=== PATIENT | female | born 1965 | race Two or more races ===

== ENCOUNTER 2020-05-11 10:17 | Outpatient (REF) | payer MEDICAID, SELFPAY | END 2020-05-11 10:18 | disposition home or self-care (01) | LOC: HO.LAB 10:17 | PROVIDERS: PCP Family Medicine; Visit Provider Internal Medicine | DX: Z20.828 Contact with and (suspected) exposure to other viral communicable diseases (principal) | CPT/HCPCS: C9803; U0003 ==

== ENCOUNTER → 2020-09-08 09:50 | Outpatient (BNVA) | payer MEDICAID, SELFPAY | PROVIDERS: PCP Family Medicine; Visit Provider Physician Assistant ==

== ENCOUNTER → 2020-09-13 08:10 | Outpatient (BNVA) | payer MEDICAID, SELFPAY | PROVIDERS: PCP Family Medicine; Visit Provider Physician Assistant ==

== ENCOUNTER 2020-09-15 08:19 | Outpatient (REF) | payer MEDICAID, SELFPAY ==
--- NOTE | ~2020-09-15 | MM_ITS ---
EXAMINATION: MM SCREENING DIGITAL BREAST TOMOSYNTHESIS, BILATERAL CLINICAL INFORMATION: Screening. Asymptomatic. Prior bilateral reduction mammoplasty 2009. The lifetime risk of breast cancer based on the Tyrer-Cuzick Model is 14%. COMPARISON: Mammography: 05/14/2019, 05/02/2018, 04/04/2017, 02/03/2016 TECHNIQUE: Digital breast tomosynthesis is performed in both the craniocaudal and mediolateral oblique views along with computer-aided detection (CAD). Synthesized 2D images are generated from the tomosynthesis. FINDINGS: There are scattered areas of fibroglandular density (ACR BI-RADS breast composition Category b). There are no significant masses, abnormal calcifications, or other abnormalities. Parenchymal pattern is similar to prior studies. No developing density. The skin contours are smooth. MM/MM tomosynthesis screening BI IMPRESSION: No mammographic evidence of malignancy. ASSESSMENT: BI-RADS 1: Negative RECOMMENDATION: Routine annual mammography screening. This patient's information was entered into a reminder system with a target due date for their next mammogram.
== END 2020-09-15 08:20 | disposition home or self-care (01) ==
LOC: HO.MAMMO 08:19
PROVIDERS: PCP Family Medicine; Visit Provider Family Medicine
DX: Z12.31 Encounter for screening mammogram for malignant neoplasm of breast (principal)
CPT/HCPCS: 77063; 77067

== ENCOUNTER 2020-09-26 11:59 | Outpatient (REF) | payer MEDICAID, SELFPAY ==
[2020-09-26 12:30] LABS: COVID-19 Test Negative (Negative); IDNOW Serial# 55D5AD1C
== END 2020-09-26 12:00 | disposition home or self-care (01) ==
LOC: HO.LAB 11:59
PROVIDERS: Visit Provider Internal Medicine
DX: Z20.822 Contact with and (suspected) exposure to COVID-19 (principal)
CPT/HCPCS: 36415; 87635; C9803

== ENCOUNTER 2021-10-27 06:56 | Outpatient (REF) | payer MEDICAID, SELFPAY ==
--- NOTE | ~2021-10-27 | XR_ITS ---
EXAMINATION: XR BILATERAL HIPS CLINICAL INFORMATION: Bilateral hip pain COMPARISON: Radiographs left hip 02/01/2012. TECHNIQUE: Each hip is imaged in AP and frog-lateral projections. There are total of 4 views. FINDINGS: Normal bony mineralization. No fracture, dislocation, or destructive process. No hip joint narrowing or erosive change or chondrocalcinosis. Pubis are unremarkable. Lower SI joints unremarkable. XR/XR hips LILLIAN min 3V IMPRESSION: No hip joint narrowing or erosive change.
--- NOTE | ~2021-10-27 | XR_ITS ---
EXAMINATION: XR THORACOLUMBAR SPINE CLINICAL INFORMATION: Thoracic pain COMPARISON: Chest radiographs 12/25/2017, GI series 12/25/2017 TECHNIQUE: Thoracic spine is imaged in 3 views. FINDINGS: There is normal thoracic segmentation with 12 rib-bearing thoracic vertebrae of normal height and normal thoracic kyphosis. There are mild degenerative disc changes again noted lower thoracic spine with anterior bridging osteophyte T8-T9. There are no erosive changes. No vertebral compression, spondylolisthesis, destructive process, or paraspinal soft tissue swelling. There are surgical clips epigastrium consistent with prior gastric sleeve. Bowel gas unremarkable. XR/XR thoracic spine 2V IMPRESSION: -No vertebral compression, spondylolisthesis, destructive process. -Mild degenerative disc changes lower thoracic spine.
== END 2021-10-27 06:57 | disposition home or self-care (01) ==
LOC: HO.XRAY 06:56
PROVIDERS: PCP Family Medicine; Visit Provider Family Medicine
DX: M25.551 Pain in right hip (principal); M25.552 Pain in left hip; M54.6 Pain in thoracic spine
CPT/HCPCS: 72070; 73522

== ENCOUNTER 2022-08-09 14:08 | Outpatient (REF) | payer MEDICAID, SELFPAY ==
--- NOTE | ~2022-08-09 | MM_ITS ---
EXAMINATION: MM SCREENING DIGITAL BREAST TOMOSYNTHESIS, BILATERAL CLINICAL INFORMATION: Screening. Asymptomatic. Status post reduction mammoplasty. The lifetime risk of breast cancer based on the Tyrer-Cuzick Model is 16.6%. COMPARISON: Mammography: September 15, 2020 and studies dating back to February 03, 2016 TECHNIQUE: Digital breast tomosynthesis is performed in both the craniocaudal and mediolateral oblique views along with computer-aided detection (CAD). Synthesized 2D images are generated from the tomosynthesis. FINDINGS: There are scattered areas of fibroglandular density (ACR BI-RADS breast composition Category b). There are no new significant masses, abnormal calcifications, or other abnormalities. MM/MM tomosynthesis screening BI IMPRESSION: No significant changes from prior exam. ASSESSMENT: BI-RADS 1: Negative RECOMMENDATION: Routine annual mammography screening. This patient's information was entered into a reminder system with a target due date for their next mammogram.
== END 2022-08-09 14:09 | disposition home or self-care (01) ==
LOC: HO.MAMMO 14:08
PROVIDERS: PCP Family Medicine; Visit Provider Family Medicine
DX: Z12.31 Encounter for screening mammogram for malignant neoplasm of breast (principal)
CPT/HCPCS: 77063; 77067

== ENCOUNTER → 2022-08-10 08:40 | Outpatient (REF) | payer MEDICAID, SELFPAY ==
--- NOTE | 2022-08-10 08:52 | ECG_ITS ---
Test Reason : qtc Blood Pressure : / mmHG Vent. Rate : 072 BPM Atrial Rate : 072 BPM P-R Int : 134 ms QRS Dur : 074 ms QT Int : 386 ms P-R-T Axes : 046 020 032 degrees QTc Int : 422 ms Normal sinus rhythm Normal ECG When compared with ECG of 25-DEC-2007 06:45, No significant change was found Referred By: Vasyl Kemp Electronically Signed By:SONIA HAUSER MD
== END ==
LOC: HO.CARD 08:40
PROVIDERS: PCP Family Medicine; Visit Provider Psychiatry & Neurology Child & Adolescent Psychiatry
DX: I45.81 Long QT syndrome (principal)
CPT/HCPCS: 93005

== ENCOUNTER 2022-09-06 10:38 | Outpatient (REF) | payer MEDICAID, SELFPAY ==
--- NOTE | ~2022-09-06 | XR_ITS ---
EXAMINATION: XR FOOT, RIGHT CLINICAL INFORMATION: Right heel pain. COMPARISON: None available. TECHNIQUE: AP, lateral, and oblique views of the right foot. FINDINGS: There is no evidence of acute fracture or dislocation of the right foot. Right foot joint spaces are maintained. There is a plantar calcaneal spur present. XR/XR foot RT min 3V IMPRESSION: Plantar calcaneal spur.
== END 2022-09-06 10:39 | disposition home or self-care (01) ==
LOC: HO.XRAY 10:38
PROVIDERS: PCP Family Medicine; Visit Provider Family Medicine
DX: M79.671 Pain in right foot (principal)
CPT/HCPCS: 73630

== ENCOUNTER 2023-06-25 10:01 | Outpatient (REF) | payer MEDICAID, SELFPAY ==
[2023-06-25 12:03] LABS: Estimated Average Glucose 105 mg/dL; Hemoglobin A1c % 5.3 % (<6.0)
[2023-06-25 12:26] LABS: Alanine Aminotransferase 25 U/L (0-31); Albumin Level 4.1 g/dL (3.5-5.0); Alkaline Phosphatase 156 U/L (39-117); Anion Gap 12 (12-20); Aspartate Amino Transferase 23 U/L (5-31); Bilirubin Total 0.6 mg/dL (0.0-1.0); Blood Urea Nitrogen 15 mg/dL (9-16); Calcium 10.1 mg/dL (8.4-10.2); Carbon Dioxide 31 mmol/L (22-29); Chloride 104 mmol/L (96-108); Cholesterol 282 mg/dL (<200); Estimated Glomerular Filt Rate > 60; Glucose Random 79 mg/dL (60-115); HDL Cholesterol 51 mg/dL (>40); LDL Cholesterol Calculated 203 mg/dL (<100); Potassium 4.3 mmol/L (3.3-5.1); Sodium 143 mmol/L (135-145); Total Protein 7.8 g/dL (6.5-8.0); Triglycerides 140 mg/dL (<150)
[2023-06-25 13:18] LABS: Vitamin D 25-OH Total 24.2 ng/mL (>30)
[2023-06-25 13:27] LABS: Reflex LDLD? No
== END 2023-06-25 10:02 | disposition home or self-care (01) ==
LOC: HO.HHCL 10:01
PROVIDERS: Visit Provider Family Medicine
DX: E78.5 Hyperlipidemia, unspecified (principal); E55.9 Vitamin D deficiency, unspecified; R73.01 Impaired fasting glucose
CPT/HCPCS: 36415; 80053; 80061; 82306; 83036

== ENCOUNTER 2023-08-15 13:15 | Outpatient (REF) | payer MEDICAID, SELFPAY ==
--- NOTE | ~2023-08-15 | MM_ITS ---
EXAMINATION: MM SCREENING DIGITAL BREAST TOMOSYNTHESIS, BILATERAL CLINICAL INFORMATION: Screening. Asymptomatic. The patient is status post bilateral breast reduction. COMPARISON: Mammography: This study is compared with prior exams dating back to 2017. TECHNIQUE: Digital breast tomosynthesis is performed in both the craniocaudal and mediolateral oblique views along with computer-aided detection (CAD). Synthesized 2D images are generated from the tomosynthesis. FINDINGS: There are scattered areas of fibroglandular density (ACR BI-RADS breast composition Category b). There are no significant masses, abnormal calcifications, or other abnormalities. MM/MM tomosynthesis screening BI IMPRESSION: No mammographic evidence of malignancy. ASSESSMENT: BI-RADS BI-RADS 2 - Benign Findings RECOMMENDATION: Routine annual mammography screening. 1 year F/U This examination should not preclude the clinical evaluation of a suspicious palpable abnormality. This patient's information was entered into a reminder system with a target due date for their next mammogram.
== END 2023-08-15 13:16 | disposition home or self-care (01) ==
LOC: HO.MAMMO 13:15
PROVIDERS: PCP Family Medicine; Visit Provider Family Medicine
DX: Z12.31 Encounter for screening mammogram for malignant neoplasm of breast (principal)
CPT/HCPCS: 77063; 77067

== ENCOUNTER → 2023-08-15 14:15 | Outpatient (BNV) | payer MEDICAID, SELFPAY | PROVIDERS: PCP Family Medicine; Visit Provider Radiology Diagnostic Radiology | DX: Z12.31 Encounter for screening mammogram for malignant neoplasm of breast (principal) | CPT/HCPCS: 77063; 77067 ==

== ENCOUNTER 2024-03-02 10:40 | Outpatient (REF) | payer MEDICAID, SELFPAY ==
[2024-03-02 11:26] LABS: MANUAL DIFF FLAG NO
[2024-03-02 11:29] LABS: Basophils Absolute Auto 0.1 X10*3/uL (0.0-0.2); Basophils Percent Auto 0.6 % (0-2); Eosinophils Absolute Auto 0.1 X10*3/uL (0.0-0.4); Eosinophils Percent Auto 1.5 % (0-4); Hematocrit 42.7 % (37.0-47.0); Hemoglobin 13.5 g/dl (12.0-16.0); Imm Gran Abs Auto 0.05 X10*3/uL (0.00-0.03); Imm Gran Pct Auto 0.6 % (0.0-0.4); Lymphocytes Absolute Auto 2.6 X10*3/uL (1.2-4.9); Lymphocytes Percent Auto 30.6 % (20-40); Mean Corpuscular HGB Conc 31.6 g/dl (31.0-35.0); Mean Corpuscular Hemoglobin 26.6 pg (27.0-33.0); Mean Corpuscular Volume 84.1 fL (80.0-98.0); Mean Platelet Volume 11.2 fL (9.4-12.3); Monocytes Absolute Auto 0.9 X10*3/uL (0.1-1.2); Monocytes Percent Auto 10.4 % (2-11); Neutrophils Absolute Auto 4.7 x10*3/uL (2.0-8.3); Neutrophils Percent Auto 56.3 % (45-73); Platelet Count 295 X10*3/uL (160-400); Red Blood Count 5.08 X10*6/uL (4.20-5.50); Red Cell Distribution Width 14.9 % (11.0-16.0); White Blood Count 8.4 X10*3/uL (4.8-10.8)
[2024-03-02 11:45] LABS: Estimated Average Glucose 105 mg/dL; Hemoglobin A1C 117.4726 umol/L; Hemoglobin A1c % 5.3 % (<6.0)
[2024-03-02 12:20] LABS: Alanine Aminotransferase 16 U/L (0-31); Alkaline Phosphatase 129 U/L (39-117); Anion Gap 11 (12-20); Aspartate Amino Transferase 19 U/L (5-31); Bilirubin Total 0.8 mg/dL (0.0-1.0); Blood Urea Nitrogen 11 mg/dL (9-16); Calcium 9.9 mg/dL (8.4-10.2); Carbon Dioxide 28 mmol/L (22-29); Chloride 109 mmol/L (96-108); Cholesterol 253 mg/dL (<200); Estimated Glomerular Filt Rate > 60; Glucose Random 84 mg/dL (60-115); HDL Cholesterol 50 mg/dL (>40); LDL Cholesterol Calculated 168 mg/dL (<100); Potassium 4.2 mmol/L (3.3-5.1); Sodium 144 mmol/L (135-145); Total Protein 7.2 g/dL (6.5-8.0); Triglycerides 179 mg/dL (<150)
[2024-03-02 12:23] LABS: Syphilis Screen Nonreactive (Nonreactive)
[2024-03-02 12:25] LABS: TSH reflex Free T4 1.06 uIU/mL (0.32-4.0)
[2024-03-02 12:36] LABS: Folate 10.1 ng/mL (> or = 4.0); Vitamin B12 435 pg/mL (200-900)
[2024-03-02 12:44] LABS: Reflex LDLD? No
== END 2024-03-02 10:41 | disposition home or self-care (01) ==
LOC: HO.HHCL 10:40
PROVIDERS: Visit Provider Family Medicine
DX: E78.5 Hyperlipidemia, unspecified (principal); E66.09 Other obesity due to excess calories; Z68.37 Body mass index [BMI] 37.0-37.9, adult; R73.01 Impaired fasting glucose; R20.2 Paresthesia of skin; R42 Dizziness and giddiness
CPT/HCPCS: 36415; 80053; 80061; 82607; 82746; 83036; 84443; 85025; 86780

== ENCOUNTER 2024-03-02 12:00 | Outpatient (RCR) | payer MEDICAID, SELFPAY | END 2024-03-17 09:55 | disposition home or self-care (01) | LOC: HO.PT 12:00 | PROVIDERS: PCP Family Medicine; Visit Provider Physician Assistant Surgical | DX: M70.61 Trochanteric bursitis, right hip (principal); M70.62 Trochanteric bursitis, left hip | CPT/HCPCS: 97110; 97161; 97530 ==

== ENCOUNTER 2024-03-17 14:28 | Outpatient (REF) | payer MEDICAID, SELFPAY ==
--- NOTE | ~2024-03-17 | US_ITS ---
EXAMINATION: ULTRASOUND SOFT TISSUES LEFT THIGH CLINICAL INFORMATION: Palpable lump in the mid anterior left thigh. COMPARISON: None available. TECHNIQUE: Using a linear array transducer with grayscale and color modalities, ultrasound examination is performed of the anterior left thigh soft tissues. FINDINGS: Corresponding with the palpable finding in the anterior mid left thigh, a 3.6 x 1.3 x 2.5 cm heterogeneously hypoechoic, circumscribed mass is seen. This shows mild associated color Doppler flow and no change in through-sound transmission. No fluid collection is seen. There is no lymphadenopathy. No foreign body is seen. US/US extremity nonvascular IMPRESSION: Within the anterior mid left thigh subcutaneous layer, corresponding with the palpable finding, a 3.6 cm circumscribed, heterogeneously hypoechoic mass is seen. The possibility of a lipoma is raised; the exact etiology is indeterminate. If of continued clinical concern, this can be further evaluated with MRI. Electronically signed by: Eduardo Mello MD 04/22/2024 11:08 AM [facility]
== END 2024-03-17 14:29 | disposition home or self-care (01) ==
LOC: HO.US 14:28
PROVIDERS: PCP Family Medicine; Visit Provider Family Medicine
DX: R22.42 Localized swelling, mass and lump, left lower limb (principal)
CPT/HCPCS: 76882

== ENCOUNTER → 2024-04-06 08:25 | Outpatient (BNV) | payer MEDICAID, SELFPAY | PROVIDERS: PCP Family Medicine; Visit Provider Radiology Diagnostic Radiology | DX: R42 Dizziness and giddiness (principal) | CPT/HCPCS: 70553 ==

== ENCOUNTER 2024-04-06 08:28 | Outpatient (REF) | payer MEDICAID, SELFPAY ==
--- NOTE | ~2024-04-06 | MR_ITS ---
EXAMINATION: MR BRAIN WITHOUT AND WITH CONTRAST CLINICAL INFORMATION: Dizziness. Off balance COMPARISON: MRI brain dated December 25, 2007 is not available on PACS. Collated with its report. TECHNIQUE: Multiplanar, multisequence MRI of the brain was obtained before and after the intravenous administration of 8.5 mL gadolinium (Gadavist) without reported immediate complications. FINDINGS: No restricted diffusion. There is an extra-axial intrinsic hyperintense T1 slightly enhancing nonrestricted and susceptibility signal center and the inner table and deep-lying of the right frontal bone convexity without mass effect or perilesional vasogenic edema. Multifocal, nonspecific, scattered, nonenhancing no restricted diffusion deep periventricular white matter hyperintense T1 and T2 signal, supratentorial compartment of the centrum semiovale and monson radiata. No acute intracranial hemorrhage, mass effect, midline shift, hydrocephalus or herniation. Grade 1 matter differentiation is normal. Posterior cranial fossa contents demonstrated no acute intracranial hemorrhage or mass effect. Sellar/suprasellar region is normal. Craniocervical junction is intact and normal. 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 No specific T2 FLAIR signal foci. No acute stroke/nonhemorrhagic ischemia. Electronically signed by: Juliano Urbina MD 04/06/2024 03:26 PM EDT
[2024-04-06] MEDS: gadobutroL 10 ML VIAL IVPUSH (09:25)
== END 2024-04-06 08:29 | disposition home or self-care (01) ==
LOC: HO.MRI 08:28
PROVIDERS: PCP Family Medicine; Visit Provider Family Medicine
DX: R20.2 Paresthesia of skin (principal); R51.9 Headache, unspecified; R32 Unspecified urinary incontinence; R42 Dizziness and giddiness
CPT/HCPCS: 70553; A9585

== ENCOUNTER → 2024-04-12 19:30 | Outpatient (REF) | payer MEDICAID, SELFPAY | LOC: HO.SL 19:30 | PROVIDERS: PCP Family Medicine; Visit Provider Family Medicine | DX: Z13.89 Encounter for screening for other disorder (principal) ==

== ENCOUNTER 2024-06-18 11:40 | Emergency (ER) | payer MEDICAID, SELFPAY ==
--- NOTE | ~2024-06-18 | XR_ITS ---
EXAMINATION: XR CHEST CLINICAL INFORMATION: cp COMPARISON: None available. TECHNIQUE: 2 views of the chest were obtained. FINDINGS: The cardiac, hilar, and mediastinal contours are normal. The lungs are clear bilaterally. There is no pneumothorax or pleural effusion. There are numerous epigastric surgical clips present. Osseous structures demonstrate mild spinal degenerative changes. XR/XR chest 2V IMPRESSION: No active pulmonary disease. Electronically signed by: Fermin Carter MD 06/18/2024 01:05 PM MIMI
[2024-06-18 11:58] VITALS: BP 123/73; PULSE 68; O2SAT 99
[2024-06-18 12:20] VITALS: BP 132/66; PULSE 62; RESP 18; TEMP 36.4; O2SAT 99; BMI 34.6
--- NOTE | 2024-06-18 12:24 | ECG_ITS ---
Test Reason : CP Blood Pressure : */* mmHG Vent. Rate : 60 BPM Atrial Rate : 60 BPM P-R Int : 122 ms QRS Dur : 76 ms QT Int : 384 ms P-R-T Axes : 15 -16 7 degrees QTcB Int : 384 ms Normal sinus rhythm Minimal voltage criteria for LVH, may be normal variant ( R in aVL ) Borderline ECG When compared with ECG of 10-Aug-2022 09:00, Inverted T waves have replaced nonspecific T wave abnormality in Inferior leads Referred By: Lore Jackson Electronically Signed By: JENNIFER EVANGELISTA
[2024-06-18 13:11] LABS: MANUAL DIFF FLAG NO
[2024-06-18 13:12] LABS: Basophils Absolute Auto 0.1 X10*3/uL (0.0-0.2); Basophils Percent Auto 0.3 % (0-2); Eosinophils Absolute Auto 0.1 X10*3/uL (0.0-0.4); Eosinophils Percent Auto 0.5 % (0-4); Hematocrit 43.8 % (37.0-47.0); Hemoglobin 14.2 g/dl (12.0-16.0); Imm Gran Abs Auto 0.09 X10*3/uL (0.00-0.03); Imm Gran Pct Auto 0.6 % (0.0-0.4); Lymphocytes Absolute Auto 3.5 X10*3/uL (1.2-4.9); Lymphocytes Percent Auto 22.9 % (20-40); Mean Corpuscular HGB Conc 32.4 g/dl (31.0-35.0); Mean Corpuscular Hemoglobin 26.9 pg (27.0-33.0); Mean Corpuscular Volume 83.1 fL (80.0-98.0); Mean Platelet Volume 10.3 fL (9.4-12.3); Monocytes Absolute Auto 1.1 X10*3/uL (0.1-1.2); Monocytes Percent Auto 7.2 % (2-11); Neutrophils Absolute Auto 10.5 x10*3/uL (2.0-8.3); Neutrophils Percent Auto 68.5 % (45-73); Platelet Count 379 X10*3/uL (160-400); Red Blood Count 5.27 X10*6/uL (4.20-5.50); Red Cell Distribution Width 14.2 % (11.0-16.0); White Blood Count 15.3 X10*3/uL (4.8-10.8)
--- NOTE | 2024-06-18 13:19 | ED.CHESTPAIN ---
HPI - Chest Pain General Chief Complaint: Chest Pain Stated Complaint: CP,FROM WALKIN PER EMS Time Seen by Provider: 06/18/24 12:00 Source: patient, RN notes reviewed and old records reviewed Mode of arrival: ambulatory History of Present Illness ED Provider: Lore Jackson PA-C [facility] narrative: 59-year-old female with a past medical history of asthma presenting to the ED from walk-in clinic complaining of sudden onset midsternal chest pain with some radiation to back. Patient states was given [employer] with symptomatic improvement. Denies chest pain at present. Denies associated SOB, numbness, tingling, weakness, nausea, vomiting, abdominal pain Related Data Previous Rx's ?Medication ?Instructions ?Recorded pantoprazole 40 mg tablet,delayed 40 mg PO DAILY #14 tabs 07/07/20 release Allergies Allergy/AdvReac Type Severity Reaction Status Date / Time No Known Allergies Allergy Unverified 06/18/24 12:21 [No Known Allergies*] Review of Systems Review of Systems: Yes all other systems are reviewed and are negative Constitutional: Constitutional: Reports as per [facility] Past Medical History Attestation statement: The following information was validated with the patient. Source: old records reviewed Social History Social History Advance Directives: No Advance Directives Information Provided: Yes Physical Exam Vital Signs: Vital Signs: Last Vital Signs Temp 98.7 F 06/18/24 15:29 Pulse 61 06/18/24 15:29 Resp 16 06/18/24 15:29 BP 115/60 06/18/24 15:29 Pulse Ox 96 06/18/24 15:29 O2 Del Method Room Air 06/18/24 15:29 BMI result Body Mass Index 34.6 Const: General: cooperative, healthy appearing and no acute distress Orientation/consciousness: patient oriented x3 Limitations: no limitations HEENT: Head: Yes normal to inspection and Yes atraumatic Ears: hearing grossly normal bilaterally General nose exam: Normal external nose present Face and sinus: Yes normal facial exam Eyes: General: appearance normal, both eyes and all related structures EOM: EOMs intact bilaterally Neck: Neck: Yes normal visual inspection and Yes no meningeal signs Chest: Chest palpation & inspection: normal inspection of the chest, no crepitus and no tenderness Resp: Effort & Inspection: normal respiratory effort and no respiratory distress Auscultation: clear to auscultation bilaterally, no crackles and no wheezes Cardio: Rate: regular rate Heart sounds: S1 normal heart sound present and S2 normal heart sound present GI: Inspection: Yes normal to inspection Palpation (GI): Soft to palpation, nontender, no guarding and not rigid Skin: Rashes: no rashes Wounds: no wounds Neuro: General: patient oriented x3, tone normal and no meningeal signs Cranial nerves: Yes CN's II-XII intact bilaterally Gait exam (Neuro): Normal gait present Extrem: General: Yes normal to inspection, Yes no pedal edema and Yes no calf tenderness Course Course Course Narrative: XR chest 2V IMPRESSION: No active pulmonary disease. -leukocytosis of 15.3. Initial troponin negative will obtain repeat. Labs otherwise reassuring -COVID/flu/RSV negative 1630--ED care transferred to JAQUELIN Ty pending repeat troponin at 16:00 Reevaluation(s) Reevaluation #1: Patient received in sign-out at change of shift pending repeat troponin. The patient's repeat trop is still undetectable. She is stable for discharge at this time Time: 16:46 Medical Decision Making Medical Decision Making [facility] Narrative: 59-year-old female with a past medical history of asthma presenting to the ED from walk-in clinic complaining of sudden onset midsternal chest pain with some radiation to back. On exam vital signs stable, NAD, nontoxic appearing, chest pain not reproducible, lungs CTA, no pedal edema. Concern or ACS vs anxiety. Rule out pneumonia/infectious etiology. Low suspicion for dissection with resolution of symptoms. Unlikely PE/DVT or intra-abdominal pathology Plan: EKG, labs, CXR, viral testing Please refer to course for remaining clinical decision making, interpretation of labs/imaging results, and discussions with consultants and/or family members. Differential Diagnosis Differential Diagnoses: The differential diagnosis associated with the presentation includes As above Admission/Observation Consideration of admission/observation: Escalation of care including admission/observation considered Lab Data [facility] Lab Attestation statement: I reviewed the patient's lab results. 06/18/24 13:08 06/18/24 13:08 Labs: Lab Results 06/18/24 06/18/24 06/18/24 Range/Units 13:08 13:42 16:09 WBC 15.3 H (4.8-10.8) X10*3/uL RBC 5.27 (4.20-5.50) X10*6/uL Hgb 14.2 (12.0-16.0) g/dl Hct 43.8 (37.0-47.0) % MCV 83.1 (80.0-98.0) fL MCH 26.9 L (27.0-33.0) pg MCHC 32.4 (31.0-35.0) g/dl RDW 14.2 (11.0-16.0) % Plt Count 379 D (160-400) X10*3/uL MPV 10.3 (9.4-12.3) fL Immature Gran % (Auto) 0.6 H (0.0-0.4) % Neut % (Auto) 68.5 (45-73) % Lymph % (Auto) 22.9 (20-40) % [place] % (Auto) 7.2 (2-11) % Eos % (Auto) 0.5 (0-4) % Baso % (Auto) 0.3 (0-2) % Lymph # (Auto) 3.5 (1.2-4.9) X10*3/uL [place] # (Auto) 1.1 (0.1-1.2) X10*3/uL Eos # (Auto) 0.1 (0.0-0.4) X10*3/uL Baso # (Auto) 0.1 (0.0-0.2) X10*3/uL Abs Immat Gran (auto) 0.09 H (0.00-0.03) X10*3/uL Absolute Neuts (auto) 10.5 H (2.0-8.3) x10*3/uL Absolute Nucleated RBC 0.000 (0.0-0.012) X10*3/uL Nucleated RBC % (auto) 0.0 (0.0-0.2) /100WBC PT 11.9 (10.9-12.4) SEC INR 1.0 (0.9-1.1) Sodium 142 (135-145) mmol/L Potassium 4.1 (3.3-5.1) mmol/L Chloride 105 (96-108) mmol/L Carbon Dioxide 29 (22-29) mmol/L Anion Gap 12 (12-20) BUN 15 (9-16) mg/dL Creatinine 0.70 (0.5-1.4) mg/dL Estim Creat Clear Calc 92.5 Estimated GFR > 60 Random Glucose 89 (60-115) mg/dL Calcium 9.9 (8.4-10.2) mg/dL Magnesium 2.1 (1.6-2.6) mg/dL Total Bilirubin 1.0 (0.0-1.0) mg/dL Direct Bilirubin 0.3 (0.0-0.5) mg/dL AST 18 (5-31) U/L ALT 12 (0-31) U/L Alkaline Phosphatase 146 H (39-117) U/L Troponin I High Sens < 2.7 < 2.7 (<3.5-17.0) ng/L Total Protein 7.2 (6.5-8.0) g/dL Albumin 3.9 (3.5-5.0) g/dL Influenza Type A (PCR) NEGATIVE (Negative) Influenza Type B (PCR) NEGATIVE (Negative) RSV RNA Qual (PCR) NEGATIVE (Negative) SARS-CoV-2 RNA (RT-PCR) NEGATIVE (Negative) Independent Interpretation I performed an independent interpretation of an: EKG (My interpretation EKG normal sinus rhythm rate of 60. CT interval 122. When compared to prior inverted T-waves have replaced nonspecific T-wave abnormality. No STEMI) Radiology Impression Discussion of test interpretation with radiology: I have reviewed the radiologist's reading. Independent Historian Clinical information obtained from an independent historian. History obtained from or confirmed by: EMS External Record Review External record reviewed: Inpatient record, Office record, Outpatient record, Prior outpatient labs, Prior outpatient radiology, Primary care record and Outside ED record Tests considered The following testing was considered but not selected: As above Prescription Management I considered prescription management with: Other Chronic Conditions Patient?s care impacted by: Other (Asthma) Social Determinants Patient?s care significantly limited by Social Determinants of Health including: Other Social Determinant of Health Discharge Plan Discharge Clinical Impression: Chest pain Patient Disposition: Home, Self-Care Instructions: Chest Pain (DC) Additional Instructions: Your blood work and x-ray are reassuring You tested negative for COVID, flu, RSV Please have close follow-up with your doctor as well as Cardiology If her symptoms persist or worsen you develop constant worsening chest pain, shortness breath return to the ED Prescriptions: No Action pantoprazole 40 mg tablet,delayed release (DR/EC) 40 mg PO DAILY Qty: 14 0RF Referrals: [facility] [Provider Group] Celine Aldana MD [Primary Care Provider] - Print Language: Pakistani
[2024-06-18 13:27] LABS: Prothrombin Time 11.9 SEC (10.9-12.4)
[2024-06-18 13:28] LABS: Alanine Aminotransferase 12 U/L (0-31); Albumin Level 3.9 g/dL (3.5-5.0); Alkaline Phosphatase 146 U/L (39-117); Anion Gap 12 (12-20); Aspartate Amino Transferase 18 U/L (5-31); Bilirubin Direct 0.3 mg/dL (0.0-0.5); Blood Urea Nitrogen 15 mg/dL (9-16); Calcium 9.9 mg/dL (8.4-10.2); Carbon Dioxide 29 mmol/L (22-29); Chloride 105 mmol/L (96-108); Creatinine Clr Calc Pharmacy 92.5; Estimated Glomerular Filt Rate > 60; Glucose Random 89 mg/dL (60-115); Magnesium 2.1 mg/dL (1.6-2.6); Potassium 4.1 mmol/L (3.3-5.1); Sodium 142 mmol/L (135-145); Total Protein 7.2 g/dL (6.5-8.0)
[2024-06-18 13:38] LABS: Troponin-I High Sensitivity < 2.7 ng/L (<3.5-17.0)
[2024-06-18 14:29] LABS: Influenza A PCR NEGATIVE (Negative); Influenza B PCR NEGATIVE (Negative); Resp Syncy Virus RNA Qual PCR NEGATIVE (Negative); SARS COV2 PCR INHOUSE NEGATIVE (Negative)
[2024-06-18 15:29] VITALS: BP 115/60; PULSE 61; RESP 16; TEMP 37.1; O2SAT 96
[2024-06-18 16:36] LABS: Troponin-I High Sensitivity < 2.7 ng/L (<3.5-17.0)
== END 2024-06-18 16:57 | disposition home or self-care (01) ==
PROVIDERS: Physician Assistant; Emergency Provider Emergency Medicine; PCP Family Medicine
DX: R07.9 Chest pain, unspecified (principal); J45.909 Unspecified asthma, uncomplicated; Z03.818 Encounter for observation for suspected exposure to other biological agents ruled out; Z79.899 Other long term (current) drug therapy
CPT/HCPCS: 0241U; 36415; 71046; 80048; 80076; 83735; 84484; 85025; 85610; 93005; 99283

== ENCOUNTER → 2024-06-18 12:24 | Outpatient (BNV) | payer MEDICAID, SELFPAY | PROVIDERS: PCP Family Medicine; Visit Provider Internal Medicine | DX: R07.9 Chest pain, unspecified (principal) | CPT/HCPCS: 93010 ==

== ENCOUNTER → 2024-06-18 12:24 | Outpatient (BNV) | payer MEDICAID, SELFPAY | PROVIDERS: Emergency Provider Emergency Medicine; PCP Family Medicine; Visit Provider Radiology Diagnostic Radiology | DX: R07.9 Chest pain, unspecified (principal) | CPT/HCPCS: 71046 ==

== ENCOUNTER 2024-08-20 13:19 | Outpatient (REF) | payer MEDICAID, SELFPAY ==
--- OUTSIDE RECORDS SUMMARY | 2024-08-20 16:53 | XMS_ITS | Encounter Summary ---
Author Organization [facility] Address [address] [place] [address] 7 [place] [address] Care Team Providers Care Workforce Investment Act Career Manager Name Role Phone Celine Aldana MD Primary Care Provider [phone] Encounter Details Date Type Department Care Team (Late st Contact Info) Description 02/20/2023 Orders Only [facility] [address] [place] [address] [phone] Celine Aldana MD [address] [place] [address] [phone] Pain of both heels (Primary Dx) Social History Tobacco Use Types Packs/Day Years Used Date Smoking Tobacco: Never Passive Smoke Exposure: Never Smokeless Tobacco: Never Depression Answer Date Recorded Patient Health Questionnaire-9 Score 0 07/18/2022 Depression Answer Date Recorded Patient Health Questionnaire-2 Score 0 07/18/2022 Comments Unknown Sex and Gender Information Value Date Recorded Sex Assigned at Female 04/09/2022 10:20 AM EDT Legal Sex Female 10:20 AM EDT Gender Identity Female 04/09/2022 10:20 AM EDT Sexual Orientation Straight 04/09/2022 10 :20 AM EDT documented as of this encounter Plan of Treatment Upcoming Encounters Date Type Department Care Team (Late st Contact Info) Description 10/13/2024 9:15 AM EDT Office Visit [facility] [address] [place] [address] [phone] Celine Aldana MD [address] [place] [address] [phone] 02/05/2025 1:00 PM EDT Office Visit [facility] [address] [place], [place] [phone] Dayana Alarcon [address] [place], [place] [phone] documented as of this encounter Visit Diagnoses Diagnosis Pain of both heels- Primary documented in this encounter Additional Health Concerns Assessment Noted Time PHQ-9 Depression Total Score: 0 07/18/19 23 9:47 AM EST documented as of this encounter Care Teams Workforce Investment Act Career Manager Relationship Specialty Start Date End Date Celine Aldana MD [address] [place], [place] [phone] PCP - General Family Medicine 06/10/18 documented as of this encounter
--- OUTSIDE RECORDS SUMMARY | 2024-08-20 16:53 | XMS_ITS | Encounter Summary ---
Author Organization [employer] [facility] Address [address] [facility] [address] [place] [address] Care Team Providers Care P D Driver Name Role Phone Celine Aldana MD Primary Care Provider [phone] Encounter Details Date Type Department Care Team (Late st Contact Info) Description 04/03/2023 Abstract [facility] [address] [place], [place] [phone] Dayana Alarcon [address] [place], [place] [phone] Social History Tobacco Use Types Packs/Day Years Used Date Smoking Tobacco: Never Passive Smoke Exposure: Never Smokeless Tobacco: Never Depression Answer Date Recorded Patient Health Questionnaire-9 Score 0 07/18/2022 Housing Stability Answer Date Recorded What is your housing situation today? I have raina mcknight 04/03/[address] you li ve. Do you have problems with any of the following? None of the above 04/03/2023 Food Insecurity Answer Date Recorded Within the past 12 months, y ou worried that your food would run out before you got money to buy more: Never True 04/03/2023 Within the past 12 months,th e food you bought just didn't last and you didn't have enough money to get more: Never True Transportation Answer Date Recorded In the past 12 months, has l ack of transportation kept you from medical appts, meetings, work or from getting things needed for daily living? No 04/03/2023 Utilities Answer Date Recorded In the past 12 months, has t he electric, gas, oil or water company threatened to shut off services in your home? No 04/03/2023 Depression Answer Date Recorded Patient Health Questionnaire-2 [...] Description 10/13/2024 9:15 AM EDT Office Visit [facility] [address] [place] [address] Celine Aldana MD [address] [place] [address] 02/05/2025 1:00 PM EDT Office Visit [facility] [address] [place] [address] Agnes, Dayana [address] [place] [phone] documented as of this encounter Visit Diagnoses Not on filedocumented in this encounter Additional Health Concerns Assessment Noted Time PHQ-9 Depression Total Score: 0 07/18/19 23 9:47 AM EST documented as of this encounter Care Teams P D Driver Relationship Specialty Start Date End Date Celine Aldana MD [address] [place] [phone] PCP - General Family Medicine 06/10/18 documented as of this encounter
--- OUTSIDE RECORDS SUMMARY | 2024-08-20 16:53 | XMS_ITS | Encounter Summary ---
Author Organization [employer] [facility] Address [address] [place] [address] [address] [place] [address] Care Team Providers Care Irrigation Service Technician Name Role Phone Celine Aldana MD Primary Care Provider [phone] Encounter Details Date Type Department Care Team (Latest Contact Info) Description 08/02/2020 Abstract [facility] CONVERSION[facility] Dental, Provider, DDS Social History Tobacco Use Types Packs/Day Years Used Date Smoking Tobacco: Never Assessed Comments Unknown Sex and Gender Information Value [...] Description 10/13/2024 9:15 AM EDT Office Visit [facility] [address] [place] [address] Celine Aldana MD [address] [place] [address] 02/05/2025 1:00 PM EDT Office Visit [facility] ADULT D[facility] [address] [place] [address] Dayana Alarcon [address] [place] [address] documented as of this encounter Visit Diagnoses Not on filedocumented in this encounter Care Teams Irrigation Service Technician Relationship Specialty Start Date End Date Celine Aldana MD [address] [place] [address] PCP - General Family Medicine 06/10/18 documented as of this encounter
--- OUTSIDE RECORDS SUMMARY | 2024-08-20 16:53 | XMS_ITS | Encounter Summary ---
Author Organization [employer] [facility] Address [address] [facility] [address] [place] [address] Care Team Providers Care Solar Field Service Technician Name Role Phone Celine Aldana MD Primary Care Provider [phone] Reason for Referral * Consultation (Routine) - Closed Specialty Diagnoses / Procedures Referred By Contac t Referred To Contact Neurosurgery Diagnoses Meningioma (CMS/HCC) Celine Aldana MD [address] [place] [address] Phone: tel: fax: Neurosurgery, [address] [place], [place] Phone: tel: fax: Referral ID Status Reason Start Date Expiration Date V isits Requested Visits Authorized [id number] Closed Specialty Services Required 04/24/2024 04/24/2025 10 10 Encounter Details Date Type Department Care Team (Late st Contact Info) Description 04/21/2024 Orders Only [facility] MEDICINE [address] [place] [address] Celine Aldana MD [address] [place] [address] Meningioma (CMS/HCC) (Primary Dx) Social History Tobacco Use Types Packs/Day Years Used Date Smoking Tobacco: Never Passive Smoke Exposure: Never Smokeless Tobacco: Never Depression Answer Date Recorded Patient Health Questionnaire-9 Score 7 03/02/2024 Patient Health Questionnaire-9 Score 7 03/02/2024 Last PHQ-9: Questionnaire Data Not on file 0 03/02/2024 Housing Stability Answer Date Recorded What is your housing situation today? I have raina mcknight 03/02/[address] you li ve. Do you have problems with any of the following? None of the above 03/02/2024 Food Insecurity Answer Date Recorded Within the past 12 months, y ou worried that your food would run out before you got money to buy more: Never True 03/02/2024 Within the past 12 months,th e food you bought just didn't last and you didn't have enough money to get more: Never True Transportation Answer Date Recorded In the past 12 months, has l ack of transportation kept you from medical appts, meetings, work or from getting things needed for daily living? No 03/02/2024 Utilities Answer Date Recorded In the past 12 months, has t he electric, gas, oil or water company threatened to shut off services in your home? No 03/02/2024 Depression Answer Date Recorded Patient Health Questionnaire-2 Score 2 03/02/2024 Internet Access Answer Date Recorded Internet Access Q1 Yes 03/02/2024 Internet Access Q2 Not on file 03/02/2024 Comments Unknown Sex and Gender Information Value [...] Description 10/13/2024 9:15 AM EDT Office Visit [facility] MEDICINE [address] [place] [address] Celine Aldana MD [address] [place] [address] 02/05/2025 1:00 PM EDT Office Visit [facility] ADULT DENTAL [address] [place] [address] Dayana Alarcon [address] [place] [address] Scheduled Referrals Name Type Priority Associated Diagnoses Order Schedule Referral to Neurosurgery Outpatient Referral Routine Meningioma (CMS/HCC) Expected: 04/21/2024 (Approximate), Expires: 04/21/2025 documented as of this encounter Visit Diagnoses Diagnosis Meningioma (CMS/HCC)- Primary Benign neoplasm of cerebral meninges documented in this encounter Additional Health Concerns Assessment Noted Time PHQ-9 Depression Total Score: 7 03/02/20 24 9:35 AM EDT documented as of this encounter Care Teams Solar Field Service Technician Relationship Specialty Start Date End Date Celine Aldana MD [address] [place] [address] PCP - General Family Medicine 06/10/18 documented as of this encounter
--- OUTSIDE RECORDS SUMMARY | 2024-08-20 16:53 | XMS_ITS | Encounter Summary ---
Author Organization [employer] [facility] Address [address] [facility] 7[address] [place] [address] Care Team Providers Care Animal Husbandry Technician Name Role Phone Celine Aldana MD Primary Care Provider [phone] Reason for Referral * Consultation (Routine) - Canceled Specialty Diagnoses / Procedures Referred By Contac t Referred To Contact Neurology Diagnoses Dizziness Celine Aldana MD [address] [place] [address] Phone: tel: fax: [facility] Neurology [address] [place] [address] Phone: tel: fax: Referral ID Status Reason Start Date Expiration Date Visits Requested Visits Authorized [id number] Canceled Specialty Services Required 04/09/2024 04/09/2025 6 6 Encounter Details Date Type Department Care Team (Late st Contact Info) Description 04/09/2024 Orders Only [facility] MEDICINE [address] [place], [place] [phone] Celine Aldana MD [address], [place] [phone] Dizziness (Primary Dx) Social History Tobacco Use Types [...] Description 10/13/2024 9:15 AM EDT Office Visit [facility] MEDICINE [address] [place] [address] Celine Aldana MD [address] [place] [address] 02/05/2025 1:00 PM EDT Office Visit [facility] ADULT DENTAL [address] [place] [address] Dayana Alarcon [address] [place] [address] Scheduled Referrals Name Type Priority Associated Diagnoses Orde r Schedule Referral to Neurology Outpatient Referral Routine Dizziness Expected: 04/09/2024 (Approximate), Expires: 04/09/2025 documented as of this encounter Visit Diagnoses Diagnosis Dizziness- Primary Dizziness and giddiness documented in this encounter Additional Health Concerns Assessment Noted Time PHQ-9 Depression Total Score: 7 03/02/20 24 9:35 AM EDT documented as of this encounter Care Teams Animal Husbandry Technician Relationship Specialty Start Date End Date Celine Aldana MD [address] [place] [id number] PCP - General Family Medicine 06/10/18 documented as of this encounter
--- OUTSIDE RECORDS SUMMARY | 2024-08-20 16:53 | XMS_ITS | Clinical Summary ---
Author Organization [employer] Address [address] [facility] [address] [place] [address] Care Team Providers Care Scientific Writer Name Role Phone Celine Aldana MD Primary Care Provider [phone] Allergies No known active allergies Medications cholecalciferol (Vitamin D-3) 25 MCG tablet Take 25 mcg by mouth in the morning. 2 Active clonazePAM (KlonoPIN) 0.5 MG tablet Take 0.5 mg by mouth at bedtime. 3 Active Cyanocobalamin (Vitamin B-12) 500 MCG sublingual tablet TAKE 1 TABLET UNDER THE TONGUE EVERY DAY 2 Active Deep Sea Nasal [place] 0.65 % nasal spray INSTILL 1-2 SPRAYS IN EACH NOSTRIL EVERY 2 TO 3 HOURS NEEDED FOR NASAL CONGESTION 2 Active albuterol (Ventolin HFA) 108 (90 Base) MCG/ACT inhaler INHALE 2 PUFFS BY MOUTH EVERY 4 TO 6 HOURS NEEDED (for asthma) 18 g 3 4 Active Spacer/Aero-Hold ing Chambers (OptiChamber Marian) misc 1 each every 4 (four) hours if needed (asthma). 1 each 4 Active pantoprazole (ProtoNix) 40 MG EC tablet TAKE 1 TABLET BY MOUTH EVERY DAY 90 tablet 3 4 Active busPIRone (Buspar) 7.5 MG tablet Take 7.5 mg by mouth 2 times daily. 4 Active cetirizine (ZyrTEC) 10 MG tabletIndication s:Allergic rhinitis, unspecified seasonality, unspecified trigger TAKE 1 TABLET BY MOUTH EVERY DAY IN THE MORNING 90 tablet 2 4 Active Tirzepatide-Weig ht Management (Zepbound) 2.5 MG/0.5ML solution auto-injectorInd ications:Class 2 obesity due to excess calories without serious comorbidity with body mass index (BMI) of 39.0 to 39.9 in adult Inject 0.5 mL (2.5 mg) under the skin 1 (one) time per week. 2 mL 11 5 Active Active Problems Problem Noted Date Diagnosed Date Headache 03/02/2024 Assessment & Plan (06/22/2024 6:13 AM EST): - MRI on 04/06/24, a finding in right frontal lobe, with a question of meningioma. - seen by neurosurgeon Dr. Oseguera on 05/12/24, and was given reassurance. Follow up in 1 year. - normal sleep study in Apr 2024 - Improving symptom; likely related to the situation patient had in February (illness in family) Assessment & Plan (03/02/2024 11:58 AM EDT): - new onset - associated condition: nausea, vomiting, urinary incontinence, balance problem, and dizziness - evaluate with MRI Balance problem 03/02/2024 Assessment & Plan (03/02/2024 12:19 PM EDT): - MRI Mass of left thigh 03/02/2024 Assessment & Plan (03/02/2024 12:15 PM EDT): - likely benign, but it is increasing in size and painful. Patient would like to have an excisional biopsy - will order US, then referral Sleep disturbance 03/02/2024 Assessment & Plan (06/22/2024 6:12 AM EST): - sleep study in 2017 showed mild degree of MEKA, total sleep time AHI 6. She had sleeve gastrectomy in 2018. Loud snoring was noted during the study. - sleep study on 04/12/24 showed no MEKA Assessment & Plan (03/02/2024 12:12 PM EDT): - sleep study in 2017 showed mild degree of MEKA, total sleep time AHI 6. She had sleeve gastrectomy in 2018. Loud snoring was noted during the study. - will consider repeating sleep study if MRI is normal Paresthesia 03/02/2024 Crowded teeth 01/31/2024 Abfraction 01/31/2024 Extruded tooth 01/31/2024 Bilateral hip pain 06/25/2023 Assessment & Plan (03/02/2024 12:17 PM EDT): - greater trochanteric bursitis, possible osteoarthritis - continue stretching exercise at home - seen by [facility] provider in Jul 2023, received steroid injection for trochanteric bursitis which improved both hip and heel pain - receiving PT Assessment & Plan (06/29/2023 6:53 PM EST): - likely trochanteric bursitis, possible osteoarthritis - recommended stretching exercise at home - patient would like to be evaluated by orthopedist; will refer to [facility] Missing teeth, acquired 05/13/2023 Dental calculus 03/12/2023 Periodontal disease 03/12/2023 Generalized gingival recession 03/12/2023 Health care maintenance 12/11/2022 Assessment & Plan (12/11/2022 10:02 AM EDT): - Bone health: Average risk for osteoporosis; Continue adequate calcium intake and weight bearing exercise; DEXA at the recommended age per guideline - Cancer screening: --Breast: Higher risk due to family hx; last mammo in August 2022, normal --Cervical: S/p hysterectomy for non-malignant indication --Colon: normal colonoscopy in May 2014, next due in 2023 --Skin: sun protection; no suspicious lesion currently - IZ reviewed - IPV screen negative - Dental care appropriate; continue - Mental / Behavioral health: Connected with [facility] History of bariatric surgery 12/11/2022 Assessment & Plan (06/22/2024 6:14 AM EST): -12/24/17 [place]-gastroscopy, laparoscopic lysis of adhesions, laparoscopic sleeve gastrectomy and laparoscopic gastropexy -pt has been instructed to minimize NSAIDs use and take nutritional supplement by the specialist -patient is interested in GLP1RA; will try -discussed about the importance of healthy weight management with adequate nutrition and exercise Assessment & Plan (03/02/2024 12:13 PM EDT): -12/24/17 [place]go-gastroscopy, laparoscopic lysis of adhesions, laparoscopic sleeve gastrectomy and laparoscopic gastropexy -pt has been instructed to minimize NSAIDs use and take nutritional supplement by the specialist -consider GLP-1 RA if patient is interested Assessment & Plan (06/29/2023 6:55 PM EST): -12/24/17 [place]go-gastroscopy, laparoscopic lysis of adhesions, laparoscopic sleeve gastrectomy and laparoscopic gastropexy -pt has been instructed to minimize NSAIDs use and take nutritional supplement by the specialist Assessment & Plan (12/11/2022 10:06 AM EDT): -12/24/17 [place]go-gastroscopy, laparoscopic lysis of adhesions, laparoscopic sleeve gastrectomy and laparoscopic gastropexy -pt has been instructed to minimize NSAIDs use and take nutritional supplement by the specialist Dermatofibroma 12/11/2022 Plantar fasciitis 12/11/2022 Assessment & Plan (03/02/2024 12:14 PM EDT): - continue comfortable shoes, stretching exercise, and judicious use of NSAIDs GERD (gastroesophageal reflux disease) Assessment & Plan (06/22/2024 6:17 AM EST): -continue pantoprazole -lifestyle modification -minimize NSAIDs use Assessment & Plan (03/02/2024 12:13 PM EDT): -continue pantoprazole -lifestyle modification -minimize NSAIDs use Assessment & Plan (12/10/2022 9:39 AM EDT): -continue pantoprazole -lifestyle modification -minimize NSAIDs use Assessment & Plan (07/28/2022 6:20 AM EST): -continue pantoprazole -lifestyle modification -minimize NSAIDs use Major depressive disorder, recurrent episode, mo derate 07/18/2022 Assessment & Plan (12/11/2022 10:04 AM EDT): -prolonged grief about her mothers passing -continue current treatment as per counselor -continue current treatment per behavioral health care provider -continue sertraline and clonazepam - she was able to contract her safety today Assessment & Plan (07/18/2022 10:04 AM EST): -prolonged grieve about her mother -referred to counseling service and has upcoming appt with her counselor -continue current treatment per behavioral health care provider -not on medication at this time Pain of both heels 07/18/2022 Assessment & Plan (06/29/2023 6:54 PM EST): -Hx plantar fasciitis -s/p left foot plantar fasciotomy -currently having right foot / heel pain -refer to Dr. Grossman / [facility] Assessment & Plan (12/11/2022 10:07 AM EDT): -Hx plantar fasciitis -s/p left foot plantar fasciotomy -currently having right foot / heel pain -refer to another oiling machine operator Assessment & Plan (07/28/2022 6:29 AM EST): -Hx plantar fasciitis -s/p left foot plantar fasciotomy -currently having right foot / heel pain -refer to oiling machine operator Chronic back pain 07/09/2016 Assessment & Plan (03/02/2024 12:18 PM EDT): Right-Sided Thoracic pain -xray showed mild degenerative disease -continue PT and HEP Assessment & Plan (07/18/2022 10:05 AM EST): Right-Sided Thoracic pain -xray showed mild degenerative disease -pt was referred to PT but has not done therapy yet -pt was given PT referral so that she can arrange PT sessions Mixed anxiety and depressive disorder 08/09/2015 Assessment & Plan (03/02/2024 12:18 PM EDT): -S provider Robson -Continue CBT -Continue buspirone and clonazepam as prescribed Assessment & Plan (07/28/2022 6:30 AM EST): -S provider Robson -Continue CBT -Continue sertraline and clonazepam as prescribed Impaired fasting glucose 09/02/2014 Assessment & Plan (06/22/2024 6:15 AM EST): - 03/02/24 A1c 5.3% -Continue working on lifestyle modifications Assessment & Plan (03/02/2024 12:17 PM EDT): - 06/15/23 A1c 5.3% -Continue working on lifestyle modifications Assessment & Plan (06/29/2023 6:54 PM EST): - 07/18/22 A1c 5.3% -Continue working on lifestyle modifications Assessment & Plan (12/10/2022 9:39 AM EDT): ?? Labs on 07/18/22 showed A1c at 5.3% -Continue working on lifestyle modifications Assessment & Plan (07/18/2022 10:06 AM EST): -07/20/19 A1C 5.6% -Continue working on lifestyle modification Allergic rhinitis 02/06/2012 Assessment & Plan (03/02/2024 12:19 PM EDT): -continue Cetirizine Assessment & Plan (06/29/2023 6:55 PM EST): -continue Cetirizine Assessment & Plan (12/10/2022 10:15 AM EDT): -continue Cetirizine Dyslipidemia 02/06/2012 Assessment & Plan (06/22/2024 6:16 AM EST): -Most recent lab 03/02/24 -According to ACC/AHA guideline, 10-year ASCVD risk is <5 % and the benefit of statin or ASA therapy is uncertain. Emphasized the importance of lifestyle modification. Repeat fasting lipid profile in 1 year. Assessment & Plan (03/02/2024 12:18 PM EDT): -Most recent lab 07/18/22 TC 270 ; TG 172 ; HDL 47 ; LDL 189 -According to ACC/AHA guideline, 10-year ASCVD risk is <5 % and the benefit of statin or ASA therapy is uncertain. Emphasized the importance of lifestyle modification. Repeat fasting lipid profile in 1 year. Assessment & Plan (06/29/2023 6:56 PM EST): -Most recent lab 07/18/22 TC 270 ; TG 172 ; HDL 47 ; LDL 189 -According to ACC/AHA guideline, 10-year ASCVD risk is <5 % and the benefit of statin or ASA therapy is uncertain. Emphasized the importance of lifestyle modification. Repeat fasting lipid profile in 1 year. Assessment & Plan (12/11/2022 10:03 AM EDT): -Most recent lab 07/18/22 TC 270 ; TG 172 ; HDL 47 ; LDL 189 -According to ACC/AHA guideline, 10-year ASCVD risk is <5 % and the benefit of statin or ASA therapy is uncertain. Emphasized the importance of lifestyle modification. Repeat fasting lipid profile in 1 year. Assessment & Plan (07/18/2022 10:03 AM EST): -Most recent lab 07/01/21 TC 208; TG 111; HDL 49; LDL 137 -According to ACC/AHA guideline, 10-year ASCVD risk is <5 % and the benefit of statin or ASA therapy is uncertain. Emphasized the importance of lifestyle modification. Repeat fasting lipid profile in 1 year. Vitamin D deficiency 02/06/2012 Asthma 12/06/2011 Assessment & Plan (06/18/2024 11:14 AM EST): Last exacerbation requiring steroid in Jan 2024 Frequency of exacerbation 2 times in last 6 months Continue current treatment plan with albuterol HFA prn. Consider using ICS/LABA prn. Assessment & Plan (03/01/2024 7:33 AM EDT): Last exacerbation requiring steroid in Jan 2024 Frequency of exacerbation 2 times in last 6 months Continue current treatment plan with albuterol HFA prn. Consider using ICS/LABA prn. Assessment & Plan (06/29/2023 6:51 PM EST): Last exacerbation requiring steroid in Jul 2013. Mild exacerbation recently, managed with rescue inhaler. Continue current treatment plan with albuterol HFA prn. Assessment & Plan (12/10/2022 9:37 AM EDT): Last exacerbation requiring steroid in Jul 2013. Continue current treatment plan with albuterol HFA prn. Assessment & Plan (07/18/2022 10:07 AM EST): Last exacerbation requiring steroid in Jul 2013. Continue current treatment plan with albuterol HFA prn. Obesity 11/02/2011 Assessment & Plan (06/22/2024 6:15 AM EST): -12/24/17 [place]-gastroscopy, laparoscopic lysis of adhesions, laparoscopic sleeve gastrectomy and laparoscopic gastropexy -continue working on lifestyle modifications - will try GLP1RA - continue working on lifestyle modifications Assessment & Plan (03/02/2024 11:59 AM EDT): -12/24/17 [place]-gastroscopy, laparoscopic lysis of adhesions, laparoscopic sleeve gastrectomy and laparoscopic gastropexy -continue working on lifestyle modifications Assessment & Plan (12/10/2022 9:39 AM EDT): -12/24/17 [place]-gastroscopy, laparoscopic lysis of adhesions, laparoscopic sleeve gastrectomy and laparoscopic gastropexy -continue working on lifestyle modifications Assessment & Plan (07/28/2022 6:24 AM EST): -12/24/17 [place]-gastroscopy, laparoscopic lysis of adhesions, laparoscopic sleeve gastrectomy and laparoscopic gastropexy -continue working on lifestyle modifications Resolved Problems Problem Noted Date Diagnosed Date Resolved Date Right ear pain 12/11/2022 03/02/2024 Assessment & Plan (06/29/2023 6:50 PM EST): - chronic - referred in November and still waiting for an appointment; advised to call them again Assessment & Plan (12/11/2022 10:09 AM EDT): - chronic - pt will schedule appt with ENT Encounters Date Type Department Care Team Description 08/04/2024 1:00 PM EST Office Visit [facility] ADULT DENTAL [address] [place] [phone] Dayana Alarcon Dental calculus (Primary Dx); Periodontal disease 07/24/2024 Refill [facility] WALK-IN [address] [address] Woo Powell MD 06/30/2024 [place] [address] Celine Aldana MD Medication Question (Patient walked in stating pharmacy doesn't have the medication she came to get Zepbound. Pharmacy stated they dont have a r/x for medication. ); Prior Authorization 06/18/2024 11:00 AM EST Office Visit [facility] [address] [address] Gerry Tirado MD Substernal chest pain (Primary Dx) 06/18/2024 Orders Only [facility] External Provider, [facility] 06/18/2024 Telephone [facility] [address] [address] Lotus Interiano, RN [facility] triage- chest pain 06/18/2024 Telephone [facility] [address] [phone] Alyssa Matta RN 06/16/2024 10:30 AM EST Office Visit [address] [address] Celine Aldana MD Mild intermittent asthma without complication (Primary Dx); Impaired fasting glucose; Dyslipidemia; Dizziness; Nonintractable headache, unspecified chronicity pattern, unspecified headache type; Urinary incontinence, unspecified type; Dietary counseling; Exercise counseling; Class 2 obesity due to excess calories without serious comorbidity with body mass index (BMI) of 39.0 to 39.9 in adult; Sleep disturbance; History of bariatric surgery; Colon cancer screening; Gastroesophageal reflux disease, unspecified whether esophagitis present 06/16/2024 Travel 06/15/2024 Telephone [facility] MEDICINE [address] [place] [address] Lu Rai MA chart prep 06/01/2024 Refill [facility] PEDS [address] [place], [place] [phone] Celine Aldana MD Allergic rhinitis, unspecified seasonality, unspecified trigger from Last 3 Months Immunizations Name Administration Dates Next Due Hep B, adult 12/10/2022,03/10/2019,12/08/2013 Influenza injectable quadriv alent IIV4 with preservative 05/01/2017,08/09/2015 Influenza injectable quadriv alent preservative free 06/25/2023,02/15/2022,06/20/2021,04/29,03/10/2019,07/14/2018,07/09/2016 ,09/02/2014 Influenza, IIV3, injectable 01/29/2011, 0,03/31/2008 Influenza, Split (incl. nabil fied surface antigen) 02/16/2013,02/06/2012 Influenza, seasonal, injecta ble, preservative free 03/02/2024 Moderna Covid-19 Vaccine 12+ 09/06/2020,08/10/19 21 Pneumococcal Conjugate PCV 20 03/02/2024 Pneumococcal Polysaccharide PPSV23 12/24/2017, TD (adult), 2 Lf tetanus tox oid, preservative free, adsorbed 01/16/2008 Tdap 02/15/2022,02/06/2012 Zoster, Recombinant 09/17/2023,06/25/2023 Family History Medical History Relation Name Comments Alzheimer's disease Mother Breast cancer Mother Relation Name Status Comments Mother Social History Tobacco Use Types Packs/Day Years Used Date Smoking Tobacco: Never Passive Smoke Exposure: Never Smokeless Tobacco: Never Tobacco Cessation:Counseling Given: Not Answered Depression Answer Date Recorded Patient Health Questionnaire-9 [...] Orientation Straight 04/09/2022 10 :20 AM EDT Last Filed Vital Signs Vital Sign Reading Time Taken Comments Blood Pressure 110/80 08/04/2024 1:06 PM EST Pulse 79 06/16/2024 10:38 AM EST Temperature 36.2 ??C (97.1 ??F) 06/16/2024 10:[address] Respiratory Rate 19 06/16/2024 10:38 AM EST Oxygen Saturation 98% 06/16/2024 10:38 AM EST Inhaled Oxygen Concentration - - Weight 92.6 kg (204 lb 3.2 oz) 06/16/2024 10:38 AM EST Height 153.9 cm (5' 0.58 ) 06/16/2024 10:[address] Body Mass Index 39.12 06/16/2024 10:38 AM EST Plan of Treatment Upcoming Encounters Date Type Department Care Team (Late st Contact Info) Description 10/13/2024 9:15 AM EDT Office Visit [facility] MEDICINE [address] [place] [address] Celine Aldana MD [address] [place], [place] [phone] 02/05/2025 1:00 PM EDT Office Visit [facility] ADULT DENTAL [address] [place], [place] [phone] Agnes Dayana [address] [place], [place] [phone] Health Maintenance Due Date Last Done Comments CT Colonography 1965 FIT DNA/Cologuard 1965 FIT 1965 FOBT 1965 HIV Screening 1965 Sigmoidoscopy 1965 Hepatitis C Screening 1981 RSV Patients and Patients Aged 60 years or older (1 - Risk 60-74 years 1-dose series) 2023 Dental X-Ray: Full Mouth 08/03/2023 08/02/2020, 07/11 COVID-19 Vaccine ( season) 2024 09/06/2020, 08/09/2020 Colonoscopy 05/27/2024 05/27/2014 Colorectal Cancer Screening 05/27/2024 Dental Oral Exam 08/03/2024 01/31/2024, , 01/23/2023, Additional history exists Dental X-Ray: Bitewings 01/31/2025 01/31/20, 01/23/2023, 09/15/2021, Additional history exists Dental Prophylaxis 02/02/2025 08/04/2024, 0 01/31/2024, 03/12/2023, Additional history exists Alcohol/Substance Use Screening 03/02/2025 03/02/2024 Depression Screening 03/02/2025 03/02/2024, 03/02/20 24 SDOH Screening 03/02/2025 03/02/2024 Tobacco Screening 08/04/2025 08/04/2024 Mammogram 08/14/2025 08/15/2023, 07/2022, 09/15/2020, Additional history exists Lipid Panel 03/02/2029 03/02/2024, 06/10, 07/18/2022, Additional history exists DTaP/Tdap/Td Vaccines (3 - Td or Tdap) 02/16/2032 02/15/2022, 02/06/2012, 01/16/2008 Hepatitis B Vaccines Completed 12/10/2022, 03/10/2019, 12/08/2013 Zoster Vaccines Completed 09/17/2023, 06/25/2023 Influenza Vaccine Completed 03/02/2024, , 02/15/2022, Additional history exists Pneumococcal Vaccine: 50+ Years Completed 03/02/2024, 12/24/2017, 07/23/2008 HIB Vaccines Aged Out No longer eligi ble based on patient's age to complete this topic HPV Vaccines Aged Out No longer eligi ble based on patient's age to complete this topic Hepatitis A Vaccines Aged Out No long er eligible based on patient's age to complete this topic IPV Vaccines Aged Out No longer eligi ble based on patient's age to complete this topic Meningococcal Vaccine Aged Out No narendra farzaneh eligible based on patient's age to complete this topic RSV under 20 months Aged Out No longe r eligible based on patient's age to complete this topic Rotavirus Vaccines Aged Out No longer eligible based on patient's age to complete this topic Procedures Procedure Name Priority Date/Time Associated Diagnosis Comments ORAL HYGIENE INSTRUCTIONS Routine 08/04/2024 1:00 PM EST Dental calculus Periodontal disease CASE PRESENTATION, DETAILED AND EXTENSIVE TREATMENT PLANNING Routine 08/04/2024 1:00 PM EST Dental calculus Periodontal disease PROPHYLAXIS - ADULT Routine 08/04/2024 1 :00 PM EST Dental calculus Periodontal disease HIGH SENSITIVITY TROPONIN I Routine 06/18/2024 4:09 PM EST SARS COV2/INFLUENZA A/B AND RSV RNA QL NAAT Routine 06/18/2024 1:42 PM EST XR CHEST 2 VIEWS Routine 06/18/2024 12:5 0 PM EST ECG 12-LEAD Routine 06/18/2024 11:24 AM EST Substernal chest pain LIPID PANEL WITH REFLEX TO DIRECT LDL Routine 03/02/2024 10:45 AM EDT Dyslipidemia BITEWINGS - 4 RADIOGRAPHIC IMAGES Routine 01/31/2024 10:00 AM EDT Crowded teeth Abfraction Extruded tooth Dental calculus PERIODIC ORAL EVALUATION - ESTABLISHED PATIENT Routine 01/31/2024 10:00 AM EDT Crowded teeth Abfraction Extruded tooth Dental calculus BI MAMMOGRAM SCREENING TOMOSYNTHESIS BILATERAL Routine 08/15/2023 1:40 PM EST INTRAORAL - COMPLETE SERIES OF RADIOGRAPHIC IMAGES Routine 08/02/2020 12:00 AM EST HM COLONOSCOPY Routine 05/27/2014 from Last 3 Months or Most Recently Relevant to Health Maintenance Results * High Sensitivity Troponin I (06/18/2024 4:09 PM EST) [facility] TROPONIN I HIGH SENSITIVITY <2.7 <3.5 - 17.0 ng/L [facility] Comment:The Chiu high sens itivity Troponin-I results should beused in conjunction with other diagnostic information suchas ECG, clinical observations and information, and patientsymptoms to aid in the diagnosis of [place]. 06/18/2024 4:09 PM EST 06/18/2024 4:11 PM EST us Generic External Data Provider LAB BLOOD ORDERAB LES Final Result [facility] [address] [place] [phone] * SARS-CoV-2 RNA, Influenza A/B, and RSV RNA, Ql NAAT (06/18/2024 1:42 PM EST) Influenza A PCR NEGATIVE Negative [facility] Influenza B PCR NEGATIVE Negative [facility] Resp Syncy Virus RNA Qual PCR NEGATIVE Negative [facility] SARS COV2 PCR NEGATIVE Negative [facility] Comment:All test results mus t be correlated with clinical findings.Negative results do not preclude SARS-CoV2, influenza Avirus, influenza B virus and/or RSV infectionand should not be used as the sole basis for treatment orother patient management decisions. Negative results must becombined with clinical observations, patient history, andepidemiological information.This test has not been evaluated for monitoring treatment ofinfection.This test has been authorized by the FDA under an EmergencyUse Authorization (EUA) for use by authorized laboratories.Testing performed on the CojoinXpert utilizingreal-time RT-PCR.All SARS CoV2 and positive influenza A/B results arereported to [facility]. 06/18/2024 1:42 PM EST 06/18/2024 1:45 PM EST us Generic External Data Provider LAB MICROBIOLOGY - GENERAL ORDERABLES Final Result [facility] [address] [place] [phone] * XR Chest 2 Views (06/18/2024 12:50 PM EST) Anatomical Region Laterality Modality Chest Radiographic Ayah ging 06/18/2024 12:5 0 PM EST Narrative 06/18/2024 1:07 PM EST ? [facility] ?[address] ?[place] [address] ?XRay Report ? Signed ? Patient: Iliana James ?MR#: [id number] ?? 0 ? : 1965 ?Acct:[id number] ? Age/Sex: 59 / F ?ADM Date: 01/09/25 ? Loc: HO.ED ? Attending Dr: ? Ordering Physician: Lore Jackson ?? Date of Service: 06/18/24 ?? Procedure(s): XR chest 2V ?? Accession Number(s): [id number] ? cc: Lore Jackson; Celine Aldana MD ? EXAMINATION: ?? XR CHEST ? CLINICAL INFORMATION: ?? cp ? COMPARISON: ?? None available. ? TECHNIQUE: ?? 2 views of the chest were obtained. ? FINDINGS: ?? The cardiac, hilar, and mediastinal contours are normal. ? The lungs are clear bilaterally. There is no pneumothorax or pleural ?? effusion. ? There are numerous epigastric surgical clips present. Osseous ?? structures demonstrate mild spinal degenerative changes. ? XR/XR chest 2V ?? IMPRESSION: ?? No active pulmonary disease. ? Electronically signed by: ??Fermin Carter MD ??06/18/2024 01:05 PM EST RP ? Dictated By: ?Fermin Carter MD ? Signed By: ?<Electronically signed by Fermin Carter MD in OV> ?06/18/24 1305 ? DD/ 1250 ? TD/TT: 06/18/24 1255 ? Lead Instructor/Flight Attendant: ? Procedure Note Katharine Salazar - 06/18/[address] [address] XRay Report Signed Patient: Iliana James EMR#: [id number] 0 : 1965Acct:[id number] Age/Sex: 59 / FADM Date: 06/18/24 Loc: HO.ED Attending Dr: Ordering Physician: Lore Jackson Date of Service: 06/18/24 Procedure(s): XR chest 2V Accession Number(s): [id number] cc: Lore Jackson; Celine Aldana MD EXAMINATION: XR CHEST CLINICAL INFORMATION: cp COMPARISON: None available. TECHNIQUE: 2 views of the chest were obtained. FINDINGS: The cardiac, hilar, and mediastinal contours are normal. The lungs are clear bilaterally. There is no pneumothorax or pleural effusion. There are numerous epigastric surgical clips present. Osseous structures demonstrate mild spinal degenerative changes. XR/XR chest 2V IMPRESSION: No active pulmonary disease. Electronically signed by: Fermin Carter MD 06/18/2024 01:05 PM [facility] Dictated By: Fermin Carter MD Signed By: <Electronically signed by Fermin Carter MD in OV> 06/18/24 1305 DD/ 1250 TD/TT: 06/18/24 1255 Lead Instructor/Flight Attendant: [facility] External Provider IMG XR PROCEDURES Final Result * ECG 12 lead (06/18/2024 11:24 AM EST) Narrative Gerry Tirado MD - 06/18/2024 11:24 AM EST NSR 71. No ST-T changes. No Q-waves. No arrhythmia. Gerry Tirado MD ECG ORDERABLES Final Result * (ABNORMAL) Lipid Panel with Reflex to Direct LDL (03/02/2024 10:45 AM EDT) Triglycerides 179(H) <150 mg/dL [facility] Comment:Desirable Triglyceri de: less than 150 mg/dLBorderline High Triglyceride 150-199 mg/dLHigh Triglyceride: 200-499 mg/dLVery High Triglyceride: greater than or equal to 5OO mg/dL Cholesterol 253(H) <200 mg/dL [facility] Comment:Desirable Cholestero l: less than 200 mg/dLBorderline High Cholesterol: 200-239 mg/dLHigh Cholesterol: greater than 239 mg/dL LDL Cholesterol Calculated 168(H) <100 mg/dL [facility] Comment:Desirable LDL: less than 100 mg/dLNear Optimal/Above Optimal LDL: 110- 129 mg/dLBorderline High LDL: 130-159 mg/dLHigh LDL: 160-189 mg/dLVery High LDL: greater than or equal to 190 mg/dL HDL Cholesterol 50 >40 mg/dL [facility] Comment:Desirable HDL: great er than 40 mg/dL Note: This HDL assay may give artificially low results in patients with liver disease. Blood 03/02/2024 10:4 5 AM EDT 03/02/2024 11:19 AM EDT Celine Aldana MD LAB BLOOD ORDERABLES Final Resul t [facility] [address] [place] [address] [phone] * BI Mammogram Screening Tomosynthesis Bilateral (08/15/2023 1:40 PM EST) Anatomical Region Laterality Modality Breast Bilateral Mammography 08/15/2023 1:40 PM EST Narrative 08/26/2023 5:23 AM EDT ? [facility] [place] ? [address] ?[place] [address] ? Mammography Report ? Signed ? Patient: Iliana James ?MR#: [id number] ?? 0 ? : 1965 ?Acct:[id number] ? Age/Sex: 58 / F ?ADM Date: 08/15/23 ? Loc: HO.MAMMO ? Attending Dr: Celine Aldana MD ? Ordering Physician: Celine Aldana MD ?Results: 2Benign F ?? indings ? Date of Service: 08/15/23 ?Follow Up: 1 Year From Orig ?? inal Mammogram ? Procedure(s): MM tomosynthesis screening BI ?? Accession Number(s): [id number] ? cc: Celine Aldana MD ? EXAMINATION: ?? MM SCREENING DIGITAL BREAST TOMOSYNTHESIS, BILATERAL ? CLINICAL INFORMATION: ? Screening. Asymptomatic. ? The patient is status post bilateral breast reduction. ? COMPARISON: ?? Mammography: This study is compared with prior exams dating back to ?? 2017. ? TECHNIQUE: ?? Digital breast tomosynthesis is performed in both the craniocaudal and ?? mediolateral oblique views along with computer-aided detection (CAD). ?? Synthesized 2D images are generated from the tomosynthesis. ? FINDINGS: ?? There are scattered areas of fibroglandular density (ACR BI-RADS breast ?? composition Category b). ? There are no significant masses, abnormal calcifications, or other ?? abnormalities. ? MM/MM tomosynthesis screening BI ?? IMPRESSION: ?? No mammographic evidence of malignancy. ? ASSESSMENT: ? BI-RADS BI-RADS 2 - Benign Findings ? RECOMMENDATION: ?? Routine annual mammography screening. ? 1 year F/U ? This examination should not preclude the clinical evaluation of a ?? suspicious palpable abnormality. ? This patient's information was entered into a reminder system with a ?? target due date for their next mammogram. ? Dictated By: ?Marlin Velasquez MD ? Signed By: ?<Electronically signed by Marlin Velasquez MD in OV> ? 08/26/23 0519 ? DD/ 1340 ? TD/TT: ? Lead Instructor/Flight Attendant: ? Procedure Note Martin, Image - 08/26/2023 [facility] [address] [place] [address] Mammography Report Signed Patient: Iliana James EMR#: [id number] 0 : 1965Acct:[id number] Age/Sex: 58 / FADM Date: 08/15/23 Loc: [facility] Attending Dr: Celine Aldana MD Ordering Physician: Celine Aldanaesults: 2Benign F indings Date of Service: 08/15/23Follow Up: 1 Year From Orig inal Mammogram Procedure(s): MM tomosynthesis screening BI Accession Number(s): [id number] cc: Celine Aldana MD EXAMINATION: MM SCREENING DIGITAL BREAST TOMOSYNTHESIS, BILATERAL CLINICAL INFORMATION: Screening. Asymptomatic. The patient is status post bilateral breast reduction. COMPARISON: Mammography: This study is compared with prior exams dating back to 2017. TECHNIQUE: Digital breast tomosynthesis is performed in both the craniocaudal and mediolateral oblique views along with computer-aided detection (CAD). Synthesized 2D images are generated from the tomosynthesis. FINDINGS: There are scattered areas of fibroglandular density (ACR BI-RADS breast composition Category b). There are no significant masses, abnormal calcifications, or other abnormalities. MM/MM tomosynthesis screening BI IMPRESSION: No mammographic evidence of malignancy. ASSESSMENT: BI-RADS BI-RADS 2 - Benign Findings RECOMMENDATION: Routine annual mammography screening. 1 year F/U This examination should not preclude the clinical evaluation of a suspicious palpable abnormality. This patient's information was entered into a reminder system with a target due date for their next mammogram. Dictated By: Marlin Velasquez MD Signed By: <Electronically signed by Marlin Velasquez MD in OV> 08/26/23 0519 DD/ 1340 TD/TT: Lead Instructor/Flight Attendant: Celine Aldana MD IMG BI PROCEDURES Final Result * Colonoscopy (05/27/2014) Colonoscopy Normal Normal 05/27/2014 Historical Provider HEALTH MAINTENANCE Final Result from Last 3 Months or Most Recently Relevant to Health Maintenance Insurance [employer] Care Teams Scientific Writer Relationship Specialty Start Date End Date Celine Aldana MD [address] [place] [id number] PCP - General Family Medicine 06/10/18
--- OUTSIDE RECORDS SUMMARY | 2024-08-20 16:53 | XMS_ITS | Encounter Summary ---
Author Organization [employer] [facility] Address [address] [place] [address] 7 [place] [address] Care Team Providers Care Kitchen Runner Name Role Phone Celine Aldana MD Primary Care Provider [phone] Encounter Details Date Type Department Care Team (Latest Contact Info) Description 09/15/2021 Abstract [facility] CONVERSIONS Dental, Provider, DDS Social History [...] Description 10/13/2024 9:15 AM EDT Office Visit [facility] MEDICINE [address] [place] [address] Celine Aldana MD [address] [place] [address] 02/05/2025 1:00 PM EDT Office Visit [facility] ADULT DENTAL [address] [place] [address] Dayana Alarcon [address] [place] [address] documented as of this encounter Visit Diagnoses Not on filedocumented in this encounter Care Teams Kitchen Runner Relationship Specialty Start Date End Date Celine Aldana MD [address] [place] [address] PCP - General Family Medicine 06/10/18 documented as of this encounter
--- OUTSIDE RECORDS SUMMARY | 2024-08-20 16:53 | XMS_ITS | Encounter Summary ---
Author Organization [employer] [facility] Address [address] [facility] 7t [place] [address] Care Team Providers Care Plant Operations Manager Name Role Phone Celine Aldana MD Primary Care Provider [phone] Reason for Visit * Reason Onset Date Comments Medication Question 06/30/2024 Patient walk ed in stating pharmacy doesn't have the medication she came to get Zepbound. Pharmacy stated they dont have a r/x for medication. Prior Authorization 06/30/2024 Encounter Details Date Type Department Care Team (Late st Contact Info) Description 06/30/2024 Telephone [facility] [address] [place], [place] [phone] Celine Aldana MD [address] [place], [place] [phone] Medication Question (Patient walked in stating pharmacy doesn't have the medication she came to get Zepbound. Pharmacy stated they dont have a r/x for medication. ); Prior Authorization Social History Tobacco Use Types Packs/Day Years [...] AM EDT documented as of this encounter Miscellaneous Notes * Telephone Encounter - Yamile Duque - 08/03/2024 11:16 AM EST PA for Zepbound signed and faxed to [employer]. Confirmation received and sent to scan. If patient calls to check status on above, please advise them to contact [facility] at [phone]. * Telephone Encounter - Yamile Duque - 07/24/2024 2:29 PM EST PA for Zepbound from [facility] placed on PCP desk for signature. * Telephone Encounter - Jody Lagos - 07/13/2024 1:25 PM EST Pt requesting PA for Zepbound be resubmitted as it was denied for insufficient information to determine need. Please confirm if contraindications to Phentermine d/t pt dx of anxiety and depression. Thank you * Telephone Encounter - Reena Lepe RN - 07/13/2024 9:51 AM EST Pt walked into green team lobby with denial from insurance for Zepbound PA. Sent denial to scan butstates not enough information/documentation to determine need. Pt requesting we resubmit. * Telephone Encounter - Rocio Lockwood RN - 07/03/2024 9:02 AM EST Signed PA packet for Zepbound faxed to [employer]. Confirmation received, placed in bin to scan. * Telephone Encounter - Rocio Lockwood RN - 06/30/2024 3:43 PM EST Called [facility] pharmacy and was informed Rx for Zepbound on file but needs prior authorization. PA packet generated, placed on PCP desk for signature. * Telephone Encounter - Mary Duque - 06/30/2024 10:18 AM EST Patient walked in stating pharmacy doesn't have the medication she came to get Zepbound. Pharmacy stated they dont have a r/x for medication. documented in this encounter Plan of Treatment Upcoming Encounters Date Type Department Care Team (Late st Contact Info) Description 10/13/2024 9:15 AM EDT Office Visit [facility] [address] [place] [address] Celine Aldana MD [address] [place], [place] [phone] 02/05/2025 1:00 PM EDT Office Visit [facility] ADULT DENTAL [address] [place] [address] Hari Alarconaris [address] [place] [address] documented as of this encounter Visit Diagnoses Not on filedocumented in this encounter Additional Health Concerns Assessment Noted Time PHQ-9 Depression Total Score: 7 03/02/20 24 9:35 AM EDT documented as of this encounter Care Teams Plant Operations Manager Relationship Specialty Start Date End Date Celine Aldana MD [address] [place] [address] PCP - General Family Medicine 06/10/18 documented as of this encounter
--- OUTSIDE RECORDS SUMMARY | 2024-08-20 16:53 | XMS_ITS | Encounter Summary ---
Author Organization [employer] [facility] Address [address] [facility] 7t [place] [address] Care Team Providers Care Manager Placement Name Role Phone Celine Aldana MD Primary Care Provider [phone] Reason for Visit * Reason Comments Dental Exam Routine Cleaning Encounter Details Date Type Department Care Team (Late st Contact Info) Description 08/04/2024 1:00 PM EST Office Visit [facility] ADULT DENTAL [address] [place] [address] Agnes, Dayana [address] [place] [address] Dental calculus (Primary Dx); Periodontal disease Social History Tobacco Use Types Packs/Day Years [...] AM EDT documented as of this encounter Last Filed Vital Signs Vital Sign Reading Time Taken Comments Blood Pressure 110/80 08/04/2024 1:06 PM EST Pulse - - Temperature - - Respiratory Rate - - Oxygen Saturation - - Inhaled Oxygen Concentration - - Weight - - Height - - Body Mass Index - - documented in this encounter Progress Notes * Dayana Alarcon - 08/04/2024 1:00 PM EST Patient ID: Iliana James is a 59 y.o. female. Time Out: Timeout Date: 08/04/24, Timeout Time: 1303 (proph) Location: [facility] Tooth: Maxilla and Mandible Procedure: Prophylaxis Verified the above with patient, veterinary technician assistant, and provider. Confirmed via patient's chart, intraorally and by radiographs. Basket Sorter: not applicable Medical Hx: Vitals: Blood pressure 110/80. Medications, Med Hx reviewed with patient and updated in chart. Treatment Provided Dental procedures in this visit D1110 - PROPHYLAXIS - ADULT (Completed) Service provider: Dayana Pinto provider: Dimas Zapien DMD D9450 - CASE PRESENTATION, DETAILED AND EXTENSIVE TREATMENT PLANNING (Completed) Service provider: Dayana Pinto provider: Dimas Zapien DMD D1330 - ORAL HYGIENE INSTRUCTIONS (Completed) Service provider: Dayana Pinto provider: Dimas Zapien DMD Instruments Used: Ultrasonic Scalers, Hand Scalers, and Prophy angle Fluoride: N/A Oral Cancer Screening: No lesions Head/Neck Exam: No Lesions: moles and freckles Calculus: Light Plaque: Light Stain: trace Bleeding: trace Gingiva: pink OH: Good Perio Chart: No due yet Oral hygiene instructions provided to patient including brushing technique and flossing. Recommendations: [place] two times daily, modified sheridan technique, Floss daily, Electric toothbrush, Soft bristle toothbrush, [place] Tongue, Anti-sensitivity toothpaste Recall Frequency: 6 mo NV: [address] Zapien to do exam, perio chart Prophy and FMX Hygienist: Dayana Alarcon RDH documented in this encounter Plan of Treatment Upcoming Encounters Date Type Department Care Team (Late st Contact Info) Description 10/13/2024 9:15 AM EDT Office Visit [facility] MEDICINE [address] [place] [address] Celine Aldana MD [address] [place] [address] 02/05/2025 1:00 PM EDT Office Visit [facility] ADULT DENTAL [address] [place] [address] Dayana Alarcon [address] [place] [address] Scheduled Orders Name Type Priority Associated Diagnoses Orde r Schedule PERIODIC ORAL EVALUATION - ESTABLISHED PATIENT Dental Routine 1 Occurren ana starting 08/04/2024 INTRAORAL - COMPLETE SERIES OF RADIOGRAPHIC IMAGES Dental Routine [address] arting 08/04/2024 PROPHYLAXIS - ADULT Dental Routine 1 Occ urrences starting 08/04/2024 ORAL HYGIENE INSTRUCTIONS Dental Routine 1 Occurrences starting 08/04/2024 CASE PRESENTATION, DETAILED AND EXTENSIVE TREATMENT PLANNING Dental Routine 1 Occurrences starting 08/04/2024 documented as of this encounter Procedures Procedure Name Priority Date/Time Associated Diagnosis Comments PROPHYLAXIS - ADULT Routine 08/04/2024 1 :00 PM EST Dental calculus Periodontal disease ORAL HYGIENE INSTRUCTIONS Routine 08/04/2024 1:00 PM EST Dental calculus Periodontal disease CASE PRESENTATION, DETAILED AND EXTENSIVE TREATMENT PLANNING Routine 08/04/2024 1:00 PM EST Dental calculus Periodontal disease documented in this encounter Visit Diagnoses Diagnosis Dental calculus- Primary Accretions on teeth Periodontal disease Unspecified gingival and periodontal disease documented in this encounter Additional Health Concerns Assessment Noted Time PHQ-9 Depression Total Score: 7 03/02/20 24 9:35 AM EDT documented as of this encounter Care Teams Manager Placement Relationship Specialty Start Date End Date Celine Aldana MD [address] [place] [address] PCP - General Family Medicine 06/10/18 documented as of this encounter
--- OUTSIDE RECORDS SUMMARY | 2024-08-20 16:53 | XMS_ITS | Encounter Summary ---
Author Organization [email or web address] [facility] Address [address] [facility] 7t [place] [address] Care Team Providers Care Edger Technician Name Role Phone Celine Aldana MD Primary Care Provider [phone] Reason for Visit * Reason Comments Med Refill Encounter Details Date Type Department Care Team (Late st Contact Info) Description 07/24/2024 Refill [facility] [address] [place], [place] [phone] Woo Powell MD [address] [place] [address] Social History Tobacco Use Types Packs/Day Years [...] Description 10/13/2024 9:15 AM EDT Office Visit [facility] [address] [place] [address] Celine Aldana MD [address] [place] [address] 02/05/2025 1:00 PM EDT Office Visit [facility] ADULT DENTAL [address] [place] [address] Agnes, Dayana [address] [place] [address] documented as of this encounter Visit Diagnoses Not on filedocumented in this encounter Additional Health Concerns Assessment Noted Time PHQ-9 Depression Total Score: 7 03/02/20 24 9:35 AM EDT documented as of this encounter Care Teams Edger Technician Relationship Specialty Start Date End Date Celine Aldana MD [address] [place] [address] PCP - General Family Medicine 06/10/18 documented as of this encounter
== END 2024-08-20 13:20 | disposition home or self-care (01) ==
LOC: HO.MAMMO 13:19
PROVIDERS: PCP Family Medicine; Visit Provider Family Medicine
DX: Z12.31 Encounter for screening mammogram for malignant neoplasm of breast (principal)
CPT/HCPCS: 77063; 77067

== ENCOUNTER → 2024-08-20 13:30 | Outpatient (BNV) | payer MEDICAID, SELFPAY | PROVIDERS: PCP Family Medicine; Visit Provider Internal Medicine | DX: Z12.31 Encounter for screening mammogram for malignant neoplasm of breast (principal) | CPT/HCPCS: 77063; 77067 ==

== ENCOUNTER 2024-10-15 10:40 | Outpatient (REF) | payer MEDICAID, SELFPAY ==
--- OUTSIDE RECORDS SUMMARY | 2024-10-15 12:05 | XMS_ITS | Encounter Summary ---
Author Organization [employer] Address [address] [facility] 7 [place] [address] Care Team Providers Care Wastewater Treatment Plant Instructor Name Role Phone Celine Aldana MD Primary Care Provider [phone] Reason for Referral * Consultation (Routine) - Closed Specialty Diagnoses / Procedures Referred By Contac t Referred To Contact Neurosurgery Diagnoses Meningioma (CMS/HCC) Celine Aldana MD [address] [place] [address] Phone: tel: fax: Neurosurgery, [address] [place], [place] Phone: tel: fax: Referral ID Status Reason Start Date Expiration Date V isits Requested Visits Authorized [id number] Closed Specialty Services Required 04/24/2024 04/24/2025 10 10 Encounter Details Date Type Department Care Team (Late st Contact Info) Description 04/21/2024 Orders Only [facility] [address] [place] [address] Celine Aldana MD [address] [place] [address] Meningioma (CMS/HCC) (Primary Dx) Social [...] Care Team (Late st Contact Info) Description 04/14/2025 1:00 PM EST Office Visit [facility] ADULT DENTAL [address] [place] [address] Dayana Alarcon [address] [place] [address] Scheduled Referrals Name Type Priority Associated Diagnoses [...] documented as of this encounter Care Teams Wastewater Treatment Plant Instructor Relationship Specialty Start Date End Date Celine Aldana MD [address] [place] [address] PCP - General Family Medicine 06/10/18 documented as of this encounter
--- OUTSIDE RECORDS SUMMARY | 2024-10-15 12:05 | XMS_ITS | Encounter Summary ---
Author Organization [employer] Address [address] [facility] [address] 7t [place] [address] Care Team Providers Care Real Estate Operations Manager Name Role Phone Celine Aldana MD Primary Care Provider [phone] Reason for Visit * Reason Comments Med Refill Encounter Details Date Type Department Care Team ([facility] st Contact Info) Description 07/24/2024 Refill [facility] [address] [place], [place] [phone] Woo Powell MD [address] [place] [address] Social History Tobacco Use Types Packs/Day Years [...] Description 04/14/2025 1:00 PM EST Office Visit [facility] ADULT DENTAL [address] [place] [address] Agnes, Dayana [address] [place] [address] documented as of this encounter Visit Diagnoses Not on filedocumented in this encounter Additional Health Concerns Assessment Noted Time PHQ-9 Depression Total Score: 7 03/02/20 24 9:35 AM EDT documented as of this encounter Care Teams Real Estate Operations Manager Relationship Specialty Start Date End Date Celine Aldana MD [address] [place] [address] PCP - General Family Medicine 06/10/18 documented as of this encounter
--- OUTSIDE RECORDS SUMMARY | 2024-10-15 12:05 | XMS_ITS | Encounter Summary ---
Author Organization [employer] Address [address] [place] [address] Care Team Providers Care Nursing Program Coordinator Name Role Phone Celine Aldana MD Primary Care Provider [phone] Encounter Details Date Type Department Care Team (Late st Contact Info) Description 09/23/2024 Lab Requisition [facility] - Main Lab [address] [facility] [place] [address] Damion Patel MD [address] [place], [place] [phone] Anemia, unspecified Social History Tobacco Use Types Packs/Day Years Used Date Smoking Tobacco: Never Assessed Comments Unknown Sex and Gender Information Value Date Recorded Sex Assigned at Not on file Legal Sex Female 11:06 AM EDT Gender Identity Not on file Sexual Orientation Not on file documented as of this encounter Plan of Treatment Not on file documented as of this encounter Procedures Procedure Name Priority Date/Time Associated Diagnosis Comments COMPLETE BLOOD COUNT Routine 09/24/2024 7:08 AM EDT Anemia, unspecified BASIC METABOLIC PANEL Routine 09/24/2024 7:08 AM EDT Anemia, unspecified documented in this encounter Results * Basic metabolic panel (09/24/2024 7:08 AM EDT) Sodium 141 133 - 145 mmol/L LAB CHEMISTRY METHOD 09/24/2024 9:03 AM [facility] Potassium 4.3 3.5 - 5.5 mmol/L LAB CHEMISTRY METHOD 09/24/2024 9:03 AM [facility] Chloride 108 96 - 110 mmol/L LAB CHEMISTRY METHOD 09/24/2024 9:03 AM [facility] CO2 28 21 - 32 mmol/L LAB CHEMISTRY METHOD 09/24/2024 9:03 AM [facility] Anion Gap 5 3 - 11 LAB CHEMISTRY METHOD 09/24/2024 9:03 AM [facility] Glucose 98 70 - 100 mg/dL LAB CHEMISTRY METHOD 09/24/2024 9:03 AM [facility] BUN 16 5 - 25 mg/dL LAB CHEMISTRY METHOD 09/24/2024 9:03 AM [facility] Creatinine 0.63 0.50 - 1.10 mg/dL LAB CHEMISTRY METHOD 09/24/2024 9:03 AM [facility] eGFR 101 >=60 mL/min/1. 73m2 LAB CHEMISTRY METHOD 09/24/2024 9:03 AM [facility] Comment:Calculation based on the??Chronic Kidney Disease Epidemiology Collaboration (CKD-EPI) equation refit??without adjustment for race. BUN/Creatinine Ratio 25.4 LAB CHEMISTRY METHOD 09/24/2024 9:03 AM [facility] Calcium 9.5 8.5 - 10.5 mg/dL LAB CHEMISTRY METHOD 09/24/2024 9:03 AM [facility] Blood Venous blood specimen / Unknown Venipuncture / Unknown 09/24/2024 7:08 AM EDT 09/24/2024 8:15 AM EDT us Damion Patel MD LAB BLOOD ORDERABLES Final Result [facility] [address] [place] [address], * (ABNORMAL) Complete blood count (09/24/2024 7:08 AM EDT) WBC 8.2 4.8 - 10.8 K/mcL LAB HEMETOLOGY METHOD 09/24/2024 8:37 AM [facility] RBC 4.40 3.80 - 4.80 M/mcL LAB HEMETOLOGY METHOD 09/24/2024 8:37 AM [facility] Hemoglobin 11.9 11.5 - 16.0 g/dL LAB HEMETOLOGY METHOD 09/24/2024 8:37 AM [facility] Hematocrit 38.0 35.0 - 47.0 % LAB HEMETOLOGY METHOD 09/24/2024 8:37 AM [facility] MCV 87.2 79.0 - 98.0 FL LAB HEMETOLOGY METHOD 09/24/2024 8:37 AM [facility] MCH 27.3 27.0 - 32.0 pcg LAB HEMETOLOGY METHOD 09/24/2024 8:37 AM [facility] MCHC 31.3(L) 32.0 - 37.0 g/dL LAB HEMETOLOGY METHOD 09/24/2024 8:37 AM [facility] RDW 13.4 11.0 - 15.0 % LAB HEMETOLOGY METHOD 09/24/2024 8:37 AM [facility] Platelets 352 130 - 400 K/mcL LAB HEMETOLOGY METHOD 09/24/2024 8:37 AM [facility] MPV 11.0 7.0 - 11.0 FL LAB HEMETOLOGY METHOD 09/24/2024 8:37 AM [facility] NRBC 0.0 <1.0 % LAB HEMETOLOGY METHOD 09/24/2024 8:37 AM [facility] NRBC Absolute 0.00 <0.10 K/mcL LAB HEMETOLOGY METHOD 09/24/2024 8:37 AM [facility] Blood Venous blood specimen / Unknown Venipuncture / Unknown 09/24/2024 7:08 AM EDT 09/24/2024 8:13 AM EDT us Damion Patel MD LAB BLOOD ORDERABLES Final Result [facility] [address] [place] [address], documented in this encounter Visit Diagnoses Diagnosis Anemia, unspecified documented in this encounter Care Teams Nursing Program Coordinator Relationship Specialty Start Date End Date Celine Aldana MD [address] [place] [phone] PCP - General 07/01/23 documented as of this encounter
--- OUTSIDE RECORDS SUMMARY | 2024-10-15 12:05 | XMS_ITS | Encounter Summary ---
Author Organization [employer] Address [address] [place] [address] Care Team Providers Care Mortician Helper Name Role Phone Celine Aldana MD Primary Care Provider [phone] Encounter Details Date Type Department Care Team (Late st Contact Info) Description 10/05/2024 Telephone [facility] MEDICINE [address] [place], [place] [phone] Luana Villalba, PharmD [address] [place] [address] Social History Tobacco Use Types Packs/Day Years [...] Description 04/14/2025 1:00 PM EST Office Visit [facility] ADULT DENTAL [address] [place] [address] Agnes, Dayana [address] [place] [address] documented as of this encounter Visit Diagnoses Not on filedocumented in this encounter Additional Health Concerns Assessment Noted Time PHQ-9 Depression Total Score: 7 03/02/20 24 9:35 AM EDT documented as of this encounter Care Teams Mortician Helper Relationship Specialty Start Date End Date Celine Aldana MD [address] [place] [address] PCP - General Family Medicine 06/10/18 documented as of this encounter
--- OUTSIDE RECORDS SUMMARY | 2024-10-15 12:05 | XMS_ITS | Encounter Summary ---
Author Organization [employer] Address 75 [facility] 7t [place] [address] Care Team Providers Care Physical Fitness Teacher Name Role Phone Celine Aldana MD Primary Care Provider [phone] Encounter Details Date Type Department Care Team (Late st Contact Info) Description 04/03/2023 Abstract [facility] ADULT DENTAL [address] [place], [place] [phone] Agnes, Dayana [address] [place] [address] Social History Tobacco Use Types Packs/Day Years [...] Description 04/14/2025 1:00 PM EST Office Visit [facility] ADULT DENTAL [address] [place] [address] Agnes, Dayana [address] [place] [address] documented as of this encounter Visit Diagnoses Not on filedocumented in this encounter Additional Health Concerns Assessment Noted Time PHQ-9 Depression Total Score: 0 07/18/19 23 9:47 AM EST documented as of this encounter Care Teams Physical Fitness Teacher Relationship Specialty Start Date End Date Celine Aldana MD [address] [place] [address] PCP - General Family Medicine 06/10/18 documented as of this encounter
--- OUTSIDE RECORDS SUMMARY | 2024-10-15 12:05 | XMS_ITS | Encounter Summary ---
Author Organization [employer] Address 75 [facility] 7t [place] [address] Care Team Providers Care Student Affairs Dean Name Role Phone Celine Aldana MD Primary Care Provider [phone] Encounter Details Date Type Department Care Team ([facility] st Contact Info) Description 10/15/2024 9:30 AM EDT Office Visit [facility] MEDICINE [address] [place], [place] [phone] Celine Aldana MD 230 [place], [place] [phone] Mild intermittent asthma without complication (Primary Dx); Impaired fasting glucose; Dyslipidemia; Vitamin D deficiency; Class 2 obesity due to excess calories without serious comorbidity with body mass index (BMI) of 39.0 to 39.9 in adult Social History Tobacco Use Types Packs/Day Years [...] Sign Reading Time Taken Comments Blood Pressure 99/59 10/15/2024 9:31 AM EDT Pulse 81 10/15/2024 9:31 AM EDT Temperature 36.3 ??C (97.3 ??F) 10/15/2024 9:31 AM ED T Respiratory Rate 15 10/15/2024 9:31 AM EDT Oxygen Saturation 97% 10/15/2024 9:31 AM EDT Inhaled Oxygen Concentration - - Weight 96.2 kg (212 lb) 10/15/2024 9:31 AM EDT Height - - Body Mass Index 40.61 06/16/2024 10:38 AM EST documented in this encounter Plan of Treatment Upcoming Encounters Date Type Department Care Team (Late st Contact Info) Description 04/14/2025 1:00 PM EST Office Visit [facility] ADULT DENTAL [address] [place], [place] [phone] Hari Alarocnaris [address] [place] [address] Scheduled Orders Name Type Priority Associated Diagnoses Orde r Schedule Vitamin D, 25-Hydroxy, Total, Immunoassay Lab Routine Vitamin D deficiency Expected: 10/15/2024 (Approximate), Expires: 10/15/2025 documented as of this encounter Visit Diagnoses Diagnosis Mild intermittent asthma without complication- Primary Impaired fasting glucose Dyslipidemia Other and unspecified hyperlipidemia Vitamin D deficiency Class 2 obesity due to excess calories without serious comorbidity with body mass index (BMI) of 39.0 to 39.9 in adult documented in this encounter Additional Health Concerns Assessment Noted Time PHQ-9 Depression Total Score: 7 03/02/20 24 9:35 AM EDT documented as of this encounter Care Teams Student Affairs Dean Relationship Specialty Start Date End Date Celine Aldana MD [address] [place] [phone] PCP - General Family Medicine 06/10/18 documented as of this encounter
--- OUTSIDE RECORDS SUMMARY | 2024-10-15 12:05 | XMS_ITS | Encounter Summary ---
Author Organization [employer] Address [address] [place] [address] Care Team Providers Care Cullet Trucker Name Role Phone Celine Aldana MD Primary Care Provider [phone] Encounter Details Date Type Department Care Team (Late st Contact Info) Description 09/30/2024 Lab Requisition [facility] - Main Lab [address] [place] [address] Damion Patel MD [address] [place], [place] [phone] Anemia, unspecified Social History Tobacco Use Types [...] Associated Diagnosis Comments COMPLETE BLOOD COUNT Routine 10/01/2024 6:37 AM EDT Anemia, unspecified BASIC METABOLIC PANEL Routine 10/01/2024 6:37 AM EDT Anemia, unspecified documented in this encounter Results * Basic metabolic panel (10/01/2024 6:37 AM EDT) Sodium 143 133 - 145 mmol/L LAB CHEMISTRY METHOD 10/01/2024 9:13 AM [facility] LAB Potassium 4.5 3.5 - 5.5 mmol/L LAB CHEMISTRY METHOD 10/01/2024 9:13 AM [facility] Chloride 107 96 - 110 mmol/L LAB CHEMISTRY METHOD 10/01/2024 9:13 AM [facility] LAB CO2 30 21 - 32 mmol/L LAB CHEMISTRY METHOD 10/01/2024 9:13 AM [facility] Anion Gap 6 3 - 11 LAB CHEMISTRY METHOD 10/01/2024 9:13 AM [facility] Glucose 94 70 - 100 mg/dL LAB CHEMISTRY METHOD 10/01/2024 9:13 AM [facility] BUN 16 5 - 25 mg/dL LAB CHEMISTRY METHOD 10/01/2024 9:13 AM [facility] Creatinine 0.59 0.50 - 1.10 mg/dL LAB CHEMISTRY METHOD 10/01/2024 9:13 AM [facility] eGFR 103 >=60 mL/min/1. 73m2 LAB CHEMISTRY METHOD 10/01/2024 9:13 AM [facility] Comment:Calculation based on the??Chronic Kidney Disease Epidemiology Collaboration (CKD-EPI) equation refit??without adjustment for race. BUN/Creatinine Ratio 27.1 LAB CHEMISTRY METHOD 10/01/2024 9:13 AM [facility] Calcium 9.6 8.5 - 10.5 mg/dL LAB CHEMISTRY METHOD 10/01/2024 9:13 AM [facility] Blood Venous blood specimen / Unknown Venipuncture / Unknown 10/01/2024 6:37 AM EDT 10/01/2024 8:15 AM EDT us Damion Patel MD LAB BLOOD ORDERABLES Final Result [facility] LAB [address] [place] [address], * (ABNORMAL) Complete blood count (10/01/2024 6:37 AM EDT) WBC 8.6 4.8 - 10.8 K/mcL LAB HEMETOLOGY METHOD 10/01/2024 8:37 AM [facility] RBC 4.50 3.80 - 4.80 M/mcL LAB HEMETOLOGY METHOD 10/01/2024 8:37 AM [facility] Hemoglobin 12.1 11.5 - 16.0 g/dL LAB HEMETOLOGY METHOD 10/01/2024 8:37 AM [facility] Hematocrit 39.0 35.0 - 47.0 % LAB HEMETOLOGY METHOD 10/01/2024 8:37 AM [facility] MCV 87.1 79.0 - 98.0 FL LAB HEMETOLOGY METHOD 10/01/2024 8:37 AM [facility] MCH 27.0 27.0 - 32.0 pcg LAB HEMETOLOGY METHOD 10/01/2024 8:37 AM [facility] MCHC 31.0(L) 32.0 - 37.0 g/dL LAB HEMETOLOGY METHOD 10/01/2024 8:37 AM [facility] RDW 13.7 11.0 - 15.0 % LAB HEMETOLOGY METHOD 10/01/2024 8:37 AM [facility] Platelets 382 130 - 400 K/mcL LAB HEMETOLOGY METHOD 10/01/2024 8:37 AM [facility] MPV 11.0 7.0 - 11.0 FL LAB HEMETOLOGY METHOD 10/01/2024 8:37 AM [facility] NRBC 0.0 <1.0 % LAB HEMETOLOGY METHOD 10/01/2024 8:37 AM [facility] NRBC Absolute 0.00 <0.10 K/mcL LAB HEMETOLOGY METHOD 10/01/2024 8:37 AM [facility] Blood Venous blood specimen / Unknown Venipuncture / Unknown 10/01/2024 6:37 AM EDT 10/01/2024 8:15 AM EDT us Damion Patel MD LAB BLOOD ORDERABLES Final Result [facility] ([facility]) [facility] LAB [address] [place] [address], documented in this encounter Visit Diagnoses Diagnosis Anemia, unspecified documented in this encounter Care Teams Cullet Trucker Relationship Specialty Start Date End Date Celine Aldana MD [address] [place] [phone] PCP - General 07/01/23 documented as of this encounter
--- OUTSIDE RECORDS SUMMARY | 2024-10-15 12:05 | XMS_ITS | Encounter Summary ---
Author Organization [employer] Address [address] [place] [address] Care Team Providers Care Field Checker Name Role Phone Celine Aldana MD Primary Care Provider [phone] Encounter Details Date Type Department Care Team (Late st Contact Info) Description 09/22/2024 Lab Requisition [facility] - Main Lab [address] [place] [address] Damion Patel MD [address] [place] [address] Other asthma; Depression, unspecified; Anxiety disorder, unspecified Social History Tobacco Use Types Packs/Day [...] Associated Diagnosis Comments COMPLETE BLOOD COUNT Routine 09/22/2024 9:00 AM EDT Other asthma Depression, unspecified Anxiety disorder, unspecified BASIC METABOLIC PANEL Routine 09/22/2024 9:00 AM EDT Other asthma Depression, unspecified Anxiety disorder, unspecified documented in this encounter Results * Basic metabolic panel (09/22/2024 9:00 AM EDT) Sodium 140 133 - 145 mmol/L LAB CHEMISTRY METHOD 09/22/2024 11:44 AM EDT [facility] Potassium 4.6 3.5 - 5.5 mmol/L LAB CHEMISTRY METHOD 09/22/2024 11:44 AM EDT [facility] Chloride 107 96 - 110 mmol/L LAB CHEMISTRY METHOD 09/22/2024 11:44 AM [facility] LAB CO2 29 21 - 32 mmol/L LAB CHEMISTRY METHOD 09/22/2024 11:44 AM [facility] LAB Anion Gap 4 3 - 11 LAB CHEMISTRY METHOD 09/22/2024 11:44 AM [facility] LAB Glucose 95 70 - 100 mg/dL LAB CHEMISTRY METHOD 09/22/2024 11:44 AM [facility] LAB BUN 15 5 - 25 mg/dL LAB CHEMISTRY METHOD 09/22/2024 11:44 AM [facility] LAB Creatinine 0.55 0.50 - 1.10 mg/dL LAB CHEMISTRY METHOD 09/22/2024 11:44 AM [facility] LAB eGFR 104 >=60 mL/min/1. 73m2 LAB CHEMISTRY METHOD 09/22/2024 11:44 AM [facility] LAB Comment:Calculation based on the??Chronic Kidney Disease Epidemiology Collaboration (CKD-EPI) equation refit??without adjustment for race. BUN/Creatinine Ratio 27.3 LAB CHEMISTRY METHOD 09/22/2024 11:44 AM [facility] LAB Calcium 9.5 8.5 - 10.5 mg/dL LAB CHEMISTRY METHOD 09/22/2024 11:44 AM [facility] LAB Blood Venous blood specimen / Unknown Venipuncture / Unknown 09/22/2024 9:00 AM EDT 09/22/2024 10:44 AM EDT us Damion Patel MD LAB BLOOD ORDERABLES Final Result [facility] [address] [place] [address], * (ABNORMAL) Complete blood count (09/22/2024 9:00 AM EDT) WBC 8.8 4.8 - 10.8 K/mcL LAB HEMETOLOGY METHOD 09/22/2024 11:14 AM [facility] LAB RBC 4.40 3.80 - 4.80 M/mcL LAB HEMETOLOGY METHOD 09/22/2024 11:14 AM [facility] Hemoglobin 12.0 11.5 - 16.0 g/dL LAB HEMETOLOGY METHOD 09/22/2024 11:14 AM [facility] LAB Hematocrit 37.6 35.0 - 47.0 % LAB HEMETOLOGY METHOD 09/22/2024 11:14 AM [facility] LAB MCV 85.6 79.0 - 98.0 FL LAB HEMETOLOGY METHOD 09/22/2024 11:14 AM [facility] LAB MCH 27.3 27.0 - 32.0 pcg LAB HEMETOLOGY METHOD 09/22/2024 11:14 AM [facility] LAB MCHC 31.9(L) 32.0 - 37.0 g/dL LAB HEMETOLOGY METHOD 09/22/2024 11:14 AM [facility] LAB RDW 13.3 11.0 - 15.0 % LAB HEMETOLOGY METHOD 09/22/2024 11:14 AM [facility] LAB Platelets 330 130 - 400 K/mcL LAB HEMETOLOGY METHOD 09/22/2024 11:14 AM [facility] LAB MPV 11.1(H) 7.0 - 11.0 FL LAB HEMETOLOGY METHOD 09/22/2024 11:14 AM [facility] LAB NRBC 0.0 <1.0 % LAB HEMETOLOGY METHOD 09/22/2024 11:14 AM [facility] LAB NRBC Absolute 0.00 <0.10 K/mcL LAB HEMETOLOGY METHOD 09/22/2024 11:14 AM [facility] LAB Blood Venous blood specimen / Unknown Venipuncture / Unknown 09/22/2024 9:00 AM EDT 09/22/2024 10:44 AM EDT Damion Patel MD LAB BLOOD ORDERABLES Final Result [facility] ([facility]) [facility] LAB [address] [place] [address], documented in this encounter Visit Diagnoses Diagnosis Other asthma Depression, unspecified Anxiety disorder, unspecified documented in this encounter Care Teams Field Checker Relationship Specialty Start Date End Date Celine Aldana MD [address] [place] [phone] PCP - General 07/01/23 documented as of this encounter
--- OUTSIDE RECORDS SUMMARY | 2024-10-15 12:05 | XMS_ITS | Clinical Summary ---
Author Organization [address] Address [address] [place] [address] Phone Care Team Providers Care Daytime Babysitter Name Role Phone Celine Aldana MD Primary Care Provider [phone] Encounters Date Type Department Care Team Description 10/05/2024 Lab Requisition [facility] Lab [address] [place] [phone] Damion Patel MD Anemia, unspecified; Other asthma; Anxiety disorder, unspecified 09/30/2024 Lab Requisition [facility] Lab [address] [place] [phone] Damion Patel MD Anemia, unspecified 09/28/2024 Lab Requisition [facility] Lab [address] [place] [phone] Damion Patel MD Anemia, unspecified; Other asthma; Anxiety disorder, unspecified 09/23/2024 Lab Requisition [facility] Lab [address] [place] [phone] Damion Patel MD Anemia, unspecified 09/22/2024 Lab Requisition [facility] Lab [address] [place] [address] Damion Patel MD Other asthma; Depression, unspecified; Anxiety disorder, unspecified 09/17/2024 Lab Requisition [facility] Lab [address] [place] [phone] Damion Patel MD Anemia, unspecified from Last 3 Months Social History Tobacco Use Types Packs/Day Years Used Date Smoking Tobacco: Never Assessed Comments Unknown Sex and Gender Information Value Date Recorded Sex Assigned at Not on file Legal Sex Female 11:06 AM EDT Gender Identity Not on file Sexual Orientation Not on file Plan of Treatment Health Maintenance Due Date Last Done Comments Breast Cancer Screening 1965 Cervical Cancer Screening: Pap Smear 1984 RSV Immunization Adult Patients (1 - Risk 60-74 years 1-dose series) 2023 Cholesterol Screening (Lipid Panel) 01/03/2024 Colorectal Cancer Screening: Colonoscopy 01/03/2024 HIV Screening 01/03/2024 Hepatitis C Screening 01/03/2024 Social Influencers of Health Screening 01/03/2024 COVID-19 Vaccine ( season) 2024 09/06/2020, 08/09/2020 Depression Screening 03/02/2025 03/02/2024 DTaP,Tdap,and Td Vaccines (4 - Td or Tdap) 02/16/2032 02/15/2022, 02/06/2012, 01/16/2008 Hepatitis B Vaccines Completed 12/10/2022, 03/10/2019, 12/08/2013 Zoster Vaccines Completed 09/17/2023, 06/25/2023 Influenza Vaccine Completed 03/02/2024, , 02/15/2022, Additional history exists Pneumococcal Vaccine: 50+ Years Completed 03/02/2024, 12/24/2017, 07/23/2008 Pneumococcal Vaccine: Pediatrics (0 to 5 Years) and At-Risk Patients (6 to 64 Years) Completed 03/02/2024, 12/24/2017, 07/23/2008 HIB Vaccines Aged [...] on patient's age to complete this topic MMR Vaccines Aged Out No longer eligi ble based on patient's age to complete this topic Meningococcal ACWY Vaccine Aged Out N o longer eligible based on patient's age to complete this topic Meningococcal B Vaccine Aged Out No l onger eligible based on patient's age to complete this topic RSV Immunization Patients Under 20 months Aged Out No longer eligible based on patient's age to complete this topic Varicella Vaccines Aged Out No longer eligible based on patient's age to complete this topic Procedures Procedure Name Priority Date/Time Associated Diagnosis Comments BASIC METABOLIC PANEL Routine 10/01/2024 6:37 AM EDT Anemia, unspecified COMPLETE BLOOD COUNT Routine 10/01/2024 6:37 AM EDT Anemia, unspecified BASIC METABOLIC PANEL Routine 09/29/2024 8:05 AM EDT Anemia, unspecified Other asthma Anxiety disorder, unspecified COMPLETE BLOOD COUNT Routine 09/29/2024 8:05 AM EDT Anemia, unspecified Other asthma Anxiety disorder, unspecified BASIC METABOLIC PANEL Routine 09/24/2024 7:08 AM EDT Anemia, unspecified COMPLETE BLOOD COUNT Routine 09/24/2024 7:08 AM EDT Anemia, unspecified BASIC METABOLIC PANEL Routine 09/22/2024 9:00 AM EDT Other asthma Depression, unspecified Anxiety disorder, unspecified COMPLETE BLOOD COUNT Routine 09/22/2024 9:00 AM EDT Other asthma Depression, unspecified Anxiety disorder, unspecified COMPREHENSIVE METABOLIC PANEL Routine 09/17/2024 7:44 AM EDT Anemia, unspecified COMPLETE BLOOD COUNT Routine 09/17/2024 7:44 AM EDT Anemia, unspecified from Last 3 Months Results * (ABNORMAL) Complete blood count (10/01/2024 6:37 AM EDT) Only the most recent of5 resultswithin the time period is included. [facility] Signature WBC 8.6 4.8 - 10.8 K/[facility] LAB HEMETOLOGY METHOD 10/01/2024 8:37 AM EDT [facility] LAB RBC 4.50 3.80 - 4.80 M/[facility] LAB HEMETOLOGY METHOD 10/01/2024 8:37 AM [facility] LAB Hemoglobin 12.1 11.5 - 16.0 g/dL LAB HEMETOLOGY METHOD 10/01/2024 8:37 AM [facility] LAB Hematocrit 39.0 35.0 - 47.0 % LAB HEMETOLOGY METHOD 10/01/2024 8:37 AM [facility] LAB MCV 87.1 79.0 - 98.0 FL LAB HEMETOLOGY METHOD 10/01/2024 8:37 AM [facility] LAB MCH 27.0 27.0 - 32.0 pcg LAB HEMETOLOGY METHOD 10/01/2024 8:37 AM [facility] LAB MCHC 31.0(L) 32.0 - 37.0 g/dL LAB HEMETOLOGY METHOD 10/01/2024 8:37 AM [facility] LAB RDW 13.7 11.0 - 15.0 % LAB HEMETOLOGY METHOD 10/01/2024 8:37 AM [facility] LAB Platelets 382 130 - 400 K/mcL LAB HEMETOLOGY METHOD 10/01/2024 8:37 AM [facility] LAB MPV 11.0 7.0 - 11.0 FL LAB HEMETOLOGY METHOD 10/01/2024 8:37 AM [facility] LAB NRBC 0.0 <1.0 % LAB HEMETOLOGY METHOD 10/01/2024 8:37 AM [facility] LAB NRBC Absolute 0.00 <0.10 K/mcL LAB HEMETOLOGY METHOD 10/01/2024 8:37 AM [facility] LAB Blood Venous blood specimen / Unknown Venipuncture / Unknown 10/01/2024 6:37 AM EDT 10/01/2024 8:15 AM EDT Damion Patel MD LAB BLOOD ORDERABLES Final Result [facility] LAB [address] [place] [address], * Basic metabolic panel (10/01/2024 6:37 AM EDT) Only the most recent of4 resultswithin the time period is included. Sodium 143 133 - 145 mmol/L LAB CHEMISTRY METHOD 10/01/2024 9:13 AM [facility] LAB Potassium 4.5 3.5 - 5.5 mmol/L LAB CHEMISTRY METHOD 10/01/2024 9:13 AM [facility] LAB Chloride 107 96 - 110 mmol/L LAB CHEMISTRY METHOD 10/01/2024 9:13 AM [facility] LAB CO2 30 21 - 32 mmol/L LAB CHEMISTRY METHOD 10/01/2024 9:13 AM [facility] LAB Anion Gap 6 3 - 11 LAB CHEMISTRY METHOD 10/01/2024 9:13 AM [facility] LAB Glucose 94 70 - 100 mg/dL LAB CHEMISTRY METHOD 10/01/2024 9:13 AM [facility] LAB BUN 16 5 - 25 mg/dL LAB CHEMISTRY METHOD 10/01/2024 9:13 AM [facility] LAB Creatinine 0.59 0.50 - 1.10 mg/dL LAB CHEMISTRY METHOD 10/01/2024 9:13 AM [facility] LAB eGFR 103 >=60 mL/min/1. 73m2 LAB CHEMISTRY METHOD 10/01/2024 9:13 AM [facility] LAB Comment:Calculation based on the??Chronic Kidney Disease Epidemiology Collaboration (CKD-EPI) equation refit??without adjustment for race. BUN/Creatinine Ratio 27.1 LAB CHEMISTRY METHOD 10/01/2024 9:13 AM [facility] LAB Calcium 9.6 8.5 - 10.5 mg/dL LAB CHEMISTRY METHOD 10/01/2024 9:13 AM [facility] LAB Blood Venous blood specimen / Unknown Venipuncture / Unknown 10/01/2024 6:37 AM EDT 10/01/2024 8:15 AM EDT Damion Patel MD LAB BLOOD ORDERABLES Final Result [facility] LAB [address] [place] [address], * (ABNORMAL) Comprehensive metabolic panel (09/17/2024 7:44 AM EDT) Sodium 141 133 - 145 mmol/L LAB CHEMISTRY METHOD 09/17/2024 10:55 AM [facility] LAB Potassium 4.3 3.5 - 5.5 mmol/L LAB CHEMISTRY METHOD 09/17/2024 10:55 AM [facility] LAB Chloride 104 96 - 110 mmol/L LAB CHEMISTRY METHOD 09/17/2024 10:55 AM [facility] LAB CO2 31 21 - 32 mmol/L LAB CHEMISTRY METHOD 09/17/2024 10:55 AM [facility] LAB Anion Gap 6 3 - 11 LAB CHEMISTRY METHOD 09/17/2024 10:55 AM [facility] LAB Glucose 85 70 - 100 mg/dL LAB CHEMISTRY METHOD 09/17/2024 10:55 AM [facility] LAB BUN 11 5 - 25 mg/dL LAB CHEMISTRY METHOD 09/17/2024 10:55 AM [facility] LAB Creatinine 0.52 0.50 - 1.10 mg/dL LAB CHEMISTRY METHOD 09/17/2024 10:55 AM [facility] LAB eGFR 106 >=60 mL/min/1. 73m2 LAB CHEMISTRY METHOD 09/17/2024 10:55 AM [facility] LAB Comment:Calculation based on the??Chronic Kidney Disease Epidemiology Collaboration (CKD-EPI) equation refit??without adjustment for race. BUN/Creatinine Ratio 21.2 LAB CHEMISTRY METHOD 09/17/2024 10:55 AM [facility] LAB Calcium 9.5 8.5 - 10.5 mg/dL LAB CHEMISTRY METHOD 09/17/2024 10:55 AM [facility] LAB AST (SGOT) 48(H) 10 - 42 unit/L LAB CHEMISTRY METHOD 09/17/2024 10:55 AM [facility] LAB ALT (SGPT) 33 10 - 60 unit/L LAB CHEMISTRY METHOD 09/17/2024 10:55 AM [facility] LAB Alkaline Phosphatase 190(H) 42 - 121 unit/L LAB CHEMISTRY METHOD 09/17/2024 10:55 AM [facility] LAB Total Protein 6.3 6.0 - 8.0 g/dL LAB CHEMISTRY METHOD 09/17/2024 10:55 AM [facility] LAB Albumin 3.1(L) 3.2 - 5.0 g/dL LAB CHEMISTRY METHOD 09/17/2024 10:55 AM [facility] LAB Total Bilirubin 1.3 0.0 - 1.4 mg/dL LAB CHEMISTRY METHOD 09/17/2024 10:55 AM [facility] LAB Blood Venous blood specimen / Unknown Venipuncture / Unknown 09/17/2024 7:44 AM EDT 09/17/2024 10:04 AM EDT us Damion Patel MD LAB BLOOD ORDERABLES Final Result [facility] LAB [address] [place] [address], from Last 3 Months Insurance MEDICAID - [place] Care Teams Daytime Babysitter Relationship Specialty Start Date End Date Celine Aldana MD [address] [place] [phone] PCP - General 07/01/23
--- OUTSIDE RECORDS SUMMARY | 2024-10-15 12:05 | XMS_ITS | Encounter Summary ---
Author Organization [email or web address] Address [address] [facility] 7 [place] [address] Care Team Providers Care Sheetmetal Worker Name Role Phone Celine Aldana MD Primary Care Provider [phone] Encounter Details Date Type Department Care Team (Late st Contact Info) Description 02/20/2023 Orders Only [facility] MEDICINE [address] [place], [place] [phone] Celine Aldana MD [address] [place] [address] Pain of both heels (Primary Dx) Social [...] Description 04/14/2025 1:00 PM EST Office Visit [facility] ADULT DENTAL [address] [place], [place] [phone] Dayana Alarcon [address] [place] [address] documented as of this encounter Visit Diagnoses Diagnosis Pain of both heels- Primary documented in this encounter Additional Health Concerns Assessment Noted Time PHQ-9 Depression Total Score: 0 07/18/19 23 9:47 AM EST documented as of this encounter Care Teams Sheetmetal Worker Relationship Specialty Start Date End Date Celine Aldana MD [address] [place] [address] PCP - General Family Medicine 06/10/18 documented as of this encounter
--- OUTSIDE RECORDS SUMMARY | 2024-10-15 12:05 | XMS_ITS | Clinical Summary ---
Author Organization [employer] Address [address] [facility] 7t [place] [address] Care Team Providers Care Line Assembler Name Role Phone Celine Aldana MD Primary Care Provider [phone] Allergies No known active allergies Medications albuterol (Ventolin HFA) 108 (90 Base) MCG/ACT inhaler INHALE 2 PUFFS BY MOUTH EVERY 4 TO 6 HOURS NEEDED (for asthma) 18 g 3 01/15/20 24 Active Spacer/Aero-Ho lding Chambers (OptiChamber Marian) misc 1 each every 4 (four) hours if needed (asthma). 1 each 01/15/20 24 Active pantoprazole (ProtoNix) 40 MG EC tablet TAKE 1 TABLET BY MOUTH EVERY DAY 90 tablet 3 01/29/20 24 Active cetirizine (ZyrTEC) 10 MG tabletIndicati ons:Allergic rhinitis, unspecified seasonality, unspecified trigger TAKE 1 TABLET BY MOUTH EVERY DAY IN THE MORNING 90 tablet 2 06/02/20 24 Active clonazePAM (KlonoPIN) 1 MG tablet Take 1 tablet by mouth at bedtime. 09/15/19 25 Active busPIRone (Buspar) 10 MG tablet Take 1 tablet by mouth 2 times daily. Active Tirzepatide-We ight Management (Zepbound) 2.5 MG/0.5ML solution auto-injectorI ndications:Cla ss 2 obesity due to excess calories without serious comorbidity with body mass index (BMI) of 39.0 to 39.9 in adult Inject 0.5 mL (2.5 mg) under the skin 1 (one) time per week. 2 mL 11 05/08/20 25 Active cholecalcifero l (Vitamin D-3) 25 MCG tablet Take 25 mcg by mouth in the morning. 03/12/20 025 Discontinued(Me d list cleanup (will not trigger notification to Pharmacy)) clonazePAM (KlonoPIN) 0.5 MG tablet Take 0.5 mg by mouth at bedtime. 06/28/19 025 Discontinued(Me d list cleanup (will not trigger notification to Pharmacy)) Cyanocobalamin (Vitamin B-12) 500 MCG sublingual tablet TAKE 1 TABLET UNDER THE TONGUE EVERY DAY 05/17/20 025 Discontinued(Me d list cleanup (will not trigger notification to Pharmacy)) Deep Sea Nasal [place] 0.65 % nasal spray INSTILL 1-2 SPRAYS IN EACH NOSTRIL EVERY 2 TO 3 HOURS NEEDED FOR NASAL CONGESTION 11/15/19 025 Discontinued(Me d list cleanup (will not trigger notification to Pharmacy)) busPIRone (Buspar) 7.5 MG tablet Take 7.5 mg by mouth 2 times daily. 02/27/20 025 Discontinued(Me d list cleanup (will not trigger notification to Pharmacy)) Tirzepatide-We ight Management (Zepbound) 2.5 MG/0.5ML solution auto-injectorI ndications:Cla ss 2 obesity due to excess calories without serious comorbidity with body mass index (BMI) of 39.0 to 39.9 in adult Inject 0.5 mL (2.5 mg) under the skin 1 (one) time per week. 2 mL 06/16/19 025 Discontinued(Re order (will not trigger notification to Pharmacy)) Active Problems Problem Noted Date Diagnosed Date [...] stretching exercise at home - seen by [facility] provider in Jul 2023, received steroid injection for trochanteric bursitis which improved both hip and heel pain - receiving PT Assessment & Plan (06/29/2023 6:53 PM EST): - likely trochanteric bursitis, possible osteoarthritis - recommended stretching exercise at home - patient would like to be evaluated by orthopedist; will refer to [facility] Missing teeth, acquired 05/13/2023 Dental calculus 03/12/2023 [...] - Mental / Behavioral health: Connected with [facility] History of bariatric surgery 12/11/2022 Assessment & [...] foot / heel pain -refer to another folder taper operator Assessment & Plan (07/28/2022 6:29 AM EST): -Hx plantar fasciitis -s/p left foot plantar fasciotomy -currently having right foot / heel pain -refer to folder taper operator Chronic back pain 07/09/2016 Assessment & [...] current treatment plan with albuterol HFA prn. Class 2 obesity 11/02/2011 Assessment & Plan (06/22/2024 6:15 AM [...] Encounters Date Type Department Care Team Description 10/15/2024 9:30 AM EDT Office Visit [address] [address] Celine Aldana MD Mild intermittent asthma without complication (Primary Dx); Impaired fasting glucose; Dyslipidemia; Vitamin D deficiency; Class 2 obesity due to excess calories without serious comorbidity with body mass index (BMI) of 39.0 to 39.9 in adult 10/15/2024 Travel 10/14/[address] [address] Celine Aldana MD Chart Prep 10/12/2024 Telephone [facility] [place] [address] Celine Aldana MD S Cancelled Appt 10/08/2024 Telephone [facility] [place] [address] Celine Aldana MD Chart Prep 10/05/2024 Telephone [facility] [place] [address] Luana Villalba PharmD 10/01/2024 Telephone [facility] [place] [address] Celine Aldana MD FYI 09/29/2024 Patient Outreach [address] [address] Celine Aldana MD Transition Of Care (Tcm) (HDF- Scheduled Direct Line) 09/21/2024 Patient Outreach [facility] [place] [address] Celine Aldana MD Transition Of Care (Tcm) (HDF unscheduled LVM ) 09/17/2024 Patient Outreach [facility] [place] [address] Celine Aldana MD Transition Of Care (Tcm) (HDF unscheduled LVM ) 08/21/2024 Population Health Risk Score [facility] () Department [address] [place] [phone] Provider, Population Health Generic 08/20/2024 Orders Only [facility] [address] [place], [place] [phone] Celine Aldana MD 08/04/2024 1:00 PM EST Office Visit [facility] [place] [address] Dayana Alarcon Dental calculus (Primary Dx); Periodontal disease 07/24/2024 Refill [facility] [address] [place], [place] [phone] Woo Powell MD from Last 3 Months Immunizations Name Administration [...] (212 lb) 10/15/2024 9:31 AM EDT Height 153.9 cm (5' 0.58 ) 06/16/2024 10:[address] Body Mass Index 40.61 06/16/2024 10:38 AM EST Plan of Treatment Upcoming Encounters Date Type Department Care Team (Late st Contact Info) Description 04/14/2025 1:00 PM EST Office Visit [facility] [address] [place], [place] [phone] Agnes, Dayana [address] [place] [address] Health Maintenance Due Date Last Done Comments CT Colonography 1965 FIT DNA/Cologuard 1965 FIT 1965 FOBT 1965 HIV Screening 1965 Sigmoidoscopy 1965 Hepatitis C Screening 1981 RSV Patients and Patients Aged 60 years or older (1 - Risk 60-74 years 1-dose series) 2023 Dental X-Ray: Full Mouth 08/03/2023 08/02/2020, 07/11 COVID-19 Vaccine ( - season) 2024 09/06/2020, 08/09/2020 Colonoscopy 05/27/2024 05/27/2014 Colorectal Cancer Screening 05/27/2024 Dental Oral Exam 08/03/2024 01/31/2024, , 01/23/2023, Additional history exists Dental X-Ray: Bitewings 01/31/2025 01/31/20, 01/23/2023, 09/15/2021, Additional history exists Dental Prophylaxis 02/02/2025 08/04/2024, 0 01/31/2024, 03/12/2023, Additional history exists Alcohol/Substance Use Screening 03/02/2025 03/02/2024 Depression Screening 03/02/2025 03/02/2024, 03/02/20 SDOH Screening 03/02/2025 03/02/2024 Tobacco Screening 10/15/2025 10/15/2024 Mammogram 08/20/2026 08/20/2024, 0312/2023, 08/09/2022, Additional history exists Lipid Panel 03/02/2029 03/02/2024, [...] Procedure Name Priority Date/Time Associated Diagnosis Comments BI MAMMOGRAM SCREENING TOMOSYNTHESIS BILATERAL Routine 08/20/2024 1:30 PM EDT ORAL HYGIENE INSTRUCTIONS Routine 08/04/2024 1:00 PM EST Dental calculus Periodontal disease CASE PRESENTATION, DETAILED AND EXTENSIVE TREATMENT PLANNING Routine 08/04/2024 1:00 PM EST Dental calculus Periodontal disease PROPHYLAXIS - ADULT Routine 08/04/2024 1 :00 PM EST Dental calculus Periodontal disease LIPID PANEL WITH REFLEX TO DIRECT LDL Routine 03/02/2024 10:45 AM EDT Dyslipidemia BITEWINGS - 4 RADIOGRAPHIC IMAGES Routine 01/31/2024 10:00 AM EDT Crowded teeth Abfraction Extruded tooth Dental calculus PERIODIC ORAL EVALUATION - ESTABLISHED PATIENT Routine 01/31/2024 10:00 AM EDT Crowded teeth Abfraction Extruded tooth Dental calculus INTRAORAL - COMPLETE SERIES OF RADIOGRAPHIC IMAGES Routine 08/02/2020 12:00 AM EST HM COLONOSCOPY Routine 05/27/2014 from Last 3 Months or Most Recently Relevant to Health Maintenance Results * BI Mammogram Screening Tomosynthesis Bilateral (08/20/2024 1:30 PM EDT) Anatomical Region Laterality Modality Breast Bilateral Mammography 08/20/2024 1:30 PM EDT Narrative 08/29/2024 10:40 AM EDT ? [facility] ? [address] ?[place] [address] ?[phone] ? Mammography Report ? Signed ? Patient: James,Barb ?MR#: [id number] ?? 0 ? : 1965 ?Acct:[id number] ? Age/Sex: 59 / F ?ADM Date: 03/13/25 ? Loc: HO.MAMMO ? Attending Dr: Celine Aldana MD ? Ordering Physician: Celine Aldana MD ?Results: 1Negative ? Date of Service: 08/20/24 ?Follow Up: 1 Year From Orig ?? inal Mammogram ? Procedure(s): MM tomosynthesis screening BI ?? Accession Number(s): [id number] ? cc: Celine Aldana MD ? EXAMINATION: ?? MM SCREENING DIGITAL BREAST TOMOSYNTHESIS, BILATERAL ? CLINICAL INFORMATION: ? Screening. Asymptomatic. ? COMPARISON: ?? Mammography: Comparison is made with available priors ? TECHNIQUE: ?? Digital breast mammography with tomosynthesis is performed in both the ?? craniocaudal and mediolateral oblique views along with computer-aided ?? detection (CAD). ? FINDINGS: ?? There are scattered areas of fibroglandular density (ACR BI-RADS breast ?? composition Category b). ? There are no significant masses, abnormal calcifications, or other ?? abnormalities. ? MM/MM tomosynthesis screening BI ?? IMPRESSION: ?? No mammographic evidence of malignancy. ? ASSESSMENT: ? BI-RADS BI-RADS 1 - Negative ? RECOMMENDATION: ?? Routine annual mammography screening. ? 1 year F/U ? This examination should not preclude the clinical evaluation of a ?? suspicious palpable abnormality. ? This patient's information was entered into a reminder system with a ?? target due date for their next mammogram. ? Electronically signed by: ??Iris Mcrae DO ??08/29/2024 10:38 AM EDT ?? RP ? Dictated By: ?Iris Mcrae DO ? Signed By: ?<Electronically signed by Iris Mcrae, DO in OV> ? 08/29/24 1038 ? DD/ 1330 ? TD/TT: 08/20/24 1340 ? Residence Life Coordinator: ? Procedure Note Donotuseinterpreter, Image - [facility] [address] [place], [place] [address] Mammography Report Signed Patient: Iliana James EMR#: [id number] 0 : 1965Acct:[id number] Age/Sex: 59 / FADM Date: 08/20/24 Loc: MAMMO Attending Dr: Celine Aldana MD Ordering Physician: Celine Aldana MDResults: 1Negative Date of Service: 08/20/24Follow Up: 1 Year From Orig ina Mammogram Procedure(s): MM tomosynthesis screening BI Accession Number(s): [id number] cc: Celine Aldana MD EXAMINATION: MM SCREENING DIGITAL BREAST TOMOSYNTHESIS, BILATERAL CLINICAL INFORMATION: Screening. Asymptomatic. COMPARISON: Mammography: Comparison is made with available priors TECHNIQUE: Digital breast mammography with tomosynthesis is performed in both the craniocaudal and mediolateral oblique views along with computer-aided detection (CAD). FINDINGS: There are scattered areas of fibroglandular density (ACR BI-RADS breast composition Category b). There are no significant masses, abnormal calcifications, or other abnormalities. MM/MM tomosynthesis screening BI IMPRESSION: No mammographic evidence of malignancy. ASSESSMENT: BI-RADS BI-RADS 1 - Negative RECOMMENDATION: Routine annual mammography screening. 1 year F/U This examination should not preclude the clinical evaluation of a suspicious palpable abnormality. This patient's information was entered into a reminder system with a target due date for their next mammogram. Electronically signed by: Iris Mcrae DO 08/29/2024 10:38 AM EDT RP Dictated By: Iris Mcrae DO Signed By: <Electronically signed by Iris Mcrae DO in OV> 08/29/24 1038 DD/ 1330 TD/TT: 08/20/24 1340 Residence Life Coordinator: Celine Aldana MD IMG BI PROCEDURES Edited Result - Final * (ABNORMAL) Lipid Panel with Reflex to Direct LDL (03/02/2024 10:45 AM EDT) Triglycerides 179(H) <150 mg/dL [facility] Comment:Desirable Triglyceri de: less than 150 mg/dLBorderline High Triglyceride 150-199 mg/dLHigh Triglyceride: 200-499 mg/dLVery High Triglyceride: greater than or equal to 5OO mg/dL Cholesterol 253(H) <200 mg/dL [facility] Comment:Desirable Cholestero l: less than 200 mg/dLBorderline High Cholesterol: 200-239 mg/dLHigh Cholesterol: greater than 239 mg/dL LDL Cholesterol Calculated 168(H) <100 mg/dL [facility] Comment:Desirable LDL: less than 100 mg/dLNear Optimal/Above Optimal LDL: 110- 129 mg/dLBorderline High LDL: 130-159 mg/dLHigh LDL: 160-189 mg/dLVery High LDL: greater than or equal to 190 mg/dL HDL Cholesterol 50 >40 mg/dL [facility] Comment:Desirable HDL: great er than 40 mg/dL Note: This HDL assay may give artificially low results in patients with liver disease. Blood 03/02/2024 10:4 5 AM EDT 03/02/2024 11:19 AM EDT Celine Aldana MD LAB BLOOD ORDERABLES Final Resul t [facility] [address] [place], [place] [phone] * Hm Colonoscopy (05/27/2014) Colonoscopy Normal Normal 05/27/2014 us Historical Provider HEALTH MAINTENANCE Final Result from Last 3 Months or Most Recently Relevant to Health Maintenance Insurance [facility] MEDICAID STAND ADULT Care Teams Line Assembler Relationship Specialty Start Date End Date Celine Aldana MD [address] [place] [address] PCP - General Family Medicine 06/10/18
--- OUTSIDE RECORDS SUMMARY | 2024-10-15 12:05 | XMS_ITS | Encounter Summary ---
Author Organization [employer] Address [address] [place] [address] Care Team Providers Care Trucker Hand Name Role Phone Celine Aldana MD Primary Care Provider [phone] Encounter Details Date Type Department Care Team (Late st Contact Info) Description 09/17/2024 Lab Requisition [facility] - Main Lab [address] [facility] [place] [address] Damion Patel MD [address] [place], [place] [phone] Anemia, unspecified Social History Tobacco Use Types [...] Associated Diagnosis Comments COMPLETE BLOOD COUNT Routine 09/17/2024 7:44 AM EDT Anemia, unspecified COMPREHENSIVE METABOLIC PANEL Routine 09/17/2024 7:44 AM EDT Anemia, unspecified documented in this encounter Results * (ABNORMAL) Comprehensive metabolic panel (09/17/2024 7:44 AM EDT) Sodium 141 133 - 145 mmol/L LAB CHEMISTRY METHOD 09/17/2024 10:55 AM [facility] Potassium 4.3 3.5 - 5.5 mmol/L LAB CHEMISTRY METHOD 09/17/2024 10:55 AM [facility] Chloride 104 96 - 110 mmol/L LAB CHEMISTRY METHOD 09/17/2024 10:55 AM [facility] CO2 31 21 - 32 mmol/L LAB CHEMISTRY METHOD 09/17/2024 10:55 AM [facility] Anion Gap 6 3 - 11 LAB CHEMISTRY METHOD 09/17/2024 10:55 AM [facility] Glucose 85 70 - 100 mg/dL LAB CHEMISTRY METHOD 09/17/2024 10:55 AM [facility] BUN 11 5 - 25 mg/dL LAB CHEMISTRY METHOD 09/17/2024 10:55 AM [facility] Creatinine 0.52 0.50 - 1.10 mg/dL LAB CHEMISTRY METHOD 09/17/2024 10:55 AM [facility] eGFR 106 >=60 mL/min/1. 73m2 LAB CHEMISTRY METHOD 09/17/2024 10:55 AM [facility] Comment:Calculation based on the??Chronic Kidney Disease Epidemiology Collaboration (CKD-EPI) equation refit??without adjustment for race. BUN/Creatinine Ratio 21.2 LAB CHEMISTRY METHOD 09/17/2024 10:55 AM [facility] Calcium 9.5 8.5 - 10.5 mg/dL LAB CHEMISTRY METHOD 09/17/2024 10:55 AM [facility] AST (SGOT) 48(H) 10 - 42 unit/L LAB CHEMISTRY METHOD 09/17/2024 10:55 AM [facility] ALT (SGPT) 33 10 - 60 unit/L LAB CHEMISTRY METHOD 09/17/2024 10:55 AM [facility] Alkaline Phosphatase 190(H) 42 - 121 unit/L LAB CHEMISTRY METHOD 09/17/2024 10:55 AM [facility] Total Protein 6.3 6.0 - 8.0 g/dL LAB CHEMISTRY METHOD 09/17/2024 10:55 AM [facility] Albumin 3.1(L) 3.2 - 5.0 g/dL LAB CHEMISTRY METHOD 09/17/2024 10:55 AM [facility] Total Bilirubin 1.3 0.0 - 1.4 mg/dL LAB CHEMISTRY METHOD 09/17/2024 10:55 AM [facility] Blood Venous blood specimen / Unknown Venipuncture / Unknown 09/17/2024 7:44 AM EDT 09/17/2024 10:04 AM EDT us Damion Patel MD LAB BLOOD ORDERABLES Final Result [facility] [address] [place] [address], * (ABNORMAL) Complete blood count (09/17/2024 7:44 AM EDT) WBC 9.5 4.8 - 10.8 K/mcL LAB HEMETOLOGY METHOD 09/17/2024 10:26 AM [facility] RBC 4.70 3.80 - 4.80 M/mcL LAB HEMETOLOGY METHOD 09/17/2024 10:26 AM [facility] Hemoglobin 12.9 11.5 - 16.0 g/dL LAB HEMETOLOGY METHOD 09/17/2024 10:26 AM [facility] Hematocrit 41.4 35.0 - 47.0 % LAB HEMETOLOGY METHOD 09/17/2024 10:26 AM [facility] MCV 87.3 79.0 - 98.0 FL LAB HEMETOLOGY METHOD 09/17/2024 10:26 AM [facility] MCH 27.2 27.0 - 32.0 pcg LAB HEMETOLOGY METHOD 09/17/2024 10:26 AM [facility] MCHC 31.2(L) 32.0 - 37.0 g/dL LAB HEMETOLOGY METHOD 09/17/2024 10:26 AM EDT [facility] RDW 13.2 11.0 - 15.0 % LAB HEMETOLOGY METHOD 09/17/2024 10:26 AM EDT [facility] Platelets 274 130 - 400 K/mcL LAB HEMETOLOGY METHOD 09/17/2024 10:26 AM EDT [facility] MPV 11.7(H) 7.0 - 11.0 FL LAB HEMETOLOGY METHOD 09/17/2024 10:26 AM EDT [facility] NRBC 0.0 <1.0 % LAB HEMETOLOGY METHOD 09/17/2024 10:26 AM EDT [facility] NRBC Absolute 0.00 <0.10 K/mcL LAB HEMETOLOGY METHOD 09/17/2024 10:26 AM EDT [facility] Blood Venous blood specimen / Unknown Venipuncture / Unknown 09/17/2024 7:44 AM EDT 09/17/2024 10:04 AM EDT Damion Patel MD LAB BLOOD ORDERABLES Final Result [facility] [address] [place] [address], documented in this encounter Visit Diagnoses Diagnosis Anemia, unspecified documented in this encounter Care Teams Trucker Hand Relationship Specialty Start Date End Date Celine Aldana MD [address] [place] [phone] PCP - General 07/01/23 documented as of this encounter
--- OUTSIDE RECORDS SUMMARY | 2024-10-15 12:05 | XMS_ITS | Encounter Summary ---
Author Organization [employer] [facility] Address [address] [place] [address] 7 [place] [address] Care Team Providers Care Director Child Abuse Therapy Name Role Phone Celine Aldana MD Primary Care Provider [phone] Encounter Details Date Type Department Care Team (Latest Contact Info) Description 09/15/2021 Abstract [facility] CONVERSIONS Dental, Provider, DDS Social History Tobacco [...] 1:00 PM EST Office Visit [facility] ADULT DENTAL [address] [place] [address] Agnes, Dayana [address] [place] [address] documented as of this encounter Visit Diagnoses Not on filedocumented in this encounter Care Teams Director Child Abuse Therapy Relationship Specialty Start Date End Date Celine Aldana MD [address] [place] [address] PCP - General Family Medicine 06/10/18 documented as of this encounter
--- OUTSIDE RECORDS SUMMARY | 2024-10-15 12:05 | XMS_ITS | Encounter Summary ---
Author Organization [employer] Address [address] [facility] [address]t [place] [address] Care Team Providers Care School Leader Name Role Phone Celine Aldana MD Primary Care Provider [phone] Reason for Visit * Reason Onset Date Comments Chart Prep 10/14/2024 Encounter Details Date Type Department Care Team ([facility] st Contact Info) Description 10/14/2024 Telephone [facility] [address] [place], [place] [phone] Celine Aldana MD [address] [place], [place] [phone] Chart Prep Social History Tobacco Use Types Packs/Day Years [...] encounter Miscellaneous Notes * Telephone Encounter - Yulissa Driscoll [place] - 10/14/2024 1:36 PM EDT Chart Prep Labs: not applicable Images: done Vaccines due: Covid Due and RSV in Pharmacy Due Referrals: Gastroenterology Pending appointment on 10/20/2024 @10AM Screenings: Colonoscopy and HIV screening Overdue care gaps: Disability documented in this encounter Plan of Treatment Upcoming Encounters Date Type Department Care Team (Late st Contact Info) Description 04/14/2025 1:00 PM EST Office Visit [facility] ADULT DENTAL [address] [place] [address] Agnes, Dayana [address] [place] [address] documented as of this encounter Visit Diagnoses Not on filedocumented in this encounter Additional Health Concerns Assessment Noted Time PHQ-9 Depression Total Score: 7 03/02/20 24 9:35 AM EDT documented as of this encounter Care Teams School Leader Relationship Specialty Start Date End Date Celine Aldana MD [address] [place] [address] PCP - General Family Medicine 06/10/18 documented as of this encounter
--- OUTSIDE RECORDS SUMMARY | 2024-10-15 12:05 | XMS_ITS | Encounter Summary ---
Author Organization [employer] Address [address] [place] [address] Care Team Providers Care Plasterer Spot Name Role Phone Celine Aldana MD Primary Care Provider [phone] Encounter Details Date Type Department Care Team (Late st Contact Info) Description 10/05/2024 Lab Requisition [facility] - Main Lab [address] [facility] [place] [address] Damion Patel MD [address] [place] [phone] Anemia, unspecified; Other asthma; Anxiety disorder, unspecified Social History Tobacco Use Types Packs/Day Years Used Date Smoking Tobacco: Never Assessed Comments Unknown Sex and Gender Information Value Date Recorded Sex Assigned at Not on file Legal Sex Female 11:06 AM EDT Gender Identity Not on file Sexual Orientation Not on file documented as of this encounter Plan of Treatment Not on file documented as of this encounter Visit Diagnoses Diagnosis Anemia, unspecified Other asthma Anxiety disorder, unspecified documented in this encounter Care Teams Plasterer Spot Relationship Specialty Start Date End Date Celine Aldana MD [address] [place] [phone] PCP - General 07/01/23 documented as of this encounter
--- OUTSIDE RECORDS SUMMARY | 2024-10-15 12:05 | XMS_ITS | Encounter Summary ---
Author Organization [employer] Address [address] [facility] 7t [place] [address] Care Team Providers Care Team Physician Name Role Phone Celine Aldana MD Primary Care Provider [phone] Reason for Visit * Reason Onset Date Comments [facility] Cancelled Appt 10/12/2024 Encounter Details Date Type Department Care Team (Late st Contact Info) Description 10/12/2024 Telephone [facility] [address] [place], [place] [phone] Celine Aldana MD [address] [place], [place] [phone] [facility] Cancelled Appt Social History Tobacco Use Types Packs/Day Years [...] encounter Miscellaneous Notes * Telephone Encounter - Lu Rai [place] - 10/12/2024 8:28 AM EDT Lvm- pt had two upcoming appts ma canceled 5/6 and kept 5/8 being that appointment for 56 is a hdf documented in this encounter Plan of Treatment Upcoming Encounters Date Type Department Care Team (Late st Contact Info) Description 04/14/2025 1:00 PM EST Office Visit [facility] ADULT DENTAL [address] [place] [address] Agnes, Dayana [address] [place] [address] documented as of this encounter Visit Diagnoses Not on filedocumented in this encounter Additional Health Concerns Assessment Noted Time PHQ-9 Depression Total Score: 7 03/02/20 24 9:35 AM EDT documented as of this encounter Care Teams Team Physician Relationship Specialty Start Date End Date Celine Aldana MD [address] [place] [address] PCP - General Family Medicine 06/10/18 documented as of this encounter
--- OUTSIDE RECORDS SUMMARY | 2024-10-15 12:05 | XMS_ITS | Encounter Summary ---
Author Organization [employer] Address [address] [facility] 7t [place] [address] Care Team Providers Care Style Advisor Name Role Phone Celine Aldana MD Primary Care Provider [phone] Reason for Referral * Consultation (Routine) - Canceled Specialty Diagnoses / Procedures Referred By Contac t Referred To Contact Neurology Diagnoses Dizziness Celine Aldana MD [address] [place] [address] Phone: tel: fax: [facility] Neurology [address] [place] [address] Phone: tel: fax: Referral ID Status Reason Start Date Expiration Date Visits Requested Visits Authorized [id number] Canceled Specialty Services Required 04/09/2024 04/09/2025 6 6 Encounter Details Date Type Department Care Team (Late st Contact Info) Description 04/09/2024 Orders Only [facility] MEDICINE [address] [place] [address] [phone] Celine Aldana MD [address] [place], [place] [phone] Dizziness (Primary Dx) Social History Tobacco Use [...] Description 04/14/2025 1:00 PM EST Office Visit [facility] ADULT DENTAL [address] [place] [address] Hari Alarconaris [address] [place] [address] Scheduled Referrals Name Type Priority Associated Diagnoses Orde r Schedule Referral to Neurology Outpatient Referral Routine Dizziness Expected: 04/09/2024 (Approximate), Expires: 04/09/2025 documented as of this encounter Visit Diagnoses Diagnosis Dizziness- Primary Dizziness and giddiness documented in this encounter Additional Health Concerns Assessment Noted Time PHQ-9 Depression Total Score: 7 03/02/20 24 9:35 AM EDT documented as of this encounter Care Teams Style Advisor Relationship Specialty Start Date End Date Celine Aldana MD [address] [place] [address] PCP - General Family Medicine 06/10/18 documented as of this encounter
--- OUTSIDE RECORDS SUMMARY | 2024-10-15 12:05 | XMS_ITS | Clinical Summary ---
Author Organization Unknown Care Team Providers Care Facility Administrator Name Role Phone GEOVANNA POP, LEIGHANN Unavailable Unavailable GINO RN, GASPER Unavailable Unavailable Payers Payer Name Policy Type Policy Number Effective Date Expira tion Date MEDICAID [facility] [id number] Problems Condition Name Condition Details Condition Category Status Onset Date Resolution Date Last Treatment Date Treating Clinician Comments UNSPECIFIED MOOD [AFFECTIVE] DISORDER Active 09-16 00:00: 00 Allergies, Adverse Reactions, Alerts Allergy Name Allergy Type Status Severity Reaction(s) Onset Date Inactive Date Treating Clinician Comments NKA Propensity to adverse reactions Active 2024-10 21:38:5 6 Immunizations Ordered Immunization Name Filled Immunization Name Date Status Comments Refusal Reason REFUSED FLU, PPV 2024-10-08 00:00:00 Vital Signs Vital Name Observation Time Observation Value Commen ts Temperature 2024-10-14 11:21:00.000 98.6 [degF] Temperature 2024-10-12 19:33:00.000 98.6 [degF] Temperature 2024-10-08 21:34:00.000 98.6 [degF] BMI (%) 2024-10-08 19:52:30.000 37 kg/m2 Height 2024-10-08 19:51:25.000 61 [in_us] Pulse 2024-10-14 11:21:00.000 82 /min Pulse 2024-10-12 19:33:00.000 82 /min Pulse 2024-10-08 21:34:00.000 82 /min Respirations 2024-10-14 11:21:00.000 20 /min Respirations 2024-10-12 19:33:00.000 20 /min Respirations 2024-10-08 21:34:00.000 20 /min Weight (lbs) 2024-10-08 19:52:30.000 200 [lb_av] Systolic Blood Pressure 2024-10-14 11:21:00.000 148 mm [Hg] Systolic Blood Pressure 2024-10-12 19:33:00.000 130 mm [Hg] Systolic Blood Pressure 2024-10-08 21:34:00.000 142 mm [Hg] Diastolic Blood Pressure 2024-10-14 11:21:00.000 82 mm [Hg] Diastolic Blood Pressure 2024-10-12 19:33:00.000 88 mm [Hg] Diastolic Blood Pressure 2024-10-08 21:34:00.000 82 mm [Hg] Plan of Treatment Planned Activity Planned Date Details Comments Future Scheduled Test SKILLED NU RSE TO EVALUATE PATIENT, IDENTIFY PRIMARY AND CO-MORBID CONDITIONS CODED PER CODING GUIDELINES, AND DEVELOP PATIENT SPECIFIC PLAN OF CARE THAT INCLUDES PATIENT GOAL FOR HOME HEALTH. [code = SKILLED NURSE TO EVALUATE PATIENT, IDENTIFY PRIMARY AND CO-MORBID CONDITIONS CODED PER CODING GUIDELINES, AND DEVELOP PATIENT SPECIFIC PLAN OF CARE THAT INCLUDES PATIENT GOAL FOR HOME HEALTH.] Future Scheduled Test SKILLED NU RSE TO O/A OF PATIENTS MENTAL/BEHAVIORAL STATUS, ASSESS VITAL SIGNS 3XPER AND PRN ALLOW 2 PRNS FOR MEDICATION MANAGEMENT. [code = SKILLED NURSE TO O/A OF PATIENTS MENTAL/BEHAVIORAL STATUS, ASSESS VITAL SIGNS 3XPER AND PRN ALLOW 2 PRNS FOR MEDICATION MANAGEMENT.] Future Scheduled Test SKILLED NU RSE FOR O/A OF GENERAL HEALTH STATUS OF PAIN, CARDIAC, RESPIRATORY, GASTROINTESTINAL, GENITOURINARY, SKIN, NEUROLOGIC, ENDOCRINE SYSTEMS TO IDENTIFY CHANGES ASSOCIATED WITH EXACERBATION FOR EARLY INTERVENTION OF COMPLICATIONS NEEDED. [code = SKILLED NURSE FOR O/A OF GENERAL HEALTH STATUS OF PAIN, CARDIAC, RESPIRATORY, GASTROINTESTINAL, GENITOURINARY, SKIN, NEUROLOGIC, ENDOCRINE SYSTEMS TO IDENTIFY CHANGES ASSOCIATED WITH EXACERBATION FOR EARLY INTERVENTION OF COMPLICATIONS NEEDED.] Future Scheduled Test SKILLED NU RSE TO REVIEW PATIENT MEDICATIONS. INSTRUCT PATIENT/CAREGIVER ON MONITORING OF EFFECTIVENESS, ADVERSE DRUG REACTIONS, SIDE EFFECTS OF ALL MEDICATIONS (PRESCRIPTION/-OTC), AND HOW AND WHEN TO REPORT PROBLEMS. [code = SKILLED NURSE TO REVIEW PATIENT MEDICATIONS. INSTRUCT PATIENT/CAREGIVER ON MONITORING OF EFFECTIVENESS, ADVERSE DRUG REACTIONS, SIDE EFFECTS OF ALL MEDICATIONS (PRESCRIPTION/-OTC), AND HOW AND WHEN TO REPORT PROBLEMS.] Future Scheduled Test SKILLED NU RSE TO PRE-POUR MEDICATION PER MEDICATION LIST. [code = SKILLED NURSE TO PRE-POUR MEDICATION PER MEDICATION LIST.] Future Scheduled Test SKILLED NU RSE FOR O/A AND SKILLED TEACHING RELATED TO MANAGEMENT OF DEPRESSIVE SYMPTOMS AND/OR DEPRESSION. SN TO REPORT SIGNIFICANT CHANGE IN DEPRESSIVE SYMPTOMS TO CLINICAL PROVIDER FOR EARLY INTERVENTION. [code = SKILLED NURSE FOR O/A AND SKILLED TEACHING RELATED TO MANAGEMENT OF DEPRESSIVE SYMPTOMS AND/OR DEPRESSION. SN TO REPORT SIGNIFICANT CHANGE IN DEPRESSIVE SYMPTOMS TO CLINICAL PROVIDER FOR EARLY INTERVENTION.] Future Scheduled Test SKILLED NU RSE FOR O/A AND SKILLED TEACHING OF COPING SKILLS TO MANAGE ANXIETY AND MAINTAIN SAFETY. [code = SKILLED NURSE FOR O/A AND SKILLED TEACHING OF COPING SKILLS TO MANAGE ANXIETY AND MAINTAIN SAFETY.] Future Scheduled Test SKILLED NU RSE FOR O/A OF CLIENT'S SLEEP PATTERNS. MAY TEACH INTERVENTIONS R/T ACQUIRING IMPROVED REST [code = SKILLED NURSE FOR O/A OF CLIENT'S SLEEP PATTERNS. MAY TEACH INTERVENTIONS R/T ACQUIRING IMPROVED REST] Future Scheduled Test SKILLED NU RSE FOR O/A OF MUSCULOSKELETAL STATUS AND TEACHING ON MEASURES TO MANAGE MUSCULOSKELETAL DISEASE) AND TO MAINTAIN SAFETY WITH ACTIVITY [code = SKILLED NURSE FOR O/A OF MUSCULOSKELETAL STATUS AND TEACHING ON MEASURES TO MANAGE MUSCULOSKELETAL DISEASE) AND TO MAINTAIN SAFETY WITH ACTIVITY ] Future Scheduled Test PHYSICAL T HERAPIST TO EVALUATE PATIENT FOR ALTERCATION IN GAIT [code = PHYSICAL THERAPIST TO EVALUATE PATIENT FOR ALTERCATION IN GAIT ] Future Scheduled Test SKILLED NU RSE TO ASSESS PATIENTS PSYCHOSOCIAL STATUS TO IDENTIFY POTENTIAL ISSUES THAT MAY COMPLICATE THE PROVISION OF THE PLAN OF CARE INCLUDING THE PATIENTS ABILITY TO ACCESS COMMUNITY RESOURCES AND PSYCHOSOCIAL SUPPORT SERVICES. [code = SKILLED NURSE TO ASSESS PATIENTS PSYCHOSOCIAL STATUS TO IDENTIFY POTENTIAL ISSUES THAT MAY COMPLICATE THE PROVISION OF THE PLAN OF CARE INCLUDING THE PATIENTS ABILITY TO ACCESS COMMUNITY RESOURCES AND PSYCHOSOCIAL SUPPORT SERVICES.] Future Scheduled Test SKILLED NU RSE WILL MAINTAIN SITUATIONAL AWARENESS FOR SAFETY AND WILL NOTIFY CLINICAL CHAPLAIN AND PHYSICIAN/PROVIDER WITH ANY CHANGE IN CONDITION. [code = SKILLED NURSE WILL MAINTAIN SITUATIONAL AWARENESS FOR SAFETY AND WILL NOTIFY CLINICAL CHAPLAIN AND PHYSICIAN/PROVIDER WITH ANY CHANGE IN CONDITION.] Future Scheduled Test MEDICATION S WILL BE HELD AND STORED IN MEDICATION SAFE. [code = MEDICATIONS WILL BE HELD AND STORED IN MEDICATION SAFE.] Goal Patient Goal - I WANT TO WALK WITH OUT PAIN, SCARED OF FALLING. Goal Provider Goal - A PLAN OF CARE WILL BE ESTABLISHED THAT MEETS PATIENT'S [facility] NEEDS AND INCLUDES PATIENT GOAL FOR HOME HEALTH. Goal Provider Goal - ALTERED MENTAL/BEHAVIORAL STATUS WILL BE IDENTIFIED PROMPTLY AND INTERVENTION INITIATED QUICKLY TO MINIMIZE ASSOCIATED RISKS THROUGHOUT CERTIFICATION PERIOD. Goal Provider Goal - CHANGE IN GENERAL HEALTH STATUS WILL BE IDENTIFIED AND REPORTED TO PHYSICIAN FOR PROMPT INTERVENTION TO MINIMIZE ASSOCIATED RISKS THROUGHOUT CERTIFICATION PERIOD. Goal Provider Goal - PATIENT/CAREGIVER WILL VERBALIZE UNDERSTANDING OF EDUCATION PROVIDED ON MEDICATIONS BY THE END OF THE CERTIFICATION PERIOD. Goal Provider Goal - PATIENT WILL COMPLY WITH MEDICATION WHEN SKILLED NURSE PRE-POURS MEDICATION THROUGHOUT CERTIFICATION PERIOD. Goal Provider Goal - PATIENT WILL REMAIN SAFE WITHOUT DECOMPENSATION IN DEPRESSIVE CONDITION, WHILE MAINTAINING OPTIMAL LEVEL OF MENTAL HEALTH AND WELL BEING THROUGHOUT CERTIFICATION PERIOD. Goal Provider Goal - PATIENT WILL BE ABLE TO PERFORM DAILY FUNCTIONS AND HAVE OPTIMAL IMPROVEMENT IN LEVEL OF ANXIETY THROUGHOUT CERTIFICATION PERIOD. Goal Provider Goal - PATIENT WILL REPORT AT LEAST 6-8 HOURS A NIGHT, RESTFUL SLEEP PATTERNS ACHIEVED USING THERAPEUTIC INTERVENTIONS BEFORE THE END OF THE CERTIFICATION PERIOD. Goal Provider Goal - PATIENT/CAREGIVER WILL VERBALIZE/DEMONSTRATE ABILITY TO MANAGE GAIT MUSCULOSKELETAL DISEASE WHILE MAINTAINING SAFETY THROUGHOUT THE EPISODE. Goal Provider Goal - A PHYSICAL THERAPY EVALUATION TO BE COMPLETED WITH RECOMMENDATIONS AND/OR WRITTEN PLAN OF TREATMENT ESTABLISHED FOR PHYSICIANS SIGNATURE. Goal Provider Goal - PSYCHOSOCIAL NEEDS WILL BE IDENTIFIED AND PLAN IMPLEMENTED TO MINIMIZE RISK THROUGHOUT CERTIFICATION PERIOD. Goal Provider Goal - PATIENT WILL REMAIN SAFE IN THE COMMUNITY AND WILL BE FREE OF DANGER TO SELF AND OTHERS THROUGHOUT THE CERTIFICATION PERIOD. Goal Provider Goal - MEDICATIONS WILL BE STORED IN MEDICATION SAFE FOR SAFETY. Progress Notes Progress Notes <paragraph>[Visit Date: 2024 by GASPER CHRISTIAN RN]:</paragraph><paragraph>SN VISIT (10/14/2024) PATIENT PRESENTS ALERT ORIENTED X3 SPHERES.PATIENT CHIEF COMPLAINT, PAIN , LEFT MID THIGH HEALED INCISION,SURGICAL SITE FROM LEFT HIP SURGERY. PATIENT REPORTED DECLINING PAIN LEVELS, SAID RECALLED PRIOR TEACHING ON EFFECTIVE PAIN MANAGEMENT SKILLS,AND IMPORTANCE ADDRESSING BREAK THROUGH PAIN. PATIENT IS INTERESTED IN PT/OT EVALUATION AND ASSESSMENT. SN PERFORMED SAFETY ASSESSMENT, DENIED ANY SLIPS OR FALLS. PATIENT MOOD SAD, MOSTLY ANXIOUS, PROVIDED EYE CONTACT, ANHEDONIA, POOR ATTENTION SPAN, NEEDS REPEATED INSTRUCTIONS, NOTABLY ANXIOUS, UNABLE TO IDENTIFY NAME MEDICATION USED TO TREAT HER ANXIETY., DEMO OF ANXIOLYTIC PROVIDED. SN SUICIDE ASSESSMENT CONTTRACTS FOR SAFETY.PATIENT HAS PHYSICAL ASSISSTANCE WITH ADLS.</paragraph> <paragraph>[Visit Date: 2024 by GASPER CHRISTIAN RN]:</paragraph><paragraph>SN VISIT (10/12/2024) PATIENT PRESENTS ALERT ORIENTED X3 SPHERES.PATIENT CHIEF COMPLAINT, ALTERATION IN GAIT, VERBALIZED,FRUSTRATION, NOT HAVING A WHEEL CHAIR WITH PROPELLING CAPABILITY.. PATIENT SHARED THAT WHILE INPATIENT, [facility], WAS ABLE TO WHHEL SELF. PATIENT WAS REFERRED FOR PT/OT EVALUATION AND ASSESSMENT. PATIENT LACKS UNDERSTANDING AND KNOWLEDGE OF EFFECTIVE PAIN MANAGEMENT SKILLS. SN TEACHING NON-PHARMACOLGICAL PAIN RELIEF MEASURES, SN TEACHING IMPORTANCE OF ADDRESSING PAIN NOT WAITING TOO LONG, RENDERING PAIN MEDICATION LESS EFFECTIVE. PATIENT FORGETS TO WEAR BACK HIP BRACE, THIS VISIT NOTED INCREASED MOBILITY, WITH NONBEARING WEIGHT TO LEFT FOOT, PER MD ORDER.SN PERFORMED SAFETY ASSESSMENT, DENIED ANY FALLS. HER MOOD DEPRESSIVE ANXIOUS, BUT CONTRACTS FOR SAFETY. PATIENT HAS APPOINTMENT TO FOLLOW UP WITH ORTHOPEDIC SURGEON.</paragraph> Encounters Start Date/Time End Date/Time Encounter Type Admission Type Attending Clinicians Care Facility Care Department Encounter ID Discharge Date Discharge Status Discharge Condition Discharge Reason Percent Goals Met 2024-10-08 00:00:00 2024-12-06 00:00:00 Outpatient NEW ADMISSION GASPER CHRISTIAN [facility] [id number]
--- OUTSIDE RECORDS SUMMARY | 2024-10-15 12:05 | XMS_ITS | Encounter Summary ---
Author Organization [employer] Address [address] [place] [address] Care Team Providers Care Potato Bucker Name Role Phone Celine Aldana MD Primary Care Provider [phone] Encounter Details Date Type Department Care Team (Late st Contact Info) Description 09/28/2024 Lab Requisition [facility] - Main Lab [address] [place] [address] Damion Patel MD [address] [place], [place] [id number] Anemia, unspecified; Other asthma; Anxiety disorder, unspecified [...] Associated Diagnosis Comments COMPLETE BLOOD COUNT Routine 09/29/2024 8:05 AM EDT Anemia, unspecified Other asthma Anxiety disorder, unspecified BASIC METABOLIC PANEL Routine 09/29/2024 8:05 AM EDT Anemia, unspecified Other asthma Anxiety disorder, unspecified documented in this encounter Results * Basic metabolic panel (09/29/2024 8:05 AM EDT) Sodium 144 133 - 145 mmol/L LAB CHEMISTRY METHOD 09/29/2024 11:42 AM EDT [facility] Potassium 4.3 3.5 - 5.5 mmol/L LAB CHEMISTRY METHOD 09/29/2024 11:42 AM EDT [facility] Chloride 108 96 - 110 mmol/L LAB CHEMISTRY METHOD 09/29/2024 11:42 AM [facility] CO2 28 21 - 32 mmol/L LAB CHEMISTRY METHOD 09/29/2024 11:42 AM [facility] Anion Gap 8 3 - 11 LAB CHEMISTRY METHOD 09/29/2024 11:42 AM [facility] Glucose 85 70 - 100 mg/dL LAB CHEMISTRY METHOD 09/29/2024 11:42 AM [facility] BUN 15 5 - 25 mg/dL LAB CHEMISTRY METHOD 09/29/2024 11:42 AM [facility] Creatinine 0.57 0.50 - 1.10 mg/dL LAB CHEMISTRY METHOD 09/29/2024 11:42 AM [facility] eGFR 104 >=60 mL/min/1. 73m2 LAB CHEMISTRY METHOD 09/29/2024 11:42 AM [facility] Comment:Calculation based on the??Chronic Kidney Disease Epidemiology Collaboration (CKD-EPI) equation refit??without adjustment for race. BUN/Creatinine Ratio 26.3 LAB CHEMISTRY METHOD 09/29/2024 11:42 AM [facility] Calcium 9.4 8.5 - 10.5 mg/dL LAB CHEMISTRY METHOD 09/29/2024 11:42 AM [facility] Blood Venous blood specimen / Unknown Venipuncture / Unknown 09/29/2024 8:05 AM EDT 09/29/2024 9:09 AM EDT us Damion Patel MD LAB BLOOD ORDERABLES Final Result [facility] [address] [place] [address], * (ABNORMAL) Complete blood count (09/29/2024 8:05 AM EDT) WBC 8.3 4.8 - 10.8 K/[facility] LAB HEMETOLOGY METHOD 09/29/2024 10:42 AM [facility] RBC 4.40 3.80 - 4.80 M/[facility] LAB HEMETOLOGY METHOD 09/29/2024 10:42 AM [facility] Hemoglobin 11.8 11.5 - 16.0 g/dL LAB HEMETOLOGY METHOD 09/29/2024 10:42 AM [facility] Hematocrit 37.4 35.0 - 47.0 % LAB HEMETOLOGY METHOD 09/29/2024 10:42 AM [facility] MCV 85.8 79.0 - 98.0 FL LAB HEMETOLOGY METHOD 09/29/2024 10:42 AM [facility] MCH 27.1 27.0 - 32.0 pcg LAB HEMETOLOGY METHOD 09/29/2024 10:42 AM [facility] MCHC 31.6(L) 32.0 - 37.0 g/dL LAB HEMETOLOGY METHOD 09/29/2024 10:42 AM [facility] RDW 13.6 11.0 - 15.0 % LAB HEMETOLOGY METHOD 09/29/2024 10:42 AM [facility] Platelets 369 130 - 400 K/[facility] LAB HEMETOLOGY METHOD 09/29/2024 10:42 AM [facility] MPV 10.9 7.0 - 11.0 FL LAB HEMETOLOGY METHOD 09/29/2024 10:42 AM [facility] NRBC 0.0 <1.0 % LAB HEMETOLOGY METHOD 09/29/2024 10:42 AM [facility] NRBC Absolute 0.00 <0.10 K/[facility] LAB HEMETOLOGY METHOD 09/29/2024 10:42 AM EDT [facility] Blood Venous blood specimen / Unknown Venipuncture / Unknown 09/29/2024 8:05 AM EDT 09/29/2024 9:09 AM EDT Damion Patel MD LAB BLOOD ORDERABLES Final Result [facility] [address] [place] [address], documented in this encounter Visit Diagnoses Diagnosis Anemia, unspecified Other asthma Anxiety disorder, unspecified documented in this encounter Care Teams Potato Bucker Relationship Specialty Start Date End Date Celine Aldana MD [address] [place] [phone] PCP - General 07/01/23 documented as of this encounter
--- OUTSIDE RECORDS SUMMARY | 2024-10-15 12:05 | XMS_ITS | Encounter Summary ---
Author Organization [employer] [facility] Address [address] [place] [address] [address] [place] [address] Care Team Providers Care Beck Tender Name Role Phone Celine Aldana MD Primary Care Provider [phone] Encounter Details Date Type Department Care Team (Latest Contact Info) Description 08/02/2020 Abstract [facility] CONVERSIONS Dental, Provider, DDS Social [...] Description 04/14/2025 1:00 PM EST Office Visit [facility] ADULT DENTAL [address] [place] [address] Agnes, Dayana [address] [place] [address] documented as of this encounter Visit Diagnoses Not on filedocumented in this encounter Care Teams Beck Tender Relationship Specialty Start Date End Date Celine Aldana MD [address] [place] [address] PCP - General Family Medicine 06/10/18 documented as of this encounter
--- OUTSIDE RECORDS SUMMARY | 2024-10-15 12:05 | XMS_ITS | Encounter Summary ---
Author Organization [employer] Address [address] [place] [address] Care Team Providers Care Cut Off Man Name Role Phone Celine Aldana MD Primary Care Provider [phone] Encounter Details Date Type Department Care Team (Latest Contact Info) Description 10/15/2024 Travel Social History Tobacco Use Types Packs/Day Years [...] Description 04/14/2025 1:00 PM EST Office Visit [facility] ADULT DENTAL [address] [place] [address] Dayana Alarcon [address] [place] [address] documented as of this encounter Visit Diagnoses Not on filedocumented in this encounter Additional Health Concerns Assessment Noted Time PHQ-9 Depression Total Score: 7 03/02/20 24 9:35 AM EDT documented as of this encounter Care Teams Cut Off Man Relationship Specialty Start Date End Date Celine Aldana MD [address] [place] [address] PCP - General Family Medicine 06/10/18 documented as of this encounter
[2024-10-15 12:23] LABS: Vitamin D 25-OH Total 17.7 ng/mL (>30)
== END 2024-10-15 10:41 | disposition home or self-care (01) ==
LOC: HO.HHCL 10:40
PROVIDERS: Visit Provider Family Medicine
DX: E55.9 Vitamin D deficiency, unspecified (principal)
CPT/HCPCS: 36415; 82306

== ENCOUNTER 2025-01-13 11:36 | Outpatient (AMB) | payer MEDICAID, SELFPAY ==
--- NOTE | 2025-01-13 11:38 | MHC.OFFVIS ---
Vital Signs 01/13/25 11:40 01/13/25 14:05 Height 5 ft 4 in Weight 198 lb 6.656 oz BMI 34.1 BP 96/66 114/76 Blood Pressure Location Lt brachial Lt brachial Position Sitting Sitting Pulse 118 H Intake Visit Reasons: Colonoscopy screening Intake Note: Iliana presents in the office as a colonoscopy screening. CC: She states that she has had a colo in the past and not concerns today. Process Artist Required: Yes Allergies No Known Allergies (No Known Allergies*) Allergy (Unverified 01/13/25 11:42) HPI HPI Colonoscopy screening: Details: 59 year old? female with past medical history of asthma, gastric sleeve in 2018, dermatofibroma, anxiety, depression, chronic back pain, dyslipidemia is here today for pre colonoscopy screening.? Patient was sent to us by her PCP.? Last colonoscopy in May of 2014, hyperplastic polyp found. Patient denies any gastrointestinal symptoms in the past or at present.? Denies any personal or family history of gastrointestinal disease, colon polyps, or CRC.? Denies history of difficulty with sedation or anesthesia in the past.? Negative for history of sleep apnea.? Denies any history of cardiac, renal, pulmonary, or hepatic disease.?? No history of infectious? diseases like hepatitis A, B, C, HIV or tuberculosis.? Patient is not on any anticoagulation [facility] Medical History Paresthesia Mass of left thigh Balance problem Abfraction Bilateral hip pain Missing teeth, acquired Generalized gingival recession Periodontal disease Dental calculus Plantar fasciitis Dermatofibroma GERD (gastroesophageal reflux disease) Chronic back pain Mixed anxiety and depressive disorder Impaired fasting glucose Vitamin D deficiency Dyslipidemia Allergic rhinitis Asthma Obesity Surgical History Hx of colonoscopy History of bariatric surgery Review of Systems Const Denies weight gain and Denies weight loss ENT Reports no additional complaints, Denies dysphagia and Denies odynophagia Card Reports no additional complaints Resp Reports no additional complaints GI Denies abdominal pain, Denies belching, Denies melena, Denies bloating, Denies change in bowel habits, Reports constipation, Denies dysphagia, Denies excessive flatus, Denies dyspepsia, Denies heartburn, Denies diarrhea, Denies loose stools, Denies nausea, Denies odynophagia and Denies vomiting Reports no additional complaints Musc Reports no additional complaints Neuro Reports no additional complaints Psych Reports no additional complaints Endo Reports no additional complaints Physical Exam Vital Signs: Last Vital Signs Pulse 118 H 01/13/25 11:40 BP 114/76 01/13/25 14:05 BMI result Body Mass Index 34.1 Const General: healthy appearing, no acute distress and well developed Nutritional Appearance: well nourished and obese Orientation/consciousness: patient oriented x3 HEENT Throat: Yes posterior oropharynx normal, Yes tonsils normal and Yes uvula midline Eyes General: appearance normal, both eyes and all related structures Neck Neck: Yes normal visual inspection, Yes full ROM and Yes trachea midline Thyroid: Thyroid normal Resp Effort & Inspection: normal respiratory effort, able to speak in complete sentences, no tracheal deviation and symmetric chest movement Auscultation: clear to auscultation bilaterally Cardio Jugular venous distension: no JVD Rate: regular rate Heart sounds: S1 normal heart sound present, S2 normal heart sound present, no gallops and no murmurs GI Inspection: Yes normal to inspection, No distended and Yes obesity Palpation (GI): Soft to palpation, not firm, nontender and No hepatosplenomegaly present Auscultation: normal bowel sounds General: Yes no CVA tenderness Back/Spine/Pelvis Back: no CVA tenderness Skin General skin exam: elasticity normal, turgor normal and dry skin Neuro General: patient oriented x3 Psych Appearance: grossly normal Mental Status: mental status grossly normal Speech and movement: Normal speech and movement present Affect: normal affect Attitude: cooperative Thought process: Normal thought process present Thought content: Normal thought content present Insight: Good insight present (Psych) Judgement: Good judgement present (Psych) Assessment & Plan Assessment & Plan (1) Screen for colon cancer: Code(s): Z12.11 - Encounter for screening for malignant neoplasm of colon Plan Patient denies any GI, cardiac or respiratory symptoms.? Patient is on pantoprazole and reports that has been working. Patient has been on this medication for the past 7 years. Will send her for upper endoscopy to re-evaluate. Status post gastric sleeve. Denies any issues with anesthesia in the past, however patient does reports to be feeling nauseous after procedure. Patient used scopolamine patch.? Denies any history of sleep apnea.? No history infectious diseases in the past or present.? Not on any anticoagulation therapy.? No family or personal history of colon cancer or polyps.? Patient denies melena, hematochezia, unintentional weight loss or ribbon like stools.? Discussed at length the pre-procedure,? prep, diet & medications as well as what to expect prior, during and after the procedure.?? Stressed the importance of good bowel prep.? Recommended the use of Vaseline or Calmoseptine OTC & baby wipes with bowel movements to promote comfort.? ?Patient verbalizes understanding and agrees to plan of care.? She was given the opportunity to ask questions and all questions answered.? We will see her after the procedure.? Orders: Referrals Cardiology Referral R07.89 - Other chest pain, Z01.810 - Encounter for preprocedural cardiovascular examination Medications: New bisacodyl (Dulcolax (bisacodyl)) 10 mg (2 x 5 mg) PO BEDTIME 180 tabs 4RF polyethylene glycol 3350 (Miralax) As directed by gastroenterology department at [facility] 238 grams PO ONCE 238 grams 0RF Z12.11 - Encounter for screening for malignant neoplasm of colon Coding Level of Care Code New Pt Level 3 (40992) Diagnoses Screen for colon cancer Z12.11 Time Spent (min) 40 Comment 30 minutes spent with patient and additional 10 minutes spent reviewing her records
[2025-01-13 11:40] VITALS: BP 96/66; PULSE 118; BMI 34.1
--- OUTSIDE RECORDS SUMMARY | 2025-01-13 12:25 | XMS_ITS | Encounter Summary ---
Author Organization [employer] Address [address] [facility] [address] [place] [address] Care Team Providers Care Sawmill Production Worker Name Role Phone Celine Aldana MD Primary Care Provider [phone] Reason for Referral * Consultation (Routine) - Closed Specialty Diagnoses / Procedures Referred By Contac t Referred To Contact Neurosurgery Diagnoses Meningioma (CMS/HCC) Celine Aldana MD [address] [place] [phone] Phone: tel: fax: Neurosurgery, [address] [place], [place] Phone: tel: fax: Referral ID Status Reason Start Date Expiration Date V isits Requested Visits Authorized [id number] Closed Specialty Services Required 04/24/2024 04/24/2025 10 10 Encounter Details Date Type Department Care Team (Late st Contact Info) Description 04/21/2024 Orders Only [facility] MEDICINE [address] [place] [phone] Celine Aldana MD [address] [place] [address] Meningioma (CMS/HCC) (Primary Dx) Social [...] Care Team (Late st Contact Info) Description 01/19/2025 11:15 AM EDT Office Visit [facility] [address] [place] [address] Celine Aldana MD [address] [place] [address] 04/14/2025 1:00 PM EST Office Visit [facility] ADULT DENTAL [address] [place] [address] Dayana Alarcon [address] [place] [address] Scheduled Referrals Name Type Priority Associated Diagnoses [...] documented as of this encounter Care Teams Sawmill Production Worker Relationship Specialty Start Date End Date Celine Aldana MD [address] [place] [address] PCP - General Family Medicine 06/10/18 Milo 10/08/24 documented as of this encounter
--- OUTSIDE RECORDS SUMMARY | 2025-01-13 12:25 | XMS_ITS | Clinical Summary ---
Author Organization [address] Address [address] [place] [address] Phone Care Team Providers Care Tromper Name Role Phone Celine Aldana MD Primary Care Provider Social History Tobacco Use Types Packs/Day Years [...] ( season) 2024 09/06/2020, 08/09/2020 Depression Screening 06/10/2024 Influenza Vaccine (#1) 2025 , 06/25/2023, 02/15/2022, Additional history exists DTaP,Tdap,and Td Vaccines (4 - Td or Tdap) 02/16/2032 02/15/2022, 02/06/2012, 01/16/2008 Hepatitis B Vaccines Completed 12/10/2022, 03/10/2019, 12/08/2013 Zoster Vaccines Completed 09/17/2023, 06/25/2023 Pneumococcal Vaccine: 50+ Years Completed 03/02/2024, 12/24/2017, [...] on patient's age to complete this topic Insurance MEDICAID - [place] Care Teams Tromper Relationship Specialty Start Date End Date Celine Aldana MD [address] [place] [phone] PCP - General 07/01/23
[2025-01-13 14:05] VITALS: BP 114/76
--- OUTSIDE RECORDS SUMMARY | 2025-02-03 20:00 | XMS_ITS | Clinical Summary ---
Author Organization Unknown Care Team Providers Care Java Security Architect Name Role Phone GEOVANNA POP, LEIGHANN Unavailable Unavailable GASPER CHRISTIAN RN Unavailable Unavailable Payers Payer Name Policy Type Policy Number Effective Date Expira tion Date [place] [id number] Problems Condition Name Condition Details Condition Category Status Onset Date Resolution Date Last Treatment Date Treating Clinician Comments UNSPECIFIED MOOD [AFFECTIVE] DISORDER Active 09-16 00:00: 00 UNSPECIFIED ASTHMA, UNCOMPLICATE D Active 10-16 00:00: 00 GASTRO-ESOPH AGEAL REFLUX DISEASE WITHOUT ESOPHAGITIS Active 10-09 00:00: 00 Allergies, Adverse Reactions, Alerts Allergy Name Allergy Type Status Severity Reaction(s) Onset Date Inactive Date Treating Clinician Comments NKA Propensity to adverse reactions Active 2024-10 21:38:5 6 Medications Ordered Medication Name Filled Medication Name Start Date Stop Date Current Medication? Ordering Clinician Indication Dosage Frequency Signature (SIG) Comments Components aspirin 325 mg tablet,shelton yed release 10-08 00:00: 00 Yes [id number] 1 tablet DAILY 1 tablet DAILY (route: oral) Med Classific ation: Analgesic , Anti-infl ammatory or Antipyret ic clonazepam 1 mg tablet 10-08 00:00: 00 Yes [id number] 0.5 tablet 3 TIMES DAILY 0.5 tablet 3 TIMES DAILY (route: oral) Med Classific ation: Central Nervous System Agents oxycodone 5 mg tablet 10-08 00:00: 00 Yes [id number] Per instruc tions EVERY 4 HOURS Per instructio ns EVERY 4 HOURS (route: oral) Med Classific ation: Analgesic , Anti-infl ammatory or Antipyret ic acetaminoph en 325 mg tablet 10-08 00:00: 00 Yes [id number] 3 tablet EVERY 8 HOURS 3 tablet EVERY 8 HOURS (route: oral) Med Classific ation: Analgesic , Anti-infl ammatory or Antipyret ic Airsupra 90 mcg-80 mcg/actuati on HFA aerosol inhaler 10-08 00:00: 00 Yes [id number] WHEEZING OR SHORTNESS OF BREATH 1 puff EVERY 4 HOURS 1 puff EVERY 4 HOURS (route: inhalation ) Med Classific ation: Respirato ry Therapy Agents buspirone 10 mg tablet 10-08 00:00: 00 Yes [id number] FOR ANXIETY 1 tablet DAILY 1 tablet DAILY (route: oral) Med Classific ation: Central Nervous System Agents Calcium Antacid 200 mg (as calcium carbonate 500 mg) chewable tablet 10-08 00:00: 00 Yes [id number] 1 tablet EVERY 6 HOURS 1 tablet EVERY 6 HOURS (route: oral) Med Classific ation: Gastroint estinal Therapy Agents cetirizine 5 mg tablet 10-08 00:00: 00 Yes [id number] 1 tablet DAILY 1 tablet DAILY (route: oral) Med Classific ation: Respirato ry Therapy Agents magnesium hydroxide 400 mg/5 mL oral suspension 10-08 00:00: 00 Yes [id number] 30 mL DAILY 30 mL DAILY (route: oral) Med Classific ation: Gastroint estinal Therapy Agents pantoprazol e 40 mg tablet,shelton yed release 10-08 00:00: 00 Yes [id number] 1 tablet DAILY 1 tablet DAILY (route: oral) Med Classific ation: Gastroint estinal Therapy Agents Immunizations Ordered Immunization Name Filled Immunization Name Date Status Comments Refusal Reason REFUSED FLU, PPV 2024-10-08 00:00:00 Vital Signs Vital Name Observation Time Observation Value Commen ts Temperature 2025-01-11 14:09:00.000 98.6 [degF] Temperature 2025-01-08 12:50:00.000 98.6 [degF] Temperature 2025-01-06 11:11:00.000 98.6 [degF] Temperature 2025-01-04 11:40:00.000 98.12 [degF] Temperature 2025-01-01 11:32:00.000 98.6 [degF] Temperature 2024-12-30 12:27:00.000 98.6 [degF] Temperature 2024-12-28 11:50:00.000 98.6 [degF] Temperature 2024-12-18 10:17:00.000 98.6 [degF] Temperature 2024-12-17 10:07:00.000 97.9 [degF] Temperature 2024-12-16 14:07:00.000 98.6 [degF] Temperature 2024-12-15 10:17:00.000 97.9 [degF] Temperature 2024-12-14 10:56:00.000 98.6 [degF] Temperature 2024-12-10 14:05:00.000 98.6 [degF] Temperature 2024-12-09 11:23:00.000 98.6 [degF] Temperature 2024-12-08 11:13:00.000 97.8 [degF] Pulse 2025-01-11 14:09:00.000 82 /min Pulse 2025-01-08 12:50:00.000 82 /min Pulse 2025-01-06 11:11:00.000 82 /min Pulse 2025-01-04 11:40:00.000 82 /min Pulse 2025-01-01 11:32:00.000 82 /min Pulse 2024-12-30 12:30:00.000 80 /min Pulse 2024-12-28 11:50:00.000 82 /min Pulse 2024-12-18 10:17:00.000 82 /min Pulse 2024-12-17 10:07:00.000 88 /min Pulse 2024-12-16 14:07:00.000 70 /min Pulse 2024-12-15 10:17:00.000 60 /min Pulse 2024-12-14 10:56:00.000 70 /min Pulse 2024-12-10 14:05:00.000 82 /min Pulse 2024-12-09 11:23:00.000 82 /min Pulse 2024-12-08 11:13:00.000 82 /min Respirations 2025-01-11 14:09:00.000 20 /min Respirations 2025-01-08 12:50:00.000 20 /min Respirations 2025-01-06 11:11:00.000 20 /min Respirations 2025-01-04 11:40:00.000 20 /min Respirations 2025-01-01 11:34:00.000 20 /min Respirations 2024-12-30 12:27:00.000 20 /min Respirations 2024-12-28 11:50:00.000 20 /min Respirations 2024-12-18 10:17:00.000 20 /min Respirations 2024-12-17 10:07:00.000 18 /min Respirations 2024-12-16 14:07:00.000 20 /min Respirations 2024-12-15 10:17:00.000 18 /min Respirations 2024-12-14 10:56:00.000 20 /min Respirations 2024-12-10 14:05:00.000 20 /min Respirations 2024-12-09 11:23:00.000 20 /min Respirations 2024-12-08 11:13:00.000 18 /min Systolic Blood Pressure 2025-01-11 14:09:00.000 142 mm [Hg] Systolic Blood Pressure 2025-01-08 12:50:00.000 142 mm [Hg] Systolic Blood Pressure 2025-01-06 11:11:00.000 126 mm [Hg] Systolic Blood Pressure 2025-01-04 11:40:00.000 142 mm [Hg] Systolic Blood Pressure 2025-01-01 11:32:00.000 139 mm [Hg] Systolic Blood Pressure 2024-12-30 12:27:00.000 127 mm [Hg] Systolic Blood Pressure 2024-12-28 11:50:00.000 130 mm [Hg] Systolic Blood Pressure 2024-12-18 10:17:00.000 116 mm [Hg] Systolic Blood Pressure 2024-12-17 10:07:00.000 107 mm [Hg] Systolic Blood Pressure 2024-12-16 14:07:00.000 110 mm [Hg] Systolic Blood Pressure 2024-12-15 10:17:00.000 106 mm [Hg] Systolic Blood Pressure 2024-12-14 10:56:00.000 102 mm [Hg] Systolic Blood Pressure 2024-12-10 14:05:00.000 128 mm [Hg] Systolic Blood Pressure 2024-12-09 11:23:00.000 118 mm [Hg] Systolic Blood Pressure 2024-12-08 11:13:00.000 106 mm [Hg] Diastolic Blood Pressure 2025-01-11 14:09:00.000 82 mm [Hg] Diastolic Blood Pressure 2025-01-08 12:50:00.000 78 mm [Hg] Diastolic Blood Pressure 2025-01-06 11:11:00.000 88 mm [Hg] Diastolic Blood Pressure 2025-01-04 11:40:00.000 72 mm [Hg] Diastolic Blood Pressure 2025-01-01 11:32:00.000 82 mm [Hg] Diastolic Blood Pressure 2024-12-30 12:27:00.000 82 mm [Hg] Diastolic Blood Pressure 2024-12-28 11:50:00.000 78 mm [Hg] Diastolic Blood Pressure 2024-12-18 10:17:00.000 78 mm [Hg] Diastolic Blood Pressure 2024-12-17 10:07:00.000 84 mm [Hg] Diastolic Blood Pressure 2024-12-16 14:07:00.000 72 mm [Hg] Diastolic Blood Pressure 2024-12-15 10:17:00.000 69 mm [Hg] Diastolic Blood Pressure 2024-12-14 10:56:00.000 70 mm [Hg] Diastolic Blood Pressure 2024-12-10 14:05:00.000 78 mm [Hg] Diastolic Blood Pressure 2024-12-09 11:23:00.000 82 mm [Hg] Diastolic Blood Pressure 2024-12-08 11:13:00.000 82 mm [Hg] Plan of Treatment Planned [...] NU RSE TO PRE-POUR MEDICATION PER MEDICATION LIST [code = SKILLED NURSE TO PRE-POUR MEDICATION PER MEDICATION LIST ] Future Scheduled Test PATIENT MA Y HAVE ONE SET OF EMERGENCY MEDICATION NOT TO BE PRE-POURED ANY SOONER THAN 24 HOURS BEFORE SEVERE INCLEMENT WEATHER OR EMERGENT EVENT AND FOLLOWING SKILLED NURSE EVALUATION OF PATIENT SAFETY. [code = PATIENT MAY HAVE ONE SET OF EMERGENCY MEDICATION NOT TO BE PRE-POURED ANY SOONER THAN 24 HOURS BEFORE SEVERE INCLEMENT WEATHER OR EMERGENT EVENT AND FOLLOWING SKILLED NURSE EVALUATION OF PATIENT SAFETY.] Future Scheduled Test SKILLED NU RSE TO O/A OF PATIENTS MENTAL/BEHAVIORAL STATUS, ASSESS VITAL SIGNS EVERY VISIT ALLOW 2 PRNS FOR MEDICATION MANAGEMENT. [code = SKILLED NURSE TO O/A OF PATIENTS MENTAL/BEHAVIORAL STATUS, ASSESS VITAL SIGNS EVERY VISIT ALLOW 2 PRNS FOR MEDICATION MANAGEMENT.] Future Scheduled Test SKILLED NU RSE FOR O/A OF GENERAL HEALTH STATUS OF PAIN, CARDIAC, RESPIRATORY, GASTROINTESTINAL, GENITOURINARY, SKIN, NEUROLOGIC, ENDOCRINE SYSTEMS TO IDENTIFY CHANGES ASSOCIATED WITH EXACERBATION FOR EARLY INTERVENTION OF COMPLICATIONS EVERY VISIT [code = SKILLED NURSE FOR O/A OF GENERAL HEALTH STATUS OF PAIN, CARDIAC, RESPIRATORY, GASTROINTESTINAL, GENITOURINARY, SKIN, NEUROLOGIC, ENDOCRINE SYSTEMS TO IDENTIFY CHANGES ASSOCIATED WITH EXACERBATION FOR EARLY INTERVENTION OF COMPLICATIONS EVERY VISIT ] Future Scheduled Test SKILLED NU RSE TO ADMINISTER MEDICATIONS DURING VISIT AND PRE-POUR MEDICATIONS BETWEEN NURSING VISITS PER MEDICATION LIST. [code = SKILLED NURSE TO ADMINISTER MEDICATIONS DURING VISIT AND PRE-POUR MEDICATIONS BETWEEN NURSING VISITS PER MEDICATION LIST.] Future Scheduled Test SKILLED [...] INTERVENTION.] Future Scheduled Test SKILLED NU RSE TO [...] AWARENESS FOR SAFETY AND WILL NOTIFY CLINICAL PAPER REELER AND PHYSICIAN/PROVIDER WITH ANY CHANGE IN CONDITION. [code = SKILLED NURSE WILL MAINTAIN SITUATIONAL AWARENESS FOR SAFETY AND WILL NOTIFY CLINICAL PAPER REELER AND PHYSICIAN/PROVIDER WITH ANY CHANGE IN CONDITION.] Goal 2024-12-02 Patient Goal - I WANT TO WALK WITH OUT PAIN, SCARED OF FALLING. Goal Patient Goal - I WANT TO WALK WITH OUT PAIN, SCARED OF FALLING. Goal Provider Goal - A PLAN OF CARE WILL BE ESTABLISHED THAT MEETS PATIENT'S [facility] NEEDS AND INCLUDES PATIENT GOAL FOR HOME HEALTH. Goal Provider Goal - PATIENT WILL COMPLY WITH MEDICATION WHEN SKILLED NURSE PRE-POURS MEDICATION THROUGHOUT CERTIFICATION PERIOD. Goal Provider Goal - MEDICATION WILL BE AVAILABLE DURING INCLEMENT WEATHER OR EMERGENT EVENT THROUGHOUT CERTIFICATION PERIOD. Goal Provider Goal - ALTERED MENTAL/BEHAVIORAL STATUS WILL BE IDENTIFIED PROMPTLY AND INTERVENTION INITIATED QUICKLY TO MINIMIZE ASSOCIATED RISKS THROUGHOUT CERTIFICATION PERIOD. Goal Provider Goal - CHANGE IN GENERAL HEALTH STATUS WILL BE IDENTIFIED AND REPORTED TO PHYSICIAN FOR PROMPT INTERVENTION TO MINIMIZE ASSOCIATED RISKS THROUGHOUT CERTIFICATION PERIOD. Goal Provider Goal - PATIENT WILL COMPLY WITH MEDICATION WHEN SKILLED NURSE ADMINISTERS AND PRE-POURS MEDICATION THROUGHOUT CERTIFICATION PERIOD. Goal Provider [...] THE CERTIFICATION PERIOD. Goal Provider Goal - PSYCHOSOCIAL NEEDS WILL BE IDENTIFIED AND PLAN IMPLEMENTED TO MINIMIZE RISK THROUGHOUT CERTIFICATION PERIOD. Goal Provider Goal - PATIENT WILL REMAIN SAFE IN THE COMMUNITY AND WILL BE FREE OF DANGER TO SELF AND OTHERS THROUGHOUT THE CERTIFICATION PERIOD. Encounters Start Date/Time End Date/Time Encounter Type Admission Type Attending Rust Care Department Encounter ID Discharge Date Discharge Status Discharge Condition Discharge Reason Percent Goals Met 2024-12-07 00:00:00 2025-02-04 00:00:00 Outpatient [facility] [id number]
== END 2025-01-13 12:37 | disposition home or self-care (01) ==
LOC: HO.HGI 11:37
PROVIDERS: PCP Family Medicine; Visit Provider Nurse Practitioner Family
DX: Z01.818 Encounter for other preprocedural examination (principal); Z12.11 Encounter for screening for malignant neoplasm of colon
CPT/HCPCS: 99203

== ENCOUNTER → 2025-01-13 11:36 | Outpatient (BNVA) | payer MEDICAID, SELFPAY | PROVIDERS: PCP Family Medicine; Visit Provider Nurse Practitioner Family | DX: Z01.818 Encounter for other preprocedural examination (principal); Z12.11 Encounter for screening for malignant neoplasm of colon | CPT/HCPCS: 99212 ==

== ENCOUNTER 2025-01-19 12:07 | Outpatient (REF) | payer MEDICAID, SELFPAY ==
[2025-01-19 12:59] LABS: Appearance Urine Clear; Glucose Urine UA Negative (Negative); PH 5.0 (5.0-9.0); Specific Gravity - Urine >= 1.030 (1.005-1.025)
[2025-01-19 13:00] LABS: UMIC TRIGGER UACC YES
--- OUTSIDE RECORDS SUMMARY | 2025-01-19 13:00 | XMS_ITS | Encounter Summary ---
Author Organization [employer] Address [address] [facility] [address] [place] [address] Care Team Providers Care Stenographic Court Reporter Name Role Phone Celine Aldana MD Primary Care Provider [phone] Reason for Referral * Consultation (Routine) - Closed Specialty Diagnoses / Procedures Referred By Contac t Referred To Contact Neurosurgery Diagnoses Meningioma (CMS/HCC) Celine Aldana MD [address] [place] [phone] Phone: tel: fax: Neurosurgery, [address] [place], [place] Phone: tel: fax: Referral ID Status Reason Start Date Expiration Date V isits Requested Visits Authorized [id number] Closed Specialty Services Required 04/24/2024 04/24/2025 10 10 Encounter Details Date Type Department Care Team (Late st Contact Info) Description 04/21/2024 Orders Only [facility] MED[facility] [address] [place] [phone] Celine Aldana MD [address] [place] [address] Meningioma (CMS/HCC) (Primary Dx) Social [...] Description 04/14/2025 1:00 PM EST Office Visit [facility] ADULT DENTAL [address] [place] [address] Dayana Alarcon [address] [place] [address] Scheduled Referrals Name Type Priority Associated Diagnoses [...] documented as of this encounter Care Teams Stenographic Court Reporter Relationship Specialty Start Date End Date Celine Aldana MD [address] [place] [address] PCP - General Family Medicine 06/10/18 Milo 10/08/24 documented as of this encounter
--- OUTSIDE RECORDS SUMMARY | 2025-01-19 13:00 | XMS_ITS | Clinical Summary ---
Author Organization [address] Address [address] [place] [address] Phone Care Team Providers Care Internal Wholesaler Name Role Phone Celine Aldana MD Primary Care Provider [phone] Social History Tobacco Use Types Packs/Day Years [...] topic Insurance MEDICAID - [place] Care Teams Internal Wholesaler Relationship Specialty Start Date End Date Celine Aldana MD [address] [place] [phone] PCP - General 07/01/23
[2025-01-19 13:12] LABS: UACC Culture Trigger YES
[2025-01-19 13:27] LABS: MANUAL DIFF FLAG NO
[2025-01-19 13:33] LABS: Hematocrit 44.3 % (37.0-47.0); Hemoglobin 14.0 g/dl (12.0-16.0); Imm Gran Abs Auto 0.01 X10*3/uL (0.00-0.03); Imm Gran Pct Auto 0.1 % (0.0-0.4); Lymphocytes Absolute Auto 2.7 X10*3/uL (1.2-4.9); Mean Corpuscular HGB Conc 31.6 g/dl (31.0-35.0); Mean Corpuscular Hemoglobin 26.7 pg (27.0-33.0); Mean Corpuscular Volume 84.4 fL (80.0-98.0); NRBC Abs Auto 0.000 X10*3/uL (0.0-0.012); NRBC Pct Auto 0.0 /100WBC (0.0-0.2); Platelet Count 353 X10*3/uL (160-400); Red Blood Count 5.25 X10*6/uL (4.20-5.50); White Blood Count 7.3 X10*3/uL (4.8-10.8)
[2025-01-19 13:54] LABS: Hemoglobin A1C 134.5793 umol/L; Total Hemoglobin (HGBA1C) 3701.0471 umol/L
[2025-01-19 14:19] LABS: Alanine Aminotransferase 34 U/L (0-31); Albumin Level 4.4 g/dL (3.5-5.0); Alkaline Phosphatase 202 U/L (39-117); Anion Gap 13 (12-20); Aspartate Amino Transferase 35 U/L (5-31); Blood Urea Nitrogen 12 mg/dL (9-16); Calcium 9.8 mg/dL (8.4-10.2); Carbon Dioxide 27 mmol/L (22-29); Chloride 108 mmol/L (96-108); Cholesterol 222 mg/dL (<200); Estimated Glomerular Filt Rate > 60; HDL Cholesterol 43 mg/dL (>40); Potassium 4.1 mmol/L (3.3-5.1); Sodium 144 mmol/L (135-145); Total Protein 7.3 g/dL (6.5-8.0); Triglycerides 149 mg/dL (<150)
[2025-01-19 19:04] LABS: Reflex LDLD? No
== END 2025-01-19 12:08 | disposition home or self-care (01) ==
LOC: HO.HHCL 12:07
PROVIDERS: PCP Family Medicine; Visit Provider Family Medicine
DX: R73.01 Impaired fasting glucose (principal); R32 Unspecified urinary incontinence; I95.9 Hypotension, unspecified; R00.0 Tachycardia, unspecified; E55.9 Vitamin D deficiency, unspecified; E78.5 Hyperlipidemia, unspecified
CPT/HCPCS: 36415; 80053; 80061; 81001; 82306; 83036; 84443; 85025; 87086; 87147

== ENCOUNTER 2025-02-01 08:08 | Outpatient (REF) | payer MEDICAID, SELFPAY ==
[2025-02-01 11:30] LABS: Alanine Aminotransferase 19 U/L (0-31); Albumin Level 4.2 g/dL (3.5-5.0); Alkaline Phosphatase 188 U/L (39-117); Aspartate Amino Transferase 25 U/L (5-31); Total Protein 7.0 g/dL (6.5-8.0)
[2025-02-01 11:49] LABS: ~Hepatitis A Antibody IgG 0.42 S/CO (0.00-0.99)
[2025-02-01 12:04] LABS: HBS Num1 1.22 mIU/mL (0-7.99); HBc Num1 0.12 S/CO (0.00-0.79); HBsAGNum1 0.47 S/CO (0.00-0.99); Hepatitis B Surface Antigen Negative (Negative); ~HepC Num1 0.14 S/CO (0.00-0.79); ~Hepatitis B Surface Antibody NONREACTIVE (Nonreactive); ~Hepatitis C Antibody Nonreactive (Nonreactive)
[2025-02-01 12:26] LABS: HIV Num 1 0.05 S/CO (0.00-0.99)
== END 2025-02-01 08:09 | disposition home or self-care (01) ==
LOC: HO.HHCL 08:08
PROVIDERS: PCP Family Medicine; Visit Provider Family Medicine
DX: Z01.84 Encounter for antibody response examination (principal); Z11.4 Encounter for screening for human immunodeficiency virus [HIV]; Z11.59 Encounter for screening for other viral diseases; R74.01 Elevation of levels of liver transaminase levels
CPT/HCPCS: 36415; 80076; 86704; 86706; 86708; 86803; 87340; 87389

== ENCOUNTER 2025-03-09 13:12 | Outpatient (AMB) | payer MEDICAID, SELFPAY ==
--- NOTE | 2025-03-09 13:19 | MHC.OFFVIS ---
Vital Signs 03/09/25 13:27 Height 5 ft 4 in Weight 190 lb BMI 32.6 BP 114/66 Blood Pressure Location Rt brachial Position Sitting Pulse 89 Intake Visit Reasons: mass (L) thigh Intake Note: Patient referred by pcp Dr. Aldana for multiple lipomas of the left hip. Present for yrs. Pt c/o: more painful after left hip surgery September 14, 2024. Imaging: Left thigh US/ [facility] 02-23-2025 Eng[employer] Copperplate Required: Yes Information Interpreted: non-clinical & clinical (Ninoska PASCAL) Accompanied by: Self / Same As Patient Allergies No Known Allergies (No Known Allergies*) Allergy (Unverified 03/09/25 13:25) Medication List - Last Reconciled 03/12/25 by Eduardo Baeza MD albuterol sulfate 90 mcg/actuation (Ventolin HFA) 2 puffs inhalation Q4-6H PRN bisacodyl (Dulcolax (bisacodyl)) 10 mg (2 x 5 mg) PO BEDTIME buspirone 7.5 mg PO BID cetirizine 10 mg PO QAM cholecalciferol (vitamin D3) 25 mcg PO DAILY clonazepam 0.5 mg PO BEDTIME duloxetine 30 mg PO DAILY inhalational spacing device (Compact Space Chamber) As directed pantoprazole 40 mg PO DAILY phentermine 30 mg PO DAILY polyethylene glycol 3350 (Miralax) 238 grams PO ONCE tirzepatide (weight loss) (Zepbound) 2.5 mg subcut QWEEK HPI Comments Details: 59-year-old female patient presenting for evaluation of several soft tissue masses located in her left anterior thigh. She recently underwent left hip surgery and feels following this she developed increased pain at this location. Lumps are gradually increasing in size and are causing discomfort whenever she puts pressure on the site. She denies any skin changes, redness or discharge. She is requesting excision of the lesions. FOR[facility]LY [facility], [facility] Medical History Paresthesia Mass of left thigh Balance problem Abfraction Bilateral hip pain Missing teeth, acquired Generalized gingival recession Periodontal disease Dental calculus Plantar fasciitis Dermatofibroma GERD (gastroesophageal reflux disease) Chronic back pain Mixed anxiety and depressive disorder Impaired fasting glucose Vitamin D deficiency Dyslipidemia Allergic rhinitis Asthma Obesity Surgical History History of hip surgery Hx of colonoscopy History of bariatric surgery Review of Systems Const All systems reviewed & are unremarkable except as noted in HPI and below Physical Exam Vital Signs: Last Vital Signs Pulse 89 03/09/25 13:27 BP 114/66 03/09/25 13:27 BMI result Body Mass Index 32.6 Const General: cooperative and no acute distress Nutritional Appearance: well nourished Orientation/consciousness: patient oriented x3 Limitations: no limitations HEENT Head: Yes normocephalic and Yes atraumatic Ears: hearing grossly normal bilaterally Resp Effort & Inspection: normal respiratory effort, no audible wheezes, no cough and no respiratory distress Cardio Jugular venous distension: no JVD GI Inspection: Yes normal to inspection Skin Other: Warm, dry, no rash Neuro General: patient oriented x3 Extrem General: Yes no clubbing, cyanosis or edema Upper/lower leg/hip images:  1. Soft tissue subcutaneous mass consistent with lipoma measuring approximately 2 cm diameter 2. Soft tissue subcutaneous mass consistent with lipoma measuring approximately 2 cm in diameter mid thigh Assessment & Plan Assessment & Plan (1) Lipoma: Code(s): D17.9 - Benign lipomatous neoplasm, unspecified Category: Medical Qualifiers: Lipoma location: lower extremity Laterality: left Qualified Code(s): D17.24 - Benign lipomatous neoplasm of skin and subcutaneous tissue of left leg Plan 59-year-old female patient presenting with a soft tissue mass consistent with a lipoma x2 in the left anterior thigh. The patient has requested excision. This can be performed as an office based procedure under local anesthesia. After discussion of the procedure, risks, and alternatives, she consents to the surgery. Coding Level of Care Code New Pt Level 4 (32899) Diagnoses Lipoma of left lower extremity D17.24 Lipoma location: lower extremity Laterality: left
[2025-03-09 13:27] VITALS: BP 114/66; PULSE 89; BMI 32.6
--- OUTSIDE RECORDS SUMMARY | 2025-03-09 14:26 | XMS_ITS | Encounter Summary ---
Author Organization [employer] Address [address] [place] [address] Care Team Providers Care Mill Operator Name Role Phone Celine Aldana MD Primary Care Provider [phone] Encounter Details Date Type Department Care Team (Late st Contact Info) Description 09/23/[address] [facility] - Main Lab [address] [place] [address] Damion Patel MD [address] [place], [place] [phone] Anemia, unspecified Social History Tobacco Use Types [...] mmol/L LAB CHEMISTRY METHOD 09/24/2024 9:[address] [facility] Potassium 4.3 3.5 - 5.5 mmol/L LAB CHEMISTRY METHOD 09/24/2024 9:[address] [facility] Chloride 108 96 - 110 mmol/L LAB CHEMISTRY METHOD 09/24/2024 9:[address] [facility] CO2 28 21 - 32 mmol/L LAB CHEMISTRY METHOD 09/24/2024 9:[address] [facility] Anion Gap 5 3 - 11 LAB CHEMISTRY METHOD 09/24/2024 9:[address] [facility] Glucose 98 70 - 100 mg/dL LAB CHEMISTRY METHOD 09/24/2024 9:[address] [facility] BUN 16 5 - 25 mg/dL LAB CHEMISTRY METHOD 09/24/2024 9:[address] [facility] Creatinine 0.63 0.50 - 1.10 mg/dL LAB CHEMISTRY METHOD 09/24/2024 9:[address] [facility] eGFR 101 >=60 mL/min/1. 73m2 LAB CHEMISTRY METHOD 09/24/2024 9:[address] [facility] Comment:Calculation based on the Chronic Kidney Disease Epidemiology Collaboration (CKD-EPI) equation refit without adjustment for race. BUN/Creatinine Ratio 25.4 LAB CHEMISTRY METHOD 09/24/2024 9:[address] [facility] Calcium 9.5 8.5 - 10.5 mg/dL LAB CHEMISTRY METHOD 09/24/2024 9:[address] [facility] Blood Venous blood specimen / Unknown Venipuncture / Unknown 09/24/2024 7:08 AM EDT 09/24/2024 8:15 AM EDT us Damion Patel MD LAB BLOOD ORDERABLES Final Result [facility] [address] [place] [address], * (ABNORMAL) Complete blood count (09/24/2024 7:08 AM EDT) WBC 8.2 4.8 - 10.8 K/mcL LAB HEMETOLOGY METHOD 09/24/2024 8:[address] [facility] RBC 4.40 3.80 - 4.80 M/mcL LAB HEMETOLOGY METHOD 09/24/2024 8:[address] [facility] Hemoglobin 11.9 11.5 - 16.0 g/dL LAB HEMETOLOGY METHOD 09/24/2024 8:[address] [facility] Hematocrit 38.0 35.0 - 47.0 % LAB HEMETOLOGY METHOD 09/24/2024 8:[address] [facility] MCV 87.2 79.0 - 98.0 FL LAB HEMETOLOGY METHOD 09/24/2024 8:[address] [facility] MCH 27.3 27.0 - 32.0 pcg LAB HEMETOLOGY METHOD 09/24/2024 8:[address] [facility] MCHC 31.3(L) 32.0 - 37.0 g/dL LAB HEMETOLOGY METHOD 09/24/2024 8:[address] [facility] RDW 13.4 11.0 - 15.0 % LAB HEMETOLOGY METHOD 09/24/2024 8:[address] [facility] Platelets 352 130 - 400 K/mcL LAB HEMETOLOGY METHOD 09/24/2024 8:[address] [facility] MPV 11.0 7.0 - 11.0 FL LAB HEMETOLOGY METHOD 09/24/2024 8:[address] [facility] NRBC 0.0 <1.0 % LAB HEMETOLOGY METHOD 09/24/2024 8:[address] [facility] NRBC Absolute 0.00 <0.10 K/mcL LAB HEMETOLOGY METHOD 09/24/2024 8:[address] [facility] Blood Venous blood specimen / Unknown Venipuncture / Unknown 09/24/2024 7:08 AM EDT 09/24/2024 8:13 AM EDT us Damion Patel MD LAB BLOOD ORDERABLES [facility] [address] [place] [address], documented in this encounter Visit Diagnoses Diagnosis Anemia, unspecified documented in this encounter Care Teams Mill Operator Relationship Specialty Start Date End Date Celine Aldana MD [address] [place] [phone] PCP - General 07/01/23 documented as of this encounter
--- OUTSIDE RECORDS SUMMARY | 2025-03-09 14:26 | XMS_ITS | Encounter Summary ---
Author Organization [facility] Address [address] [place] [address] [address] [place] [address] Care Team Providers Care Is Analyst Name Role Phone Celine Aldana MD Primary Care Provider [phone] Encounter Details Date Type Department Care Team (Latest Contact Info) Description 09/15/2021 Abstract [facility] CONVERSIONS Dental, Provider, DDS Social History [...] Team (Late st Contact Info) Description 04/14/2025 12:45 PM EST Office Visit [facility] ADULT DENTAL [address] [place] [address] Agnes, Dayana [address] [place] [address] 04/15/2025 10:15 AM EST Office Visit [facility] MEDICINE [address] [place] [address] Celine Aldana MD [address] [place] [address] documented as of this encounter Visit Diagnoses Not on filedocumented in this encounter Care Teams Is Analyst Relationship Specialty Start Date End Date Celine Aldana MD [address] [place] [address] PCP - General Family Medicine 06/10/18 Milo 10/08/24 documented as of this encounter
--- OUTSIDE RECORDS SUMMARY | 2025-03-09 14:26 | XMS_ITS | Encounter Summary ---
Author Organization [employer] Address [address] [facility] [address] [place] [address] Care Team Providers Care Business Supervisor Name Role Phone Celine Aldana MD Primary Care Provider [phone] Reason for Referral * Consultation (Routine) - Closed Specialty Diagnoses / Procedures Referred By Contac t Referred To Contact Neurosurgery Diagnoses Meningioma (CMS/HCC) (HCC) Celine Aldana MD [address] [place] [address] Phone: tel: fax: Neurosurgery, [address] [place], [place] Phone: tel: fax: Referral ID Status Reason Start Date Expiration Date V isits Requested Visits Authorized [id number] Closed Specialty Services Required 04/24/2024 04/24/2025 10 10 Encounter Details Date Type Department Care Team (Late st Contact Info) Description 04/21/2024 Orders Only [facility] MEDICINE [address] [place], [place] [phone] Celine Aldana MD [address] [place], [place] [phone] Meningioma (CMS/HCC) (Primary Dx) Social History Tobacco [...] Description 04/14/2025 12:45 PM EST Office Visit [facility] ADULT DENTAL [address] [place] [address] Dayana Alarcon [address] [place] [address] 04/15/2025 10:15 AM EST Office Visit [facility] MEDICINE [address] [place] [address] Celine Aldana MD [address] [place] [address] Scheduled Referrals Name Type Priority Associated Diagnoses Order Schedule Referral to Neurosurgery Outpatient Referral Routine Meningioma (CMS/HCC) Expected: 04/21/2024 (Approximate), Expires: 04/21/2025 documented as of this encounter Visit Diagnoses Diagnosis Meningioma (CMS/HCC) (HCC)- Primary Benign neoplasm of cerebral meninges documented in this encounter Additional Health Concerns Assessment Noted Time PHQ-9 Depression Total Score: 7 03/02/20 24 9:35 AM EDT documented as of this encounter Care Teams Business Supervisor Relationship Specialty Start Date End Date Celine Aldana MD [address] [place] [address] PCP - General Family Medicine 06/10/18 Milo 10/08/24 documented as of this encounter
--- OUTSIDE RECORDS SUMMARY | 2025-03-09 14:26 | XMS_ITS | Encounter Summary ---
Author Organization [employer] Address [address] [place] [address] [address] [place] [address] Care Team Providers Care Edge Sander Name Role Phone Celine Aldana MD Primary Care Provider [phone] Encounter Details Date Type Department Care Team (Late st Contact Info) Description 02/20/2023 Orders Only [facility] MEDICINE [address] [place], [place] [phone] Celine Aldana MD [address] [place] [address] Pain of both heels (Primary Dx) Social [...] Description 04/14/2025 12:45 PM EST Office Visit [facility] ADULT DENTAL [address] [place], [place] [phone] Dayana Alarcon [address] [place] [address] 04/15/2025 10:15 AM EST Office Visit [facility] MEDICINE [address] [place] [address] Celine Aldana MD [address] [place] [address] documented as of this encounter Visit Diagnoses Diagnosis Pain of both heels- Primary documented in this encounter Additional Health Concerns Assessment Noted Time PHQ-9 Depression Total Score: 0 07/18/19 23 9:47 AM EST documented as of this encounter Care Teams Edge Sander Relationship Specialty Start Date End Date Celine Aldana MD [address] [place] [phone] PCP - General Family Medicine 06/10/18 Milo 10/08/24 documented as of this encounter
--- OUTSIDE RECORDS SUMMARY | 2025-03-09 14:26 | XMS_ITS | Encounter Summary ---
Author Organization [employer] Address [address] [place] [address] Care Team Providers Care Machine Egg Washer Name Role Phone Celine Aldana MD Primary Care Provider [phone] Encounter Details Date Type Department Care Team (Late st Contact Info) Description 09/28/2024 Lab Requisition [facility] - Main Lab [address] [place] [address] Damion Patel MD [address] [place], [place] [phone] Anemia, unspecified; Other asthma; Anxiety disorder, unspecified [...] LAB CHEMISTRY METHOD 09/29/2024 11:42 AM EDT [facility] Potassium 4.3 3.5 - 5.5 mmol/L LAB CHEMISTRY METHOD 09/29/2024 11:42 AM EDT [facility] Chloride 108 96 - 110 mmol/L LAB CHEMISTRY METHOD 09/29/2024 11:42 AM [facility] CO2 28 21 - 32 mmol/L LAB CHEMISTRY METHOD 09/29/2024 11:42 AM [facility] Anion Gap 8 3 - 11 LAB CHEMISTRY METHOD 09/29/2024 11:42 AM [facility] Glucose 85 70 - 100 mg/dL LAB CHEMISTRY METHOD 09/29/2024 11:42 AM [facility] BUN 15 5 - 25 mg/dL LAB CHEMISTRY METHOD 09/29/2024 11:42 AM [facility] Creatinine 0.57 0.50 - 1.10 mg/dL LAB CHEMISTRY METHOD 09/29/2024 11:42 AM [facility] eGFR 104 >=60 mL/min/1. 73m2 LAB CHEMISTRY METHOD 09/29/2024 11:42 AM [facility] Comment:Calculation based on the Chronic Kidney Disease Epidemiology Collaboration (CKD-EPI) equation refit without adjustment for race. BUN/Creatinine Ratio 26.3 LAB CHEMISTRY METHOD 09/29/2024 11:42 AM [facility] Calcium 9.4 8.5 - 10.5 mg/dL LAB CHEMISTRY METHOD 09/29/2024 11:42 AM [facility] Blood Venous blood specimen / Unknown Venipuncture / Unknown 09/29/2024 8:05 AM EDT 09/29/2024 9:09 AM EDT us Damion Patel MD LAB BLOOD ORDERABLES Final Result [facility] [address] [place] [address], * (ABNORMAL) Complete blood count (09/29/2024 8:05 AM EDT) WBC 8.3 4.8 - 10.8 K/mcL LAB HEMETOLOGY METHOD 09/29/2024 10:42 AM [facility] RBC 4.40 3.80 - 4.80 M/mcL LAB HEMETOLOGY METHOD 09/29/2024 10:42 AM [facility] Hemoglobin 11.8 11.5 - 16.0 g/dL LAB HEMETOLOGY METHOD 09/29/2024 10:42 AM [facility] Hematocrit 37.4 35.0 - 47.0 % LAB HEMETOLOGY METHOD 09/29/2024 10:42 AM [facility] MCV 85.8 79.0 - 98.0 FL LAB HEMETOLOGY METHOD 09/29/2024 10:42 AM [facility] MCH 27.1 27.0 - 32.0 pcg LAB HEMETOLOGY METHOD 09/29/2024 10:42 AM [facility] MCHC 31.6(L) 32.0 - 37.0 g/dL LAB HEMETOLOGY METHOD 09/29/2024 10:42 AM [facility] RDW 13.6 11.0 - 15.0 % LAB HEMETOLOGY METHOD 09/29/2024 10:42 AM [facility] Platelets 369 130 - 400 K/mcL LAB HEMETOLOGY METHOD 09/29/2024 10:42 AM [facility] MPV 10.9 7.0 - 11.0 FL LAB HEMETOLOGY METHOD 09/29/2024 10:42 AM [facility] NRBC 0.0 <1.0 % LAB HEMETOLOGY METHOD 09/29/2024 10:42 AM [facility] NRBC Absolute 0.00 <0.10 K/mcL LAB HEMETOLOGY METHOD 09/29/2024 10:42 AM [facility] Blood Venous blood specimen / Unknown Venipuncture / Unknown 09/29/2024 8:05 AM EDT 09/29/2024 9:09 AM EDT Damion Patel MD LAB BLOOD ORDERABLES Final Result [facility] [address] [place] [address], documented in this encounter Visit Diagnoses Diagnosis Anemia, unspecified Other asthma Anxiety disorder, unspecified documented in this encounter Care Teams Machine Egg Washer Relationship Specialty Start Date End Date Celine Aldana MD [address] [place] [phone] PCP - General 07/01/23 documented as of this encounter
--- OUTSIDE RECORDS SUMMARY | 2025-03-09 14:26 | XMS_ITS | Encounter Summary ---
Author Organization [employer] Address [address] [facility] 7t [place] [address] Care Team Providers Care Powertrain Calibration Engineer Name Role Phone Celine Aldana MD Primary Care Provider [phone] Reason for Referral * Consultation (Routine) - Canceled Specialty Diagnoses / Procedures Referred By Contac t Referred To Contact Neurology Diagnoses Dizziness Celine Aldana MD [address] [place] [address] Phone: tel: fax: [facility] Neurology [address] [place] [address] Phone: tel: fax: Referral ID Status Reason Start Date Expiration Date Visits Requested Visits Authorized [id number] Canceled Specialty Services Required 04/09/2024 04/09/2025 6 6 Encounter Details Date Type Department Care Team (Late st Contact Info) Description 04/09/2024 Orders Only [facility] MEDICINE [address] [place] [phone] Celine Aldana MD [address] [place], [place] [phone] Dizziness (Primary Dx) Social History Tobacco Use [...] Description 04/14/2025 12:45 PM EST Office Visit [facility] ADULT DENTAL [address] [place] [address] Dayana Alarcon [address] [place] [address] 04/15/2025 10:15 AM EST Office Visit [facility] MEDICINE [address] [place] [address] Celine Aldana MD [address] [place] [address] Scheduled Referrals Name Type Priority Associated Diagnoses Orde r Schedule Referral to Neurology Outpatient Referral Routine Dizziness Expected: 04/09/2024 (Approximate), Expires: 04/09/2025 documented as of this encounter Visit Diagnoses Diagnosis Dizziness- Primary Dizziness and giddiness documented in this encounter Additional Health Concerns Assessment Noted Time PHQ-9 Depression Total Score: 7 03/02/20 24 9:35 AM EDT documented as of this encounter Care Teams Powertrain Calibration Engineer Relationship Specialty Start Date End Date Celine Aldana MD [address] [place] [address] PCP - General Family Medicine 06/10/18 Milo 10/08/24 documented as of this encounter
--- OUTSIDE RECORDS SUMMARY | 2025-03-09 14:26 | XMS_ITS | Encounter Summary ---
Author Organization [employer] Address [address] [facility] 7t [place] [address] Care Team Providers Care Plant Utility Person Name Role Phone Celine Aldana MD Primary Care Provider [phone] Reason for Visit * Reason Onset Date Comments Nurse Triage 01/25/2025 Encounter Details Date Type Department Care Team ([facility] st Contact Info) Description 01/25/2025 Telephone [facility] MEDICINE [address] [place], [place] [phone] Celine Aldana MD [address] [place], [place] [phone] Nurse Triage Social History Tobacco Use Types Packs/Day Years [...] Access Q2 Not on file 03/02/2024 Comments No Sex and Gender Information Value Date Recorded Sex Assigned at Female 04/09/2022 10:20 AM EDT Legal Sex Female 10:20 AM EDT Gender Identity Female 04/09/2022 10:20 AM EDT Sexual Orientation Straight 04/09/2022 10 :20 AM EDT documented as of this encounter Miscellaneous Notes * Telephone Encounter - Luisa Beckford RN - 01/25/2025 3:52 PM EDT Triage call with [facility] senior managing director [place] [id number]. Pt reports having had surgery on left hip, last OV with [facility] was 01/22/25 dx of bursitis. 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 Pt reports smaller lipomas are in the same area of the leg as well. Pt became tearfulreporting that the pain from the hip is not getting better and Pt is walking with a cane. Pt is requesting to speak with PCP for a plan . ASK apt with Dr. Aldana 01/28/25 @ 1115am. Insurance is verified as active prior to booking. Protocol Used: Skin Lump or Localized Swelling (Adult) Protocol-Based Disposition: See in Office or Video Visit within 3 Days Video visit not offered Positive Triage Questions: * Small swelling or lump present > 1 week * Patient wants to be seen * All higher-acuity triage questions were negative Care Advice Discussed: * Reasons To Call Back - Fever occurs - Spreading redness occurs - Swelling becomes painful - Swelling lasts over 1 week - You become worse * Telephone Encounter - Lucio Duque - 01/25/2025 3:15 PM EDT Symptom: Skin Lump Outcome: Schedule an appointment to be seen within 3 days Reason: Caller denied all higher acuity questions Please contact pt at [phone]. (Icelandic Speaker) documented in this encounter Plan of Treatment Upcoming Encounters Date Type Department Care Team (Late st Contact Info) Description 04/14/2025 12:45 PM EST Office Visit [facility] ADULT DENTAL [address] [place] [address] Agnes, Dayana [address] [place] [address] 04/15/2025 10:15 AM EST Office Visit [facility] MEDICINE [address] [place] [address] Celine Aldana MD [address] [place] [address] documented as of this encounter Visit Diagnoses Not on filedocumented in this encounter Additional Health Concerns Assessment Noted Time PHQ-9 Depression Total Score: 7 03/02/20 24 9:35 AM EDT documented as of this encounter Care Teams Plant Utility Person Relationship Specialty Start Date End Date Celine Aldana MD [address] [place] [address] PCP - General Family Medicine 06/10/18 Milo 10/08/24 documented as of this encounter
--- OUTSIDE RECORDS SUMMARY | 2025-03-09 14:26 | XMS_ITS | Encounter Summary ---
Author Organization [email or web address] Address [address] [facility] 7t [place] [address] Care Team Providers Care Online Merchandising Coordinator Name Role Phone Celine Aldana MD Primary Care Provider [phone] Encounter Details Date Type Department Care Team (Late st Contact Info) Description 04/03/2023 Abstract [facility] ADULT DENTAL [address] [place], [place] [phone] Agnes Dayana [address] [place] [address] Social History Tobacco Use Types Packs/Day Years [...] Description 04/14/2025 12:45 PM EST Office Visit [facility] ADULT DENTAL [address] [place] [address] Agnes, Dayana [address] [place] [address] 04/15/2025 10:15 AM EST Office Visit [facility] MEDICINE [address] [place] [address] Celine Aldana MD [address] [place] [address] documented as of this encounter Visit Diagnoses Not on filedocumented in this encounter Additional Health Concerns Assessment Noted Time PHQ-9 Depression Total Score: 0 07/18/19 23 9:47 AM EST documented as of this encounter Care Teams Online Merchandising Coordinator Relationship Specialty Start Date End Date Celine Aldana MD [address] [place] [address] PCP - General Family Medicine 06/10/18 Milo 10/08/24 documented as of this encounter
--- OUTSIDE RECORDS SUMMARY | 2025-03-09 14:26 | XMS_ITS | Encounter Summary ---
Author Organization [employer] Address [address] [facility] 7t [place] [address] Care Team Providers Care Survey Compiler Name Role Phone Celine Aldana MD Primary Care Provider [phone] Reason for Visit * Reason Comments Med Refill Encounter Details Date Type Department Care Team ([facility] st Contact Info) Description 07/24/2024 Refill [facility] [address] [place], [place] [phone] Woo Powell MD [address] [place] [address] Social History Tobacco Use Types Packs/Day Years [...] Description 04/14/2025 12:45 PM EST Office Visit [facility] [address] [place] [address] Agnes, Dayana [address] [place] [address] 04/15/2025 10:15 AM EST Office Visit [facility] [address] [place] [address] Celine Aldana MD [address] [place] [address] documented as of this encounter Visit Diagnoses Not on filedocumented in this encounter Additional Health Concerns Assessment Noted Time PHQ-9 Depression Total Score: 7 03/02/20 24 9:35 AM EDT documented as of this encounter Care Teams Survey Compiler Relationship Specialty Start Date End Date Celine Aldana MD [address] [place] [address] PCP - General Family Medicine 06/10/18 Milo 10/08/24 documented as of this encounter
--- OUTSIDE RECORDS SUMMARY | 2025-03-09 14:26 | XMS_ITS | Encounter Summary ---
Author Organization [facility] Address [address] [place] [address] [address] [place] [address] Care Team Providers Care Informatica Name Role Phone Celine Aldana MD Primary Care Provider [phone] Encounter Details Date Type Department Care Team (Latest Contact Info) Description 08/02/2020 Abstract [facility] Dental, Provider, DDS Social History [...] Description 04/14/2025 12:45 PM EST Office Visit [facility] [address] [place] [address] Agnes, Dayana [address] [place] [address] 04/15/2025 10:15 AM EST Office Visit [facility] [address] [place] [address] Celine Aldana MD [address] [place] [address] documented as of this encounter Visit Diagnoses Not on filedocumented in this encounter Care Teams Informatica Relationship Specialty Start Date End Date Celine Aldana MD [address] [place] [address] PCP - General Family Medicine 06/10/18 Milo 10/08/24 documented as of this encounter
--- OUTSIDE RECORDS SUMMARY | 2025-03-09 14:26 | XMS_ITS | Encounter Summary ---
Author Organization [employer] Address [address] [facility] 7 [place] [address] Care Team Providers Care Bottom Turning Lathe Turner Name Role Phone Celine Aldana MD Primary Care Provider [phone] Reason for Visit * Reason Onset Date Comments Prior Authorization 01/25/2025 Encounter Details Date Type Department Care Team (Late st Contact Info) Description 01/25/2025 Telephone [facility] [address] [place], [place] [phone] Celine Aldana MD [address] [place], [place] [phone] Prior Authorization Social History Tobacco Use Types [...] encounter Miscellaneous Notes * Telephone Encounter - Lucio Duque - 01/25/2025 3:17 PM EDT Tc from pt was informed that Tirzepatide-Weight Management (Zepbound) 2.5 MG/0.5ML solution auto-injector needs a PA. If any questions you can contact pt at [phone]. (Azerbaijani Speaker) documented in this encounter Plan of Treatment Upcoming Encounters Date Type Department Care Team (Late st Contact Info) Description 04/14/2025 12:45 PM EST Office Visit [facility] [address] [place] [address] Agnes Dayana [address] [place] [address] 04/15/2025 10:15 AM EST Office Visit [facility] [address] [place] [address] Celine Aldana MD [address] [place] [address] documented as of this encounter Visit Diagnoses Not on filedocumented in this encounter Additional Health Concerns Assessment Noted Time PHQ-9 Depression Total Score: 7 03/02/20 24 9:35 AM EDT documented as of this encounter Care Teams Bottom Turning Lathe Turner Relationship Specialty Start Date End Date Celine Aldana MD [address] [place] [address] PCP - General Family Medicine 06/10/18 Milo 10/08/24 documented as of this encounter
--- OUTSIDE RECORDS SUMMARY | 2025-03-09 14:26 | XMS_ITS | Clinical Summary ---
Author Organization [address] Address [address] [place] [address] Phone Care Team Providers Care Can Machine Operator Name Role Phone Celine Aldana MD Primary Care Provider [phone] Social History Tobacco Use Types Packs/Day Years Used Date Smoking Tobacco: Never Assessed Comments Unknown Sex and Gender Information Value Date Recorded Sex Assigned at Not on file Legal Sex Female 11:06 AM EDT Gender Identity Not on file Sexual Orientation Not on file Plan of Treatment Health Maintenance Due Date Last Done Comments Breast Cancer Screening 1965 Colorectal Cancer Screening: Colonoscopy 1965 Cervical Cancer Screening: Pap Smear 1984 RSV Immunization Adult Patients (1 - Risk 60-74 years 1-dose series) 2023 Cholesterol Screening (Lipid Panel) 01/03/2024 HIV Screening 01/03/2024 Hepatitis C Screening 01/03/2024 Social Influencers of Health Screening 01/03/2024 Depression Screening 06/10/2024 COVID-19 Vaccine ( season) 2025 09/06/2020, 08/09/2020 Influenza Vaccine (#1) 2025 , 06/25/2023, 02/15/2022, [...] topic Insurance MEDICAID - [place] Care Teams Can Machine Operator Relationship Specialty Start Date End Date Celine Aldana MD [address] [place] [phone] PCP - General 07/01/23
--- OUTSIDE RECORDS SUMMARY | 2025-03-09 14:26 | XMS_ITS | Encounter Summary ---
Author Organization [employer] Address [address] [place] [address] [place] [address] Care Team Providers Care Early Childhood Education Specialist Name Role Phone Celine Aldana MD Primary Care Provider Reason for Visit * Reason Onset Date Comments Results 10/05/2024 Encounter Details Date Type Department Care Team ([facility] st Contact Info) Description 10/05/2024 Telephone [facility] [address] [place], [place] [phone] Luana Villalba, PharmD [address] [place] [address] Results Social History Tobacco Use Types Packs/Day Years [...] encounter Miscellaneous Notes * Telephone Encounter - Rocio Madden RN - 10/15/2024 1:38 PM EDT Telephone call x1 to pt to advise of below result.No answer, left voicemail to call back. * Telephone Encounter - Rocio Madden RN - 10/15/2024 1:37 PM EDT ----- Message from Celine Aldana MD sent at 10/15/2024 1:20 PM EDT ----- Please inform patient that her vitamin D was low. Sending vitamin D supplement. Thank you documented in this encounter Plan of Treatment Upcoming Encounters Date Type Department Care Team (Late st Contact Info) Description 04/14/2025 12:45 PM EST Office Visit [facility] [address] [place] [address] Agnes Dayana [address] [place] [address] 04/15/2025 10:15 AM EST Office Visit [facility] [address] [place] [address] Celine Aldana MD [address] [place] [address] documented as of this encounter Visit Diagnoses Not on filedocumented in this encounter Additional Health Concerns Assessment Noted Time PHQ-9 Depression Total Score: 7 03/02/20 24 9:35 AM EDT documented as of this encounter Care Teams Early Childhood Education Specialist Relationship Specialty Start Date End Date Celine Aldana MD [address] [place] [address] PCP - General Family Medicine 06/10/18 Milo 10/08/24 documented as of this encounter
--- OUTSIDE RECORDS SUMMARY | 2025-03-09 14:27 | XMS_ITS | Encounter Summary ---
Author Organization [employer] Address [address] [facility] 7[address] [place] [address] Care Team Providers Care Cognos Lead Name Role Phone Celine Aldana MD Primary Care Provider [phone] Encounter Details Date Type Department Care Team (Late st Contact Info) Description 11/24/2024 Orders Only [facility] [address] [place], [place] [phone] Celine Aldana MD [address] [place], [place] [phone] Social History Tobacco Use Types Packs/Day Years [...] Description 04/14/2025 12:45 PM EST Office Visit [facility] [address] [place] [address] Agnes, Dayana [address] [place] [address] 04/15/2025 10:15 AM EST Office Visit [facility] [address] [place] [address] Celine Aldana MD [address] [place] [address] documented as of this encounter Visit Diagnoses Not on filedocumented in this encounter Additional Health Concerns Assessment Noted Time PHQ-9 Depression Total Score: 7 03/02/20 24 9:35 AM EDT documented as of this encounter Care Teams Cognos Lead Relationship Specialty Start Date End Date Celine Aldana MD [address] [place] [address] PCP - General Family Medicine 06/10/18 Milo 10/08/24 documented as of this encounter
--- OUTSIDE RECORDS SUMMARY | 2025-03-09 14:27 | XMS_ITS | Clinical Summary ---
Author Organization [employer] Address [address] [place] [address] Care Team Providers Care Envelope Maker Name Role Phone Celine Aldana MD Primary Care Provider [phone] Allergies No known active allergies Medications Spacer/Aero-Hold ing Chambers (OptiChamber Marian) misc 1 each every 4 (four) hours if needed (asthma). 1 each 01/15/2024 Active pantoprazole (ProtoNix) 40 MG EC tablet TAKE 1 TABLET BY MOUTH EVERY DAY 90 tablet 3 01/29/2024 Active cetirizine (ZyrTEC) 10 MG tabletIndication s:Allergic rhinitis, unspecified seasonality, unspecified trigger TAKE 1 TABLET BY MOUTH EVERY DAY IN THE MORNING 90 tablet 2 06/02/2024 Active clonazePAM (KlonoPIN) 1 MG tablet Take 1 tablet by mouth at bedtime. 09/14/2024 Active busPIRone (Buspar) 10 MG tablet Take 1 tablet by mouth 2 times daily. Active cholecalciferol (Vitamin D-3) 25 MCG (1000 UT) tablet Take 1 tablet (25 mcg) by mouth Once per day. 90 tablet 3 10/15/2024 Active albuterol (Ventolin HFA) 108 (90 Base) MCG/ACT inhaler INHALE 2 PUFFS BY MOUTH EVERY 4 TO 6 HOURS NEEDED (FOR ASTHMA) 18 g 3 12/10/2024 Active Tirzepatide-Weig ht Management (Zepbound) 2.5 MG/0.5ML solution auto-injectorInd ications:Class 2 obesity due to excess calories without serious comorbidity with body mass index (BMI) of 39.0 to 39.9 in adult Inject 0.5 mL (2.5 mg) under the skin 1 (one) time per week. 2 mL 11 01/19/2025 Active Active Problems Problem Noted Date Diagnosed Date Transaminitis 01/29/2025 Assessment & Plan (01/29/2025 6:51 AM EDT): - likely MASLD - fib 4 index 1.04 - work on lifestyle modifications - check hepatitis profile - consider US evaluation if persistently elevated Trochanteric bursitis 01/26/2025 Assessment & Plan (01/29/2025 7:00 AM EDT): - Left worse than right - Dx left hip trochanteric pain syndrome, partial thickness abductor tendon tear, trochanteric bursitis - s/p left open abductor tendon repair, trochanteric bursectomy, IT band lengthening by JASE Mercado on 09/14/24 - s/p short-term rehab in [facility] - received home PT via [facility] - last seen by orthopedist on 01/23/25, reviewed MRI, given reassurance, and no further follow up Assessment & Plan (01/26/2025 11:03 AM EDT): - Left worse than right - Dx left hip trochanteric pain syndrome, partial thickness abductor tendon tear, trochanteric bursitis - s/p left open abductor tendon repair, trochanteric bursectomy, IT band lengthening by JASE Mercado on 09/14/24 - s/p [facility] - receiving home PT via [facility] - follow recommendations by orthopedist Headache 03/02/2024 Assessment & Plan (06/22/2024 6:13 [...] of left thigh 03/02/2024 Assessment & Plan (01/29/2025 6:22 AM EDT): - likely benign, evaluated with US in Apr 2024: Within the anterior mid left thigh subcutaneous layer, corresponding with the palpable finding, a 3.6 cm circumscribed, heterogeneously hypoechoic mass is seen. The possibility of a lipoma is raised; the exact etiology is indeterminate. If of continued clinical concern, this can be further evaluated with MRI. - MRI was done by her orthopedist JASE, and patient states she was told that it was normal - patient requests excision of these masses due to pain; informed that her pain may not improve after the excision. Patient verbalized understanding and agreed with further evaluation with US (patient actually requested another MRI) and a referral to general surgeon. Assessment & Plan (01/26/2025 11:06 AM EDT): - likely benign, evaluated with US in Apr 2024: Within the anterior mid left thigh subcutaneous layer, corresponding with the palpable finding, a 3.6 cm circumscribed, heterogeneously hypoechoic mass is seen. The possibility of a lipoma is raised; the exact etiology is indeterminate. If of continued clinical concern, this can be further evaluated with MRI. - scheduled for MRI by her ortho and plan for excisional biopsy. Assessment & Plan (03/02/2024 12:15 PM EDT): [...] Bilateral hip pain 06/25/2023 Assessment & Plan (01/26/2025 11:03 AM EDT): - following with [facility] - Left worse than right - Dx left hip trochanteric pain syndrome, partial thickness abductor tendon tear, trochanteric bursitis - s/p left open abductor tendon repair, trochanteric bursectomy, IT band lengthening by JASE Mercado on 09/14/24 - s/p short-term rehab in [facility] - receiving home PT via [facility] - follow recommendations by orthopedist Assessment & Plan (10/18/2024 4:32 PM EDT): - following with [facility] - Left worse than right - Dx left hip trochanteric pain syndrome, partial thickness abductor tendon tear, trochanteric bursitis - s/p left open abductor tendon repair, trochanteric bursectomy, IT band lengthening by JASE Mercado on 09/14/24 - s/p short-term rehab in [facility] - starting home PT soon - will write self-propelling wheelchair - follow recommendations by orthopedist Assessment & Plan (03/02/2024 12:17 PM EDT): [...] 12/11/2022 Plantar fasciitis 12/11/2022 Assessment & Plan (01/26/2025 11:01 AM EDT): -s/p left foot plantar fasciotomy -currently having right foot / heel pain -referred to round cutter operator Dr. Grossman / [facility] - continue comfortable shoes, stretching exercise, and judicious use of NSAIDs Assessment & Plan (03/02/2024 12:14 PM EDT): [...] modification -minimize NSAIDs use Major depressive disorder, r ecurrent episode, moderate (CMS/HCC) 07/18/2022 Assessment & Plan (12/11/2022 10:04 AM [...] foot / heel pain -refer to another round cutter operator Assessment & Plan (07/28/2022 6:29 AM EST): -Hx plantar fasciitis -s/p left foot plantar fasciotomy -currently having right foot / heel pain -refer to round cutter operator Chronic back pain 07/09/2016 Assessment & Plan (01/26/2025 10:59 AM EDT): Right-Sided Thoracic pain -xray showed mild degenerative disease -continue PT and HEP Assessment & Plan (03/02/2024 12:18 PM EDT): [...] and depressive disorder 08/09/2015 Assessment & Plan (01/29/2025 6:40 AM EDT): -S provider Robson -Continue CBT -Continue buspirone and clonazepam as prescribed -Treatment Hx: sertraline, which was switched to buspirone. She could not tolerate higher dose of buspirone. Assessment & Plan (03/02/2024 12:18 PM EDT): -S provider Robson -Continue CBT -Continue buspirone and clonazepam as prescribed Assessment & Plan (07/28/2022 6:30 AM EST): -S provider Robson -Continue CBT -Continue sertraline and clonazepam as prescribed Impaired fasting glucose 09/02/2014 Assessment & Plan (01/21/2025 11:38 PM EDT): - 01/19/25 A1c 5.5% -Continue working on lifestyle modifications Assessment & Plan (10/18/2024 4:24 PM EDT): - 03/02/24 A1c 5.3% -Continue working on lifestyle modifications Assessment & Plan (06/22/2024 6:15 AM EST): - 03/02/24 A1c 5.3% -Continue working on lifestyle modifications Assessment & Plan (03/02/2024 12:17 PM EDT): - 06/15/23 A1c 5.3% -Continue working on lifestyle modifications Assessment & Plan (06/29/2023 6:54 PM EST): - 07/18/22 A1c 5.3% -Continue working on lifestyle modifications Assessment & Plan (12/10/2022 9:39 AM EDT): Labs on 07/18/22 showed A1c at 5.3% -Continue working on lifestyle modifications Assessment & Plan (07/18/2022 10:06 AM EST): -07/20/19 A1C 5.6% -Continue working on lifestyle modification Allergic rhinitis 02/06/2012 Assessment & Plan (03/02/2024 12:19 PM EDT): -continue Cetirizine Assessment & Plan (06/29/2023 6:55 PM EST): -continue Cetirizine Assessment & Plan (12/10/2022 10:15 AM EDT): -continue Cetirizine Dyslipidemia 02/06/2012 Assessment & Plan (01/29/2025 6:35 AM EDT): -Most recent lab 01/19/25 TRIG 149; CHOL 222; LDL 150; HDL 43 -According to ACC/AHA guideline, 10-year ASCVD risk is <5 % and the benefit of statin or ASA therapy is uncertain. -Emphasized the importance of lifestyle modification. -Repeat fasting lipid profile in 1 year. Assessment & Plan (01/21/2025 11:38 PM EDT): -Most recent lab 01/19/25 TRIG 149; CHOL 222; LDL 150; HDL 43 -According to ACC/AHA guideline, 10-year ASCVD risk is <5 % and the benefit of statin or ASA therapy is uncertain. Emphasized the importance of lifestyle modification. Repeat fasting lipid profile in 1 year. Assessment & Plan (10/18/2024 4:25 PM EDT): -Most recent lab 03/02/24 -According to ACC/AHA guideline, 10-year ASCVD risk is <5 % and the benefit of statin or ASA therapy is uncertain. Emphasized the importance of lifestyle modification. Repeat fasting lipid profile in 1 year. Assessment & Plan (06/22/2024 6:16 AM EST): [...] in 1 year. Vitamin D deficiency 02/06/2012 Assessment & Plan (01/21/2025 11:37 PM EDT): Previously on supplement Recheck lab and treat accordingly. Assessment & Plan (10/18/2024 4:24 PM EDT): Previously on supplement Recheck lab and treat accordingly. Asthma 12/06/2011 Assessment & Plan (10/18/2024 4:23 PM EDT): Last exacerbation requiring steroid in Jan 2024 Frequency of exacerbation 2 times in last 6 months Continue current treatment plan with albuterol HFA prn. Consider using ICS/LABA prn. Assessment & Plan (06/18/2024 11:14 AM EST): [...] Class 2 obesity 11/02/2011 Assessment & Plan (01/29/2025 6:37 AM EDT): -12/24/17 [place]-gastroscopy, laparoscopic lysis of adhesions, laparoscopic sleeve gastrectomy and laparoscopic gastropexy -continue working on lifestyle modifications -she tried phentermine, but she developed palpitation, confirmed clinically. Patient was having tachycardia and transient elevated BP. Her symptoms improved after discontinuation. - check the status of [facility]. - continue working on lifestyle modifications Assessment & Plan (10/18/2024 4:25 PM EDT): -12/24/17 [place]-gastroscopy, laparoscopic lysis of adhesions, laparoscopic sleeve gastrectomy and laparoscopic gastropexy -continue working on lifestyle modifications - she has not received GLP1RA yet. She states she received PA approval letter; advised to check her pharmacy. - continue working on lifestyle modifications Assessment & Plan (06/22/2024 6:15 AM EST): [...] Problem Noted Date Diagnosed Date Resolved Date Elevated BP without diagnosis of hypertension 01/27/20 25 01/29/2025 Assessment & Plan (01/26/2025 11:09 AM EDT): - likely transient -Goal BP < 130/80 per ACC/AHA guideline (Treatment threshold >=140/90) -Continue working on lifestyle modifications -Recommended self-monitoring BP. -Continue current medications: -Treatment Hx: Right ear pain 12/11/2022 03/02/2024 Assessment & Plan (06/29/2023 6:50 PM EST): - chronic - referred in November and still waiting for an appointment; advised to call them again Assessment & Plan (12/11/2022 10:09 AM EDT): - chronic - pt will schedule appt with ENT Encounters Date Type Department Care Team Description 01/29/[address] [address] Celine Aldana MD Prior Authorization ( PA: Esmer) 01/29/[address] [place] [address] Celine Aldana MD 01/28/2025 11:15 AM EDT Office [facility] [place] [address] Celine Aldana MD Transaminitis (Primary Dx); Immunity status testing; Class 2 obesity; Impaired fasting glucose; Trochanteric bursitis of both hips; Bilateral hip pain; Dyslipidemia; Mass of left thigh; Mixed anxiety and depressive disorder 01/28/2025 Travel 01/27/[address] [address] Celine Aldana MD chart prep 01/25/[address] [address] Celine Aldana MD Prior Authorization 01/25/[address] [address] Celine Aldana MD Nurse Triage 01/22/[address] [address] Celine Aldana MD Pt question 01/19/2025 11:15 AM EDT Office Visit [facility] [place] [address] Celine Aldana MD Hypotension, unspecified hypotension type (Primary Dx); Tachycardia; Dyslipidemia; Impaired fasting glucose; Vitamin D deficiency; Class 2 obesity due to excess calories without serious comorbidity with body mass index (BMI) of 39.0 to 39.9 in adult; Bilateral hip pain; Chronic low back pain, unspecified back pain laterality, unspecified whether sciatica present; Pain of both heels; Plantar fasciitis; Trochanteric bursitis of both hips; Mass of left thigh; Elevated BP without diagnosis of hypertension 01/19/2025 Orders Only [address] [place] [address] Celine Aldana MD 01/19/2025 Travel 01/18/[address] [place] [address] Celine Aldana MD chartprep 01/11/2025 Patient Outreach [facility] [address] [place] [phone] Celine Aldana MD Pre-visit Planning (SDOH Screening negative and Tobacco screening negative) 12/17/2024 Refill [facility] [address] [place] [address] Celine Aldana MD 12/09/2024 Refill [facility] [address] [place] [address] Woo Powell MD from Last 3 Months Immunizations Immunization Administration Dates Next Due Hep B, adult [...] Sign Reading Time Taken Comments Blood Pressure 120/80 01/28/2025 11:08 AM EDT Pulse 72 01/28/2025 11:08 AM EDT Temperature 36.1 C (97 F) 01/28/2025 11:08 AM EDT Respiratory Rate 22 01/28/2025 11:08 AM EDT Oxygen Saturation 97% 01/19/2025 11:22 AM EDT Inhaled Oxygen Concentration - - Weight 92 kg (202 lb 12.8 oz) 01/28/2025 11:08 A M EDT Height 152.4 cm (5') 01/28/2025 11:08 AM EDT Body Mass Index 39.61 01/28/2025 11:08 AM EDT Plan of Treatment Upcoming Encounters Date Type Department Care Team (Late st Contact Info) Description 04/14/2025 12:45 PM EST Office Visit [facility] [address] [place] [address] Dayana Alarcon [address] [place] [address] 04/15/2025 10:15 AM EST Office Visit [facility] [address] [place], [place] [phone] Celine Aldana MD [address] [place] [address] Health Maintenance Due Date Last Done Comments CT Colonography 1963 FIT DNA/Cologuard 1963 FIT 1963 FOBT 1963 Sigmoidoscopy 1963 Alcohol/Substance Use Screening 1975 RSV Patients and Patients Aged 60 years or older (1 - Risk 60-74 years 1-dose series) 2023 Dental X-Ray: Full Mouth 08/03/2023 08/02/2020, 07/11 Colonoscopy 05/27/2024 05/27/2014 Colorectal Cancer Screening 05/27/2024 Dental Oral Exam 08/03/2024 01/31/2024, , 01/23/2023, Additional history exists Dental X-Ray: Bitewings 01/31/2025 01/31/20 24, 01/23/2023, 09/15/2021, Additional history exists Dental Prophylaxis 02/02/2025 08/04/2024, 0 01/31/2024, 03/12/2023, Additional history exists COVID-19 Vaccine ( season) 2025 09/06/2020, 08/09/2020 Influenza Vaccine (#1) 2025 , 06/25/2023, 02/15/2022, Additional history exists Depression Screening 03/02/2025 03/02/2024, 03/02/20 24 Disability Screening 10/15/2025 10/15/2024 SDOH Screening 01/11/2026 01/11/2025 Tobacco Screening 01/28/2026 01/28/2025 Mammogram 08/20/2026 08/20/2024, 03/0 12/2023, 08/09/2022, Additional history exists Lipid Panel 01/19/2030 01/19/2025, 02/09, 06/25/2023, Additional history exists DTaP/Tdap/Td Vaccines (3 - Td or Tdap) 02/16/2032 02/15/2022, 02/06/2012, 01/16/2008 Hepatitis B Vaccines Completed 12/10/2022, 03/10/2019, 12/08/2013 Zoster Vaccines Completed 09/17/2023, 06/25/2023 Pneumococcal Vaccine: 50+ Years Completed 03/02/2024, 12/24/2017, 07/23/2008 HIV Screening Completed 02/01/2025 Hepatitis C Screening Completed 02/01/2025 HIB Vaccines Aged Out No longer eligi [...] Procedure Name Priority Date/Time Associated Diagnosis Comments HIV 1/2 ANTIGEN/ANTIBODY, FOURTH GENERATION W/RFL Routine 02/01/2025 8:23 AM EDT Transaminitis HEPATITIS A ANTIBODY, TOTAL Routine 02/01/2025 8:23 AM EDT Immunity status testing HEPATITIS B SURFACE ANTIGEN, EIA Routine 02/01/2025 8:23 AM EDT Transaminitis HEPATITIS B CORE AB TOTAL Routine 02/01/2025 8:23 AM EDT Transaminitis HEPATITIS B SURFACE ANTIBODY, QUALITATIVE Routine 02/01/2025 8:23 AM EDT Transaminitis HEPATITIS C AB W/REFL TO HCV RNA, QN, PCR Routine 02/01/2025 8:23 AM EDT Transaminitis HEPATIC FUNCTION PANEL Routine 8:23 AM EDT Transaminitis US EXTREMITY LIMITED SOFT TISSUE LEFT Routine 01/29/2025 Mass of left thigh TSH W/REFLEX TO FT4 Routine 01/19/2025 1 2:11 PM EDT Tachycardia CBC WITH AUTO DIFFERENTIAL Routine 01/19/2025 12:11 PM EDT Tachycardia VITAMIN D,25-OH,TOTAL,IA Routine 01/19/2025 12:11 PM EDT Vitamin D deficiency LIPID PANEL WITH REFLEX TO DIRECT LDL Routine 01/19/2025 12:11 PM EDT Dyslipidemia COMPREHENSIVE METABOLIC PANEL Routine 01/19/2025 12:11 PM EDT Hypotension, unspecified hypotension type HEMOGLOBIN A1C Routine 01/19/2025 12:11 PM EDT Impaired fasting glucose URINALYSIS, COMPLETE, WITH REFLEX TO CULTURE Routine 01/19/2025 12:11 PM EDT Urinary incontinence, unspecified type CULTURE, URINE, ROUTINE Routine 01/19/2025 12:11 PM EDT BI MAMMOGRAM SCREENING TOMOSYNTHESIS BILATERAL Routine 08/20/2024 1:30 PM EDT PROPHYLAXIS - ADULT Routine 08/04/2024 1 :00 PM EST Dental calculus Periodontal disease BITEWINGS - 4 RADIOGRAPHIC IMAGES Routine 01/31/2024 [...] Recently Relevant to Health Maintenance Results * Hepatitis C Antibody with Reflex to HCV, RNA, Quantitative, Real-Time PCR (02/01/2025 8:23 AM EDT) Hepatitis C Antibody Nonreactive Nonreactive [facility] Comment:Antibodies to HCV no t detected; does not exclude early acuteHCV infection. Venous blood specimen / Unknown 02/01/2025 8:23 AM EDT 02/01/2025 11:03 AM EDT Celine Aldana MD LAB BLOOD ORDERABLES Final Resul t Performing Organization Address [facility] [place] [facility] Co de Phone Number [facility] [address] [place] [phone] * Hepatitis A Antibody, Total (02/01/2025 8:23 AM EDT) Pathologist [facility] Hepatitis A Antibody IgG Nonreactive Nonreactive [facility] Venous blood specimen / Unknown 02/01/2025 8:23 AM EDT 02/01/2025 11:03 AM EDT Celine Aldana MD LAB BLOOD ORDERABLES Final Resul t Performing Organization Address City/[facility] Co de Phone Number [facility] [address] [place] [phone] * Hepatitis B surface antigen, EIA (02/01/2025 8:23 AM EDT) Pathologist [facility] Hepatitis B Surface Ag Negative Negative [facility] Venous blood specimen / Unknown 02/01/2025 8:23 AM EDT 02/01/2025 11:03 AM EDT Celine Aldana MD LAB BLOOD ORDERABLES Final Resul t Performing Organization Address City/[facility]/ZIP Co de Phone Number [facility] [address] [place] [phone] * Hepatitis B Core Antibody, Total (02/01/2025 8:23 AM EDT) Hepatitis B Core Antibody Nonreactive Nonreactive [facility] Venous blood specimen / Unknown 02/01/2025 8:23 AM EDT 02/01/2025 11:03 AM EDT Celine Aldana MD LAB BLOOD ORDERABLES Final Resul t Performing Organization Address [facility] [place] [facility] Co de Phone Number [facility] [address] [place] [phone] * HIV-1/2 Antigen and Antibodies, Fourth Generation, with Reflexes (02/01/2025 8:23 AM EDT) HIV AB/AG Nonreactive Nonreactive [facility] Comment:HIV-1 p24 Ag and/or HIV-1/HIV-2 Ab not detected.A test result that is nonreactive does not exclude thepossibility of exposure to or infection with HIV-1 and/orHIV-2. Nonreactive results in this assay for individualswith prior exposure to HIV-1 and/or HIV-2 may be due toantigen and antibody levels that are below the limit ofdetection of this assay.The [employer] HIV Ag/Ab Combo assay result andsupplemental assay results should be interpreted inconjunction with the patient's clinical presentation,history and other laboratory results. If the results areinconsistent with clinical evidence, additional testing issuggested to confirm the result. Blood Venous blood specimen / Unknown 02/01/2025 8:23 AM EDT 02/01/2025 11:03 AM EDT us Celine Aldana MD LAB BLOOD ORDERABLES Final Resul t Performing Organization Address City/[facility]/ZIP Co de Phone Number [facility] [address] [place] [phone] * Hepatitis B Surface Antibody, Qualitative (02/01/2025 8:23 AM EDT) ~Hepatitis B Surface Antibody NONREACTIVE Nonreactive [facility] Comment:Nonreactive: < 8.00 mIU/mL Venous blood specimen / Unknown 02/01/2025 8:23 AM EDT 02/01/2025 11:03 AM EDT Celine Aldana MD LAB BLOOD ORDERABLES Final Resul t Performing Organization Address [facility] [place] [facility] Co de Phone Number [facility] [address] [place] [phone] * (ABNORMAL) Hepatic Function Panel (02/01/2025 8:23 AM EDT) Pathologist [facility] Bilirubin, Total 0.7 0.0 - 1.0 mg/dL [facility] Bilirubin, Direct 0.2 0.0 - 0.5 mg/dL [facility] Aspartate Amino Transferase 25 5 - 31 U/L [facility] Alanine Aminotransferase 19 0 - 31 U/L [facility] Total Protein 7.0 6.5 - 8.0 g/dL [facility] Albumin Level 4.2 3.5 - 5.0 g/dL [facility] Alkaline Phosphatase 188(H) 39 - 117 U/L [facility] Blood Venous blood specimen / Unknown 02/01/2025 8:23 AM EDT 02/01/2025 11:03 AM EDT Celine Aldana MD LAB BLOOD ORDERABLES Final Resul t Performing Organization Address [facility] [place] [facility] de Phone Number [facility] [address] [place] [phone] * US EXTREMITY LIMITED SOFT TISSUE LEFT (01/29/2025) Anatomical Region Laterality Modality Ultrasound us Celine Aldana MD [facility] US PROCEDURES Final Result * Vitamin D, 25-Hydroxy, Total, Immunoassay (01/19/2025 12:11 PM EDT) Vitamin D 25-OH Total 53.0 >30 ng/mL [facility] Comment: Health Based Reference Values*< 20 ng/mL [id number] ng/mL Insufficient> 30 ng/mL Sufficient*Ignacio WILEY. N Engl J Med. 2007;[id number] is no well-established upper level of normal vitamin Dlevels. Some laboratories use 50 ng/mL as an upper limit ofnormal. However, toxicity is patient-dependent and may occurat any level. Careful correlation with the patient'spresentation is necessary and, if there is concern forvitamin D toxicity, treatment should be consideredirrespective of the serum level.Care must be taken in interpreting Vitamin D results fromdifferent laboratories and methodologies. Published datademonstrated that results from patients undergoinghemodialysis may show a negative bias when tested withvarious automated 25-OH vitamin D assays when compared toLC-MS/MS.When testing samples from patients whose predominant form ofVitamin D is Vitamin D2, such as patients receiving VitaminD2 supplementation, results that are subtherapeutic shouldbe confirmed with another method such as LC-MS/MS. Blood Venous blood specimen / Unknown 01/19/2025 12:11 PM EDT 01/19/2025 1:21 PM EDT Celine Aldana MD LAB BLOOD ORDERABLES Final Resul t [facility] [address] [place] [phone] * (ABNORMAL) Urinalysis, Complete, with Reflex to Culture (01/19/2025 12:11 PM EDT) Color Urine Dark Yellow [facility] Appearance Urine Clear [facility] PH 5.0 5.0 - 9.0 [facility] Glucose Urine UA Negative Negative mg/dL [facility] Urine Blood Negative Negative [facility] Specific [place] - Urine >=1.030(H) 1.005 - 1.025 [facility] Urine Protein Trace Neg-Trace mg/dL [facility] Urine Ketones Trace Negative mg/dL [facility] Nitrite Urine Negative Negative [facility] Leukocyte Esterase Urine Small (1+)(A) Negative [facility] RBC Urine 0-2 0 - 2 /HPF [facility] Urine WBC 0-5 0 - 5 /HPF [facility] Urine Squamous Epithelial Cell 6-10 0 - 2 /HPF [facility] Urine Bacteria None Seen None Seen [facility] Hyaline Casts, Urine 3-5 0 - 2 /LPF [facility] Urine 01/19/2025 12:1 1 PM EDT 01/19/2025 12:50 PM EDT Narrative [facility] - 01/19/2025 1:12 PM EDT Urine, Clean Catch Celine Aldana MD LAB URINE ORDERABLES Final Resul t Performing Organization Address [facility] [place] [facility]/ZIP Co de Phone Number [facility] [address] [place] [phone] * TSH with Reflex to Free T4 (01/19/2025 12:11 PM EDT) TSH reflex Free T4 0.53 0.32 - 4.0 uIU/mL [facility] Blood 01/19/2025 12:1 1 PM EDT 01/19/2025 1:21 PM EDT Celine Aldana MD LAB BLOOD ORDERABLES Final Resul t Performing Organization Address [facility] [place] [facility] Co de Phone Number [facility] [address] [place] [phone] * (ABNORMAL) Lipid Panel with Reflex to Direct LDL (01/19/2025 12:11 PM EDT) Triglycerides 149 <150 mg/dL [facility] Comment:Desirable Triglyceri de: less than 150 mg/dLBorderline High Triglyceride 150-199 mg/dLHigh Triglyceride: 200-499 mg/dLVery High Triglyceride: greater than or equal to 5OO mg/dL Cholesterol 222(H) <200 mg/dL [facility] Comment:Desirable Cholestero l: less than 200 mg/dLBorderline High Cholesterol: 200-239 mg/dLHigh Cholesterol: greater than 239 mg/dL LDL Cholesterol Calculated 150(H) <100 mg/dL [facility] Comment:Desirable LDL: less than 100 mg/dLNear Optimal/Above Optimal LDL: 110- 129 mg/dLBorderline High LDL: 130-159 mg/dLHigh LDL: 160-189 mg/dLVery High LDL: greater than or equal to 190 mg/dL HDL Cholesterol 43 >40 mg/dL [facility] Comment:Desirable HDL: great er than 40 mg/dL Note: This HDL assay may give artificially low results in patients with liver disease. Blood 01/19/2025 12:1 1 PM EDT 01/19/2025 1:21 PM EDT us Celine Aldana MD LAB BLOOD ORDERABLES Final Resul t [facility] [address] [place] [phone] * (ABNORMAL) CBC auto differential (01/19/2025 12:11 PM EDT) White Blood Count 7.3 4.8 - 10.8 X10*3/uL [facility] Red Blood Count 5.25 4.20 - 5.50 X10*6/uL [facility] Hemoglobin 14.0 12.0 - 16.0 g/dl [facility] Hematocrit 44.3 37.0 - 47.0 % [facility] Mean Corpuscular Volume 84.4 80.0 - 98.0 fL [facility] Mean Corpuscular Hemoglobin 26.7(L) 27.0 - 33.0 pg [facility] Mean Corpuscular HGB Conc 31.6 31.0 - 35.0 g/dl [facility] Red Cell Distribution Width 14.2 11.0 - 16.0 % [facility] Platelet Count 353 160 - 400 X10*3/uL [facility] Mean Platelet Volume 11.4 9.4 - 12.3 fL [facility] Neutrophils Percent Auto 51.5 45 - 73 % [facility] Imm Gran Pct Auto 0.1 0.0 - 0.4 % [facility] Lymphocytes Percent Auto 36.7 20 - 40 % [facility] Monocytes Percent Auto 9.5 2 - 11 % [facility] Eosinophils Percent Auto 1.8 0 - 4 % [facility] Basophils Percent Auto 0.4 0 - 2 % [facility] NRBC Pct Auto 0.0 0.0 - 0.2 /100WBC [facility] Neutrophils Absolute Auto 3.7 2.0 - 8.3 x10*3/uL [facility] Imm Gran Abs Auto 0.01 0.00 - 0.03 X10*3/uL [facility] Lymphocytes Absolute Auto 2.7 1.2 - 4.9 X10*3/uL [facility] Monocytes Absolute Auto 0.7 0.1 - 1.2 X10*3/uL [facility] Eosinophils Absolute Auto 0.1 0.0 - 0.4 X10*3/uL [facility] Basophils Absolute Auto 0.0 0.0 - 0.2 X10*3/uL [facility] NRBC Abs Auto 0.000 0.0 - 0.012 X10*3/uL [facility] Blood Venous blood specimen / Unknown 01/19/2025 12:11 PM EDT 01/19/2025 1:21 PM EDT us Celine Aldana MD LAB BLOOD ORDERABLES Final Resul t [facility] [address] [place] [phone] * Culture, Urine, Routine (01/19/2025 12:11 PM EDT) Urine Urine specimen obtained by clean catch procedure / Unknown 01/19/2025 12:11 PM EDT 01/19/2025 1:32 PM EDT Comment:UACC Narrative [facility] - 01/20/2025 1:11 PM EDT Strep agalactiae (Grp B) Quant 10,000 to 50,000 cfu/mL Susc N/A Susceptibility not routinely performed on this isolate. Specimen Source: Urine clean catch Celine Aldana MD LAB MICROBIOLOGY - GENERAL ORDER DEVONTE Final Result Performing Organization Address [facility] [place] [facility] Co de Phone Number [facility] [address] [place] [phone] * Hemoglobin A1c (01/19/2025 12:11 PM EDT) Hemoglobin A1c 5.5 <6.0 % [facility] Comment:Hemoglobin A1C Refer ence Range Adults: 4.8 - 6.0 % Non diabetic: < 6.0 % Goal: < 7.0 %Additional Action Suggested: > 8.0 %Note: Hemoglobin A1c results are invalid for patients with abnormal amounts of HbF. Blood transfusions may impact the HbA1c concentration in the patient sample. Estimated Average Glucose 111 mg/dL [facility] Comment:eAG = Estimated ave rage glucose which is %A1C expressed asaverage glucose, using the formula of the D0S-FprxzchAwftnkh Glucose study (ADAG), Diabetes Care, Vol.31,#8,Aug. 2007 Blood Venous blood specimen / Unknown 01/19/2025 12:11 PM EDT 01/19/2025 1:21 PM EDT Celine Aldana MD LAB BLOOD ORDERABLES Final Resul t Performing Organization Address [facility] [place] [facility] Co de Phone Number [facility] [address] [place] [phone] * (ABNORMAL) Comprehensive Metabolic Panel (01/19/2025 12:11 PM EDT) Sodium 144 135 - 145 mmol/L [facility] Potassium 4.1 3.3 - 5.1 mmol/L [facility] Chloride 108 96 - 108 mmol/L [facility] Carbon Dioxide 27 22 - 29 mmol/L [facility] Anion Gap 13 12 - 20 [facility] Urea Nitrogen (BUN) 12 9 - 16 mg/dL [facility] Creatinine, Serum 0.73 0.5 - 1.4 mg/dL [facility] Estimated Glomerular Filt Rate >60 [facility] Comment:Chronic Kidney Disea se: Estimated GFR < 60 mL/min/[id number] Kidney Disease: Estimated GFR < 15 mL/min/1.73m2 Glucose 105 60 - 115 mg/dL [facility] Calcium 9.8 8.4 - 10.2 mg/dL [facility] Bilirubin, Total 0.8 0.0 - 1.0 mg/dL [facility] Aspartate Amino Transferase 35(H) 5 - 31 U/L [facility] Alanine Aminotransferase 34(H) 0 - 31 U/L [facility] Total Protein 7.3 6.5 - 8.0 g/dL [facility] Albumin Level 4.4 3.5 - 5.0 g/dL [facility] Alkaline Phosphatase 202(H) 39 - 117 U/L [facility] Blood Venous blood specimen / Unknown 01/19/2025 12:11 PM EDT 01/19/2025 1:21 PM EDT us Celine Aldana MD LAB BLOOD ORDERABLES Final Resul t [facility] [address] [place], [place] [phone] * BI Mammogram Screening Tomosynthesis Bilateral (08/20/2024 1:30 PM EDT) Anatomical Region Laterality Modality Breast Bilateral Mammography 08/20/2024 1:30 PM EDT Narrative 08/29/2024 10:40 AM EDT [address] [place] [address] Mammography Report Signed Patient: Iliana James MR#: [id number] 0 : 1965 Acct:[id number] Age/Sex: 59 / F ADM Date: 08/20/24 Loc: HO.MAMMO Attending Dr: Celine Aldana MD Ordering Physician: Celine Aldana MD Results: 1Negative Date of Service: 08/20/24 Follow Up: 1 Year From Orig ina Mammogram Procedure(s): MM tomosynthesis screening BI Accession Number(s): [id number] cc: Celine Aldana MD EXAMINATION: MM SCREENING [...] Iris Mcrae DO 08/29/2024 10:38 AM EDT Dictated By: Iirs Mcrae DO Signed By: <Electronically signed by Iris Mcrae DO in OV> 08/29/24 1038 DD/ 1330 TD/TT: 08/20/24 1340 Icer Machine Operator: Procedure Note Donotuseinterpreter, Image - 08/29/[address] [place] [address] Mammography Report Signed Patient: Iliana James EMR#: [id number] 0 : 1965Acct:[id number] Age/Sex: 59 / FADM Date: 08/20/24 Loc: HO.MAMMO Attending Dr: Celine Aldana MD Ordering Physician: Celine Aldana MDResults: 1Negative Date of Service: 08/20/24Follow Up: 1 Year From Orig inal Mammogram Procedure(s): MM tomosynthesis screening BI Accession Number(s): [id number] cc: Celine Aldana MD EXAMINATION: MM SCREENING [...] Iris Mcrae DO 08/29/2024 10:38 AM EDT Dictated By: Iris Mcrae DO Signed By: <Electronically signed by Iris Mcrae DO in OV> 08/29/24 1038 DD/ 1330 TD/TT: 08/20/24 1340 Icer Machine Operator: Celine Aldana MD IM BI PROCEDURES Edited Result - Final * Colonoscopy (05/27/2014) Colonoscopy Normal Normal 05/27/2014 Historical Provider HEALTH MAINTENANCE Final Result from Last 3 Months or Most Recently Relevant to Health Maintenance Insurance [facility] STAND ADULT Advance Directives Documents on File Type Date Recorded Patient Trial Manager Expl anation Advance Directives and Living Will 10/20/2024 1:23 PM MOLST Advance Directives and Living Will 10/20/2024 11:18 AM Health Care Proxy Care Teams Envelope Maker Relationship Specialty Start Date End Date Celine Aldana MD [address] [place] [phone] PCP - General Family Medicine 06/10/18 Milo 10/08/24
--- OUTSIDE RECORDS SUMMARY | 2025-03-09 14:27 | XMS_ITS | Encounter Summary ---
Author Organization [employer] Address [address] [facility] 7 [place] [address] Care Team Providers Care Laundry Operator Wash Room Name Role Phone Celine Aldana MD Primary Care Provider [phone] Reason for Visit * Reason Onset Date Comments Prior Authorization 11/06/2024 Encounter Details Date Type Department Care Team (Late st Contact Info) Description 11/06/2024 Telephone [facility] MEDICINE [address] [place], [place] [phone] Celine Aldana MD [address] [place], [place] [phone] Prior Authorization Social History Tobacco Use Types [...] encounter Miscellaneous Notes * Telephone Encounter - Nadira Moe - 11/06/2024 2:34 PM EDT Tc from pt stating PA needed for Tirzepatide-Weight Management (Zepbound) 2.5 MG/0.5ML solution auto-injector documented in this encounter Plan of Treatment Upcoming Encounters Date Type Department Care Team (Late st Contact Info) Description 04/14/2025 12:45 PM EST Office Visit [facility] ADULT DENTAL [address] [place] [address] Dayana Alarcon [address] [place] [address] 04/15/2025 10:15 AM EST Office Visit [facility] MEDICINE [address] [place] [address] Celine Aldana MD [address] [place] [phone] documented as of this encounter Visit Diagnoses Not on filedocumented in this encounter Additional Health Concerns Assessment Noted Time PHQ-9 Depression Total Score: 7 03/02/20 24 9:35 AM EDT documented as of this encounter Care Teams Laundry Operator Wash Room Relationship Specialty Start Date End Date Celine Aldana MD [address] [place] [address] PCP - General Family Medicine 06/10/18 Milo 10/08/24 documented as of this encounter
--- OUTSIDE RECORDS SUMMARY | 2025-03-09 14:27 | XMS_ITS | Encounter Summary ---
Author Organization [employer] Address [address] [place] [address] Care Team Providers Care Bagging Machine Operator Name Role Phone Celine Aldana MD Primary Care Provider [phone] Encounter Details Date Type Department Care Team (Late st Contact Info) Description 09/17/2024 Lab Requisition [facility] - Main Lab [address] [place] [address] Damion Patel MD [address] [place], [place] [phone] Anemia, unspecified Social History Tobacco Use Types [...] mmol/L LAB CHEMISTRY METHOD 09/17/2024 10:55 AM [facility] Potassium 4.3 3.5 - 5.5 mmol/L LAB CHEMISTRY METHOD 09/17/2024 10:55 AM [facility] Chloride 104 96 - 110 mmol/L LAB CHEMISTRY METHOD 09/17/2024 10:55 AM [facility] CO2 31 21 - 32 mmol/L LAB CHEMISTRY METHOD 09/17/2024 10:55 AM [facility] Anion Gap 6 3 - 11 LAB CHEMISTRY METHOD 09/17/2024 10:55 AM [facility] Glucose 85 70 - 100 mg/dL LAB CHEMISTRY METHOD 09/17/2024 10:55 AM [facility] BUN 11 5 - 25 mg/dL LAB CHEMISTRY METHOD 09/17/2024 10:55 AM [facility] Creatinine 0.52 0.50 - 1.10 mg/dL LAB CHEMISTRY METHOD 09/17/2024 10:55 AM [facility] eGFR 106 >=60 mL/min/1. 73m2 LAB CHEMISTRY METHOD 09/17/2024 10:55 AM [facility] Comment:Calculation based on the Chronic Kidney Disease Epidemiology Collaboration (CKD-EPI) equation refit without adjustment for race. BUN/Creatinine Ratio 21.2 LAB CHEMISTRY METHOD 09/17/2024 10:55 AM [facility] Calcium 9.5 8.5 - 10.5 mg/dL LAB CHEMISTRY METHOD 09/17/2024 10:55 AM [facility] AST (SGOT) 48(H) 10 - 42 unit/L LAB CHEMISTRY METHOD 09/17/2024 10:55 AM [facility] ALT (SGPT) 33 10 - 60 unit/L LAB CHEMISTRY METHOD 09/17/2024 10:55 AM [facility] Alkaline Phosphatase 190(H) 42 - 121 unit/L LAB CHEMISTRY METHOD 09/17/2024 10:55 AM [facility] Total Protein 6.3 6.0 - 8.0 g/dL LAB CHEMISTRY METHOD 09/17/2024 10:55 AM [facility] Albumin 3.1(L) 3.2 - 5.0 g/dL LAB CHEMISTRY METHOD 09/17/2024 10:55 AM [facility] Total Bilirubin 1.3 0.0 - 1.4 mg/dL LAB CHEMISTRY METHOD 09/17/2024 10:55 AM [facility] Blood Venous blood specimen / Unknown Venipuncture / Unknown 09/17/2024 7:44 AM EDT 09/17/2024 10:04 AM EDT Damion Patel MD LAB BLOOD ORDERABLES Final Result [facility] [address] [place] [address], * (ABNORMAL) Complete blood count (09/17/2024 7:44 AM EDT) WBC 9.5 4.8 - 10.8 K/mcL LAB HEMETOLOGY METHOD 09/17/2024 10:26 AM [facility] RBC 4.70 3.80 - 4.80 M/mcL LAB HEMETOLOGY METHOD 09/17/2024 10:26 AM [facility] Hemoglobin 12.9 11.5 - 16.0 g/dL LAB HEMETOLOGY METHOD 09/17/2024 10:26 AM [facility] Hematocrit 41.4 35.0 - 47.0 % LAB HEMETOLOGY METHOD 09/17/2024 10:26 AM [facility] MCV 87.3 79.0 - 98.0 FL LAB HEMETOLOGY METHOD 09/17/2024 10:26 AM [facility] MCH 27.2 27.0 - 32.0 pcg LAB HEMETOLOGY METHOD 09/17/2024 10:26 AM [facility] MCHC 31.2(L) 32.0 - 37.0 g/dL LAB HEMETOLOGY METHOD 09/17/2024 10:26 AM EDT [facility] RDW 13.2 11.0 - 15.0 % LAB HEMETOLOGY METHOD 09/17/2024 10:26 AM EDT [facility] Platelets 274 130 - 400 K/mcL LAB HEMETOLOGY METHOD 09/17/2024 10:26 AM EDT [facility] MPV 11.7(H) 7.0 - 11.0 FL LAB HEMETOLOGY METHOD 09/17/2024 10:26 AM EDT [facility] NRBC 0.0 <1.0 % LAB HEMETOLOGY METHOD 09/17/2024 10:26 AM EDT [facility] NRBC Absolute 0.00 <0.10 K/mcL LAB HEMETOLOGY METHOD 09/17/2024 10:26 AM T [facility] Blood Venous blood specimen / Unknown Venipuncture / Unknown 09/17/2024 7:44 AM EDT 09/17/2024 10:04 AM EDT us Damion Patel MD LAB BLOOD ORDERABLES Final Result [facility] [address] [place] [address], documented in this encounter Visit Diagnoses Diagnosis Anemia, unspecified documented in this encounter Care Teams Bagging Machine Operator Relationship Specialty Start Date End Date Celine Aldana MD [address] [place] [phone] PCP - General 07/01/23 documented as of this encounter
--- OUTSIDE RECORDS SUMMARY | 2025-03-09 14:27 | XMS_ITS | Encounter Summary ---
Author Organization [employer] Address [address] [place] [address] Care Team Providers Care Biosolids Management Technician Name Role Phone Celine Aldana MD Primary Care Provider [phone] Encounter Details Date Type Department Care Team (Late st Contact Info) Description 09/30/2024 Lab Requisition [facility] - Main Lab [address] [place] [address] Damion Patel MD [address] [place], [place] [phone] Anemia, unspecified Social History Tobacco Use Types [...] mmol/L LAB CHEMISTRY METHOD 10/01/2024 9:13 AM [facility] Potassium 4.5 3.5 - 5.5 mmol/L LAB CHEMISTRY METHOD 10/01/2024 9:13 AM [facility] Chloride 107 96 - 110 mmol/L LAB CHEMISTRY METHOD 10/01/2024 9:13 AM [facility] CO2 30 21 - 32 mmol/L LAB CHEMISTRY METHOD 10/01/2024 9:13 AM [facility] Anion Gap 6 3 - 11 LAB CHEMISTRY METHOD 10/01/2024 9:13 AM [facility] Glucose 94 70 - 100 mg/dL LAB CHEMISTRY METHOD 10/01/2024 9:13 AM [facility] BUN 16 5 - 25 mg/dL LAB CHEMISTRY METHOD 10/01/2024 9:13 AM [facility] Creatinine 0.59 0.50 - 1.10 mg/dL LAB CHEMISTRY METHOD 10/01/2024 9:13 AM [facility] eGFR 103 >=60 mL/min/1. 73m2 LAB CHEMISTRY METHOD 10/01/2024 9:13 AM [facility] Comment:Calculation based on the Chronic Kidney Disease Epidemiology Collaboration (CKD-EPI) equation refit without adjustment for race. BUN/Creatinine Ratio 27.1 LAB CHEMISTRY METHOD 10/01/2024 9:13 AM [facility] Calcium 9.6 8.5 - 10.5 mg/dL LAB CHEMISTRY METHOD 10/01/2024 9:13 AM [facility] Blood Venous blood specimen / Unknown Venipuncture / Unknown 10/01/2024 6:37 AM EDT 10/01/2024 8:15 AM EDT us Damion Patel MD LAB BLOOD ORDERABLES Final Result [facility] [address] [place] [address], * (ABNORMAL) Complete blood count (10/01/2024 6:37 AM EDT) WBC 8.6 4.8 - 10.8 K/mcL LAB HEMETOLOGY METHOD 10/01/2024 8:37 AM [facility] RBC 4.50 3.80 - 4.80 M/mcL LAB HEMETOLOGY METHOD 10/01/2024 8:37 AM [facility] Hemoglobin 12.1 11.5 - 16.0 g/dL LAB HEMETOLOGY METHOD 10/01/2024 8:37 AM [facility] Hematocrit 39.0 35.0 - 47.0 % LAB HEMETOLOGY METHOD 10/01/2024 8:37 AM [facility] MCV 87.1 79.0 - 98.0 FL LAB HEMETOLOGY METHOD 10/01/2024 8:37 AM [facility] MCH 27.0 27.0 - 32.0 pcg LAB HEMETOLOGY METHOD 10/01/2024 8:37 AM [facility] MCHC 31.0(L) 32.0 - 37.0 g/dL LAB HEMETOLOGY METHOD 10/01/2024 8:37 AM [facility] RDW 13.7 11.0 - 15.0 % LAB HEMETOLOGY METHOD 10/01/2024 8:37 AM [facility] Platelets 382 130 - 400 K/mcL LAB HEMETOLOGY METHOD 10/01/2024 8:37 AM [facility] MPV 11.0 7.0 - 11.0 FL LAB HEMETOLOGY METHOD 10/01/2024 8:37 AM [facility] NRBC 0.0 <1.0 % LAB HEMETOLOGY METHOD 10/01/2024 8:37 AM [facility] NRBC Absolute 0.00 <0.10 K/mcL LAB HEMETOLOGY METHOD 10/01/2024 8:37 AM [facility] Blood Venous blood specimen / Unknown Venipuncture / Unknown 10/01/2024 6:37 AM EDT 10/01/2024 8:15 AM EDT us Damion Patel MD LAB BLOOD ORDERABLES Final Result [facility] [address] [place] [address], documented in this encounter Visit Diagnoses Diagnosis Anemia, unspecified documented in this encounter Care Teams Biosolids Management Technician Relationship Specialty Start Date End Date Celine Aldana MD [address] [place] [phone] PCP - General 07/01/23 documented as of this encounter
--- OUTSIDE RECORDS SUMMARY | 2025-03-09 14:27 | XMS_ITS | Encounter Summary ---
Author Organization [employer] Address [address] [place] [address] Care Team Providers Care Site Engineer Name Role Phone Celine Aldana MD Primary Care Provider [phone] Encounter Details Date Type Department Care Team (Late st Contact Info) Description 10/05/2024 Lab Requisition [facility] - Main Lab [address] [facility] [place] [address] Damion Patel MD [address] [place] [phone] Anemia, unspecified; Other asthma; Anxiety disorder, unspecified [...] unspecified documented in this encounter Care Teams Site Engineer Relationship Specialty Start Date End Date Celine Aldana MD [address] [place] [phone] PCP - General 07/01/23 documented as of this encounter
--- OUTSIDE RECORDS SUMMARY | 2025-03-09 14:27 | XMS_ITS | Encounter Summary ---
Author Organization [employer] Address [address] [place] [address] Care Team Providers Care Cow Rider Name Role Phone Celine Aldana MD Primary Care Provider [phone] Encounter Details Date Type Department Care Team (Late st Contact Info) Description 09/22/[address] [facility] - Main Lab [address] [place] [address] Damion Patel MD [address] [place] [address] Other asthma; Depression, unspecified; Anxiety disorder, unspecified [...] LAB CHEMISTRY METHOD 09/22/2024 11:44 AM EDT [facility] Potassium 4.6 3.5 - 5.5 mmol/L LAB CHEMISTRY METHOD 09/22/2024 11:44 AM EDT [facility] Chloride 107 96 - 110 mmol/L LAB CHEMISTRY METHOD 09/22/2024 11:44 AM [facility] CO2 29 21 - 32 mmol/L LAB CHEMISTRY METHOD 09/22/2024 11:44 AM [facility] Anion Gap 4 3 - 11 LAB CHEMISTRY METHOD 09/22/2024 11:44 AM [facility] Glucose 95 70 - 100 mg/dL LAB CHEMISTRY METHOD 09/22/2024 11:44 AM [facility] BUN 15 5 - 25 mg/dL LAB CHEMISTRY METHOD 09/22/2024 11:44 AM [facility] Creatinine 0.55 0.50 - 1.10 mg/dL LAB CHEMISTRY METHOD 09/22/2024 11:44 AM [facility] eGFR 104 >=60 mL/min/1. 73m2 LAB CHEMISTRY METHOD 09/22/2024 11:44 AM [facility] Comment:Calculation based on the Chronic Kidney Disease Epidemiology Collaboration (CKD-EPI) equation refit without adjustment for race. BUN/Creatinine Ratio 27.3 LAB CHEMISTRY METHOD 09/22/2024 11:44 AM [facility] Calcium 9.5 8.5 - 10.5 mg/dL LAB CHEMISTRY METHOD 09/22/2024 11:44 AM [facility] Blood Venous blood specimen / Unknown Venipuncture / Unknown 09/22/2024 9:00 AM EDT 09/22/2024 10:44 AM EDT us Damion Patel MD LAB BLOOD ORDERABLES Final Result [facility] [address] [place] [address], * (ABNORMAL) Complete blood count (09/22/2024 9:00 AM EDT) WBC 8.8 4.8 - 10.8 K/mcL LAB HEMETOLOGY METHOD 09/22/2024 11:14 AM [facility] RBC 4.40 3.80 - 4.80 M/mcL LAB HEMETOLOGY METHOD 09/22/2024 11:14 AM [facility] Hemoglobin 12.0 11.5 - 16.0 g/dL LAB HEMETOLOGY METHOD 09/22/2024 11:14 AM [facility] Hematocrit 37.6 35.0 - 47.0 % LAB HEMETOLOGY METHOD 09/22/2024 11:14 AM [facility] MCV 85.6 79.0 - 98.0 FL LAB HEMETOLOGY METHOD 09/22/2024 11:14 AM [facility] MCH 27.3 27.0 - 32.0 pcg LAB HEMETOLOGY METHOD 09/22/2024 11:14 AM [facility] MCHC 31.9(L) 32.0 - 37.0 g/dL LAB HEMETOLOGY METHOD 09/22/2024 11:14 AM [facility] RDW 13.3 11.0 - 15.0 % LAB HEMETOLOGY METHOD 09/22/2024 11:14 AM [facility] Platelets 330 130 - 400 K/mcL LAB HEMETOLOGY METHOD 09/22/2024 11:14 AM [facility] MPV 11.1(H) 7.0 - 11.0 FL LAB HEMETOLOGY METHOD 09/22/2024 11:14 AM [facility] NRBC 0.0 <1.0 % LAB HEMETOLOGY METHOD 09/22/2024 11:14 AM [facility] NRBC Absolute 0.00 <0.10 K/mcL LAB HEMETOLOGY METHOD 09/22/2024 11:14 AM [facility] Blood Venous blood specimen / Unknown Venipuncture / Unknown 09/22/2024 9:00 AM EDT 09/22/2024 10:44 AM EDT Damion Patel MD LAB BLOOD ORDERABLES Final Result [facility] [address] [place] [address], documented in this encounter Visit Diagnoses Diagnosis Other asthma Depression, unspecified Anxiety disorder, unspecified documented in this encounter Care Teams Cow Rider Relationship Specialty Start Date End Date Celine Aldana MD [address] [place] [phone] PCP - General 07/01/23 documented as of this encounter
--- OUTSIDE RECORDS SUMMARY | 2025-04-04 20:00 | XMS_ITS | Clinical Summary ---
Author Organization Unknown Care Team Providers Care Instrument Maker Apprentice Name Role Phone GEOVANNA POP, LEIGHANN Unavailable Unavailable GASPER CHRISTIAN RN Unavailable Unavailable Payers Payer Name Policy Type Policy Number Effective Date Expira tion Date [place] [id number] Problems Condition Name Condition Details Condition Category [...] tablet,shelton yed release 10-08 00:00: 00 Yes [id number] 1 tablet DAILY 1 tablet DAILY (route: oral) Med Classific ation: Analgesic , Anti-infl ammatory or Antipyret ic clonazepam 1 mg tablet 10-08 00:00: 00 Yes [id number] 0.5 tablet 3 TIMES DAILY 0.5 tablet 3 TIMES DAILY (route: oral) Med Classific ation: Central Nervous System Agents oxycodone 5 mg tablet 10-08 00:00: 00 Yes [id number] Per instruc tions EVERY 4 HOURS Per instructio ns EVERY 4 HOURS (route: oral) Med Classific ation: Analgesic , Anti-infl ammatory or Antipyret ic acetaminoph en 325 mg tablet 10-08 00:00: 00 Yes [id number] 3 tablet EVERY 8 HOURS 3 tablet EVERY 8 HOURS (route: oral) Med Classific ation: Analgesic , Anti-infl ammatory or Antipyret ic Airsupra 90 mcg-80 mcg/actuati on HFA aerosol inhaler 10-08 00:00: 00 Yes [id number] WHEEZING OR SHORTNESS OF BREATH 1 puff EVERY 4 HOURS 1 puff EVERY 4 HOURS (route: inhalation ) Med Classific ation: Respirato ry Therapy Agents buspirone 10 mg tablet 10-08 00:00: 00 Yes [id number] FOR ANXIETY 1 tablet DAILY 1 tablet DAILY (route: oral) Med Classific ation: Central Nervous System Agents Calcium Antacid 200 mg (as calcium carbonate 500 mg) chewable tablet 10-08 00:00: 00 Yes [id number] 1 tablet EVERY 6 HOURS 1 tablet EVERY 6 HOURS (route: oral) Med Classific ation: Gastroint estinal Therapy Agents cetirizine 5 mg tablet 10-08 00:00: 00 Yes [id number] 1 tablet DAILY 1 tablet DAILY (route: oral) Med Classific ation: Respirato ry Therapy Agents magnesium hydroxide 400 mg/5 mL oral suspension 10-08 00:00: 00 Yes [id number] 30 mL DAILY 30 mL DAILY (route: oral) Med Classific ation: Gastroint estinal Therapy Agents pantoprazol e 40 mg tablet,shelton yed release 10-08 00:00: 00 Yes [id number] 1 tablet DAILY 1 tablet DAILY (route: oral) Med Classific ation: Gastroint estinal Therapy Agents Immunizations Ordered Immunization Name Filled Immunization Name Date Status Comments Refusal Reason REFUSED FLU, PPV 2024-10-08 00:00:00 Vital Signs Vital Name Observation Time Observation Value Commen ts Temperature 2025-03-08 21:13:00.000 98.6 [degF] Temperature 2025-03-05 17:47:00.000 98.6 [degF] Temperature 2025-03-03 10:29:00.000 98.6 [degF] Temperature 2025-03-01 08:06:00.000 98.6 [degF] Temperature 2025-02-26 09:48:00.000 98.6 [degF] Temperature 2025-02-24 11:47:00.000 98.6 [degF] Temperature 2025-02-22 17:06:00.000 98.6 [degF] Temperature 2025-02-19 10:06:00.000 98.6 [degF] Temperature 2025-02-16 23:34:00.000 98.6 [degF] Temperature 2025-02-15 14:36:00.000 98.6 [degF] Temperature 2025-02-12 18:22:00.000 98.6 [degF] Temperature 2025-02-11 12:53:00.000 98.6 [degF] Temperature 2025-02-10 08:05:00.000 98.6 [degF] Temperature 2025-02-05 12:56:00.000 98.6 [degF] Pulse 2025-03-08 21:13:00.000 82 /min Pulse 2025-03-05 17:47:00.000 82 /min Pulse 2025-03-03 10:29:00.000 78 /min Pulse 2025-03-01 08:06:00.000 82 /min Pulse 2025-02-26 09:48:00.000 82 /min Pulse 2025-02-24 11:47:00.000 82 /min Pulse 2025-02-22 17:06:00.000 78 /min Pulse 2025-02-19 10:06:00.000 82 /min Pulse 2025-02-16 23:34:00.000 82 /min Pulse 2025-02-15 14:36:00.000 76 /min Pulse 2025-02-12 18:22:00.000 81 /min Pulse 2025-02-11 12:53:00.000 82 /min Pulse 2025-02-10 08:05:00.000 82 /min Pulse 2025-02-05 12:56:00.000 82 /min Respirations 2025-03-08 21:13:00.000 20 /min Respirations 2025-03-05 17:47:00.000 20 /min Respirations 2025-03-03 10:29:00.000 20 /min Respirations 2025-03-01 08:06:00.000 20 /min Respirations 2025-02-26 09:48:00.000 20 /min Respirations 2025-02-24 11:47:00.000 20 /min Respirations 2025-02-22 17:06:00.000 20 /min Respirations 2025-02-19 10:06:00.000 20 /min Respirations 2025-02-16 23:34:00.000 20 /min Respirations 2025-02-15 14:38:00.000 20 /min Respirations 2025-02-12 18:22:00.000 20 /min Respirations 2025-02-11 12:53:00.000 20 /min Respirations 2025-02-10 08:05:00.000 20 /min Respirations 2025-02-05 12:56:00.000 20 /min Systolic Blood Pressure 2025-03-08 21:13:00.000 142 mm [Hg] Systolic Blood Pressure 2025-03-05 17:47:00.000 142 mm [Hg] Systolic Blood Pressure 2025-03-03 10:29:00.000 112 mm [Hg] Systolic Blood Pressure 2025-03-01 08:06:00.000 118 mm [Hg] Systolic Blood Pressure 2025-02-26 09:48:00.000 118 mm [Hg] Systolic Blood Pressure 2025-02-24 11:47:00.000 138 mm [Hg] Systolic Blood Pressure 2025-02-22 17:06:00.000 132 mm [Hg] Systolic Blood Pressure 2025-02-19 10:06:00.000 128 mm [Hg] Systolic Blood Pressure 2025-02-16 23:34:00.000 140 mm [Hg] Systolic Blood Pressure 2025-02-15 14:36:00.000 142 mm [Hg] Systolic Blood Pressure 2025-02-12 18:22:00.000 132 mm [Hg] Systolic Blood Pressure 2025-02-11 12:53:00.000 142 mm [Hg] Systolic Blood Pressure 2025-02-10 08:05:00.000 142 mm [Hg] Systolic Blood Pressure 2025-02-05 12:56:00.000 119 mm [Hg] Diastolic Blood Pressure 2025-03-08 21:13:00.000 78 mm [Hg] Diastolic Blood Pressure 2025-03-05 17:47:00.000 82 mm [Hg] Diastolic Blood Pressure 2025-03-03 10:29:00.000 72 mm [Hg] Diastolic Blood Pressure 2025-03-01 08:06:00.000 78 mm [Hg] Diastolic Blood Pressure 2025-02-26 09:48:00.000 72 mm [Hg] Diastolic Blood Pressure 2025-02-24 11:47:00.000 74 mm [Hg] Diastolic Blood Pressure 2025-02-22 17:06:00.000 88 mm [Hg] Diastolic Blood Pressure 2025-02-19 10:06:00.000 72 mm [Hg] Diastolic Blood Pressure 2025-02-16 23:34:00.000 82 mm [Hg] Diastolic Blood Pressure 2025-02-15 14:36:00.000 78 mm [Hg] Diastolic Blood Pressure 2025-02-12 18:22:00.000 78 mm [Hg] Diastolic Blood Pressure 2025-02-11 12:53:00.000 72 mm [Hg] Diastolic Blood Pressure 2025-02-10 08:05:00.000 72 mm [Hg] Diastolic Blood Pressure 2025-02-05 12:56:00.000 75 mm [Hg] Plan of Treatment Planned Activity [...] Future Scheduled Test SKILLED NU RSE TO PERFORM HOME SAFETY AND FALL ASSESSMENT AND PROVIDE INSTRUCTION TO IMPLEMENT HOME SAFETY AND FALL PREVENTION STRATEGIES. [code = SKILLED NURSE TO PERFORM HOME SAFETY AND FALL ASSESSMENT AND PROVIDE INSTRUCTION TO IMPLEMENT HOME SAFETY AND FALL PREVENTION STRATEGIES.] Future Scheduled Test SKILLED NU RSE FOR OBSERVATION AND ASSESSMENT OF PATIENT S PAIN LEVEL AND EFFECTIVENESS OF PAIN MANAGEMENT REGIMEN. SKILLED NURSE TO INSTRUCT PATIENT/CAREGIVER REGARDING PHARMACOLOGIC AND NON-PHARMACOLOGIC PAIN CONTROL MEASURES. SKILLED NURSE TO REPORT TO PHYSICIAN IF PAIN IS UNCONTROLLED WITH CURRENT PAIN MANAGEMENT REGIMEN. [code = SKILLED NURSE FOR OBSERVATION AND ASSESSMENT OF PATIENT S PAIN LEVEL AND EFFECTIVENESS OF PAIN MANAGEMENT REGIMEN. SKILLED NURSE TO INSTRUCT PATIENT/CAREGIVER REGARDING PHARMACOLOGIC AND NON-PHARMACOLOGIC PAIN CONTROL MEASURES. SKILLED NURSE TO REPORT TO PHYSICIAN IF PAIN IS UNCONTROLLED WITH CURRENT PAIN MANAGEMENT REGIMEN.] Future Scheduled Test SKILLED NU RSE TO O/A OF PATIENTS MENTAL/BEHAVIORAL STATUS, ASSESS VITAL SIGNS ALLOW 2 PRNS FOR MEDICATION MANAGEMENT. [code = SKILLED NURSE TO O/A OF PATIENTS MENTAL/BEHAVIORAL STATUS, ASSESS VITAL SIGNS ALLOW 2 PRNS FOR MEDICATION MANAGEMENT.] Future [...] EXACERBATION FOR EARLY INTERVENTION OF COMPLICATIONS EVERY VISIT] Future Scheduled Test SKILLED NU RSE TO [...] SKILLED NURSE TO PRE-POUR MEDICATION PER MEDICATION LIST] Future Scheduled Test SKILLED NU RSE TO INSTRUCT PATIENT/CAREGIVER ON ANXIETY MANAGEMENT UTILIZING THE MINDFUL CARE SPECIALTY PROGRAM. [code = SKILLED NURSE TO INSTRUCT PATIENT/CAREGIVER ON ANXIETY MANAGEMENT UTILIZING THE MINDFUL CARE SPECIALTY PROGRAM.] Future Scheduled Test SKILLED NU RSE FOR O/A AND SKILLED TEACHING OF COPING SKILLS TO MANAGE ANXIETY AND MAINTAIN SAFETY. [code = SKILLED NURSE FOR O/A AND SKILLED TEACHING OF COPING SKILLS TO MANAGE ANXIETY AND MAINTAIN SAFETY.] Future Scheduled Test SKILLED NU RSE FOR O/A OF ALTERED MOOD [code = SKILLED NURSE FOR O/A OF ALTERED MOOD] Future Scheduled Test SKILLED NU RSE FOR O/A OF RESPIRATORY SYSTEM TO IDENTIFY CHANGES ASSOCIATED WITH EXACERBATION AND TO PROVIDE SKILLED TEACHING ON MANAGEMENT OF RESPIRATORY DISEASE PROCESS. [code = SKILLED NURSE FOR O/A OF RESPIRATORY SYSTEM TO IDENTIFY CHANGES ASSOCIATED WITH EXACERBATION AND TO PROVIDE SKILLED TEACHING ON MANAGEMENT OF RESPIRATORY DISEASE PROCESS.] Future Scheduled Test MEDICATION S WILL BE HELD AND STORED IN MEDICATION SAFE. [code = MEDICATIONS WILL BE HELD AND STORED IN MEDICATION SAFE.] Future Scheduled Test SKILLED NU RSE FOR O/A OF MUSCULOSKELETAL STATUS AND TEACHING ON MEASURES TO MANAGE MUSCULOSKELETAL DISEASE) AND TO MAINTAIN SAFETY WITH ACTIVITY [code = SKILLED NURSE FOR O/A OF MUSCULOSKELETAL STATUS AND TEACHING ON MEASURES TO MANAGE MUSCULOSKELETAL DISEASE) AND TO MAINTAIN SAFETY WITH ACTIVITY] Future Scheduled Test SKILLED NU RSE TO ASSESS PATIENT S PSYCHOSOCIAL STATUS TO IDENTIFY POTENTIAL ISSUES THAT MAY COMPLICATE THE PROVISION OF THE PLAN OF CARE INCLUDING THE PATIENT S ABILITY TO ACCESS COMMUNITY RESOURCES AND PSYCHOSOCIAL SUPPORT SERVICES. [code = SKILLED NURSE TO ASSESS PATIENT S PSYCHOSOCIAL STATUS TO IDENTIFY POTENTIAL ISSUES THAT MAY COMPLICATE THE PROVISION OF THE PLAN OF CARE INCLUDING THE PATIENT S ABILITY TO ACCESS COMMUNITY RESOURCES AND PSYCHOSOCIAL SUPPORT SERVICES.] Future Scheduled Test SKILLED NU RSE WILL MAINTAIN SITUATIONAL AWARENESS FOR SAFETY AND WILL NOTIFY CLINICAL WINDOWS TECHNICAL SPECIALIST AND PHYSICIAN/PROVIDER WITH ANY CHANGE IN CONDITION. [code = SKILLED NURSE WILL MAINTAIN SITUATIONAL AWARENESS FOR SAFETY AND WILL NOTIFY CLINICAL WINDOWS TECHNICAL SPECIALIST AND PHYSICIAN/PROVIDER WITH ANY CHANGE IN CONDITION.] Goal 2024-12-02 Patient Goal - I WANT TO WALK WITH OUT PAIN, SCARED OF FALLING. Goal Patient Goal - I WANT TO WALK WITH OUT PAIN, SCARED OF FALLING. Goal 2025-02-01 Patient Goal - I WANT TO WALK WITH OUT PAIN, SCARED OF FALLING. Goal Provider Goal - A PLAN OF CARE WILL BE ESTABLISHED THAT MEETS PATIENT'S NURSING HOME NEEDS AND INCLUDES PATIENT GOAL FOR HOME HEALTH. Goal Provider Goal - PATIENT/CAREGIVER WILL VERBALIZE/DEMONSTRATE EFFECTIVE HOME SAFETY AND FALL PREVENTION STRATEGIES THROUGHOUT CERTIFICATION PERIOD. Goal Provider Goal - PATIENT/CAREGIVER WILL DEMONSTRATE UNDERSTANDING OF PHARMACOLOGIC AND NONPHARMACOLOGIC PAIN CONTROL MEASURES AND PATIENT WILL HAVE IMPROVEMENT IN PAIN INTERFERING WITH ACTIVITY EVIDENCED BY PAIN AT A LEVEL THAT IS ACCEPTABLE TO THE PATIENT AND PAIN LEVEL WITHIN ESTABLISHED PARAMETERS BY END OF CERTIFICATION PERIOD. Goal Provider Goal - ALTERED [...] PERIOD. Goal Provider Goal - PATIENT WILL VERBALIZE DECREASED ANXIETY LEVEL THROUGHOUT CERTIFICATION PERIOD A RESULT OF PARTICIPATION IN THE MINDFUL CARE SPECIALTY PROGRAM. Goal Provider Goal - PATIENT WILL BE ABLE TO PERFORM DAILY FUNCTIONS AND HAVE OPTIMAL IMPROVEMENT IN LEVEL OF ANXIETY THROUGHOUT CERTIFICATION PERIOD. Goal Provider Goal - PATIENT WILL BE ABLE TO PERFORM DAILY FUNCTIONS AND HAVE OPTIMAL IMPROVEMENT IN MOOD STABILITY THROUGHOUT CERTIFICATION PERIOD. Goal Provider Goal - PATIENT/CAREGIVER WILL VERBALIZE/DEMONSTRATE MANAGEMENT OF RESPIRATORY DISEASE PROCESS. CHANGES IN RESPIRATORY STATUS WILL BE IDENTIFIED AND REPORTED TO PHYSICIAN FOR PROMPT INTERVENTION THROUGHOUT THE CERTIFICATION PERIOD. Goal Provider Goal - MEDICATIONS WILL BE STORED IN MEDICATION SAFE FOR SAFETY. Goal Provider Goal - PATIENT/CAREGIVER WILL VERBALIZE/DEMONSTRATE ABILITY TO MANAGE MUSCULOSKELETAL DISEASE WHILE MAINTAINING SAFETY THROUGHOUT THE EPISODE. Goal Provider Goal - PSYCHOSOCIAL NEEDS WILL BE IDENTIFIED AND PLAN IMPLEMENTED TO MINIMIZE RISK THROUGHOUT CERTIFICATION PERIOD. Goal Provider Goal - PATIENT WILL REMAIN SAFE IN THE COMMUNITY AND WILL BE FREE OF DANGER TO SELF AND OTHERS THROUGHOUT THE CERTIFICATION PERIOD. Encounters Start Date/Time End Date/Time Encounter Type Admission Type Attending [facility] Care Department Encounter ID Discharge Date Discharge Status Discharge Condition Discharge Reason Percent Goals Met 2025-02-05 00:00:00 2025-04-05 00:00:00 Outpatient RECERTIFIC GASPER WHEAT [facility] [id number] 0.00
== END 2025-03-09 13:41 | disposition home or self-care (01) ==
LOC: HO.HGS 13:12
PROVIDERS: PCP Family Medicine; Visit Provider Surgery
DX: D17.24 Benign lipomatous neoplasm of skin and subcutaneous tissue of left leg (principal)
CPT/HCPCS: 99204

== ENCOUNTER → 2025-03-09 13:12 | Outpatient (BNVA) | payer MEDICAID, SELFPAY | PROVIDERS: PCP Family Medicine; Visit Provider Surgery | DX: D17.24 Benign lipomatous neoplasm of skin and subcutaneous tissue of left leg (principal) | CPT/HCPCS: 99202 ==

== ENCOUNTER 2025-04-12 14:14 | Outpatient (REF) | payer MEDICAID, SELFPAY ==
--- OUTSIDE RECORDS SUMMARY | 2025-04-12 16:40 | XMS_ITS | Encounter Summary ---
Author Organization [employer] Address [address] [place] [address] Care Team Providers Care Circle Beveler Name Role Phone Celine Aldana MD Primary Care Provider [phone] Encounter Details Date Type Department Care Team (Late st Contact Info) Description 10/05/2024 Lab Requisition [facility] - Main Lab [address] [facility] [place] [address] Damion Patel MD [address] [place] [phone] Anemia, unspecified; Other asthma; Anxiety disorder, unspecified [...] unspecified documented in this encounter Care Teams Circle Beveler Relationship Specialty Start Date End Date Celine Aldana MD [address] [place] [phone] PCP - General 07/01/23 documented as of this encounter
--- OUTSIDE RECORDS SUMMARY | 2025-04-12 16:40 | XMS_ITS | Encounter Summary ---
Author Organization [employer] Address [address] [facility] [address] [place] [address] Care Team Providers Care Targeting Acquisition Officer Name Role Phone Celine Aldana MD Primary Care Provider [phone] Encounter Details Date Type Department Care Team (Late st Contact Info) Description 11/24/2024 Orders Only [facility] MEDICINE [address] [place], [place] [phone] Celine Aldana MD [address] [place], [place] [phone] Social History Tobacco Use Types Packs/Day Years [...] EST Office Visit [facility] ADULT DENTAL [address] [place] [address] Agnes, Dayana [address] [place] [address] 04/15/2025 10:15 AM EST Office Visit [facility] [address] [place] [address] Celine Aldana MD [address] [place] [address] documented as of this encounter Visit Diagnoses Not on filedocumented in this encounter Additional Health Concerns Assessment Noted Time PHQ-9 Depression Total Score: 7 03/02/20 24 9:35 AM EDT documented as of this encounter Care Teams Targeting Acquisition Officer Relationship Specialty Start Date End Date Celine Aldana MD [address] [place] [address] PCP - General Family Medicine 06/10/18 Milo 10/08/24 documented as of this encounter
--- OUTSIDE RECORDS SUMMARY | 2025-04-12 16:40 | XMS_ITS | Encounter Summary ---
Author Organization [employer] [facility] Address [address] [place] [address] [address] [place] [address] Care Team Providers Care [employer] Name Role Phone Celine Aldana MD Primary Care Provider [phone] Encounter Details Date Type Department Care Team (Latest Contact Info) Description 08/02/2020 Abstract [facility] CONVERSIONS Dental, Provider, DDS Social History Tobacco [...] Description 04/14/2025 12:45 PM EST Office Visit [facility] ADULT DENTAL [address] [place] [address] Agnes, Dayana [address] [place] [address] 04/15/2025 10:15 AM EST Office Visit [facility] MEDICINE [address] [place] [address] Celine Aldana MD [address] [place] [address] documented as of this encounter Visit Diagnoses Not on filedocumented in this encounter Care Teams [employer] Relationship Specialty Start Date End Date Celine Aldana MD [address] [place] [address] PCP - General Family Medicine 06/10/18 Milo 10/08/24 documented as of this encounter
--- OUTSIDE RECORDS SUMMARY | 2025-04-12 16:40 | XMS_ITS | Encounter Summary ---
Author Organization [employer] Address [address] [place] [address] Care Team Providers Care Bariatric Program Coordinator Name Role Phone Celine Aldana MD Primary Care Provider [phone] Encounter Details Date Type Department Care Team (Late st Contact Info) Description 09/23/2024 Lab Requisition [facility] - Main Lab [address] [place] [address] Damion Patel MD [address] [place], [place] [phone] Anemia, unspecified Social History Tobacco Use Types [...] mmol/L LAB CHEMISTRY METHOD 09/24/2024 9:03 AM [facility] Potassium 4.3 3.5 - 5.5 mmol/L LAB CHEMISTRY METHOD 09/24/2024 9:03 AM [facility] Chloride 108 96 - 110 mmol/L LAB CHEMISTRY METHOD 09/24/2024 9:03 AM [facility] CO2 28 21 - 32 mmol/L LAB CHEMISTRY METHOD 09/24/2024 9:03 AM [facility] Anion Gap 5 3 - 11 LAB CHEMISTRY METHOD 09/24/2024 9:03 AM [facility] Glucose 98 70 - 100 mg/dL LAB CHEMISTRY METHOD 09/24/2024 9:03 AM [facility] BUN 16 5 - 25 mg/dL LAB CHEMISTRY METHOD 09/24/2024 9:03 AM [facility] Creatinine 0.63 0.50 - 1.10 mg/dL LAB CHEMISTRY METHOD 09/24/2024 9:03 AM [facility] eGFR 101 >=60 mL/min/1. 73m2 LAB CHEMISTRY METHOD 09/24/2024 9:03 AM [facility] Comment:Calculation based on the Chronic Kidney Disease Epidemiology Collaboration (CKD-EPI) equation refit without adjustment for race. BUN/Creatinine Ratio 25.4 LAB CHEMISTRY METHOD 09/24/2024 9:03 AM [facility] Calcium 9.5 8.5 - 10.5 mg/dL LAB CHEMISTRY METHOD 09/24/2024 9:03 AM [facility] Blood Venous blood specimen / Unknown Venipuncture / Unknown 09/24/2024 7:08 AM EDT 09/24/2024 8:15 AM EDT us Damion Patel MD LAB BLOOD ORDERABLES Final Result [facility] [address] [place] [address], * (ABNORMAL) Complete blood count (09/24/2024 7:08 AM EDT) WBC 8.2 4.8 - 10.8 K/mcL LAB HEMETOLOGY METHOD 09/24/2024 8:37 AM [facility] RBC 4.40 3.80 - 4.80 M/mcL LAB HEMETOLOGY METHOD 09/24/2024 8:37 AM [facility] Hemoglobin 11.9 11.5 - 16.0 g/dL LAB HEMETOLOGY METHOD 09/24/2024 8:37 AM [facility] Hematocrit 38.0 35.0 - 47.0 % LAB HEMETOLOGY METHOD 09/24/2024 8:37 AM [facility] MCV 87.2 79.0 - 98.0 FL LAB HEMETOLOGY METHOD 09/24/2024 8:37 AM [facility] MCH 27.3 27.0 - 32.0 pcg LAB HEMETOLOGY METHOD 09/24/2024 8:37 AM [facility] MCHC 31.3(L) 32.0 - 37.0 g/dL LAB HEMETOLOGY METHOD 09/24/2024 8:37 AM [facility] RDW 13.4 11.0 - 15.0 % LAB HEMETOLOGY METHOD 09/24/2024 8:37 AM [facility] Platelets 352 130 - 400 K/mcL LAB HEMETOLOGY METHOD 09/24/2024 8:37 AM [facility] MPV 11.0 7.0 - 11.0 FL LAB HEMETOLOGY METHOD 09/24/2024 8:37 AM [facility] NRBC 0.0 <1.0 % LAB HEMETOLOGY METHOD 09/24/2024 8:37 AM [facility] NRBC Absolute 0.00 <0.10 K/mcL LAB HEMETOLOGY METHOD 09/24/2024 8:37 AM [facility] Blood Venous blood specimen / Unknown Venipuncture / Unknown 09/24/2024 7:08 AM EDT 09/24/2024 8:13 AM EDT us Damion Patel MD LAB BLOOD ORDERABLES [facility]) [facility] [address] [place] [address], documented in this encounter Visit Diagnoses Diagnosis Anemia, unspecified documented in this encounter Care Teams Bariatric Program Coordinator Relationship Specialty Start Date End Date Celine Aldana MD [address] [place] [phone] PCP - General 07/01/23 documented as of this encounter
--- OUTSIDE RECORDS SUMMARY | 2025-04-12 16:40 | XMS_ITS | Encounter Summary ---
Author Organization [employer] Address [address] [place] [address] Care Team Providers Care Internet Technology Manager Name Role Phone Celine Aldana MD Primary Care Provider [phone] Encounter Details Date Type Department Care Team (Late st Contact Info) Description 09/22/2024 Lab Requisition [facility] - Main Lab [address] [place] [address] Damion Patel MD [address] [place] [address] Other asthma; Depression, unspecified; Anxiety disorder, unspecified [...] LAB CHEMISTRY METHOD 09/22/2024 11:44 AM EDT [facility] Potassium 4.6 3.5 - 5.5 mmol/L LAB CHEMISTRY METHOD 09/22/2024 11:44 AM EDT [facility] Chloride 107 96 - 110 mmol/L LAB CHEMISTRY METHOD 09/22/2024 11:44 AM [facility] CO2 29 21 - 32 mmol/L LAB CHEMISTRY METHOD 09/22/2024 11:44 AM [facility] Anion Gap 4 3 - 11 LAB CHEMISTRY METHOD 09/22/2024 11:44 AM [facility] Glucose 95 70 - 100 mg/dL LAB CHEMISTRY METHOD 09/22/2024 11:44 AM [facility] BUN 15 5 - 25 mg/dL LAB CHEMISTRY METHOD 09/22/2024 11:44 AM [facility] Creatinine 0.55 0.50 - 1.10 mg/dL LAB CHEMISTRY METHOD 09/22/2024 11:44 AM [facility] eGFR 104 >=60 mL/min/1. 73m2 LAB CHEMISTRY METHOD 09/22/2024 11:44 AM [facility] Comment:Calculation based on the Chronic Kidney Disease Epidemiology Collaboration (CKD-EPI) equation refit without adjustment for race. BUN/Creatinine Ratio 27.3 LAB CHEMISTRY METHOD 09/22/2024 11:44 AM [facility] Calcium 9.5 8.5 - 10.5 mg/dL LAB CHEMISTRY METHOD 09/22/2024 11:44 AM [facility] Blood Venous blood specimen / Unknown Venipuncture / Unknown 09/22/2024 9:00 AM EDT 09/22/2024 10:44 AM EDT us Damion Patel MD LAB BLOOD ORDERABLES Final Result [facility] [address] [place] [address], * (ABNORMAL) Complete blood count (09/22/2024 9:00 AM EDT) WBC 8.8 4.8 - 10.8 K/mcL LAB HEMETOLOGY METHOD 09/22/2024 11:14 AM [facility] RBC 4.40 3.80 - 4.80 M/mcL LAB HEMETOLOGY METHOD 09/22/2024 11:14 AM [facility] Hemoglobin 12.0 11.5 - 16.0 g/dL LAB HEMETOLOGY METHOD 09/22/2024 11:14 AM [facility] Hematocrit 37.6 35.0 - 47.0 % LAB HEMETOLOGY METHOD 09/22/2024 11:14 AM [facility] MCV 85.6 79.0 - 98.0 FL LAB HEMETOLOGY METHOD 09/22/2024 11:14 AM [facility] MCH 27.3 27.0 - 32.0 pcg LAB HEMETOLOGY METHOD 09/22/2024 11:14 AM [facility] MCHC 31.9(L) 32.0 - 37.0 g/dL LAB HEMETOLOGY METHOD 09/22/2024 11:14 AM [facility] RDW 13.3 11.0 - 15.0 % LAB HEMETOLOGY METHOD 09/22/2024 11:14 AM [facility] Platelets 330 130 - 400 K/mcL LAB HEMETOLOGY METHOD 09/22/2024 11:14 AM [facility] MPV 11.1(H) 7.0 - 11.0 FL LAB HEMETOLOGY METHOD 09/22/2024 11:14 AM [facility] NRBC 0.0 <1.0 % LAB HEMETOLOGY METHOD 09/22/2024 11:14 AM [facility] NRBC Absolute 0.00 <0.10 K/mcL LAB HEMETOLOGY METHOD 09/22/2024 11:14 AM [facility] Blood Venous blood specimen / Unknown Venipuncture / Unknown 09/22/2024 9:00 AM EDT 09/22/2024 10:44 AM EDT Damion Patel MD LAB BLOOD ORDERABLES Final Result [facility] ([facility]) [facility] [address] [place] [address], documented in this encounter Visit Diagnoses Diagnosis Other asthma Depression, unspecified Anxiety disorder, unspecified documented in this encounter Care Teams Internet Technology Manager Relationship Specialty Start Date End Date Celine Aldana MD [address] [place] [phone] PCP - General 07/01/23 documented as of this encounter
--- OUTSIDE RECORDS SUMMARY | 2025-04-12 16:40 | XMS_ITS | Encounter Summary ---
Author Organization [employer] Address [address] [place] [address] 7 [place] [address] Care Team Providers Care Jammer Operator Name Role Phone Celine Aldana MD Primary Care Provider [phone] Encounter Details Date Type Department Care Team (Late st Contact Info) Description 02/20/2023 Orders Only [facility] MEDICINE [address] [place], [place] [phone] Celine Aldana MD [address] [place] [address] Pain of both heels (Primary Dx) Social [...] 04/14/2025 12:45 PM EST Office Visit [facility] ADULT DENTAL [address] [place], [place] [phone] Dayana Alarcon [address] [place] [address] 04/15/2025 10:15 AM EST Office Visit [facility] MEDICINE [address] [place] [address] Celine Aldana MD [address] [place] [address] documented as of this encounter Visit Diagnoses Diagnosis Pain of both heels- Primary documented in this encounter Additional Health Concerns Assessment Noted Time PHQ-9 Depression Total Score: 0 07/18/19 23 9:47 AM EST documented as of this encounter Care Teams Jammer Operator Relationship Specialty Start Date End Date Celine Aldana MD [address] [place] [address] PCP - General Family Medicine 06/10/18 Milo 10/08/24 documented as of this encounter
--- OUTSIDE RECORDS SUMMARY | 2025-04-12 16:40 | XMS_ITS | Encounter Summary ---
Author Organization [employer] Address [address] [facility] 7t [place] [address] Care Team Providers Care Assembly Line Upholsterer Name Role Phone Celine Aldana MD Primary Care Provider [phone] Encounter Details Date Type Department Care Team (Late st Contact Info) Description 04/03/2023 Abstract [facility] ADULT DENTAL [address] [place], [place] [phone] Agnes Dayana [address] [place] [address] Social History Tobacco Use Types Packs/Day Years [...] Description 04/14/2025 12:45 PM EST Office Visit [facility] ADULT DENTAL [address] [place] [address] Agnes, Dayana [address] [place] [address] 04/15/2025 10:15 AM EST Office Visit [facility] MEDICINE [address] [place] [address] Celine Aldana MD [address] [place] [address] documented as of this encounter Visit Diagnoses Not on filedocumented in this encounter Additional Health Concerns Assessment Noted Time PHQ-9 Depression Total Score: 0 07/18/19 23 9:47 AM EST documented as of this encounter Care Teams Assembly Line Upholsterer Relationship Specialty Start Date End Date Celine Aldana MD [address] [place] [address] PCP - General Family Medicine 06/10/18 Milo 10/08/24 documented as of this encounter
--- OUTSIDE RECORDS SUMMARY | 2025-04-12 16:40 | XMS_ITS | Encounter Summary ---
Author Organization [employer] Address [address] [place] [address] [place] [address] Care Team Providers Care Crusher Screen Repairer Name Role Phone Celine Aldana MD Primary Care Provider [phone] Reason for Visit * Reason Onset Date Comments Results 10/05/2024 Encounter Details Date Type Department Care Team ([facility] st Contact Info) Description 10/05/2024 Telephone [facility] MEDICINE [address] [place], [place] [phone] Luana Villalba, PharmD [address] [place] [address] Results Social History Tobacco Use Types Packs/Day [...] 04/14/2025 12:45 PM EST Office Visit [facility] ADULT DENTAL [address] [place] [address] Agnes Dayana [address] [place] [address] 04/15/2025 10:15 AM EST Office Visit [facility] MEDICINE [address] [place] [address] Celine Aldana MD [address] [place] [address] documented as of this encounter Visit Diagnoses Not on filedocumented in this encounter Additional Health Concerns Assessment Noted Time PHQ-9 Depression Total Score: 7 03/02/20 24 9:35 AM EDT documented as of this encounter Care Teams Crusher Screen Repairer Relationship Specialty Start Date End Date Celine Aldana MD [address] [place] [address] PCP - General Family Medicine 06/10/18 Milo 10/08/24 documented as of this encounter
--- OUTSIDE RECORDS SUMMARY | 2025-04-12 16:40 | XMS_ITS | Encounter Summary ---
Author Organization [employer] Address [address] [facility] 7t [place] [address] Care Team Providers Care Sales Manager Name Role Phone Celine Aldana MD Primary Care Provider [phone] Reason for Visit * Reason Comments Med Refill Encounter Details Date Type Department Care Team ([facility] st Contact Info) Description 07/24/2024 Refill [facility] [address] [place], [place] [phone] Woo Powell MD [address] [place] [address] Social History Tobacco Use Types Packs/Day Years [...] Description 04/14/2025 12:45 PM EST Office Visit [facility] ADULT DENTAL [address] [place] [address] Agnes, Dayana [address] [place] [address] 04/15/2025 10:15 AM EST Office Visit [facility] MEDICINE [address] [place] [address] Celine Aldana MD [address] [place] [address] documented as of this encounter Visit Diagnoses Not on filedocumented in this encounter Additional Health Concerns Assessment Noted Time PHQ-9 Depression Total Score: 7 03/02/20 24 9:35 AM EDT documented as of this encounter Care Teams Sales Manager Relationship Specialty Start Date End Date Celine Aldana MD [address] [place] [address] PCP - General Family Medicine 06/10/18 Milo 10/08/24 documented as of this encounter
--- OUTSIDE RECORDS SUMMARY | 2025-04-12 16:40 | XMS_ITS | Encounter Summary ---
Author Organization [employer] Address [address] [facility] 7 [place] [address] Care Team Providers Care Shopping Centre Manager Name Role Phone Celine Aldana MD Primary Care Provider [phone] Reason for Visit * Reason Onset Date Comments Prior Authorization 11/06/2024 Encounter Details Date Type Department Care Team (Late st Contact Info) Description 11/06/2024 Telephone [facility] MEDICINE [address] [place], [place] [phone] Celine Aldana MD [address] [place], [place] [phone] Prior Authorization Social History Tobacco Use Types [...] Visit [facility] ADULT DENTAL [address] [place] [address] Dayana Alarcon 230 [place] [address] 04/15/2025 10:15 AM EST Office Visit [facility] MED[facility]INE [address] [place] [address] Celine Aldana MD [address] [place] [address] documented as of this encounter Visit Diagnoses Not on filedocumented in this encounter Additional Health Concerns Assessment Noted Time PHQ-9 Depression Total Score: 7 03/02/20 24 9:35 AM EDT documented as of this encounter Care Teams Shopping Centre Manager Relationship Specialty Start Date End Date Celine Aldana MD [address] [place] [address] PCP - General Family Medicine 06/10/18 Milo 10/08/24 documented as of this encounter
--- OUTSIDE RECORDS SUMMARY | 2025-04-12 16:40 | XMS_ITS | Encounter Summary ---
Author Organization [employer] Address [address] [facility] 7t [place] [address] Care Team Providers Care Tax Compliance Officer Name Role Phone Celine Aldana MD Primary Care Provider [phone] Reason for Referral * Consultation (Routine) - Canceled Specialty Diagnoses / Procedures Referred By Contac t Referred To Contact Neurology Diagnoses Dizziness Celine Aldana MD [address] [place] [address] Phone: tel: fax: [facility] Neurology [address] [place] [address] Phone: tel: fax: Referral ID Status Reason Start Date Expiration Date Visits Requested Visits Authorized [id number] Canceled Specialty Services Required 04/09/2024 04/09/2025 6 6 Encounter Details Date Type Department Care Team (Late st Contact Info) Description 04/09/2024 Orders Only [facility] MEDICINE [address] [place] [phone] Celine Aldana MD [address] [place], [place] [phone] Dizziness (Primary Dx) Social History Tobacco Use [...] Description 04/14/2025 12:45 PM EST Office Visit [facility] ADULT DENTAL [address] [place] [address] Dayana Alarcon [address] [place] [address] 04/15/2025 10:15 AM EST Office Visit [facility] MEDICINE [address] [place] [address] Celine Aldana MD [address] [place] [address] Scheduled Referrals Name Type Priority Associated Diagnoses Orde r Schedule Referral to Neurology Outpatient Referral Routine Dizziness Expected: 04/09/2024 (Approximate), Expires: 04/09/2025 documented as of this encounter Visit Diagnoses Diagnosis Dizziness- Primary Dizziness and giddiness documented in this encounter Additional Health Concerns Assessment Noted Time PHQ-9 Depression Total Score: 7 03/02/20 24 9:35 AM EDT documented as of this encounter Care Teams Tax Compliance Officer Relationship Specialty Start Date End Date Celine Aldana MD [address] [place] [address] PCP - General Family Medicine 06/10/18 Milo 10/08/24 documented as of this encounter
--- OUTSIDE RECORDS SUMMARY | 2025-04-12 16:40 | XMS_ITS | Encounter Summary ---
Author Organization [email or web address] Address [address] [place] [address] Care Team Providers Care Metal Cans Supervisor Name Role Phone Celine Aldana MD Primary Care Provider [phone] Encounter Details Date Type Department Care Team (Late st Contact Info) Description 09/17/2024 Lab Requisition [facility] - Main Lab [address] [facility] [place] [address] Damion Patel MD [address] [place], [place] [phone] Anemia, unspecified Social History Tobacco Use Types [...] mmol/L LAB CHEMISTRY METHOD 09/17/2024 10:[address] [facility] Potassium 4.3 3.5 - 5.5 mmol/L LAB CHEMISTRY METHOD 09/17/2024 10:[address] [facility] Chloride 104 96 - 110 mmol/L LAB CHEMISTRY METHOD 09/17/2024 10:[address] [facility] CO2 31 21 - 32 mmol/L LAB CHEMISTRY METHOD 09/17/2024 10:[address] [facility] Anion Gap 6 3 - 11 LAB CHEMISTRY METHOD 09/17/2024 10:[address] [facility] Glucose 85 70 - 100 mg/dL LAB CHEMISTRY METHOD 09/17/2024 10:[address] [facility] BUN 11 5 - 25 mg/dL LAB CHEMISTRY METHOD 09/17/2024 10:[address] [facility] Creatinine 0.52 0.50 - 1.10 mg/dL LAB CHEMISTRY METHOD 09/17/2024 10:[address] [facility] eGFR 106 >=60 mL/min/1. 73m2 LAB CHEMISTRY METHOD 09/17/2024 10:[address] [facility] Comment:Calculation based on the Chronic Kidney Disease Epidemiology Collaboration (CKD-EPI) equation refit without adjustment for race. BUN/Creatinine Ratio 21.2 LAB CHEMISTRY METHOD 09/17/2024 10:[address] [facility] Calcium 9.5 8.5 - 10.5 mg/dL LAB CHEMISTRY METHOD 09/17/2024 10:[address] [facility] AST (SGOT) 48(H) 10 - 42 unit/L LAB CHEMISTRY METHOD 09/17/2024 10:[address] [facility] ALT (SGPT) 33 10 - 60 unit/L LAB CHEMISTRY METHOD 09/17/2024 10:[address] [facility] Alkaline Phosphatase 190(H) 42 - 121 unit/L LAB CHEMISTRY METHOD 09/17/2024 10:[address] [facility] Total Protein 6.3 6.0 - 8.0 g/dL LAB CHEMISTRY METHOD 09/17/2024 10:[address] [facility] Albumin 3.1(L) 3.2 - 5.0 g/dL LAB CHEMISTRY METHOD 09/17/2024 10:[address] [facility] Total Bilirubin 1.3 0.0 - 1.4 mg/dL LAB CHEMISTRY METHOD 09/17/2024 10:[address] [facility] Blood Venous blood specimen / Unknown Venipuncture / Unknown 09/17/2024 7:44 AM EDT 09/17/2024 10:04 AM EDT Damion Patel MD LAB BLOOD ORDERABLES Final Result [facility] [address] [place] [address], * (ABNORMAL) Complete blood count (09/17/2024 7:44 AM EDT) WBC 9.5 4.8 - 10.8 K/mcL LAB HEMETOLOGY METHOD 09/17/2024 10:[address] [facility] RBC 4.70 3.80 - 4.80 M/mcL LAB HEMETOLOGY METHOD 09/17/2024 10:[address] [facility] Hemoglobin 12.9 11.5 - 16.0 g/dL LAB HEMETOLOGY METHOD 09/17/2024 10:[address] [facility] Hematocrit 41.4 35.0 - 47.0 % LAB HEMETOLOGY METHOD 09/17/2024 10:[address] [facility] MCV 87.3 79.0 - 98.0 FL LAB HEMETOLOGY METHOD 09/17/2024 10:[address] [facility] MCH 27.2 27.0 - 32.0 pcg LAB HEMETOLOGY METHOD 09/17/2024 10:[address] [facility] MCHC 31.2(L) 32.0 - 37.0 g/dL LAB HEMETOLOGY METHOD 09/17/2024 10:26 AM EDT [facility] RDW 13.2 11.0 - 15.0 % LAB HEMETOLOGY METHOD 09/17/2024 10:26 AM EDT [facility] Platelets 274 130 - 400 K/mcL LAB HEMETOLOGY METHOD 09/17/2024 10:26 AM EDT [facility] MPV 11.7(H) 7.0 - 11.0 FL LAB HEMETOLOGY METHOD 09/17/2024 10:26 AM EDT [facility] NRBC 0.0 <1.0 % LAB HEMETOLOGY METHOD 09/17/2024 10:26 AM EDT [facility] NRBC Absolute 0.00 <0.10 K/mcL LAB HEMETOLOGY METHOD 09/17/2024 10:26 AM T [facility] Blood Venous blood specimen / Unknown Venipuncture / Unknown 09/17/2024 7:44 AM EDT 09/17/2024 10:04 AM EDT us Damion Patel MD LAB BLOOD ORDERABLES Final Result [facility] [address] [place] [address], documented in this encounter Visit Diagnoses Diagnosis Anemia, unspecified documented in this encounter Care Teams Metal Cans Supervisor Relationship Specialty Start Date End Date Celine Aldana MD [address] [place] [phone] PCP - General 07/01/23 documented as of this encounter
--- OUTSIDE RECORDS SUMMARY | 2025-04-12 16:40 | XMS_ITS | Encounter Summary ---
Author Organization [employer] Address [address] [facility] 7 [place] [address] Care Team Providers Care Panel Flow Machine Operator Name Role Phone Celine Aldana MD Primary Care Provider [phone] Reason for Visit * Reason Onset Date Comments Prior Authorization 01/25/2025 Encounter Details Date Type Department Care Team (Late st Contact Info) Description 01/25/2025 Telephone [facility] MEDICINE [address] [place], [place] [phone] Celine Aldana MD [address] [place], [place] [phone] Prior Authorization Social History Tobacco Use Types [...] any questions you can contact pt at [phone]. (Setswana Speaker) documented in this encounter Plan of Treatment Upcoming Encounters Date Type Department Care Team (Late st Contact Info) Description 04/14/2025 12:45 PM EST Office Visit [facility] ADULT DENTAL [address] [place] [address] Agnes Dayana [address] [place] [address] 04/15/2025 10:15 AM EST Office Visit [facility] MEDICINE [address] [place] [address] Celine Aldana MD [address] [place] [address] documented as of this encounter Visit Diagnoses Not on filedocumented in this encounter Additional Health Concerns Assessment Noted Time PHQ-9 Depression Total Score: 7 03/02/20 24 9:35 AM EDT documented as of this encounter Care Teams Panel Flow Machine Operator Relationship Specialty Start Date End Date Celine Aldana MD [address] [place] [address] PCP - General Family Medicine 06/10/18 Milo 10/08/24 documented as of this encounter
--- OUTSIDE RECORDS SUMMARY | 2025-04-12 16:40 | XMS_ITS | Encounter Summary ---
Author Organization [email or web address] [facility] Address [address] [place] [address] 7 [place] [address] Care Team Providers Care Clay Miller Name Role Phone Celine Aldana MD Primary Care Provider [phone] Encounter Details Date Type Department Care Team (Latest Contact Info) Description 09/15/2021 Abstract [facility] CONVERSIONS Dental, Provider, DDS Social History [...] Description 04/14/2025 12:45 PM EST Office Visit [facility] ADULT DENTAL [address] [place] [address] Agnes, Dayana [address] [place] [address] 04/15/2025 10:15 AM EST Office Visit [facility] MEDICINE [address] [place] [address] Celine Aldana MD [address] [place] [address] documented as of this encounter Visit Diagnoses Not on filedocumented in this encounter Care Teams Clay Miller Relationship Specialty Start Date End Date Celine Aldana MD [address] [place] [address] PCP - General Family Medicine 06/10/18 Milo 10/08/24 documented as of this encounter
--- OUTSIDE RECORDS SUMMARY | 2025-04-12 16:40 | XMS_ITS | Data Portability ---
Author Organization [place] - [facility], [facility] Address [address] [place] [address] Care Team Providers Care Stuffing Machine Operator Name Role Phone MONSTER AUSTIN Primary Care Provider Assessment No assessment recorded. Plan of Treatment Reminders Order Date Submit Date Provider Last Modified By Organization Details Last Modified Time Details Appointments None recorded. Lab None recorded. Referral physical therapist referral - PHYSICAL THERAPIST REFERRAL - REHABILITAT ION BASED ON PATIENT PROGRESS, 1-2 TIMES EVERY 1-2 WEEKS REHABILITAT ION GOALS REGAIN AND IMPROVE MUSCULAR STRENGTH PROGRESS OFF CRUTCHES FOR ALL SURFACES AND DISTANCES SINGLE LEG STAND CONTROL GOOD CONTROL AND NO PAIN WITH FUNCTIONAL MOVEMENTS, INCLUDING STEP UP/DOWN, SQUAT, PARTIAL LUNGE PRECAUTIONS WEEKS 4-6: GAIT TRAINING PWB WITH ASSISTIVE DEVICE AND NO TRENDELENBE RG GAIT 20 POUNDS THROUGH 6 WEEKS WEEKS 7-8: GAIT TRAINING: INCREASE WEIGHT BEARING TO 100% WITH CRUTCHES, wean from brace as tolerated WEEKS 9-10: WEAN OFF CRUTCHES (2 TO 1 TO 0) WITHOUT TRENDELENBE RG GAIT / NORMAL GAIT SUGGESTED THERAPEUTIC EXERCISES START ISOMETRIC SUB MAX PAIN FREE HIP FLEXION (4 WEEKS) STOOL ROTATIONS IR/ER (20 ) SUPINE BRIDGES ISOTONIC ADDUCTION PROGRESS CORE STRENGTHENI NG (AVOID HIP FLEXOR TENDONITIS) PROGRESS WITH HIP STRENGTHENI NG QUADRICEPS STRENGTHENI NG SCAR MASSAGE GAIT DRILLS IN THE POOL AT CHEST DEEP WATER, NEEDED AND AVAILABLE AT 8 WEEKS: PROGRESS WITH ROM HIP JOINT MOBS WITH MOBILIZATIO N BELT (IF NEEDED) LATERAL AND INFERIOR WITH ROTATION PRONE POSTERIOR-A NTERIOR GLIDES WITH ROTATION PROGRESS CORE STRENGTHENI NG (FOCUS ON POST PELVIC TILT AND AVOID HIP FLEXOR TENDONITIS) 2024 025 mmolpelto n1 [facility], [address] [place] [address], [place], [address], 5 12:35:38 Procedures None recorded. Surgeries None recorded. Imaging None recorded. Medication Orders None recorded. Patient TargetsNo targets recorded. Patient InstructionsNo instructions recorded. Reason for Referral Physical Therapist Referral for Trochanteric bursitis of left hip Left Hip Open Abductor Repair 09/14/24 PHYSICAL THERAPIST REFERRAL - REHABILITATION BASED ON PATIENT PROGRESS, 1-2 TIMES EVERY 1-2 WEEKSREHABILITATION GOALS REGAIN AND IMPROVE MUSCULAR STRENGTH PROGRESS OFF CRUTCHES FOR ALL SURFACES AND DISTANCES SINGLE LEG STAND CONTROL GOOD CONTROL AND NO PAIN WITH FUNCTIONAL MOVEMENTS, INCLUDING STEP UP/DOWN,SQUAT, PARTIAL LUNGEPRECAUTIONS WEEKS 4-6: GAIT TRAINING PWB WITH ASSISTIVE DEVICE AND NO TRENDELENBERG GAIT20 POUNDS THROUGH 6 WEEKS WEEKS 7-8: GAIT TRAINING: INCREASE WEIGHT BEARING TO 100% WITH CRUTCHES, wean from brace as tolerated WEEKS 9-10: WEAN OFF CRUTCHES (2 TO 1 TO 0) WITHOUT TRENDELENBERG GAIT / NORMAL GAITSUGGESTEDTHERAPEUTIC EXERCISES START ISOMETRIC SUB MAX PAIN FREE HIP FLEXION (4 WEEKS) STOOL ROTATIONS IR/ER (20 ) SUPINE BRIDGES ISOTONIC ADDUCTION PROGRESS CORE STRENGTHENING (AVOID HIP FLEXOR TENDONITIS) PROGRESS WITH HIP STRENGTHENING QUADRICEPS STRENGTHENING SCAR MASSAGE GAIT DRILLS IN THE POOL AT CHEST DEEP WATER, NEEDED AND AVAILABLEAT 8 WEEKS: PROGRESS WITH ROM HIP JOINT MOBS WITH MOBILIZATION BELT (IF NEEDED)LATERAL AND INFERIOR WITH ROTATIONPRONE POSTERIOR-ANTERIOR GLIDES WITH ROTATION PROGRESS CORE STRENGTHENING (FOCUS ON POST PELVIC TILT AND AVOID HIP FLEXOR TENDONITIS) Referring Physician: Huma Durham, Orthopedic Surgery, Encounter Date: 10/28/2024 Results Created Date Observation Date Name Description Value Unit Range Abnormal Flag Note LastModifiedBy Organization Detail LastModifiedTime 01/09/2001/07/2025 MRI, lower extre ortega moser/jason contr ast [facility] Access ion Number : [id number] Kary cunningham Name: Iliana Jamesatif alexandra Record Number : [id number] Date of : 1965 Date of Exam: 2024 Referr ing Physic judah: Juan Carlos Mercado [address] [facility] [place] [address] Exam: MR Thigh Unilat (C-/C+ ) CPT 33734 - Left Room Descri ption: [facility] 3.0T CLINIC AL HISTOR Y: Reason For Exam: Pain in left thigh, , Left thigh pain and swelli ng r/o lipoma \E E\UNMA PPED LAB (MRI, THIGH, W/WO CONTRA ST) TECHNI QUE: Multip lanar multis equenc e MRI of the left femur perfor med with and withou t contra st COMPAR JENNIE: None. FINDIN GS: Artifa ct from bone suture anchor seen within the greate r trocha nter. In keepin g with prior glutea l tendon repair . No defini te eviden ce of re-tea r on large field- of-vie w sequen ana. 2 cm thin collec tion overly ing the tensor fascia paulo muscle which may repres ent small postop erativ e seroma . Low signal enhanc ing fibros is within the overly ing subcut aneous fat extend ing to the latera l skin surfac e. No eviden ce of enhanc ing subcut aneous or intram uscula r soft tissue mass within the left thigh. Nonspe cific subcut aneous edema signal within the latera l aspect of the mid to distal thigh. Evalua tion of the femur demons trates no eviden ce of fractu re, bone marrow contus ion, focal bone marrow signal abnorm ality or abnorm al intram edulla ry enhanc ement. No eviden ce of femora l head avascu lar necros is. IMPRES CHAD: Findin gs consis tent with prior glutea l tendon repair at the greate r tubero sity of the femur withou t defini te eviden ce of re-tea r on large field- of-vie w sequen ana. Thin collec tion overly ing the proxim al tensor fascia paulo muscle likely repres enting small postop erativ e seroma . Enhanc ing fibros is within the subcut aneous fat extend ing from the repair site to the latera l skin surfac e. No MR eviden ce of enhanc ing subcut aneous or intram uscula r mass within the field- of-vie w. Clinic al correl ation and follow -up is recomm ended. Electr onical ly Signed By: Triston Cantu rd, MD [email or web address] [facility] ([facility]) [address] [place], [address], 01/08/2025 09:35:39 Result Notes Documentation Provider Name and Address Organization Details Recorded Time Mri, Lower Extremity, W/wo Contrast : [facility] Accession Number: [id number] Patient Name: Iliana James Date of : 1965 Date of Exam: 01-07-2025 Referring Physician: Juan Carlos Mercado [address] [place] [address] Exam: MR Thigh Unilat (C-/C+) CPT 19853 - Left Room Description: [facility] 3.0T CLINICAL HISTORY: Reason For Exam: Pain in left thigh, , Left thigh pain and swelling r/o lipoma\E E\UNMAPPED LAB (MRI, THIGH, W/WO CONTRAST) TECHNIQUE: Multiplanar multisequence MRI of the left femur performed with and without contrast COMPARISON: None. FINDINGS: Artifact from bone suture anchor seen within the greater trochanter. In keeping with prior gluteal tendon repair. No definite evidence of re-tear on large fhvjy-lk-swty sequences. 2 cm thin collection overlying the tensor fascia paulo muscle which may represent small postoperative seroma. Low signal enhancing fibrosis within the overlying subcutaneous fat extending to the lateral skin surface. No evidence of enhancing subcutaneous or intramuscular soft tissue mass within the left thigh. Nonspecific subcutaneous edema signal within the lateral aspect of the mid to distal thigh. Evaluation of the femur demonstrates no evidence of fracture, bone marrow contusion, focal bone marrow signal abnormality or abnormal intramedullary enhancement. No evidence of femoral head avascular necrosis. IMPRESSION: Findings consistent with prior gluteal tendon repair at the greater tuberosity of the femur without definite evidence of re-tear on large mhkmk-le-qqxm sequences. Thin collection overlying the proximal tensor fascia paulo muscle likely representing small postoperative seroma. Enhancing fibrosis within the subcutaneous fat extending from the repair site to the lateral skin surface. No MR evidence of enhancing subcutaneous or intramuscular mass within the yefvi-tb-ldst. Clinical correlation and follow-up is recommended. Electronically Signed By: Triston Mercado MD [address], [place], [address], [facility] 01/08/2025 09:35:39 Problems Name Problem SNOMED Code Status Onset Date Resolution Date Notes Provider Name and Address Organization Details Recorded Time Pain in right foot 7829569995767 07 Active 2023 Richard Chawla PA-C [address], [place], [address], [facility] 4 08:02:13 Plantar fasciitis of right foot 6964298401295 9101 Active 2023 Richard Chawla PA-C [address], [place], [address], [facility] 4 09:47:18 Pain of hip region 75054493 Active 2023 michael pereyra [facility] 4 11:52:50 Rupture of hip abductor tendon 730676371 Active 2024 MARÍA SEYMOUR [facility] 5 11:59:31 Postoperati ve pain 531092008 Active 2024 Juan Carlos Mercado MD [address], [place], [address], [facility] 5 14:07:22 Trochanteri c bursitis of left hip 0950136419742 03 Active 2024 Juan Carlos Mercado MD [address], [place], [address], [facility] 5 12:18:23 Pain of left thigh 2369257893937 05 Active 2024 Juan Carlos Mercado MD [address], [place], [address], [facility] 5 11:35:21 Problem Notes None recorded. Procedures Surgical History Date Name Laterality Status Provider Name and Address Organization Details Recorded Time 4 Hip Kenalog 1cc Injection, Bilateral completed Allyssa Trejo PA-C [address], [place], [address], [facility] 06/05/2024 12:35:35 4 Hip Kenalog 1cc Injection, Bilateral completed Allyssa Trejo PA-C [address], [place], [address], [facility] 03/03/2024 12:17:38 4 Hip Kenalog 1cc Injection, Bilateral completed Allyssa Trejo PA-C [address], [place], [address], [facility] 11/28/2023 12:52:59 Imaging Results None recorded. Procedure Notes None recorded. Medical Equipment None Reported. Allergies Allergen ID Allergen Name Allergen Category Reaction Reaction Severity Criticality Documentation Date Start Date Code Code System Note Provider Name and Address Organization Details Recorded Time 615617 iodine medicatio n Not available Not available Not available 08/21/2023 5933 RxNorm AMBER DRAPER [facility], [facility] 4 11:49:00 177758 latex environme nt,medica tion Not available Not available Not available 08/21/2023 23176 91 RxNorm AMBER DRAPER [facility], [facility] 4 11:49:06 Medications Name Sig Start Date Stop Date Status Note LastModified by Organization Details LastModified Time cetirizine 10 mg tablet TAKE 1 TABLET BY MOUTH EVERY DAY IN THE MORNING active Not Available Not Available No t Available aspirin 325 mg tablet Take 1 tablet every day by oral route for 14 days, for DVT prophylax is. 2024 active Not Available Not Available Not Avai lable prednisone 20 mg tablet TAKE 2 TABLETS BY MOUTH ONCE DAILY FOR 5 DAYS 03/03 completed Not Available Not Available Not Available clonazepam 0.5 mg tablet TAKE 1 TABLET BY MOUTH EVERY DAY AT BEDTIME 03/03 completed Not Available Not Available Not Available sertraline 100 mg tablet TAKE 1 AND 1/2 TABLETS BY MOUTH ONCE DAILY active Not Available Not Available No t Available clonazepam 1 mg tablet TAKE 1 TABLET BY MOUTH AT BEDTIME active Not Available Not Available No t Available phentermine 15 mg capsule TAKE 1 CAPSULE BY MOUTH EVERY DAY BEFORE BREAKFAST 01/22 completed Not Available Not Available Not Available phentermine 30 mg capsule TAKE 1 CAPSULE BY MOUTH DAILY BEFORE BREAKFAST 01/22 completed Not Available Not Available Not Available aspirin 325 mg tablet,shelton yed release TAKE 1 TABLET BY MOUTH DAILY FOR DVT PROPHYLAX IS active Not Available Not Available No t Available pantoprazol e 40 mg tablet,shelton yed release TAKE 1 TABLET BY MOUTH EVERY DAY active Not Available Not Available No t Available buspirone 7.5 mg tablet TAKE 1 TABLET BY MOUTH TWICE DAILY active Not Available Not Available No t Available bisacodyl 5 mg tablet,shelton yed release TAKE 2 TABLETS BY MOUTH EVERY DAY AT BEDTIME active Not Available Not Available No t Available polyethylen e glycol 3350 17 gram/dose oral powder MIX AND DIRECTED BY [facility] active Not Available Not Available No t Available sertraline 50 mg tablet TAKE 1 AND 1/2 TABLETS BY MOUTH ONCE DAILY 03/03 completed Not Available Not Available Not Available Ventolin HFA 90 mcg/actuati on aerosol inhaler INHALE 2 PUFFS BY MOUTH EVERY 4 TO 6 HOURS NEEDED FOR ASTHMA active Not Available Not Available No t Available oxycodone 5 mg tablet TAKE 1 TABLET BY MOUTH EVERY 6 HOURS NEEDED FOR SEVERE PAIN (POST-OP) active Not Available Not Available No t Available duloxetine 30 mg capsule,del ayed release TAKE 1 CAPSULE BY MOUTH ONCE DAILY active Not Available Not Available No t Available chlorhexidi ne gluconate 0.12 % mouthwash USE IN THE MOUTH OR THROAT DIRECTED. SWISH 15 ML FOR 30 SECONDS THEN SPIT OUT THREE TIMES DAILY IN THE MORNING, AT NOON, AND AT BEDTIME NEEDED FOR UP TO 5 DAYS 03/03 completed Not Available Not Available Not Available cholecalcif daljit (vitamin D3) 25 mcg (1,000 unit) tablet TAKE 1 TABLET BY MOUTH DAILY active Not Available Not Available No t Available Compact Space Chamber USE WITH INHALER EVERY 4 HOURS DIRECTED active Not Available Not Available No t Available Vitals Date Recorded Body height Body mass index (BMI) Body weight Provider Name and Address Organization Details Last Updated DateTime 08/07/2024 154.94 cm 35 kg/m2 73624.59 g MARÍA SEYMOUR [facility] 08/07/2024 11:28:06 Date Recorded Body height Body mass index (BMI) Body weight Provider Name and Address Organization Details Last Updated DateTime 10/02/2024 154.94 cm 35 kg/m2 56949.59 g YUSUFLOU LAMAS [facility] 10/02/2024 11:25:52 Date Recorded Body height Body mass index (BMI) Body weight Provider Name and Address Organization Details Last Updated DateTime 10/28/2024 154.94 cm 35 kg/m2 95757.59 g GABE GIVENS [facility] 10/28/2024 13:50:25 Date Recorded Body height Body mass index (BMI) Body weight Body temperature Provider Name and Address Organization Details Last Updated DateTime 12/04/2024 154.94 cm 35 kg/m2 83421.59 g 98 [degF] Kiera Marcelino [facility] 12/04/2024 13:08:20 Date Recorded Body height Body mass index (BMI) Body weight Provider Name and Address Organization Details Last Updated DateTime 01/22/2025 154.94 cm 35 kg/m2 25657.59 g BERTHA PALOMINOVINICIO [facility] 01/22/2025 09:57:52 Social History None recorded. Functional Status None recorded. Mental Status None recorded. Family History Nothing Reported. Medical History Condition Response Anxiety/Depression Y Headaches Y Asthma Y Gynecological HistoryNo gynecological history recorded. Obstetrics History GPAL:G 0 P 0 0 0 0 Past Encounters Encounter ID Performer Location Encounter Start Date Encounter Closed Date Diagnosis/Indication Diagnosis SNOMED-CT Code Diagnosis ICD10 Code Diagnosis IMO Codes Diagnosis Note [id number] MD Vero Tristan [address] [place] [address] 08/21/2023 10:58:53 08/27/2023 12:13:33 Tenosynovitis of left radial styloid 7855378360 6182900 M65.4 [id number] BRA[facility] Ansari [address] [place] [address] 08/29/2023 08:57:48 08/29/2023 09:57:14 Pain in right foot 9424601054 95395 M79.671 Plantar fa sciitis of right foot 7887868103 4465088 M72.2 I reviewed my findings of the patient today. It appears the patient is dealing with plantar fasciitis in the setting of gastroc contractur e of the right lower extremity. Recommend physical therapy and a nighttime splint to work on gastroc stretching and modalities , as well as a ViscoHeel for further comfort while walking. Follow-up in 3 months' time for recheck, sooner if required [id number] BRAVO Vazquez [address] [place] [address] 09/17/2023 12:50:29 10/12/2023 06:22:49 Trochanteric bursitis of right hip 7017644416 54725 M70.61 Trochanter ic bursitis of left hip 6855005413 91117 M70.62 [id number] BRAVO Vazquez [address] [place] [address] 11/28/2023 10:29:10 12/30/2023 09:27:30 Trochanteric bursitis of right hip 4345421236 43014 M70.61 M70.62 Trochanter ic bursitis of left hip 1432825305 95678 M70.62 [id number] BRAVO Vazquez [address] [place] [address] 03/03/2024 10:57:20 03/24/2024 14:47:46 Trochanteric bursitis of right hip 2082574033 86801 M70.61 M70.62 Trochanter ic bursitis of left hip 1348869757 65802 M70.62 [id number] BRAVO Vazquez [address] [place] [address] 06/05/2024 10:39:28 06/22/2024 15:18:29 Pain of hip region 22457385 M25.551 M25.552 [id number] Trochanter ic bursitis of right hip 8764537009 00465 M70.61 M70.62 Trochanter ic bursitis of left hip 6473003928 96811 M70.62 [id number] [facility]RA[facility] Vazquez[facility] - [facility] [place] [address] 07/15/2024 10:29:31 07/24/2024 09:21:36 Trochanteric bursitis of left hip 2778146218 48573 M70.62 4054973 Tendinitis of left gluteal tendon 9210447500 34401 M76.02 [id number] Trochanter ic bursitis of right hip 7582233762 99622 M70.61 [id number] Primary co xarthrosis, bilateral 117919186 M16.0 [id number] MD MONSTER Gallego - [address] [place] [address] 08/07/2024 10:23:32 08/28/2024 07:08:15 Rupture of hip abductor tendon 449518801 S76.019A [id number] Trochanter ic bursitis of left hip 5796995173 47583 M70.62 [id number] MD MONSTER Gallego [address] [place] [address] 10/02/2024 11:22:21 10/13/2024 14:45:19 Trochanteric bursitis of left hip 6054953635 11008 M70.62 [id number] [facility] - [address] [place] [address] 10/28/2024 13:45:04 11/05/2024 11:42:53 Trochanteric bursitis of left hip 2518559373 21753 M70.62 [id number] MD MONSTER Gallego - [address] [place] [address] 12/04/2024 12:48:31 12/22/2024 09:42:46 Pain of left thigh 8330370124 87477 M79.652 [id number] MD MONSTER Gallego - [address] [place] [address] 01/22/2025 09:49:48 02/06/2025 07:49:04 Trochanteric bursitis of left hip 3688002942 41169 M70.62 [id number] Health Concerns Section Related Observation LastModified by Organization Detai ls LastModified Time None Recorded Concern Status LastModified by Organization Details LastModified Time None Recorded Advance Directives Directive None Recorded Payers Insurance Date Sequence Insurance Name Policy Number Policy Murphy Covered Member ID Murphy Member ID Guarantor Name 01/22/2025 1 [place] [facility] [address] [facility] Iliana James [id number] Iliana James Notes Date Note Type Note Provider Name and Address Organization Details Recorded Time text/html CC: Left hip painHPI: Patient is a 59-year-old Burkinan-speaking female here today for chief complaint of left lateral hip pain. She reports longstanding history of pain localizing to the lateral aspect of her hip. She has had previous treatment including physical therapy and injections. She estimates she has had about 5 injections which have been providing gradually diminishing relief. She has pain sleeping on her side and difficulty rising from a seated position, walking long distances, walking on stairs. Similar symptoms on the right side but not as severe. She recently started having some lower back pain. She denies any radicular symptoms or paresthesias. PMH/PSH/MEDS/ALL/FMH/SOC HX/ROS are reviewed in detail per my medical intake sheet.General Exam: Vital signs are as noted belowMental status: Alert and lucid. 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 No spasticity or clonus noted.EXAMINATION: The patient is well appearing and in no apparent distress. Alert and oriented x3. Gait isTrendelenburg. She is unable to perform single-leg stanceExam of the left hip demonstrates no obvious deformity upon inspection. No edema, erythema, ecchymosis, or lesions. Neurovascularly intact. Tenderness is present over the greater trochanter There is a palpable small mass over the left anterior thigh which is also tender consistent with lipoma. ROM full in all planes. Negative impingement sign, Jessee's, Stinchfield test, and straight leg raise. No instability. 5/5 strength. Calf/leg compartments soft and compressible.X-rays ordered, obtained and reviewed at [facility] previously includes an AP pelvis and lateral view bilateral hips. Images reveal the joint spaces to be well maintained. No evidence for an acute fracture or lesion. MRI left hip obtained on June 07, 2024, images and report independently reviewed: Partial-thickness tear anterior aspect of the gluteus medius and gluteus minimus with trochanteric bursitis. Mild osteoarthritis with labral tear. 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 She has failed conservative treatment in the form of rest, activity modification, oral medication, physical therapy, and multiple cortisone injections. She feels as if her left hip pain is related to her quality of life. She is looking for definitive treatment for her hip. We discussed treatment options including nonoperative management consisting of activity modification, corticosteroid injections, PRP injections,home exercises, PT, or surgery: Left hip open abductor tendon repair, trochanteric bursectomy. Nature of the proposed procedure, reasonable expectations, anticipated rehabilitation timeline, and restrictions discussed. Risks, benefits, and alternatives of the procedure reviewed. Risks include bleeding, infection, damage to neurovascular structures, pain after surgery, retear, pain, weakness, inability to return to previous level of activity, medical and anesthesia related complications, and thromboembolic events. Counseled the patient they would require bracing and 6 weeks of protected weightbearing after the surgery. Would require several months of formal physical therapy. All questions answered. Patient requesting moving forward with surgery. Patient will need crutches and postop hip abduction brace. Juan Carlos Mercado MD [address] [place] [address] [address], [place], [address], [facility] 08/07/2024 12:55:29 5 text/html Surgery: Left hip open abductor tendon repair, trochanteric bursectomy September 14, 2024HPI: Patient here today for post op visit. tankroom tender services utilized for the visit. She reports she is doing very well. She has less lateral hip pain than she had prior to surgery. Does have some anterior thigh pain and discomfort. She currently at [facility] with plans to be discharged to home. PEPatient appears comfortable, no distress Aquacel dressing removed. Lateral surgical incision clean, dry, intactSoft compressible compartments. No tenderness to palpation hip flexorsNo tenderness to palpation at the calfNeurovascularly intact distallyPROM: Deferred Plan: Reviewed post op rehab plan and restrictions. Patient will be 20 pounds, foot flat weightbearing on the operative extremity for the first 6 weeks. After 6 weeks can start partial progressive weightbearing with goal to ambulate without pain with normal gait pattern. She should use the hip brace when she is ambulating. Can remove for sitting, sleeping, hygiene, therapy. Avoid active hip abduction and passive hip adduction across the midline. PT order in chart. She will follow-up with one of our sports PA providers in approximately 4 weeks. Juan Carlos Mercado MD [address] [place] [address], [place], [address], [facility] 10/02/2024 12:22:23 5 text/html I am seeing the patient today under the supervision of Dr. Bates who was available but who did not see the patient. History is taken from the patient HPI: Patient here today 59-year-old female concerning left hip glute medius and minimus ORIF as well as left greater trochanteric resection by Dr. Mercado 09/14/2024. She is back today in her hip abductor brace. She is [place]-speaking. Interview today conducted through use the it service continuity supervisor service. She is otherwise doing well. Still having pain. She was in a rehab facility for a month and has been since discharged. She tells me she has not had any home physical therapy since that time. She has not called any facilities to get outpatient therapy. Dr. Mercado had previously given her physical therapy orders. Past family, medical, social history and review of systems has been reviewed, updated and is located in the patient s chart. EXAMINATION: Patient ambulatory into the office with the well-fitted brace and her walker as well as her . Ambulatory the slight antalgic gait. Alert oriented and appropriate. Incisions are well-healed with no signs of infection erythema or purulent drainage. DIAGNOSIS: Left hip open abductor repair and bursectomy 09/14/2024 MEDICAL DECISION MAKING: Patient is given new physical therapy orders. She may wean out of the brace. Recheck with Dr. Mercado in 6 weeks. Questions answered on her behalf and follow-up made. Today's visit involved examining the patient, reviewing the history, reviewing the radiographic studies, counseling the patient regarding treatment options, and the administrative tasks including placing orders, preparing patient information and home handouts and preparing the visit note. This note was generated with [facility] speech recognition residential property manager dictation software. Please excuse any errors that may have been overlooked during review of this note. Sometimes, these errors may affect the content or meaning of a given sentence. Please call for corrections. Huma Durham PA-C [address], [place], [address], [facility] 10/28/2024 15:06:15 5 text/html Surgery: 1. Left hip open abductor tendon repair, trochanteric bursectomy September 14. Left thigh painHPI: Patient here today for post op visit. tankroom tender services utilized for the visit. Now slightly less than 3 months out from surgery. She is now ambulating with a rolling walker. Now weightbearing as tolerated. She reports overall improvement in regards to her lateral hip pain however still having pain when she lies on her side. Her main complaint today is pain over her thigh aggravated with weightbearing. She has been told she has a lipoma. Has not had any imaging however. PEPatient appears comfortable, no distress She is ambulating with mildly antalgic gait with rolling walker Left hip surgical incision well-healed, mildly tender to palpation She reports positive tenderness palpation over the middle third thigh. No discernible masses palpable.No tenderness to palpation at the calfNeurovascularly intact distallyPROM: Deferred Imaging previously obtained x-rays of the left hip which include the majority of the left femur appear normal. No fractures, periosteal thickening or calcifications. Impression: 1. Postop visit status post left abductor tendon repair and trochanteric bursectomy. 2. Left thigh pain-rule out lipomaPlan: Patient will continue with home rehab. Can continue weightbearing as tolerated and begin transition off the walker if able to ambulate pain-free with normal gait. She reports ongoing deep thigh pain and has been diagnosed with a lipoma from another provider. No previous imaging. No definitive palpable masses on examination today however we are going to order MRI left thigh with and without contrast for further evaluation. She will follow-up in 4 weeks to review results from that study Juan Carlos Mercado MD [address], [place], [address], [place] - [facility] 12/05/2024 11:35:37 5 text/html Surgery: 1. Left hip open abductor tendon repair, trochanteric bursectomy September 14. Left thigh painHPI: Patient here today for post op visit. tankroom tender services utilized for the visit. Now slightly less than 3 months out from surgery. She is now ambulating with a rolling walker. Now weightbearing as tolerated. She reports overall improvement in regards to her lateral hip pain however still having pain when she lies on her side. Her main complaint today is pain over her thigh aggravated with weightbearing. She has been told she has a lipoma. Has not had any imaging however.Interval history January 22, 2025: Patient is here today to review MRI results from her thigh. She reports no interval changes. Continues to have tenderness and pain over the mid anterior and ateral aspect of her thigh PEPatient appears comfortable, no distress She is ambulating with mildly antalgic gait with a caneLeft hip surgical incision well-healed, no tenderness palpation over the trochanteric bursaShe reports positive tenderness palpation over the middle third anterior lateral aspect of her. No discernible masses palpable.No tenderness to palpation at the calfNeurovascularly intact distally Imaging previously obtained x-rays of the left hip which include the majority of the left femur appear normal. No fractures, periosteal thickening or calcifications MRI left thigh obtained on January 07, 2025, images and report independently reviewed. The MRI of the thigh is unremarkable. There are no soft tissue masses. There is some nonspecific subcutaneous edema at the anterolateral thigh. Postsurgical changes at the greater trochanteric from abductor tendon repair are noted. Impression: 1. Postop visit status post left abductor tendon repair and trochanteric bursectomy. 2. Left thigh pain of unclear etiology with normal MRI findingsPlan: Reviewed MRI results with the patient today. MRI was unremarkable. There is no masses. There are no bony abnormalities. There is some nonspecific edema within the subcutaneous tissues superficial to the fascia. Unclear if this would be source of her pain. No role for aggressive surgical intervention or further workup for this at this point. May benefit from other modalities such as soft tissue mobilization, deep tissue massage, chiropractic treatment. Do not think there be any role for any surgery although she could consider evaluation with general surgeon or other specialist such as pain management for further input. All questions answered today. Follow-up will arrange as symptoms dictate. Juan Carlos Mercado MD [address] [place] [address] [address], [place], [address], [facility] 01/22/2025 10:23:58 OBGyn Episode No OBEpisode recorded.
--- OUTSIDE RECORDS SUMMARY | 2025-04-12 16:40 | XMS_ITS | Encounter Summary ---
Author Organization [employer] Address [address] [place] [address] Care Team Providers Care Software Firmware Engineer Name Role Phone Celine Aldana MD Primary Care Provider [phone] Reason for Referral * Consultation (Routine) - Closed Specialty Diagnoses / Procedures Referred By Contac t Referred To Contact Neurosurgery Diagnoses Meningioma (CMS/HCC) (HCC) Celine Aldana MD [address] [place] [address] Phone: tel: fax: Neurosurgery, [address] [place], [place] Phone: tel: fax: Referral ID Status Reason Start Date Expiration Date V isits Requested Visits Authorized [id number] Closed Specialty Services Required 04/24/2024 04/24/2025 10 10 Encounter Details Date Type Department Care Team (Late st Contact Info) Description 04/21/2024 Orders Only [facility] MEDICINE [address] [place], [place] [phone] Celine Aldana MD [address] [place], [place] [phone] Meningioma (CMS/HCC) (Primary Dx) Social History Tobacco [...] Description 04/14/2025 12:45 PM EST Office Visit [facility] ADULT DENTAL [address] [place] [address] Dayana Alarcon [address] [place] [address] 04/15/2025 10:15 AM EST Office Visit [facility] MEDICINE [address] [place] [phone] Celine Aldana MD [address] [place] [address] Scheduled Referrals Name Type Priority Associated Diagnoses [...] documented as of this encounter Care Teams Software Firmware Engineer Relationship Specialty Start Date End Date Celine Aldana MD [address] [place] [address] PCP - General Family Medicine 06/10/18 [place] 10/08/24 documented as of this encounter
--- OUTSIDE RECORDS SUMMARY | 2025-04-12 16:40 | XMS_ITS | Clinical Summary ---
Author Organization [employer] Address [address] [facility] [address] [place] [address] Care Team Providers Care Groover And Striper Operator Name Role Phone Celine Aldana MD Primary Care Provider [phone] Allergies No known active allergies Medications Spacer/Aero-Hold ing Chambers (OptiChamber Marian) misc 1 each every 4 (four) hours if needed (asthma). 1 each 4 Active pantoprazole (ProtoNix) 40 MG EC tablet TAKE 1 TABLET BY MOUTH EVERY DAY 90 tablet 3 4 Active cetirizine (ZyrTEC) 10 MG tabletIndication s:Allergic rhinitis, unspecified seasonality, unspecified trigger TAKE 1 TABLET BY MOUTH EVERY DAY IN THE MORNING 90 tablet 2 4 Active clonazePAM (KlonoPIN) 1 MG tablet Take 1 tablet by mouth at bedtime. 5 Active busPIRone (Buspar) 10 MG tablet Take 1 tablet by mouth 2 times daily. Active cholecalciferol (Vitamin D-3) 25 MCG (1000 UT) tablet Take 1 tablet (25 mcg) by mouth Once per day. 90 tablet 3 5 Active albuterol (Ventolin HFA) 108 (90 Base) MCG/ACT inhaler INHALE 2 PUFFS BY MOUTH EVERY 4 TO 6 HOURS NEEDED (FOR ASTHMA) 18 g 3 5 Active Tirzepatide-Weig ht Management (Zepbound) 2.5 MG/0.5ML solution auto-injectorInd ications:Class 2 obesity due to excess calories without serious comorbidity with body mass index (BMI) of 39.0 to 39.9 in adult Inject 0.5 mL (2.5 mg) under the skin 1 (one) time per week. 2 mL 11 5 Active bacitracin-polym yxin b (Polysporin) ointment Apply topically 2 times daily. Apply to affected area daily 30 g 5 Active Active Problems Problem Noted Date [...] on 09/14/24 - s/p short-term rehab in [facility] - received home PT via [facility] [...] on 09/14/24 - s/p short-term rehab in [facility] - receiving home PT via [facility] [...] - sleep study on 04/12/24 showed no EMKA Assessment & Plan (03/02/2024 12:12 PM EDT): [...] on 09/14/24 - s/p short-term rehab in [facility] - receiving home PT via [facility] [...] on 09/14/24 - s/p short-term rehab in [facility] - starting home PT soon - [...] - Mental / Behavioral health: Connected with S History of bariatric surgery 12/11/2022 Assessment & [...] right foot / heel pain -referred to log buyer Dr. Grossman / VIK - continue comfortable [...] foot / heel pain -refer to another log buyer Assessment & Plan (07/28/2022 6:29 AM EST): -Hx plantar fasciitis -s/p left foot plantar fasciotomy -currently having right foot / heel pain -refer to log buyer Chronic back pain 07/09/2016 Assessment & Plan [...] Assessment & Plan (01/29/2025 6:40 AM EDT): -[facility] provider Robson -Continue CBT -Continue buspirone and clonazepam as prescribed -Treatment Hx: sertraline, which was switched to buspirone. She could not tolerate higher dose of buspirone. Assessment & Plan (03/02/2024 12:18 PM EDT): -[facility] provider Robson -Continue CBT -Continue buspirone and clonazepam as prescribed Assessment & Plan (07/28/2022 6:30 AM EST): -[facility] provider Robson -Continue CBT -Continue sertraline and [...] after discontinuation. - check the status of Zebrandonound PA. - continue working on lifestyle modifications [...] Encounters Date Type Department Care Team Description 03/30/2025 9:00 AM EDT Office Visit [facility] [address] [place] [phone] Woo Powell MD Onychomycosis (Primary Dx) 03/30/2025 Travel 01/29/[address] [address] Celine Aldana MD Prior Authorization ( PA: Zepbound) 01/29/[address] [address] Celine Aldana MD 01/28/2025 11:15 AM EDT Office Visit [address] [address] Celine Aldana MD Transaminitis (Primary Dx); Immunity status testing; Class 2 obesity; Impaired fasting glucose; Trochanteric bursitis of both hips; Bilateral hip pain; Dyslipidemia; Mass of left thigh; Mixed anxiety and depressive disorder 01/28/2025 Travel 01/27/[address] [address] Celine Aldana MD chart prep 01/25/[address] [address] Celine Aldana MD Prior Authorization 01/25/[address] [address] Celine Aldana MD Nurse Triage 01/22/[address] [address] Celine Aldana MD Pt question 01/19/2025 11:15 AM EDT Office Visit [address] [address] Celine Aldana MD Hypotension, unspecified hypotension type [...] without diagnosis of hypertension 01/19/2025 Orders Only [facility] [address] [facility] [place] [address] Celine Aldana MD 01/19/2025 Travel 01/18/2025 Telephone [facility] [address] [address] Celine Aldana MD chartprep 01/11/2025 Patient Outreach [facility] [address] [place] [address] Celine Aldana MD Pre-visit Planning (SDOH Screening negative and Tobacco screening negative) from Last 3 Months Immunizations Immunization Administration [...] Sign Reading Time Taken Comments Blood Pressure 129/78 03/30/2025 8:57 AM EDT Pulse 81 03/30/2025 8:57 AM EDT Temperature 36.8 C (98.2 F) 03/30/2025 8:57 AM EDT Respiratory Rate 16 03/30/2025 8:57 AM EDT Oxygen Saturation 98% 03/30/2025 8:57 AM EDT Inhaled Oxygen Concentration - - Weight 84.8 kg (187 lb) 03/30/2025 8:57 AM EDT Height 152.4 cm (5') 01/28/2025 11:08 AM EDT Body Mass Index 36.52 01/28/2025 11:08 AM EDT Plan of Treatment Upcoming Encounters Date Type Department Care Team (Late st Contact Info) Description 04/14/2025 12:45 PM EST Office Visit [facility] ADULT DENTAL [address] [place] [address] Dayana Alarcon [address] [place] [address] 04/15/2025 10:15 AM EST Office Visit [facility] [address] [place] [address] Celine Aldana MD [address] [place] [address] Health Maintenance Due Date Last Done Comments [...] 10/15/2024 SDOH Screening 01/11/2026 01/11/2025 Tobacco Screening 03/30/2026 03/30/2025 Mammogram 08/20/2026 08/20/2024, 03/0 12/2023, 08/09/2022, Additional [...] Quantitative, Real-Time PCR (02/01/2025 8:23 AM EDT) Pathologist [facility] Hepatitis C Antibody Nonreactive Nonreactive [facility] Comment:Antibodies to HCV no t detected; does not exclude early acuteHCV infection. Venous blood specimen / Unknown 02/01/2025 8:23 AM EDT 02/01/2025 11:03 AM EDT Celine Aldana MD LAB BLOOD ORDERABLES Final Resul t Performing Organization Address City/[facility]/ZIP Co de Phone Number [facility] [address] [place] [phone] * Hepatitis A Antibody, Total (02/01/2025 8:23 AM EDT) [facility] Hepatitis A Antibody IgG Nonreactive Nonreactive [facility] Venous blood specimen / Unknown 02/01/2025 8:23 AM EDT 02/01/2025 11:03 AM EDT Celine Aldana MD LAB BLOOD ORDERABLES Final Resul t Performing Organization Address City/[facility]/ZIP Co de Phone Number [facility] [address] [place] [phone] * Hepatitis B surface antigen, EIA (02/01/2025 8:23 AM EDT) [facility] Hepatitis B Surface Ag Negative Negative [facility] Venous blood specimen / Unknown 02/01/2025 8:23 AM EDT 02/01/2025 11:03 AM EDT Celine Aldana MD LAB BLOOD ORDERABLES Final Resul t [facility] [address] [place] [phone] * Hepatitis B Core Antibody, Total (02/01/2025 8:23 AM EDT) Hepatitis B Core Antibody Nonreactive Nonreactive [facility] Venous blood specimen / Unknown 02/01/2025 8:23 AM EDT 02/01/2025 11:03 AM EDT Celine Aldaan MD LAB BLOOD ORDERABLES Final Resul t Performing Organization Address [facility] Co de Phone Number [facility] [address] [place] [phone] * HIV-1/2 Antigen and Antibodies, Fourth Generation, with Reflexes (02/01/2025 8:23 AM EDT) HIV AB/AG Nonreactive Nonreactive [facility] Comment:HIV-1 p24 Ag and/or HIV-1/HIV-2 Ab not detected.A test result that is nonreactive does not exclude thepossibility of exposure to or infection with HIV-1 and/orHIV-2. Nonreactive results in this assay for individualswith prior exposure to HIV-1 and/or HIV-2 may be due toantigen and antibody levels that are below the limit ofdetection of this assay.The [employer] HIV Ag/Ab Combo assay result andsupplemental assay results should be interpreted inconjunction with the patient's clinical presentation,history and other laboratory results. If the results areinconsistent with clinical evidence, additional testing issuggested to confirm the result. Blood Venous blood specimen / Unknown 02/01/2025 8:23 AM EDT 02/01/2025 11:03 AM EDT Celine Aldana MD LAB BLOOD ORDERABLES Final Resul t Performing Organization Address [facility] Co de Phone Number [facility] [address] [place] [phone] * Hepatitis B Surface Antibody, Qualitative (02/01/2025 8:23 AM EDT) Pathologist [facility] ~Hepatitis B Surface Antibody NONREACTIVE Nonreactive [facility] Comment:Nonreactive: < 8.00 mIU/mL Venous blood specimen / Unknown 02/01/2025 8:23 AM EDT 02/01/2025 11:03 AM EDT us Celine Aldana MD LAB BLOOD ORDERABLES Final Resul t Performing Organization Address [facility] de Phone Number [facility] [address] [place] [phone] * (ABNORMAL) Hepatic Function Panel (02/01/2025 8:23 AM EDT) Pathologist [facility] Bilirubin, Total 0.7 0.0 - 1.0 mg/dL [facility] Bilirubin, Direct 0.2 0.0 - 0.5 mg/dL [facility] Aspartate Amino Transferase 25 5 - 31 U/L [facility] Alanine Aminotransferase 19 0 - 31 U/L [facility] Total Protein 7.0 6.5 - 8.0 g/dL [facility] Albumin Level 4.2 3.5 - 5.0 g/dL [facility] Alkaline Phosphatase 188(H) 39 - 117 U/L [facility] Blood Venous blood specimen / Unknown 02/01/2025 8:23 AM EDT 02/01/2025 11:03 AM EDT Celine Aldana MD LAB BLOOD ORDERABLES Final Resul t Performing Organization Address [facility] Co de Phone Number [facility] [address] [place] [phone] * US EXTREMITY LIMITED SOFT TISSUE LEFT (01/29/2025) Anatomical Region Laterality Modality Ultrasound Celine Aldana MD IMG US PROCEDURES Final Result * Vitamin D, 25-Hydroxy, Total, Immunoassay (01/19/2025 12:11 PM EDT) Vitamin D 25-OH Total 53.0 >30 ng/mL [facility] Comment: Health Based Reference Values*< 20 ng/mL [id number] ng/mL Insufficient> 30 ng/mL Sufficient*Ignacio WILEY. N [...] MD LAB BLOOD ORDERABLES Final Resul t [facility] [address] [place] [phone] [phone] * (ABNORMAL) Urinalysis, Complete, with Reflex to Culture (01/19/2025 12:11 PM EDT) Color Urine Dark Yellow [facility] Appearance Urine Clear [facility] PH 5.0 5.0 - 9.0 [facility] Glucose Urine UA Negative Negative mg/dL [facility] Urine Blood Negative Negative [facility] Specific [place] - Urine >=1.030(H) 1.005 - 1.025 [facility] Urine Protein Trace Neg-Trace mg/dL [facility] Urine Ketones Trace Negative mg/dL [facility] Nitrite Urine Negative Negative [facility] Leukocyte Esterase Urine Small (1+)(A) Negative [facility] RBC Urine 0-2 0 - 2 /HPF [facility] Urine WBC 0-5 0 - 5 /HPF [facility] Urine Squamous Epithelial Cell 6-10 0 - 2 /HPF [facility] Urine Bacteria None Seen None Seen [facility] Hyaline Casts, Urine 3-5 0 - 2 /LPF [facility] Urine 01/19/2025 12:1 1 PM EDT 01/19/2025 12:50 PM EDT Narrative [facility] - 01/19/2025 1:12 PM EDT Urine, Clean Catch us Celine Aldana MD LAB URINE ORDERABLES Final Resul t Performing Organization Address [facility]/ZIP Co de Phone Number [facility] [address] [place] [phone] * TSH with Reflex to Free T4 (01/19/2025 12:11 PM EDT) TSH reflex Free T4 0.53 0.32 - 4.0 uIU/mL [facility] Blood 01/19/2025 12:1 1 PM EDT 01/19/2025 1:21 PM EDT Celine Aldana MD LAB BLOOD ORDERABLES Final Resul t Performing Organization Address [facility]/ZIP Co de Phone Number [facility] [address] [place] [phone] * (ABNORMAL) Lipid Panel with Reflex to Direct LDL (01/19/2025 12:11 PM EDT) Triglycerides 149 <150 mg/dL [facility] Comment:Desirable Triglyceri de: less than 150 mg/dLBorderline High Triglyceride 150-199 mg/dLHigh Triglyceride: 200-499 mg/dLVery High Triglyceride: greater than or equal to 5OO mg/dL Cholesterol 222(H) <200 mg/dL [facility] Comment:Desirable Cholestero l: less than 200 mg/dLBorderline High Cholesterol: 200-239 mg/dLHigh Cholesterol: greater than 239 mg/dL LDL Cholesterol Calculated 150(H) <100 mg/dL [facility] Comment:Desirable LDL: less than 100 mg/dLNear Optimal/Above Optimal LDL: 110- 129 mg/dLBorderline High LDL: 130-159 mg/dLHigh LDL: 160-189 mg/dLVery High LDL: greater than or equal to 190 mg/dL HDL Cholesterol 43 >40 mg/dL [facility] Comment:Desirable HDL: great er than 40 mg/dL Note: This HDL assay may give artificially low results in patients with liver disease. Blood 01/19/2025 12:1 1 PM EDT 01/19/2025 1:21 PM EDT us Celine Aldana MD LAB BLOOD ORDERABLES Final Resul t [facility] [address] [place] [phone] * (ABNORMAL) CBC auto differential (01/19/2025 12:11 PM EDT) White Blood Count 7.3 4.8 - 10.8 X10*3/uL [facility] Red Blood Count 5.25 4.20 - 5.50 X10*6/uL [facility] Hemoglobin 14.0 12.0 - 16.0 g/dl [facility] Hematocrit 44.3 37.0 - 47.0 % [facility] Mean Corpuscular Volume 84.4 80.0 - 98.0 fL [facility] Mean Corpuscular Hemoglobin 26.7(L) 27.0 - 33.0 pg [facility] Mean Corpuscular HGB Conc 31.6 31.0 - 35.0 g/dl [facility] Red Cell Distribution Width 14.2 11.0 - 16.0 % [facility] Platelet Count 353 160 - 400 X10*3/uL [facility] Mean Platelet Volume 11.4 9.4 - 12.3 fL [facility] Neutrophils Percent Auto 51.5 45 - 73 % [facility] Imm Gran Pct Auto 0.1 0.0 - 0.4 % [facility] Lymphocytes Percent Auto 36.7 20 - 40 % [facility] Monocytes Percent Auto 9.5 2 - 11 % [facility] Eosinophils Percent Auto 1.8 0 - 4 % [facility] Basophils Percent Auto 0.4 0 - 2 % [facility] NRBC Pct Auto 0.0 0.0 - 0.2 /100WBC [facility] Neutrophils Absolute Auto 3.7 2.0 - 8.3 x10*3/uL [facility] Imm Gran Abs Auto 0.01 0.00 - 0.03 X10*3/uL [facility] Lymphocytes Absolute Auto 2.7 1.2 - 4.9 X10*3/uL [facility] Monocytes Absolute Auto 0.7 0.1 - 1.2 X10*3/uL [facility] Eosinophils Absolute Auto 0.1 0.0 - 0.4 X10*3/uL [facility] Basophils Absolute Auto 0.0 0.0 - 0.2 X10*3/uL [facility] NRBC Abs Auto 0.000 0.0 - 0.012 X10*3/uL [facility] Blood Venous blood specimen / Unknown 01/19/2025 12:11 PM EDT 01/19/2025 1:21 PM EDT us Celine Aldana MD LAB BLOOD ORDERABLES Final Resul t [facility] [address] [place] [phone] * Culture, Urine, Routine (01/19/2025 12:11 PM EDT) Urine Urine specimen obtained by clean catch procedure / Unknown 01/19/2025 12:11 PM EDT 01/19/2025 1:32 PM EDT Comment:UACC Narrative [facility] - 01/20/2025 1:11 PM EDT Strep agalactiae (Grp B) Quant 10,000 to 50,000 cfu/mL Susc N/A Susceptibility not routinely performed on this isolate. Specimen Source: Urine clean catch Celine Aldana MD LAB MICROBIOLOGY - GENERAL ORDER DEVONTE Final Result Performing Organization Address [facility] Co de Phone Number [facility] [address] [place] [phone] * Hemoglobin A1c (01/19/2025 12:11 PM EDT) Hemoglobin A1c 5.5 <6.0 % [facility] Comment:Hemoglobin A1C Refer ence Range Adults: 4.8 - 6.0 % Non diabetic: < 6.0 % Goal: < 7.0 %Additional Action Suggested: > 8.0 %Note: Hemoglobin A1c results are invalid for patients with abnormal amounts of HbF. Blood transfusions may impact the HbA1c concentration in the patient sample. Estimated Average Glucose 111 mg/dL [facility] Comment:eAG = Estimated ave rage glucose which is %A1C expressed asaverage glucose, using the formula of the F6Y-KhijklcDxfjakh Glucose study (ADAG), Diabetes Care, Vol.31,#8,Jan. 2007 Blood Venous blood specimen / Unknown 01/19/2025 12:11 PM EDT 01/19/2025 1:21 PM EDT Celine Aldana MD LAB BLOOD ORDERABLES Final Resul t Performing Organization Address [facility] Co de Phone Number [facility] [address] [place] [phone] * (ABNORMAL) Comprehensive Metabolic Panel (01/19/2025 12:11 PM EDT) Sodium 144 135 - 145 mmol/L [facility] Potassium 4.1 3.3 - 5.1 mmol/L [facility] Chloride 108 96 - 108 mmol/L [facility] Carbon Dioxide 27 22 - 29 mmol/L [facility] Anion Gap 13 12 - 20 [facility] Urea Nitrogen (BUN) 12 9 - 16 mg/dL [facility] Creatinine, Serum 0.73 0.5 - 1.4 mg/dL [facility] Estimated Glomerular Filt Rate >60 [facility] Comment:Chronic Kidney Disea se: Estimated GFR < 60 mL/min/1.36z4Vowjem Kidney Disease: Estimated GFR < 15 mL/min/1.73m2 Glucose 105 60 - 115 mg/dL [facility] Calcium 9.8 8.4 - 10.2 mg/dL [facility] Bilirubin, Total 0.8 0.0 - 1.0 mg/dL [facility] Aspartate Amino Transferase 35(H) 5 - 31 U/L [facility] Alanine Aminotransferase 34(H) 0 - 31 U/L [facility] Total Protein 7.3 6.5 - 8.0 g/dL [facility] Albumin Level 4.4 3.5 - 5.0 g/dL [facility] Alkaline Phosphatase 202(H) 39 - 117 U/L [facility] Blood Venous blood specimen / Unknown 01/19/2025 12:11 PM EDT 01/19/2025 1:21 PM EDT us Celine Aldana MD LAB BLOOD ORDERABLES Final Resul t [facility] [address] [place] [phone] * BI Mammogram Screening Tomosynthesis Bilateral (08/20/2024 1:30 PM EDT) Anatomical Region Laterality Modality Breast Bilateral Mammography 08/20/2024 1:30 PM EDT Narrative 08/29/2024 10:40 AM EDT [address] [place] [address] Mammography Report Signed Patient: Iliana James MR#: [id number] 0 : 1965 Acct:[id number] Age/Sex: 59 / F ADM Date: 08/20/24 Loc: HO.MAMMO Attending Dr: Celine Aldana MD Ordering Physician: Celine Aldana MD Results: 1Negative Date of Service: 08/20/24 Follow Up: 1 Year From Orig inal Mammogram Procedure(s): MM tomosynthesis screening BI Accession Number(s): [id number] cc: Celine Aldana MD EXAMINATION: MM SCREENING [...] 08/29/24 1038 DD/ 1330 TD/TT: 08/20/24 1340 Apprentice Cosmetologist: Procedure Note Donotuseinterpreter, Image - 08/29/[address] [place] [address] Mammography Report Signed Patient: Iliana James EMR#: [id number] 0 : 1965Acct:[id number] Age/Sex: 59 / FADM Date: 08/20/24 Loc: HO.MAMMO Attending Dr: Celine Aldana MD Ordering Physician: Celine Aldana MDResults: 1Negative Date of Service: 08/20/24Follow Up: 1 Year From Orig inal Mammogram Procedure(s): MM tomosynthesis screening BI Accession Number(s): [id number] cc: Celine Aldana MD EXAMINATION: MM SCREENING [...] 08/29/24 1038 DD/ 1330 TD/TT: 08/20/24 1340 Apprentice Cosmetologist: Celine Aldana MD IM BI PROCEDURES Edited Result - Final * Hm Colonoscopy (05/27/2014) Colonoscopy Normal Normal 05/27/2014 Historical Provider HEALTH MAINTENANCE Final Result from Last 3 Months or Most Recently Relevant to Health Maintenance Insurance C3 [facility] MEDICAID STAND ADULT Advance Directives Documents on File Type Date Recorded Patient Drawing Checker Expl anation Advance Directives and Living Will 10/20/2024 1:23 PM MOLST Advance Directives and Living Will 10/20/2024 11:18 AM Health Care Proxy Care Teams Groover And Striper Operator Relationship Specialty Start Date End Date Celine Aldana MD [address] [place] [phone] PCP - General Family Medicine 06/10/18 Milo 10/08/24
--- OUTSIDE RECORDS SUMMARY | 2025-04-12 16:40 | XMS_ITS | Clinical Summary ---
Author Organization [address] Address [address] [place] [address] Phone Care Team Providers Care Garnett Feeder Name Role Phone Celine Aldana MD Primary Care Provider [phone] Social History Tobacco Use Types Packs/Day Years [...] RSV Immunization Adult Patients (1 - Risk 50-74 years 1-dose series) 2013 Cholesterol Screening (Lipid Panel) 01/03/2024 HIV Screening [...] topic Insurance MEDICAID - [place] Care Teams Garnett Feeder Relationship Specialty Start Date End Date Celine Aldana MD [address] [place] [phone] PCP - General 07/01/23
--- OUTSIDE RECORDS SUMMARY | 2025-04-12 16:40 | XMS_ITS | Encounter Summary ---
Author Organization [employer] Address [address] [facility] [address] [place] [address] Care Team Providers Care Coke Crane Operator Name Role Phone Celine Aldana MD Primary Care Provider [phone] Reason for Visit * Reason Onset Date Comments Nurse Triage 01/25/2025 Encounter Details Date Type Department Care Team ([facility] st Contact Info) Description 01/25/2025 Telephone [facility] MEDICINE [address] [place], [place] [phone] Celine Aldana MD [address] [place], [place] [phone] Nurse Triage Social History Tobacco Use Types [...] 01/25/2025 3:52 PM EDT Triage call with [facility] historic interpreter [place] [id number]. Pt reports having had surgery on left [...] higher acuity questions Please contact pt at [phone]. (Malian Speaker) documented in this encounter Plan of Treatment Upcoming Encounters Date Type Department Care Team (Late st Contact Info) Description 04/14/2025 12:45 PM EST Office Visit [facility] ADULT DENTAL [address] [place] [address] Agnes, Dayana [address] [place] [address] 04/15/2025 10:15 AM EST Office Visit [facility] MEDICINE [address] [place] [address] Celine Aldana MD [address] [place] [address] documented as of this encounter Visit Diagnoses Not on filedocumented in this encounter Additional Health Concerns Assessment Noted Time PHQ-9 Depression Total Score: 7 03/02/20 24 9:35 AM EDT documented as of this encounter Care Teams Coke Crane Operator Relationship Specialty Start Date End Date Celine Aldana MD [address] [place] [id number] PCP - General Family Medicine 06/10/18 Milo 10/08/24 documented as of this encounter
--- OUTSIDE RECORDS SUMMARY | 2025-04-12 16:40 | XMS_ITS | Encounter Summary ---
Author Organization [employer] Address [address] [place] [address] Care Team Providers Care Wash House Supervisor Name Role Phone Celine Aldana MD Primary Care Provider [phone] Encounter Details Date Type Department Care Team (Late st Contact Info) Description 09/30/2024 Lab Requisition [facility] - Main Lab [address] [place] [address] Damion Patel MD [address] [place], [place] [phone] Anemia, unspecified Social History Tobacco Use Types [...] mmol/L LAB CHEMISTRY METHOD 10/01/2024 9:13 AM [facility] Potassium 4.5 3.5 - 5.5 mmol/L LAB CHEMISTRY METHOD 10/01/2024 9:13 AM [facility] Chloride 107 96 - 110 mmol/L LAB CHEMISTRY METHOD 10/01/2024 9:13 AM [facility] CO2 30 21 - 32 mmol/L LAB CHEMISTRY METHOD 10/01/2024 9:13 AM [facility] Anion Gap 6 3 - 11 LAB CHEMISTRY METHOD 10/01/2024 9:13 AM [facility] Glucose 94 70 - 100 mg/dL LAB CHEMISTRY METHOD 10/01/2024 9:13 AM [facility] BUN 16 5 - 25 mg/dL LAB CHEMISTRY METHOD 10/01/2024 9:13 AM [facility] Creatinine 0.59 0.50 - 1.10 mg/dL LAB CHEMISTRY METHOD 10/01/2024 9:13 AM [facility] eGFR 103 >=60 mL/min/1. 73m2 LAB CHEMISTRY METHOD 10/01/2024 9:13 AM [facility] Comment:Calculation based on the Chronic Kidney Disease Epidemiology Collaboration (CKD-EPI) equation refit without adjustment for race. BUN/Creatinine Ratio 27.1 LAB CHEMISTRY METHOD 10/01/2024 9:13 AM [facility] Calcium 9.6 8.5 - 10.5 mg/dL LAB CHEMISTRY METHOD 10/01/2024 9:13 AM [facility] Blood Venous blood specimen / Unknown Venipuncture / Unknown 10/01/2024 6:37 AM EDT 10/01/2024 8:15 AM EDT us Damion Patel MD LAB BLOOD ORDERABLES Final Result [facility] [address] [place] [address], * (ABNORMAL) Complete blood count (10/01/2024 6:37 AM EDT) WBC 8.6 4.8 - 10.8 K/mcL LAB HEMETOLOGY METHOD 10/01/2024 8:37 AM [facility] RBC 4.50 3.80 - 4.80 M/mcL LAB HEMETOLOGY METHOD 10/01/2024 8:37 AM [facility] Hemoglobin 12.1 11.5 - 16.0 g/dL LAB HEMETOLOGY METHOD 10/01/2024 8:37 AM [facility] Hematocrit 39.0 35.0 - 47.0 % LAB HEMETOLOGY METHOD 10/01/2024 8:37 AM [facility] MCV 87.1 79.0 - 98.0 FL LAB HEMETOLOGY METHOD 10/01/2024 8:37 AM [facility] MCH 27.0 27.0 - 32.0 pcg LAB HEMETOLOGY METHOD 10/01/2024 8:37 AM [facility] MCHC 31.0(L) 32.0 - 37.0 g/dL LAB HEMETOLOGY METHOD 10/01/2024 8:37 AM [facility] RDW 13.7 11.0 - 15.0 % LAB HEMETOLOGY METHOD 10/01/2024 8:37 AM [facility] Platelets 382 130 - 400 K/mcL LAB HEMETOLOGY METHOD 10/01/2024 8:37 AM [facility] MPV 11.0 7.0 - 11.0 FL LAB HEMETOLOGY METHOD 10/01/2024 8:37 AM [facility] NRBC 0.0 <1.0 % LAB HEMETOLOGY METHOD 10/01/2024 8:37 AM [facility] NRBC Absolute 0.00 <0.10 K/mcL LAB HEMETOLOGY METHOD 10/01/2024 8:37 AM [facility] Blood Venous blood specimen / Unknown Venipuncture / Unknown 10/01/2024 6:37 AM EDT 10/01/2024 8:15 AM EDT us Damion Patel MD LAB BLOOD ORDERABLES [facility] ([facility]) [facility] [address] [place] [address], documented in this encounter Visit Diagnoses Diagnosis Anemia, unspecified documented in this encounter Care Teams Wash House Supervisor Relationship Specialty Start Date End Date Celine Aldana MD [address] [place] [phone] PCP - General 07/01/23 documented as of this encounter
--- OUTSIDE RECORDS SUMMARY | 2025-04-12 16:40 | XMS_ITS | Encounter Summary ---
Author Organization [employer] Address [address] [place] [address] Care Team Providers Care Keycase Assembler Name Role Phone Celine Aldana MD Primary Care Provider [phone] Encounter Details Date Type Department Care Team (Late st Contact Info) Description 09/28/2024 Lab Requisition [facility] - Main Lab [address] [place] [address] Damion Patel MD [address] [place], [place] [phone] Anemia, unspecified; Other asthma; Anxiety disorder, unspecified [...] LAB CHEMISTRY METHOD 09/29/2024 11:42 AM EDT [facility] Potassium 4.3 3.5 - 5.5 mmol/L LAB CHEMISTRY METHOD 09/29/2024 11:42 AM EDT [facility] Chloride 108 96 - 110 mmol/L LAB CHEMISTRY METHOD 09/29/2024 11:42 AM [facility] CO2 28 21 - 32 mmol/L LAB CHEMISTRY METHOD 09/29/2024 11:42 AM [facility] Anion Gap 8 3 - 11 LAB CHEMISTRY METHOD 09/29/2024 11:42 AM [facility] Glucose 85 70 - 100 mg/dL LAB CHEMISTRY METHOD 09/29/2024 11:42 AM [facility] BUN 15 5 - 25 mg/dL LAB CHEMISTRY METHOD 09/29/2024 11:42 AM [facility] Creatinine 0.57 0.50 - 1.10 mg/dL LAB CHEMISTRY METHOD 09/29/2024 11:42 AM [facility] eGFR 104 >=60 mL/min/1. 73m2 LAB CHEMISTRY METHOD 09/29/2024 11:42 AM [facility] Comment:Calculation based on the Chronic Kidney Disease Epidemiology Collaboration (CKD-EPI) equation refit without adjustment for race. BUN/Creatinine Ratio 26.3 LAB CHEMISTRY METHOD 09/29/2024 11:42 AM [facility] Calcium 9.4 8.5 - 10.5 mg/dL LAB CHEMISTRY METHOD 09/29/2024 11:42 AM [facility] Blood Venous blood specimen / Unknown Venipuncture / Unknown 09/29/2024 8:05 AM EDT 09/29/2024 9:09 AM EDT us Damion Patel MD LAB BLOOD ORDERABLES Final Result [facility] [address] [place] [address], * (ABNORMAL) Complete blood count (09/29/2024 8:05 AM EDT) WBC 8.3 4.8 - 10.8 K/mcL LAB HEMETOLOGY METHOD 09/29/2024 10:42 AM [facility] RBC 4.40 3.80 - 4.80 M/mcL LAB HEMETOLOGY METHOD 09/29/2024 10:42 AM [facility] Hemoglobin 11.8 11.5 - 16.0 g/dL LAB HEMETOLOGY METHOD 09/29/2024 10:42 AM [facility] Hematocrit 37.4 35.0 - 47.0 % LAB HEMETOLOGY METHOD 09/29/2024 10:42 AM [facility] MCV 85.8 79.0 - 98.0 FL LAB HEMETOLOGY METHOD 09/29/2024 10:42 AM [facility] MCH 27.1 27.0 - 32.0 pcg LAB HEMETOLOGY METHOD 09/29/2024 10:42 AM [facility] MCHC 31.6(L) 32.0 - 37.0 g/dL LAB HEMETOLOGY METHOD 09/29/2024 10:42 AM [facility] RDW 13.6 11.0 - 15.0 % LAB HEMETOLOGY METHOD 09/29/2024 10:42 AM [facility] Platelets 369 130 - 400 K/mcL LAB HEMETOLOGY METHOD 09/29/2024 10:42 AM [facility] MPV 10.9 7.0 - 11.0 FL LAB HEMETOLOGY METHOD 09/29/2024 10:42 AM [facility] NRBC 0.0 <1.0 % LAB HEMETOLOGY METHOD 09/29/2024 10:42 AM [facility] NRBC Absolute 0.00 <0.10 K/mcL LAB HEMETOLOGY METHOD 09/29/2024 10:42 AM [facility] Blood Venous blood specimen / Unknown Venipuncture / Unknown 09/29/2024 8:05 AM EDT 09/29/2024 9:09 AM EDT Damion Patel MD LAB BLOOD ORDERABLES Final Result [facility] ([facility]) [facility] [address] [place] [address], documented in this encounter Visit Diagnoses Diagnosis Anemia, unspecified Other asthma Anxiety disorder, unspecified documented in this encounter Care Teams Keycase Assembler Relationship Specialty Start Date End Date Celine Aldana MD [address] [place] [phone] PCP - General 07/01/23 documented as of this encounter
--- OUTSIDE RECORDS SUMMARY | 2025-06-03 19:00 | XMS_ITS | Clinical Summary ---
Author Organization Unknown Care Team Providers Care Livestock Slaughterer Name Role Phone GEOVANNA POP, LEIGHANN Unavailable Unavailable GASPER CHRISTIAN RN Unavailable Unavailable Payers Payer Name Policy Type Policy Number Effective Date Expira tion Date MEDICAID [facility] [id number] Problems Condition Name Condition Details Condition Category [...] mg tablet,shelton yed release 10-08 00:00: 00 04-04 23:59 :00 No [id number] 1 tablet DAILY 1 tablet DAILY (route: oral) Med Classific ation: Analgesic , Anti-infl ammatory or Antipyret ic clonazepam 1 mg tablet 10-08 00:00: 00 Yes [id number] 0.5 tablet 3 TIMES DAILY 0.5 tablet 3 TIMES DAILY (route: oral) Med Classific ation: Central Nervous System Agents oxycodone 5 mg tablet 10-08 00:00: 00 04-03 23:59 :00 No [id number] Per instruc tions EVERY 4 HOURS Per instructio ns EVERY 4 HOURS (route: oral) Med Classific ation: Analgesic , Anti-infl ammatory or Antipyret ic acetaminoph en 325 mg tablet 10-08 00:00: 00 Yes [id number] 3 tablet EVERY 8 HOURS 3 tablet EVERY 8 HOURS (route: oral) Med Classific ation: Analgesic , Anti-infl ammatory or Antipyret ic Airsupra 90 mcg-80 mcg/actuati on HFA aerosol inhaler 10-08 00:00: 00 Yes [id number] WHEEZING OR SHORTNESS OF BREATH 1 puff EVERY 4 HOURS 1 puff EVERY 4 HOURS (route: inhalation ) Med Classific ation: Respirato ry Therapy Agents buspirone 10 mg tablet 10-08 00:00: 00 04-04 23:59 :00 No [id number] FOR ANXIETY 1 tablet DAILY 1 tablet DAILY (route: oral) Med Classific ation: Central Nervous System Agents Calcium Antacid 200 mg (as calcium carbonate 500 mg) chewable tablet 10-08 00:00: 00 Yes [id number] 1 tablet EVERY 6 HOURS 1 tablet EVERY 6 HOURS (route: oral) Med Classific ation: Gastroint estinal Therapy Agents cetirizine 5 mg tablet 10-08 00:00: 00 Yes [id number] 1 tablet DAILY 1 tablet DAILY (route: oral) Med Classific ation: Respirato ry Therapy Agents magnesium hydroxide 400 mg/5 mL oral suspension 10-08 00:00: 00 04-03 23:59 :00 No [id number] 30 mL DAILY 30 mL DAILY (route: oral) Med Classific ation: Gastroint estinal Therapy Agents pantoprazol e 40 mg tablet,shelton yed release 10-08 00:00: 00 Yes [id number] 1 tablet DAILY 1 tablet DAILY (route: oral) Med Classific ation: Gastroint estinal Therapy Agents bacitracin 500 unit/gram topical ointment 2024-06 00:00: 00 Yes [id number] 1 inch DAILY 1 inch DAILY (route: topical) Med Classific ation: Dermatolo gical cholecalcif daljit (vitamin D3) 25 mcg (1,000 unit) capsule 2024-06 00:00: 00 Yes [id number] 1 capsule DAILY 1 capsule DAILY (route: oral) Med Classific ation: Electroly te Balance-N utritiona l Products duloxetine 30 mg capsule,del ayed release 2024-06 00:00: 00 Yes [id number] 30 mg DAILY 30 mg DAILY (route: oral) Med Classific ation: Central Nervous System Agents Zepbound 2.5 mg/0.5 mL subcutaneou s pen injector 2024-06 00:00: 00 Yes [id number] 2.5 mg WEEKLY 2.5 mg WEEKLY (route: subcutaneo us) Med Classific ation: Weight Loss/Gain Agents Immunizations Ordered Immunization Name Filled Immunization Name Date Status Comments Refusal Reason REFUSED FLU, PPV 2024-10-08 00:00:00 Vital Signs Vital Name Observation Time Observation Value Commen ts Temperature 2025-04-10 11:54:00.000 98.6 [degF] Temperature 2025-04-07 09:40:00.000 98.6 [degF] Pulse 2025-04-10 11:54:00.000 82 /min Pulse 2025-04-07 09:40:00.000 82 /min Respirations 2025-04-10 11:54:00.000 20 /min Respirations 2025-04-07 09:40:00.000 20 /min Systolic Blood Pressure 2025-04-10 11:54:00.000 140 mm [Hg] Systolic Blood Pressure 2025-04-07 09:40:00.000 142 mm [Hg] Diastolic Blood Pressure 2025-04-10 11:54:00.000 78 mm [Hg] Diastolic Blood Pressure 2025-04-07 09:40:00.000 88 mm [Hg] Plan of Treatment Planned Activity Planned Date Details Comments Future Scheduled Test SKILLED NU RSE TO EVALUATE PATIENT, IDENTIFY PRIMARY AND CO-MORBID CONDITIONS CODED PER CODING GUIDELINES, AND DEVELOP PATIENT SPECIFIC PLAN OF CARE THAT INCLUDES PATIENT GOAL FOR HOME HEALTH. PLAN OF CARE TO INCLUDE 3 PRN VISIT(S) FOR OASIS DATA COLLECTION/COMPREHENSIVE ASSESSMENT AT TIMEPOINTS PER FEDERAL REGULATIONS. THIS INCLUDES VISITS FOR REJI, RECERT, SCIC, AND/OR DC. [code = SKILLED NURSE TO EVALUATE PATIENT, IDENTIFY PRIMARY AND CO-MORBID CONDITIONS CODED PER CODING GUIDELINES, AND DEVELOP PATIENT SPECIFIC PLAN OF CARE THAT INCLUDES PATIENT GOAL FOR HOME HEALTH. PLAN OF CARE TO INCLUDE 3 PRN VISIT(S) FOR OASIS DATA COLLECTION/COMPREHENSIVE ASSESSMENT AT TIMEPOINTS PER FEDERAL REGULATIONS. THIS INCLUDES VISITS FOR REJI, RECERT, SCIC, AND/OR DC.] Future Scheduled Test SKILLED NU RSE FOR MEDICATION ADMINISTRATION PER MEDICATION LIST TO BE PERFORMED PERMD ORDERS. [code = SKILLED NURSE FOR MEDICATION ADMINISTRATION PER MEDICATION LIST TO BE PERFORMED PERMD ORDERS.] Future Scheduled Test PATIENT MA Y HAVE [...] WITH EXACERBATION FOR EARLY INTERVENTION OF COMPLICATIONS [code = SKILLED NURSE FOR O/A OF GENERAL HEALTH STATUS OF PAIN, CARDIAC, RESPIRATORY, GASTROINTESTINAL, GENITOURINARY, SKIN, NEUROLOGIC, ENDOCRINE SYSTEMS TO IDENTIFY CHANGES ASSOCIATED WITH EXACERBATION FOR EARLY INTERVENTION OF COMPLICATIONS] Future Scheduled Test SKILLED NU RSE FOR [...] CURRENT PAIN MANAGEMENT REGIMEN.] Future Scheduled Test PATIENT THAO S A RISK OF HOSPITALIZATION AND ED USE. SKILLED NURSE TO ESTABLISH SUPPORT MEASURES TO MINIMIZE RISK OF HOSPITALIZATION AND ED USE, AND INSTRUCT PATIENT/CAREGIVER ON METHODS TO REDUCE AVOIDABLE HOSPITALIZATION AND ED USE. [code = PATIENT HAS A RISK OF HOSPITALIZATION AND ED USE. SKILLED NURSE TO ESTABLISH SUPPORT MEASURES TO MINIMIZE RISK OF HOSPITALIZATION AND ED USE, AND INSTRUCT PATIENT/CAREGIVER ON METHODS TO REDUCE AVOIDABLE HOSPITALIZATION AND ED USE.] Future Scheduled Test SKILLED NU RSE TO [...] PROBLEMS.] Future Scheduled Test SKILLED NU RSE FOR O/A OF CLIENT'S CURRENT DEGREE OF HOPELESSNESS AND PROVIDE THERAPEUTIC INTERVENTIONS AND TEACHING DESIGNED TO ENHANCE THE CLIENT'S WELL BEING. [code = SKILLED NURSE FOR O/A OF CLIENT'S CURRENT DEGREE OF HOPELESSNESS AND PROVIDE THERAPEUTIC INTERVENTIONS AND TEACHING DESIGNED TO ENHANCE THE CLIENT'S WELL BEING.] Future Scheduled Test SKILLED NU RSE TO [...] AWARENESS FOR SAFETY AND WILL NOTIFY CLINICAL SCREENER AND BLENDER AND PHYSICIAN/PROVIDER WITH ANY CHANGE IN CONDITION. [code = SKILLED NURSE WILL MAINTAIN SITUATIONAL AWARENESS FOR SAFETY AND WILL NOTIFY CLINICAL SCREENER AND BLENDER AND PHYSICIAN/PROVIDER WITH ANY CHANGE IN CONDITION.] Goal 2024-12-02 Patient Goal - I WANT TO WALK WITH OUT PAIN, SCARED OF FALLING. Goal Patient Goal - I WANT TO WALK WITH OUT PAIN, SCARED OF FALLING. Goal 2025-04-03 Patient Goal - I WANT TO WALK WITH OUT PAIN, SCARED OF FALLING. Goal 2025-02-01 Patient Goal - I WANT TO WALK WITH OUT PAIN, SCARED OF FALLING. Goal Provider Goal - A PLAN OF CARE WILL BE ESTABLISHED THAT MEETS PATIENT'S SENIOR LIVING NEEDS AND INCLUDES PATIENT GOAL FOR HOME HEALTH. Goal Provider Goal - PATIENT WILL COMPLY WITH MEDICATION WHEN NURSE ADMINISTERS THROUGHOUT CERTIFICATION PERIOD. Goal Provider Goal - [...] OF CERTIFICATION PERIOD. Goal Provider Goal - PATIENT WILL HAVE SUPPORT MEASURES ESTABLISHED TO PREVENT HOSPITALIZATION AND ED USE AND PATIENT/CAREGIVER WILL VERBALIZE/DEMONSTRATE METHODS TO REDUCE AVOIDABLE HOSPITALIZATION AND ED USE BY END OF EPISODE. Goal Provider Goal - PATIENT/CAREGIVER WILL VERBALIZE UNDERSTANDING OF EDUCATION PROVIDED ON MEDICATIONS BY THE END OF THE CERTIFICATION PERIOD. Goal Provider Goal - PATIENT WILL VERBALIZE OWN ASSOCIATION OF FEELINGS OF HOPELESSNESS, AND 3 THERAPEUTIC TECHNIQUES TO DECREASE THESE FEELINGS BY THE END OF THIS CERTIFICATION. Goal Provider Goal - PSYCHOSOCIAL NEEDS WILL BE IDENTIFIED AND PLAN IMPLEMENTED TO MINIMIZE RISK THROUGHOUT CERTIFICATION PERIOD. Goal Provider Goal - PATIENT WILL REMAIN SAFE IN THE COMMUNITY AND WILL BE FREE OF DANGER TO SELF AND OTHERS THROUGHOUT THE CERTIFICATION PERIOD. Encounters Start Date/Time End Date/Time Encounter Type Admission Type Attending [facility] Care Facility Care Department Encounter ID Discharge Date Discharge Status Discharge Condition Discharge Reason Percent Goals Met 2025-04-06 00:00:00 2025-06-04 00:00:00 Outpatient RECERTIFIC GASPER WHEAT [facility] [id number] 3.23
== END 2025-04-12 14:15 | disposition home or self-care (01) ==
LOC: HO.LNP 14:14
PROVIDERS: PCP Family Medicine; Visit Provider Surgery
DX: D17.24 Benign lipomatous neoplasm of skin and subcutaneous tissue of left leg (principal)
CPT/HCPCS: 11402; 88304

== ENCOUNTER 2025-04-12 14:14 | Outpatient (AMB) | payer MEDICAID, SELFPAY ==
[2025-04-12 14:34] VITALS: BP 112/72; BMI 32.5
--- NOTE | 2025-04-12 14:34 | A.OFFVIS_ITS ---
Vital Signs 3 04/12/25 14:34 Height 5 ft 4 in Weight 189 lb 9.561 oz BMI 32.5 BP 112/72 Blood Pressure Location Lt brachial Position Sitting Intake Visit Reasons: mass (L) thigh Intake Note: Patient is seen for office procedure: Excision of multiple thigh lipomas. Pt c/o: here for removal, states has 3 lesions Cut Off Saw Operator Pipe Blanks Required: No Accompanied by: Self / Same As Patient Allergies No Known Allergies (No Known Allergies*) Allergy (Unverified 04/12/25 14:35) HPI Comments Details: Patient returns for excision of 2 lipomas of the left anterior thigh [facility] Medical History Paresthesia Mass of left thigh Balance problem Abfraction Bilateral hip pain Missing teeth, acquired Generalized gingival recession Periodontal disease Dental calculus Plantar fasciitis Dermatofibroma GERD (gastroesophageal reflux disease) Chronic back pain Mixed anxiety and depressive disorder Impaired fasting glucose Vitamin D deficiency Dyslipidemia Allergic rhinitis Asthma Obesity Surgical History History of hip surgery Hx of colonoscopy History of bariatric surgery Physical Exam Vital Signs: Last Vital Signs BP 112/72 04/12/25 14:34 BMI result Body Mass Index 32.5 Extrem Other: To lipomas measuring approximately 2 cm in diameter located in the anterior left thigh. Upper/lower leg/hip images: 2 1. 2. Office Procedures Excision Details: Preoperative diagnosis: Lipoma x2 left anterior thigh Postoperative diagnosis: Same Procedure: Excision lipoma x2 left anterior thigh Surgeon: Eduardo Beaza MD Ply Bander: None Anesthesia: Lidocaine 1% with epinephrine Indications for procedure: 59-year-old female patient with morbid obesity presenting with a painful lipoma of the anterior left thigh x2 both measuring 2 cm in diameter Operative findings: 2 cm lipoma x2 Specimen: Lipoma x2 left anterior thigh Estimated blood loss: 2 mL Complications: None Procedure details: Patient was placed in the procedure room in the supine position. After confirming the site of surgery and assuring informed consent the skin over the 2 lipomas was prepped with Betadine and draped in a sterile fashion. Local anesthesia was then infiltrated circumferentially around both lipomas. Beginning in the more medial site, a longitudinal incision measuring approximately 2 cm was made with a scalpel and carried out through subcutaneous tissue. Blunt dissection was then used to dissect the lipoma from the surrounding subcutaneous tissue. A 2 cm lipoma was excised and sent to pathology for further examination. Light pressure was held to maintain hemostasis. Attention was then directed to the more lateral lesion in the mid anterior thigh. Again an incision was made directly over the lipoma in the longitudinal fashion and carried out through subcutaneous tissue up to the lipoma. Blunt dissection was then used to excise the lipoma from the surrounding subcutaneous tissue. A 2 cm lipoma was excised and sent to pathology for further examination. Light pressure was held to maintain hemostasis. Both incisions were then closed using interrupted 3-0 nylon sutures. 2 x 2 gauze and Tegaderm were then applied. The patient tolerated the procedure well. She was discharged to home in stable condition. [id number]-vnuhm/arms/legs 1.1-2cm (X2) Procedure code (CPT) selection complete Assessment & Plan Assessment & Plan (1) Lipoma: Code(s): D17.9 - Benign lipomatous neoplasm, unspecified Category: Medical Qualifiers: Lipoma location: lower extremity Laterality: left Qualified Code(s): D 17.24 - Benign lipomatous neoplasm of skin and subcutaneous tissue of left leg Plan 59-year-old female patient with 2 lipomas of the left anterior thigh. She tolerated excision of both lesions and will return in 1 week for suture removal. Coding Level of Care Code Procedure Only Diagnoses Lipoma of left lower extremity D17.24 Lipoma location: lower extremity Laterality: left CPT Codes Trunk/Arms/Legs - CPT: 31812-kyakp/arms/legs 1.1-2cm ([id number])
== END 2025-04-12 15:08 | disposition home or self-care (01) ==
LOC: HO.HGS 14:15
PROVIDERS: PCP Family Medicine; Visit Provider Surgery
DX: D17.24 Benign lipomatous neoplasm of skin and subcutaneous tissue of left leg (principal)
CPT/HCPCS: 11402

== ENCOUNTER 2025-04-20 14:33 | Outpatient (AMB) | payer MEDICAID, SELFPAY ==
--- OUTSIDE RECORDS SUMMARY | 2025-04-15 10:15 | XMS_ITS | Encounter Summary ---
Author Organization [employer] Address [address] [facility] 7 [place] [address] Care Team Providers Care International Sales Manager Name Role Phone Celine Aldana MD Primary Care Provider [phone] Reason for Visit * Reason Comments Follow-up Encounter Details Date Type Department Care Team ([facility] st Contact Info) Description 04/15/2025 10:15 AM EST Office Visit [facility] MEDICINE [address], [place] [phone] Celine Aldana MD [address] [place], [place] [phone] Dyslipidemia (Primary Dx); Vitamin D deficiency; Class 2 severe obesity due to excess calories with serious comorbidity and body mass index (BMI) of 36.0 to 36.9 in adult; Mild intermittent asthma without complication; Lipoma of left lower extremity; Mass of left thigh; Encounter for immunization; Mixed anxiety and depressive disorder; Major depressive disorder, recurrent episode, moderate (CMS/HCC) (HCC); Trochanteric bursitis of both hips Social History Tobacco Use Types Packs/Day Years Used Date Smoking Tobacco: Never Passive Smoke Exposure: Never Smokeless Tobacco: Never Depression Answer Date Recorded Patient Health Questionnaire-9 Score 8 04/15/2025 Patient Health Questionnaire-9 Score 8 04/15/2025 Last PHQ-9: Questionnaire Data Not on file 1 06/15/2024 Housing Stability Answer Date Recorded What is [...] Date Recorded Patient Health Questionnaire-2 Score 2 04/15/2025 Internet Access Answer Date Recorded Internet Access [...] Sign Reading Time Taken Comments Blood Pressure 120/72 04/15/2025 10:18 AM EST Pulse 84 04/15/2025 10:18 AM EST Temperature 36.3 C (97.4 F) 04/15/2025 10:18 AM EST Respiratory Rate 20 04/15/2025 10:18 AM EST Oxygen Saturation - - Inhaled Oxygen Concentration - - Weight 83.6 kg (184 lb 6.4 oz) 04/15/2025 10:18 AM EST Height - - Body Mass Index 36.01 01/28/2025 11:08 AM EDT documented in this encounter Functional Status * Over the past 2 weeks, how often have you been bothered by any of the following problems? Question Answer Date of Assessment Author Patient Health Questionnaire -2 Score 2 04/15/2025 10:21 AM EST Francisca Mitchell MA * Little interest or pleasure in doing things Answer Date of Assessment Author Several days 04/15/2025 10:21 AM EST Joellen Mitchell MA * Feeling down, depressed, or hopeless Answer Date of Assessment Author Several days 04/15/2025 10:21 AM Joellen Bragg MA * Trouble falling or staying asleep, or sleeping too much Answer Date of Assessment Author Several days 04/15/2025 10:21 AM Joellen Bragg MA * Feeling tired or having little energy Answer Date of Assessment Author Several days 04/15/2025 10:21 AM Joellen Bragg MA * Poor appetite or overeating Answer Date of Assessment Author More than half the days 04/15/2025 10:21 AM Joellen Bragg MA * Feeling bad about yourself - or that you are a failure or have let yourself or your family down Answer Date of Assessment Author Several days 04/15/2025 10:21 AM Joellen Bragg MA * Trouble concentrating on things, such as reading the newspaper or watching television Answer Date of Assessment Author Not at all 04/15/2025 10:21 AM Joellen Bragg MA * Moving or speaking so slowly that other people could have noticed? Or the opposite - being so fidgety or restless that you have been moving around a lot more than usual. Answer Date of Assessment Author Several days 04/15/2025 10:21 AM Joellen Bragg MA * Thoughts that you would be better off or hurting yourself in some way Answer Date of Assessment Author Not at all 04/15/2025 10:21 AM Joellen Bragg MA * Patient Health Questionnaire-9 Score Answer Date of Assessment Author 8 04/15/2025 10:21 AM Joellen Bragg MA * How difficult have these problems made it for you to do your work, take care of things at home, or get along with other people? Answer Date of Assessment Author Somewhat difficult 04/15/2025 10:21 AM Joellen Nye MA documented as of this encounter Progress Notes * Celine Aldana MD - 04/15/2025 10:15 AM EST Subjective Iliana James is a 59 y.o. female who has asthma, obesity status post sleeve gastrectomy, and dyslipidemia, and patient presents for follow-up of her chronic conditions. Background: Problem List[1] Our last encounter was 01/28/2025. Patient had not been taking phentermine for weight loss. She developed symptomatic tachycardia. Her blood pressure has been higher than baseline. She was frustrated because she had not received tirzepatide yet. She was also concerned seeing some red numbers on MyChart lab result. Patient perceived her persistent leg pain was due to lipoma, and requested excision of these masses. She was referred to general surgeon. She was advised to obtain MRI report from her orthopedist. Ordered ultrasound to confirm the location of her left thigh lesions. Interval history: 02/23/2025 ultrasound of the left thigh showed 3 subcutaneous left thigh lesions most consistent with lipomas measuring up to 3.6 cm. No suspicious features. She was seen by Dr. Baeza, [facility] general surgeon on 03/09/2025. She had excisional biopsy of 2 lipomas from her left thigh on 04/12/2025. Pathology report consistent with lipoma. Seen in the walk-in clinic on 03/30/2025 for toenail lesion. Diagnosed with onychomycosis. Prescribed bacitracin ointment for comfort and referred to nanoscience technician. Today: During the consultation she had a virtual venetian blind machine operator Luz Marina. Patient states she had the lipomas surgically removed and would like for me to remove the dressing on the surgical site and she will get the sutures taken out on Saturday. She is in a weight loss treatment Zepbound and following closely her weight and body fat percentage. Since her last appointment she has lost 20lbs. Patient comments the clothes are starting to fit her loosely. She administers her medications on Tuesdays but she is running out and would like a refill. She explains how she broke one of the injections and she is missing one of the weeks from the package. She cannot wait and start the next month on time because she will travel to [place] in May. She sees therapist Robson and a Psychiatrist. She agrees to having the Influenza vaccine administered today. Review of Systems Constitutional: Negative for activity change, appetite change and fever. Respiratory: Negative for shortness of breath. Cardiovascular: Negative for chest pain. Objective Vitals: 04/15/25 1018 BP: 120/72 Pulse: 84 Resp: 20 Temp: 97.4 ??F (36.3 ??C) TempSrc: Oral Weight: 184 lb 6.4 oz (83.6 kg) Physical Exam Constitutional: General: She is not in acute distress. Appearance: Normal appearance. She is not ill-appearing. HENT: Head: Normocephalic and atraumatic. Mouth/Throat: Mouth: Mucous membranes are moist. Eyes: Extraocular Movements: Extraocular movements intact. Pupils: Pupils are equal, round, and reactive to light. Cardiovascular: Rate and Rhythm: Normal rate and regular rhythm. Heart sounds: No murmur heard. Pulmonary: Effort: Pulmonary effort is normal. No respiratory distress. Breath sounds: Normal breath sounds. No wheezing or rhonchi. Skin: General: Skin is warm. Comments: Left thigh: 2 wounds. Dry, clean, intact. No erythema or drainage. Neurological: Mental Status: She is alert. Mental status is at baseline. Psychiatric: Mood and Affect: Mood normal. Results: Lab Results Component Value Date NA 144 01/19/2025 K 4.1 01/19/2025 CL 108 01/19/2025 CO2 27 01/19/2025 BUN 12 01/19/2025 CREATININE 0.73 01/19/2025 EGFR >60 01/19/2025 GLUCOSE 105 01/19/2025 TOTALBILIRUB 0.7 02/01/2025 AST 25 02/01/2025 ALT 19 02/01/2025 TOTPROTEIN 7.0 02/01/2025 ALB 4.2 02/01/2025 ALP 188 (H) 02/01/2025 Lab Results Component Value Date TRIG 149 01/19/2025 CHOL 222 (H) 01/19/2025 LDLCHOLCAL 150 (H) 01/19/2025 HDL 43 01/19/2025 Lab Results Component Value Date HGBA1C 5.5 01/19/2025 Lab Results Component Value Date WBC 7.3 01/19/2025 HGB 14.0 01/19/2025 HCT 44.3 01/19/2025 PLT 353 01/19/2025 MCV 84.4 01/19/2025 The ASCVD Risk score (Hodan DK, et al., 2019) failed to calculate for the following reasons: Unable to determine if patient is Non- FIB-4 Calculation: 1.04 at 01/19/2025 12:11 PM Calculated from: SGOT/AST: 35 U/L at 01/19/2025 12:11 PM SGPT/ALT: 34 U/L at 01/19/2025 12:11 PM Platelets: 353 X10*3/uL at 01/19/2025 12:11 PM Age: 59 years Computed KFRE 2-Year unavailable. One or more values for this score either were not found within the given timeframe or did not fit some other criterion. Computed KFRE 5-Year unavailable. One or more values for this score either were not found within the given timeframe or did not fit some other criterion. Screenings: PHQ-2/9 Score: Patient Health Questionnaire-9 Score: 8 (04/15/2025 10:21 AM) Patient Health Questionnaire-2 Score: 2 (04/15/2025 10:21 AM) Thoughts that you would be better off or hurting yourself in some way: Not at all (04/15/2025 10:21 AM) MARSHA-7 Score: No data recorded 1. Dyslipidemia (Primary) Assessment & Plan: -Most recent lab 01/19/25 TRIG 149; CHOL 222; LDL 150; HDL 43 -According to ACC/AHA guideline, 10-year ASCVD risk is <5 % and the benefit of statin or ASA therapy is uncertain. -Emphasized the importance of lifestyle modification. -Repeat fasting lipid profile in 1 year. 2. Vitamin D deficiency Assessment & Plan: Previously on supplement Recheck lab and treat accordingly. 3. Class 2 severe obesity due to excess calories with serious comorbidity and body mass index (BMI)of 36.0 to 36.9 in adult Assessment & Plan: -12/24/17 [place]-gastroscopy, laparoscopic lysis of adhesions, laparoscopic sleeve gastrectomy andlaparoscopic gastropexy -continue working on lifestyle modifications -she tried phentermine, but she developed palpitation, confirmed clinically. Patient was having tachycardia and transient elevated BP. Her symptoms improved after discontinuation. - currently on trizepatide for weight loss - continue working on lifestyle modifications 4. Mild intermittent asthma without complication Assessment & Plan: Last exacerbation requiring steroid in Jan 2024 Frequency of exacerbation 2 times in last 6 months Continue current treatment plan with albuterol HFA prn. Consider using ICS/LABA prn. 5. Lipoma of left lower extremity Assessment & Plan: - 2 lipomas on left thigh - s/p excisional biopsy by Dr. Baeza on 04/12/2025 - healing well 6. Mass of left thigh 7. Encounter for immunization - FLU VACCINE TRIVALENT [id number] ([employer]) 19 yrs + 8. Mixed anxiety and depressive disorder Assessment & Plan: -S provider Robson -Continue CBT -Continue buspirone and clonazepam as prescribed -Treatment Hx: sertraline, which was switched to buspirone. She could not tolerate higher dose of buspirone. 9. Major depressive disorder, recurrent episode, moderate (CMS/HCC) (HCC) Assessment & Plan: -prolonged grief about her mothers passing -continue current treatment as per counselor -continue current treatment per behavioral health care provider -continue sertraline and clonazepam - she was able to contract her safety today 10. Trochanteric bursitis of both hips Assessment & Plan: - Left worse than right - Dx left hip trochanteric pain syndrome, partial thickness abductor tendon tear, trochanteric bursitis - s/p left open abductor tendon repair, trochanteric bursectomy, IT band lengthening by JASE Mercado on 09/14/24 - s/p short-term rehab in [place] [facility] - received home PT via [facility] - last seen by orthopedist on 01/23/25, reviewed MRI, given reassurance, and no further follow up Allergies[2] Current Outpatient Medications Medication Instructions albuterol (Ventolin HFA) 108 (90 Base) MCG/ACT inhaler INHALE 2 PUFFS BY MOUTH EVERY 4 TO 6 HOURS NEEDED (FOR ASTHMA) bacitracin-polymyxin b (Polysporin) ointment Topical, 2 times daily, Apply to affected area daily busPIRone (Buspar) 10 MG tablet 1 tablet, 2 times daily cetirizine (ZYRTEC) 10 mg, Oral, Every morning cholecalciferol (VITAMIN D-3) 25 mcg, Oral, Daily clonazePAM (KlonoPIN) 1 MG tablet 1 tablet, Nightly pantoprazole (PROTONIX) 40 mg, Oral, Daily Spacer/Aero-Holding Chambers ([facility]) misc 1 each, Does not apply, Every 4 hours PRN Zepbound 2.5 mg, Subcutaneous, Weekly Follow-up: 3 months or sooner if any problem arises. [1] Patient Active Problem List Diagnosis Allergic rhinitis Asthma Chronic back pain Dyslipidemia Impaired fasting glucose Mixed anxiety and depressive disorder Obesity Vitamin D deficiency GERD (gastroesophageal reflux disease) Major depressive disorder, recurrent episode, moderate (CMS/HCC) (HCC) Pain of both heels Health care maintenance History of bariatric surgery Lipoma Plantar fasciitis Dental calculus Periodontal disease Generalized gingival recession Missing teeth, acquired Bilateral hip pain Crowded teeth Abfraction Extruded tooth Headache Balance problem Sleep disturbance Paresthesia Trochanteric bursitis Transaminitis [2] No Known Allergies documented in this encounter Miscellaneous Notes * Assessment & Plan Note - Celine Aldana MD - 04/18/2025 12:12 PM ESTAssociated Problem(s): Trochanteric bursitis - Left worse than right - Dx left hip trochanteric pain syndrome, partial thickness abductor tendon tear, trochanteric bursitis - s/p left open abductor tendon repair, trochanteric bursectomy, IT band lengthening by JASE Mercado on 09/14/24 - s/p short-term rehab in [facility] - received home PT via [facility] - last seen by orthopedist on 01/23/25, reviewed MRI, given reassurance, and no further follow up * Assessment & Plan Note - Celine Aldana MD - 04/18/2025 12:12 PM ESTAssociated Problem(s): Lipoma - 2 lipomas on left thigh - s/p excisional biopsy by Dr. Baeza on 04/12/2025 - healing well * Assessment & Plan Note - Celine Aldana MD - 04/18/2025 12:11 PM ESTAssociated Problem(s): Asthma Last exacerbation requiring steroid in Jan 2024 Frequency of exacerbation 2 times in last 6 months Continue current treatment plan with albuterol HFA prn. Consider using ICS/LABA prn. * Assessment & Plan Note - Celine Aldana MD - 04/18/2025 12:11 PM ESTAssociated Problem(s): Mixed anxiety and depressive disorder -[facility] provider Robson -Continue CBT -Continue buspirone and clonazepam as prescribed -Treatment Hx: sertraline, which was switched to buspirone. She could not tolerate higher dose of buspirone. * Assessment & Plan Note - Celine Aldana MD - 04/18/2025 12:11 PM ESTAssociated Problem(s): Major depressive disorder, recurrent episode, moderate (CMS/HCC) (HCC) -prolonged grief about her mothers passing -continue current treatment as per counselor -continue current treatment per behavioral health care provider -continue sertraline and clonazepam - she was able to contract her safety today * Assessment & Plan Note - Celine Aldana MD - 04/18/2025 12:10 PM ESTAssociated Problem(s): Obesity -12/24/17 [place]-gastroscopy, laparoscopic lysis of adhesions, laparoscopic sleeve gastrectomy andlaparoscopic gastropexy -continue working on lifestyle modifications -she tried phentermine, but she developed palpitation, confirmed clinically. Patient was having tachycardia and transient elevated BP. Her symptoms improved after discontinuation. - currently on trizepatide for weight loss - continue working on lifestyle modifications * Assessment & Plan Note - Celine Aldana MD - 04/15/2025 4:39 AM ESTAssociated Problem(s): Vitamin D deficiency Previously on supplement Recheck lab and treat accordingly. * Assessment & Plan Note - Celine Aldana MD - 04/15/2025 4:39 AM ESTAssociated Problem(s): Dyslipidemia -Most recent lab 01/19/25 TRIG 149; CHOL 222; LDL 150; HDL 43 -According to ACC/AHA guideline, 10-year ASCVD risk is <5 % and the benefit of statin or ASA therapy is uncertain. -Emphasized the importance of lifestyle modification. -Repeat fasting lipid profile in 1 year. documented in this encounter Plan of Treatment Upcoming Encounters Date Type Department Care Team (Late st Contact Info) Description 10/14/2025 9:30 AM EDT Office Visit [facility] ADULT DENTAL [address] [place] [address] Agnes, Dayana [address] [place] [address] documented as of this encounter Visit Diagnoses Diagnosis Dyslipidemia- Primary Other and unspecified hyperlipidemia Vitamin D deficiency Class 2 severe obesity due to excess calories with serious comorbidity and body mass index (BMI) of 36.0 to 36.9 in adult Mild intermittent asthma without complication Lipoma of left lower extremity Mass of left thigh Encounter for immunization Mixed anxiety and depressive disorder Dysthymic disorder Major depressive disorder, recurrent episode, moderate (CMS/HCC) (HCC) Major depressive disorder, recurrent episode, moderate Trochanteric bursitis of both hips documented in this encounter Additional Health Concerns Assessment Noted Time PHQ-9 Depression Total Score: 8 04/15/20 25 10:21 AM EST documented as of this encounter Care Teams International Sales Manager Relationship Specialty Start Date End Date Celine Aldana MD [address] [place] [address] PCP - General Family Medicine 1/1/Hilario Pedraza 10/08/24 documented as of this encounter
--- NOTE | 2025-04-20 14:48 | MHC.OFFVIS ---
Vital Signs 04/20/25 14:58 Height 5 ft 4 in Weight 183 lb BMI 31.4 Intake Visit Reasons: s/p lipoma removal 04/12. Intake Note: Patient is seen in office for post op assessment post excision of thigh lesion x2. Pt c/o: denies any concerns sutures removed at visit Rn Endocrinology Required: No 7Th Grade Teacher: 7Th Grade Teacher Present Accompanied by: Self / Same As Patient Allergies No Known Allergies (No Known Allergies*) Allergy (Unverified 04/20/25 14:58) HPI Comments Details: 59-year-old female patient returning 1 week following excision of 2 lipomas of the left leg. She tolerated the procedure well and her wounds are healing nicely. She returns today for suture removal. [facility] Medical History Paresthesia Mass of left thigh Balance problem Abfraction Bilateral hip pain Missing teeth, acquired Generalized gingival recession Periodontal disease Dental calculus Plantar fasciitis Dermatofibroma GERD (gastroesophageal reflux disease) Chronic back pain Mixed anxiety and depressive disorder Impaired fasting glucose Vitamin D deficiency Dyslipidemia Allergic rhinitis Asthma Obesity Surgical History History of hip surgery Hx of colonoscopy History of bariatric surgery Physical Exam Vital Signs: BMI result Body Mass Index 31.4 Const General: comfortable Nutritional Appearance: well nourished Orientation/consciousness: patient oriented x3 Resp Effort & Inspection: normal respiratory effort Neuro General: patient oriented x3 Extrem Other: Anterior left thigh with 2 well-healed incisions. Sutures removed and wounds found to be well healed. Assessment & Plan Assessment & Plan (1) Lipoma: Code(s): D17.9 - Benign lipomatous neoplasm, unspecified Category: Medical Qualifiers: Lipoma location: lower extremity Laterality: left Qualified Code(s): D17.24 - Benign lipomatous neoplasm of skin and subcutaneous tissue of left leg Plan Excision of Lipoma x2 left leg 1 week ago. Patient tolerated the procedure well and her wounds are healing nicely. She should follow up as needed. Coding Level of Care Code Global (65351) Diagnoses Lipoma of left lower extremity D17.24 Lipoma location: lower extremity Laterality: left
[2025-04-20 14:58] VITALS: BMI 31.4
--- OUTSIDE RECORDS SUMMARY | 2025-04-20 16:16 | XMS_ITS | Encounter Summary ---
Author Organization [facility] Address [address] [place] [address] [address] [place] [address] Care Team Providers Care Shift Commander Name Role Phone Celine Aldana MD Primary Care Provider Encounter Details Date Type Department Care Team (Late st Contact Info) Description 02/20/2023 Orders Only [facility] MEDICINE [address] [place] [address] Celine Aldana MD [address] [place] [address] Pain of both heels (Primary Dx) Social [...] Description 10/14/2025 9:30 AM EDT Office Visit [facility] ADULT DENTAL [address] [place] [address] Dayana Alarcon [address] [place] [address] documented as of this encounter Visit Diagnoses Diagnosis Pain of both heels- Primary documented in this encounter Additional Health Concerns Assessment Noted Time PHQ-9 Depression Total Score: 0 07/18/19 23 9:47 AM EST documented as of this encounter Care Teams Shift Commander Relationship Specialty Start Date End Date Celine Aldana MD [address] [place] [address] PCP - General Family Medicine 06/10/18 Milo 10/08/24 documented as of this encounter
--- OUTSIDE RECORDS SUMMARY | 2025-04-20 16:16 | XMS_ITS | Encounter Summary ---
Author Organization [employer] Address [address] [facility] [address] [place] [address] Care Team Providers Care Clinical Education Coordinator Name Role Phone Celine Aldana MD Primary Care Provider [phone] Encounter Details Date Type Department Care Team (Late st Contact Info) Description 04/03/2023 Abstract [facility] ADULT DENTAL [address] [place], [place] [phone] Agnes Dayana [address] [place] [address] Social History Tobacco Use Types Packs/Day Years [...] Description 10/14/2025 9:30 AM EDT Office Visit [facility] ADULT DENTAL [address] [place] [address] AgnesHariDayana [address] [place] [address] documented as of this encounter Visit Diagnoses Not on filedocumented in this encounter Additional Health Concerns Assessment Noted Time PHQ-9 Depression Total Score: 0 07/18/19 23 9:47 AM EST documented as of this encounter Care Teams Clinical Education Coordinator Relationship Specialty Start Date End Date Celine Aldana MD [address] [place] [address] PCP - General Family Medicine 06/10/18 Milo 10/08/24 documented as of this encounter
--- OUTSIDE RECORDS SUMMARY | 2025-04-20 16:16 | XMS_ITS | Encounter Summary ---
Author Organization [employer] Address [address] [facility] [address] [place] [address] Care Team Providers Care Faculty Administrator Name Role Phone Celine Aldana MD Primary Care Provider [phone] Encounter Details Date Type Department Care Team (Late st Contact Info) Description 11/24/2024 Orders Only [facility] MEDICINE [address] [place], [place] [phone] Celine Aldana MD [address] [place], [place] [phone] Social History Tobacco Use Types Packs/Day Years [...] Description 10/14/2025 9:30 AM EDT Office Visit [facility] ADULT DENTAL [address] [place] [address] Agnes Dayana [address] [place] [address] documented as of this encounter Visit Diagnoses Not on filedocumented in this encounter Additional Health Concerns Assessment Noted Time PHQ-9 Depression Total Score: 7 03/02/20 24 9:35 AM EDT documented as of this encounter Care Teams Faculty Administrator Relationship Specialty Start Date End Date Celine Aldana MD [address] [place] [address] PCP - General Family Medicine 06/10/18 Milo 10/08/24 documented as of this encounter
--- OUTSIDE RECORDS SUMMARY | 2025-04-20 16:16 | XMS_ITS | Encounter Summary ---
Author Organization [email or web address] [facility] Address [address] [place] [address] [address] [place] [address] Care Team Providers Care Shape Hand Name Role Phone Celine Aldana MD Primary Care Provider [phone] Encounter Details Date Type Department Care Team (Latest Contact Info) Description 09/15/2021 Abstract [facility] CONVERSIONS Dental, Provider, DDS Social History [...] Description 10/14/2025 9:30 AM EDT Office Visit [facility] ADULT DENTAL [address] [place] [address] Agnes, Dayana [address] [place] [address] documented as of this encounter Visit Diagnoses Not on filedocumented in this encounter Care Teams Shape Hand Relationship Specialty Start Date End Date Celine Aldana MD [address] [place] [address] PCP - General Family Medicine 06/10/18 Milo 10/08/24 documented as of this encounter
--- OUTSIDE RECORDS SUMMARY | 2025-04-20 16:16 | XMS_ITS | Clinical Summary ---
Author Organization [employer] Address [address] [facility] [address] [place] [address] Care Team Providers Care Air Support Control Officer Name Role Phone Celine Aldana MD Primary Care Provider [phone] Allergies No known active allergies Medications Spacer/Aero-Hold [...] elevated Trochanteric bursitis 01/26/2025 Assessment & Plan (04/18/2025 12:12 PM EST): - Left worse than right - Dx left hip trochanteric pain syndrome, partial thickness abductor tendon tear, trochanteric bursitis - s/p left open abductor tendon repair, trochanteric bursectomy, IT band lengthening by JASE Mercado on 09/14/24 - s/p short-term rehab in [facility] - received home PT via [facility] - last seen by orthopedist on 01/23/25, reviewed MRI, given reassurance, and no further follow up Assessment & Plan (01/29/2025 7:00 AM EDT): - Left worse than right - Dx left hip trochanteric pain syndrome, partial thickness abductor tendon tear, trochanteric bursitis - s/p left open abductor tendon repair, trochanteric bursectomy, IT band lengthening by JASE Mercado on 09/14/24 - s/p short-term rehab in [facility] - received home PT via [facility] [...] on 09/14/24 - s/p short-term rehab in [facility] - receiving home PT via [facility] [...] Plan (03/02/2024 12:19 PM EDT): - MRI Sleep disturbance 03/02/2024 Assessment & Plan (06/22/2024 [...] on 09/14/24 - s/p short-term rehab in [facility] - receiving home PT via [facility] [...] on 09/14/24 - s/p short-term rehab in [facility] - starting home PT soon - [...] be evaluated by orthopedist; will refer to [facility] Missing teeth, acquired 05/13/2023 Dental calculus 03/12/2023 [...] and take nutritional supplement by the specialist Lipoma 12/11/2022 Assessment & Plan (04/18/2025 12:12 PM EST): - 2 lipomas on left thigh - s/p excisional biopsy by Dr. Baeza on 04/12/2025 - healing well Plantar fasciitis 12/11/2022 Assessment & Plan (01/26/2025 11:01 AM EDT): -s/p left foot plantar fasciotomy -currently having right foot / heel pain -referred to senior test analyst Dr. Grossman / [facility] - continue comfortable [...] Major depressive disorder, r ecurrent episode, moderate ([facility]/HCC) 07/18/2022 Assessment & Plan (04/18/2025 12:11 PM EST): -prolonged grief about her mothers passing -continue current treatment as per counselor -continue current treatment per behavioral health care provider -continue sertraline and clonazepam - she was able to contract her safety today Assessment & Plan (12/11/2022 10:04 AM EDT): [...] foot / heel pain -refer to another senior test analyst Assessment & Plan (07/28/2022 6:29 AM EST): -Hx plantar fasciitis -s/p left foot plantar fasciotomy -currently having right foot / heel pain -refer to senior test analyst Chronic back pain 07/09/2016 Assessment & Plan [...] and depressive disorder 08/09/2015 Assessment & Plan (04/18/2025 12:11 PM EST): -S provider Robson -Continue CBT -Continue buspirone and clonazepam as prescribed -Treatment Hx: sertraline, which was switched to buspirone. She could not tolerate higher dose of buspirone. Assessment & Plan (01/29/2025 6:40 AM EDT): -S provider Robson -Continue CBT -Continue buspirone and clonazepam as prescribed -Treatment Hx: sertraline, which was switched to buspirone. She could not tolerate higher dose of buspirone. Assessment & Plan (03/02/2024 12:18 PM EDT): -[facility] provider Robson -Continue CBT -Continue buspirone and [...] -continue Cetirizine Dyslipidemia 02/06/2012 Assessment & Plan (04/15/2025 4:39 AM EST): -Most recent lab 01/19/25 TRIG 149; CHOL 222; LDL 150; HDL 43 -According to ACC/AHA guideline, 10-year ASCVD risk is <5 % and the benefit of statin or ASA therapy is uncertain. -Emphasized the importance of lifestyle modification. -Repeat fasting lipid profile in 1 year. Assessment & Plan (01/29/2025 6:35 AM EDT): [...] Vitamin D deficiency 02/06/2012 Assessment & Plan (04/15/2025 4:39 AM EST): Previously on supplement Recheck lab and treat accordingly. Assessment & Plan (01/21/2025 11:37 PM EDT): Previously on supplement Recheck lab and treat accordingly. Assessment & Plan (10/18/2024 4:24 PM EDT): Previously on supplement Recheck lab and treat accordingly. Asthma 12/06/2011 Assessment & Plan (04/18/2025 12:11 PM EST): Last exacerbation requiring steroid in Jan 2024 Frequency of exacerbation 2 times in last 6 months Continue current treatment plan with albuterol HFA prn. Consider using ICS/LABA prn. Assessment & Plan (10/18/2024 4:23 PM EDT): [...] HFA prn. Obesity 11/02/2011 Assessment & Plan (04/18/2025 12:10 PM EST): -12/24/17 [place]-gastroscopy, laparoscopic lysis of adhesions, laparoscopic sleeve gastrectomy and laparoscopic gastropexy -continue working on lifestyle modifications -she tried phentermine, but she developed palpitation, confirmed clinically. Patient was having tachycardia and transient elevated BP. Her symptoms improved after discontinuation. - currently on trizepatide for weight loss - continue working on lifestyle modifications Assessment & Plan (01/29/2025 6:37 AM EDT): -12/24/17 [place]-gastroscopy, laparoscopic lysis of adhesions, laparoscopic sleeve gastrectomy and laparoscopic gastropexy -continue working on lifestyle modifications -she tried phentermine, but she developed palpitation, confirmed clinically. Patient was having tachycardia and transient elevated BP. Her symptoms improved after discontinuation. - check the status of [place]. - continue working on lifestyle modifications [...] self-monitoring BP. -Continue current medications: -Treatment Hx: Mass of left thigh 03/02/2024 Assessment & [...] biopsy - will order US, then referral Right ear pain 12/11/2022 03/02/2024 Assessment & Plan (06/29/2023 6:50 PM EST): - chronic - referred in November and still waiting for an appointment; advised to call them again Assessment & Plan (12/11/2022 10:09 AM EDT): - chronic - pt will schedule appt with ENT Encounters Date Type Department Care Team Description 04/15/2025 10:15 AM EST Office Visit [facility] [address] [place] [phone] Celine Aldana MD Dyslipidemia (Primary Dx); Vitamin D deficiency; Class 2 severe obesity due to excess calories with serious comorbidity and body mass index (BMI) of 36.0 to 36.9 in adult; Mild intermittent asthma without complication; Lipoma of left lower extremity; Mass of left thigh; Encounter for immunization; Mixed anxiety and depressive disorder; Major depressive disorder, recurrent episode, moderate (CMS/HCC) (HCC); Trochanteric bursitis of both hips 04/15/2025 Travel 04/14/2025 12:45 PM EST Office Visit [facility] [address] [place] [phone] Dayana Alarcon Dental calculus (Primary Dx); Periodontal disease; Crowded teeth; Abfraction; Extruded tooth; Generalized gingival recession; Missing teeth, acquired 04/14/2025 Telephone [facility] [address] [place] [phone] Nicole Ochoa MA 04/12/2025 Orders Only GENERIC EXTERNAL DATA DEPARTMENT Provider, Generic External Data 03/30/2025 9:00 AM EDT Office Visit [facility] [address] [phone] Woo Powell MD Onychomycosis (Primary Dx) 03/30/2025 Travel 01/29/2025 Telephone [facility] [address] [place] [phone] Celine Aldana MD Prior Authorization ( PA: Esmer) 01/29/2025 [address] [place] [address] Celine Aldana MD 01/28/2025 11:15 AM EDT [address] [place] [address] Celine Aldana MD Transaminitis (Primary Dx); Immunity status testing; Class 2 obesity; Impaired fasting glucose; Trochanteric bursitis of both hips; Bilateral hip pain; Dyslipidemia; Mass of left thigh; Mixed anxiety and depressive disorder 01/28/2025 Travel 01/27/[address] [address] Celine Aldana MD chart prep 01/25/[address] [address] Celine Aldana MD Prior Authorization 01/25/[address] [address] Celine Aldana MD Nurse Triage 01/22/[address] [address] Celine Aldana MD Pt question 01/19/2025 11:15 AM EDT Office [address] [place] [address] Celine Aldana MD Hypotension, unspecified hypotension type [...] without diagnosis of hypertension 01/19/2025 Orders Only [address] [place] [address] Celine Aldana MD 01/19/2025 Travel 01/18/[address] [address] Celine Aldana MD chartprep from Last 3 Months Immunizations Immunization Administration Dates Next Due Hep B, adult 12/10/2022,03/10/2019,12/08/2013 Influenza injectable quadriv alent IIV4 with preservative 05/01/2017,08/09/2015 Influenza injectable quadriv alent preservative free 06/25/2023,02/15/2022,06/20/2021,04/29,03/10/2019,07/14/2018,07/09/2016 ,09/02/2014 Influenza, IIV3, injectable 01/29/2011, 0,03/31/2008 Influenza, Split (incl. nabil fied surface antigen) 02/16/2013,02/06/2012 Influenza, seasonal, injecta ble, preservative free 04/15/2025,03/02/2024 Moderna Covid-19 Vaccine 12+ 09/06/2020,08/10/19 21 Pneumococcal [...] 20 04/15/2025 10:18 AM EST Oxygen Saturation 98% 03/30/2025 8:57 AM EDT Inhaled Oxygen Concentration - - Weight 83.6 kg (184 lb 6.4 oz) 04/15/2025 10:18 AM EST Height 152.4 cm (5') 01/28/2025 11:08 AM EDT Body Mass Index 36.01 01/28/2025 11:08 AM EDT Plan of Treatment Upcoming Encounters Date Type Department Care Team (Late st Contact Info) Description 10/14/2025 9:30 AM EDT Office Visit [facility] [address] [place] [address] Agnes, Dayana [address] [place] [address] Health Maintenance Due Date Last Done Comments CT Colonography 1965 FIT DNA/Cologuard 1965 FIT 1965 FOBT 1965 Sigmoidoscopy 1965 RSV Patients and Patients Aged 60 years or older (1 - Risk 60-74 years 1-dose series) 2023 Colonoscopy 05/27/2024 05/27/2014 Colorectal Cancer Screening 05/27/2024 COVID-19 Vaccine ( season) 2025 09/06/2020, 08/09/2020 Dental Oral Exam 10/13/2025 04/14/2025, , 01/31/2024, Additional history exists Dental Prophylaxis 10/13/2025 04/14/2025, 0 08/04/2024, 01/31/2024, Additional history exists Disability Screening 10/15/2025 10/15/2024 SDOH Screening 01/11/2026 01/11/2025 Tobacco Screening 04/14/2026 04/14/2025 Alcohol/Substance Use Screening 04/15/2026 04/15/2025 Dental X-Ray: Bitewings 04/15/2026 04/14/20 25, 01/31/2024, 01/23/2023, Additional history exists Depression Screening 04/15/2026 04/15/2025, 04/15/20 Mammogram 08/20/2026 08/20/2024, 0312/2023, 08/09/2022, Additional history exists Dental X-Ray: Full Mouth 04/15/2028 025, 08/02/2020, 07/25/2016 Lipid Panel 01/19/2030 01/19/2025, 02/09, 06/25/2023, Additional history exists DTaP/Tdap/Td Vaccines (3 - Td or Tdap) 02/16/2032 02/15/2022, 02/06/2012, 01/16/2008 Hepatitis B Vaccines Completed 12/10/2022, 03/10/2019, 12/08/2013 Zoster Vaccines Completed 09/17/2023, 06/25/2023 Pneumococcal Vaccine: 50+ Years Completed 03/02/2024, 12/24/2017, 07/23/2008 HIV Screening Completed 02/01/2025 Hepatitis C Screening Completed 02/01/2025 Influenza Vaccine Completed 04/15/2025, , 06/25/2023, Additional history exists HIB Vaccines Aged Out No longer eligi [...] Procedure Name Priority Date/Time Associated Diagnosis Comments PERIODIC ORAL EVALUATION - ESTABLISHED PATIENT Routine 04/14/2025 12:45 PM EST CASE PRESENTATION, DETAILED AND EXTENSIVE TREATMENT PLANNING Routine 04/14/2025 12:45 PM EST Dental calculus Periodontal disease Crowded teeth Abfraction Extruded tooth Generalized gingival recession Missing teeth, acquired ORAL HYGIENE INSTRUCTIONS Routine 04/14/2025 12:45 PM EST Dental calculus Periodontal disease Crowded teeth Abfraction Extruded tooth Generalized gingival recession Missing teeth, acquired PROPHYLAXIS - ADULT Routine 04/14/2025 1 2:45 PM EST Dental calculus Periodontal disease INTRAORAL - COMPLETE SERIES OF RADIOGRAPHIC IMAGES Routine 04/14/2025 12:45 PM EST Dental calculus Periodontal disease Crowded teeth Abfraction Extruded tooth Generalized gingival recession Missing teeth, acquired GROSS AND MICROSCOPIC LEVEL 3 Routine 04/12/2025 2:40 PM EST HIV 1/2 ANTIGEN/ANTIBODY, FOURTH GENERATION W/RFL Routine [...] TOMOSYNTHESIS BILATERAL Routine 08/20/2024 1:30 PM EDT HM COLONOSCOPY Routine 05/27/2014 from Last 3 Months or Most Recently Relevant to Health Maintenance Results * Gross and Microscopic Level 3 (04/12/2025 2:40 PM EST) 04/12/2025 2:40 PM EST 04/13/2025 7:40 AM EST [facility] - 04/14/2025 6:04 PM EST ----- ------- Name: Iliana James Age/Sex: 59/F : 1965 [id number]#: [id number] Attend Dr: Eduardo Baeza MD Re04/12/25 Status: DEP [facility] Disch: ----- ------- SPEC : [id number] RECD: 04/13/2540 STATUS: ZAC MALIN NUM: [id number] WANDA: 04/12/25-[address] [facility] [address]: Eduardo Baeza MD ENTERED: 04/13/25-0751 SP TYPE: Surgical OTHR DR: Celine Aldana MD ORDERED: Gross Micro L3 Diagnosis Soft tissue, right thigh lesions x2, excision: Multiple fragments of mature lobular adipose tissue, consistent with lipomas. Clinical History Lipoma of right thigh Microscopic Description Microscopic sections reviewed. Material Received Lipoma of right thigh x2 Gross Description Received in formalin is a 3.5 x 2.5 x 1.2 cm aggregate of disrupted fatty soft tissue, sectioned to reveal yellow adipose tissue with scant fibrous tissue. Structural Iron Worker sections are submitted in cassette A1. (DTL) IHC S/NG Disclaimer NOTE: Unless otherwise stated, all tissue is formalin-fixed and paraffin-embedded. Some or all of the immunohistochemical tests reported herein may have been developed and their performance characteristics determined by [facility]. They have not been cleared or approved by the U.S. Food and Drug Administration (FDA). However, the FDA has determined that such clearance or approval is not necessary. This laboratory is certified under the Clinical Laboratory Improvement Amendments of 1988 (CLIA) as qualified to perform high complexity clinical laboratory testing. Copies To: Eduardo Baeza MD [facility] [address] [place] [phone] Celine Aldana MD [address] [address] CONTINUED ON NEXT PAGE ----- ------- Name: JamesIliana Age/Sex: 59/F : 1965 Unit#: [id number] Attend Dr: Eduardo Baeza MD Re04/12/25 Status: DEP REF Location: [facility] Disch: ----- ------- SPEC : [id number] RECD: 04/13/25 STATUS: ZAC MALIN NUM: [id number] WANDA: 04/12/251440 [facility] DR: Eduardo Baeza MD ENTERED: 04/13/25635 SP TYPE: Surgical OTHR DR: Celine Aldana MD ORDERED: Gross Micro L3 Copies To: (Continued) [phone] ----- ------- Signed (signature on file) Virginia Arrowsmith 04/14/25 1804 ----- ------- END OF REPORT Generic External Data Provider LAB CYTOLOGY ORDE RABLES Final Result Performing Organization Address [facility] Co de Phone Number [facility] [address] [place] [address] [phone] * Hepatitis C Antibody with Reflex to HCV, RNA, Quantitative, Real-Time PCR (02/01/2025 8:23 AM EDT) Hepatitis C Antibody Nonreactive Nonreactive [facility] Comment:Antibodies to HCV no t detected; does not exclude early acuteHCV infection. Venous blood specimen / Unknown 02/01/2025 8:23 AM EDT 02/01/2025 11:03 AM EDT Celine Aldana MD LAB BLOOD ORDERABLES Final Resul t Performing Organization Address [facility] Co de Phone Number [facility] [address] [place] [address] [phone] * Hepatitis A Antibody, Total (02/01/2025 8:23 AM EDT) Hepatitis A Antibody IgG Nonreactive Nonreactive [facility] Venous blood specimen / Unknown 02/01/2025 8:23 AM EDT 02/01/2025 11:03 AM EDT us Celine Aldana MD LAB BLOOD ORDERABLES Final Resul t Performing Organization Address City/[facility]/ZIP Co de Phone Number [facility] [address] [place] [phone] * Hepatitis B surface antigen, EIA (02/01/2025 8:23 AM EDT) Hepatitis B Surface Ag Negative Negative [facility] Venous blood specimen / Unknown 02/01/2025 8:23 AM EDT 02/01/2025 11:03 AM EDT us Celine Aldana MD LAB BLOOD ORDERABLES Final Resul t Performing Organization Address City/[facility]/ZIP Co de Phone Number [facility] [address] [place] [phone] * Hepatitis B Core Antibody, Total (02/01/2025 8:23 AM EDT) Hepatitis B Core Antibody Nonreactive Nonreactive [facility] Venous blood specimen / Unknown 02/01/2025 8:23 AM EDT 02/01/2025 11:03 AM EDT Celine Aldana MD LAB BLOOD ORDERABLES Final Resul t Performing Organization Address City/[facility] Co de Phone Number [facility] [address] [place] [phone] * HIV-1/2 Antigen and Antibodies, Fourth Generation, with Reflexes (02/01/2025 8:23 AM EDT) HIV AB/AG Nonreactive Nonreactive [facility] Comment:HIV-1 p24 Ag and/or HIV-1/HIV-2 Ab not detected.A test result that is nonreactive does not exclude thepossibility of exposure to or infection with HIV-1 and/orHIV-2. Nonreactive results in this assay for individualswith prior exposure to HIV-1 and/or HIV-2 may be due toantigen and antibody levels that are below the limit ofdetection of this assay.The [employer] HIV Ag/Ab Combo assay result andsupplemental assay results should be interpreted inconjunction with the patient's clinical presentation,history and other laboratory results. If the results areinconsistent with clinical evidence, additional testing issuggested to confirm the result. Blood Venous blood specimen / Unknown 02/01/2025 8:23 AM EDT 02/01/2025 11:03 AM EDT us Celine Aldana MD LAB BLOOD ORDERABLES Final Resul t Performing Organization Address [facility]/ZIP Co de Phone Number [facility] [address] [place] [phone] * Hepatitis B Surface Antibody, Qualitative (02/01/2025 8:23 AM EDT) Pathologist [facility] ~Hepatitis B Surface Antibody NONREACTIVE Nonreactive [facility] Comment:Nonreactive: < 8.00 mIU/mL Venous blood specimen / Unknown 02/01/2025 8:23 AM EDT 02/01/2025 11:03 AM EDT us Celine Aldana MD LAB BLOOD ORDERABLES Final Resul t Performing Organization Address [facility] Co de Phone Number [facility] [address] [place] [phone] * (ABNORMAL) Hepatic Function Panel (02/01/2025 8:23 AM EDT) Bilirubin, Total 0.7 0.0 - 1.0 mg/dL [facility] Bilirubin, Direct 0.2 0.0 - 0.5 mg/dL [facility] Aspartate Amino Transferase 25 5 - 31 U/L [facility] Alanine Aminotransferase 19 0 - 31 U/L [facility] Total Protein 7.0 6.5 - 8.0 g/dL [facility] Albumin Level 4.2 3.5 - 5.0 g/dL [facility] Alkaline Phosphatase 188(H) 39 - 117 U/L [facility] Blood Venous blood specimen / Unknown 02/01/2025 8:23 AM EDT 02/01/2025 11:03 AM EDT Celine Aldana MD LAB BLOOD ORDERABLES Final Resul t [facility] [address] [place] [phone] [phone] * US EXTREMITY LIMITED SOFT TISSUE LEFT (01/29/2025) Anatomical Region Laterality Modality Ultrasound Celine Aldana MD IMG US PROCEDURES Final Result * Vitamin D, 25-Hydroxy, Total, Immunoassay (01/19/2025 12:11 PM EDT) Vitamin D 25-OH Total 53.0 >30 ng/mL [facility] Comment: Health Based Reference Values*< 20 ng/mL [id number] ng/mL Insufficient> 30 ng/mL Sufficient*Ignacio WILEY. N [...] MD LAB BLOOD ORDERABLES Final Resul t [facility] [address] [place] [phone] * (ABNORMAL) Urinalysis, Complete, with Reflex to Culture (01/19/2025 12:11 PM EDT) Color Urine Dark Yellow [facility] Appearance Urine Clear [facility] PH 5.0 5.0 - 9.0 [facility] Glucose Urine UA Negative Negative mg/dL [facility] Urine Blood Negative Negative [facility] Specific [place] - Urine >=1.030(H) 1.005 - 1.025 [facility] Urine Protein Trace Neg-Trace mg/dL [facility] Urine Ketones Trace Negative mg/dL [facility] Nitrite Urine Negative Negative [facility] Leukocyte Esterase Urine Small (1+)(A) Negative [facility] RBC Urine 0-2 0 - 2 /HPF [facility] Urine WBC 0-5 0 - 5 /HPF [facility] Urine Squamous Epithelial Cell 6-10 0 - 2 /HPF [facility] Urine Bacteria None Seen None Seen [facility] Hyaline Casts, Urine 3-5 0 - 2 /LPF [facility] Urine 01/19/2025 12:1 1 PM EDT 01/19/2025 12:50 PM EDT Narrative [facility] - 01/19/2025 1:12 PM EDT Urine, Clean Catch Celine Aldana MD LAB URINE ORDERABLES Final Resul t Performing Organization Address [facility]/ZIP Co de Phone Number [facility] [address] [place] [phone] * TSH with Reflex to Free T4 (01/19/2025 12:11 PM EDT) TSH reflex Free T4 0.53 0.32 - 4.0 uIU/mL [facility] Blood 01/19/2025 12:1 1 PM EDT 01/19/2025 1:21 PM EDT us Celine Aldana MD LAB BLOOD ORDERABLES Final Resul t Performing Organization Address [facility] Co de Phone Number [facility] [address] [place] [phone] * (ABNORMAL) Lipid Panel with Reflex to Direct LDL (01/19/2025 12:11 PM EDT) Triglycerides 149 <150 mg/dL [facility] Comment:Desirable Triglyceri de: less than 150 mg/dLBorderline High Triglyceride 150-199 mg/dLHigh Triglyceride: 200-499 mg/dLVery High Triglyceride: greater than or equal to 5OO mg/dL Cholesterol 222(H) <200 mg/dL [facility] Comment:Desirable Cholestero l: less than 200 mg/dLBorderline High Cholesterol: 200-239 mg/dLHigh Cholesterol: greater than 239 mg/dL LDL Cholesterol Calculated 150(H) <100 mg/dL [facility] Comment:Desirable LDL: less than 100 mg/dLNear Optimal/Above Optimal LDL: 110- 129 mg/dLBorderline High LDL: 130-159 mg/dLHigh LDL: 160-189 mg/dLVery High LDL: greater than or equal to 190 mg/dL HDL Cholesterol 43 >40 mg/dL [facility] Comment:Desirable HDL: great er than 40 mg/dL Note: This HDL assay may give artificially low results in patients with liver disease. Blood 01/19/2025 12:1 1 PM EDT 01/19/2025 1:21 PM EDT us Celine Aldana MD LAB BLOOD ORDERABLES Final Resul t [facility] [address] [place] [phone] * (ABNORMAL) CBC auto differential (01/19/2025 12:11 PM EDT) White Blood Count 7.3 4.8 - 10.8 X10*3/uL [facility] Red Blood Count 5.25 4.20 - 5.50 X10*6/uL [facility] Hemoglobin 14.0 12.0 - 16.0 g/dl [facility] Hematocrit 44.3 37.0 - 47.0 % [facility] Mean Corpuscular Volume 84.4 80.0 - 98.0 fL [facility] Mean Corpuscular Hemoglobin 26.7(L) 27.0 - 33.0 pg [facility] Mean Corpuscular HGB Conc 31.6 31.0 - 35.0 g/dl [facility] [facility] Red Cell Distribution Width 14.2 11.0 - 16.0 % [facility] Platelet Count 353 160 - 400 X10*3/uL [facility] Mean Platelet Volume 11.4 9.4 - 12.3 fL [facility] Neutrophils Percent Auto 51.5 45 - 73 % [facility] Imm Gran Pct Auto 0.1 0.0 - 0.4 % [facility] Lymphocytes Percent Auto 36.7 20 - 40 % [facility] Monocytes Percent Auto 9.5 2 - 11 % [facility] Eosinophils Percent Auto 1.8 0 - 4 % [facility] Basophils Percent Auto 0.4 0 - 2 % [facility] NRBC Pct Auto 0.0 0.0 - 0.2 /100WBC [facility] Neutrophils Absolute Auto 3.7 2.0 - 8.3 x10*3/uL [facility] Imm Gran Abs Auto 0.01 0.00 - 0.03 X10*3/uL [facility] Lymphocytes Absolute Auto 2.7 1.2 - 4.9 X10*3/uL [facility] Monocytes Absolute Auto 0.7 0.1 - 1.2 X10*3/uL [facility] Eosinophils Absolute Auto 0.1 0.0 - 0.4 X10*3/uL [facility] Basophils Absolute Auto 0.0 0.0 - 0.2 X10*3/uL [facility] NRBC Abs Auto 0.000 0.0 - 0.012 X10*3/uL [facility] Blood Venous blood specimen / Unknown 01/19/2025 12:11 PM EDT 01/19/2025 1:21 PM EDT Celine Aldana MD LAB BLOOD ORDERABLES Final Resul t Performing Organization Address [facility] Co de Phone Number [facility] [address] [place] [phone] * Culture, Urine, Routine (01/19/2025 12:11 PM EDT) Urine Urine specimen obtained by clean catch procedure / Unknown 01/19/2025 12:11 PM EDT 01/19/2025 1:32 PM EDT Comment:UACC Narrative [facility] - 01/20/2025 1:11 PM EDT Strep agalactiae (Grp B) Quant 10,000 to 50,000 cfu/mL Susc N/A Susceptibility not routinely performed on this isolate. Specimen Source: Urine clean catch Celine Aldana MD LAB MICROBIOLOGY - GENERAL ORDER DEVONTE Final Result Performing Organization Address [facility]/ZIP Co de Phone Number [facility] [address] [place] [phone] * Hemoglobin A1c (01/19/2025 12:11 PM EDT) Hemoglobin A1c 5.5 <6.0 % [facility] Comment:Hemoglobin A1C Refer ence Range Adults: 4.8 - 6.0 % Non diabetic: < 6.0 % Goal: < 7.0 %Additional Action Suggested: > 8.0 %Note: Hemoglobin A1c results are invalid for patients with abnormal amounts of HbF. Blood transfusions may impact the HbA1c concentration in the patient sample. Estimated Average Glucose 111 mg/dL [facility] Comment:eAG = Estimated ave rage glucose which is %A1C expressed asaverage glucose, using the formula of the B3Z-WznwkcnElyqell Glucose study (ADAG), Diabetes Care, Vol.31,#8,Jan. 2007 Blood Venous blood specimen / Unknown 01/19/2025 12:11 PM EDT 01/19/2025 1:21 PM EDT us Celine Aldana MD LAB BLOOD ORDERABLES Final Resul t [facility] [address] [place] [address] [phone] * (ABNORMAL) Comprehensive Metabolic Panel (01/19/2025 12:11 PM EDT) Sodium 144 135 - 145 mmol/L [facility] Potassium 4.1 3.3 - 5.1 mmol/L [facility] Chloride 108 96 - 108 mmol/L [facility] Carbon Dioxide 27 22 - 29 mmol/L [facility] Anion Gap 13 12 - 20 [facility] Urea Nitrogen (BUN) 12 9 - 16 mg/dL [facility] Creatinine, Serum 0.73 0.5 - 1.4 mg/dL [facility] Estimated Glomerular Filt Rate >60 [facility] Comment:Chronic Kidney Disea se: Estimated GFR < 60 mL/min/1.62q1Dyhxly Kidney Disease: Estimated GFR < 15 mL/min/1.73m2 Glucose 105 60 - 115 mg/dL [facility] Calcium 9.8 8.4 - 10.2 mg/dL [facility] Bilirubin, Total 0.8 0.0 - 1.0 mg/dL [facility] Aspartate Amino Transferase 35(H) 5 - 31 U/L [facility] Alanine Aminotransferase 34(H) 0 - 31 U/L [facility] Total Protein 7.3 6.5 - 8.0 g/dL [facility] Albumin Level 4.4 3.5 - 5.0 g/dL [facility] Alkaline Phosphatase 202(H) 39 - 117 U/L [facility] Blood Venous blood specimen / Unknown 01/19/2025 12:11 PM EDT 01/19/2025 1:21 PM EDT Celine Aldana MD LAB BLOOD ORDERABLES Final Resul t [facility] [address] [place] [phone] * BI Mammogram Screening Tomosynthesis Bilateral (08/20/2024 1:30 PM EDT) Anatomical Region Laterality Modality Breast Bilateral Mammography 08/20/2024 1:30 PM EDT Narrative 08/29/2024 10:40 AM EDT [facility] [address] [place] [address] Mammography Report Signed Patient: Iliana James MR#: [id number] 0 : 1965 Acct:[id number] Age/Sex: 59 / F ADM Date: 08/20/24 Loc: .MAMMO Attending Dr: Celine Aldana MD Ordering Physician: Celine Aldana MD Results: 1Negative Date of Service: 08/20/24 Follow Up: 1 Year From [facility] Mammogram Procedure(s): MM tomosynthesis screening BI Accession Number(s): [id number] cc: Celine Aldana MD EXAMINATION: MM SCREENING [...] 08/29/24 1038 DD/ 1330 TD/TT: 08/20/24 1340 Nut Grinder: Procedure Note Donotuseinterpreter, Image - 08/29/2024 [facility] [address] [place] [address] Mammography Report Signed Patient: Iliana James EMR#: [id number] 0 : 1965Acct:[id number] Age/Sex: 59 / FADM Date: 08/20/24 Loc: JOSE ALEJANDRO Attending Dr: Celine Aldana MD Ordering Physician: Celine Aldana MDResults: 1Negative Date of Service: 08/20/24Follow Up: 1 Year From Orig ina Mammogram Procedure(s): MM tomosynthesis screening BI Accession Number(s): [id number] cc: Celine Aldana MD EXAMINATION: MM SCREENING [...] 08/29/24 1038 DD/ 1330 TD/TT: 08/20/24 1340 Nut Grinder: Celine Aldana MD IM BI PROCEDURES Edited Result - Final * Colonoscopy (05/27/2014) Colonoscopy Normal Normal 05/27/2014 Historical Provider HEALTH MAINTENANCE Final Result from Last 3 Months or Most Recently Relevant to Health Maintenance Insurance C3 [facility] MEDICA[facility] STAND ADULT Advance Directives Documents on File Type Date Recorded Patient Structural Iron Worker Expl anation Advance Directives and Living Will 10/20/2024 1:23 PM MOLST Advance Directives and Living Will 10/20/2024 11:18 AM Health Care Proxy Care Teams Air Support Control Officer Relationship Specialty Start Date End Date Celine Aldana MD [address] [place] [phone] PCP - General Family Medicine 06/10/18 Milo 10/08/24
--- OUTSIDE RECORDS SUMMARY | 2025-04-20 16:16 | XMS_ITS | Encounter Summary ---
Author Organization [employer] Address [address] [place] [address] [place] [address] Care Team Providers Care Apple Turner Name Role Phone Celine Aldana MD Primary Care Provider [phone] Reason for Visit * Reason Onset Date Comments Results 10/05/2024 Encounter Details Date Type Department Care Team ([facility] st Contact Info) Description 10/05/2024 Telephone [facility] MEDICINE [address] [place], [place] [phone] Luana Villalba, PharmD [address] [place] [address] Results Social History Tobacco Use Types Packs/Day [...] Description 10/14/2025 9:30 AM EDT Office Visit [facility] ADULT DENTAL [address] [place] [address] Agnes, Dayana [address] [place] [address] documented as of this encounter Visit Diagnoses Not on filedocumented in this encounter Additional Health Concerns Assessment Noted Time PHQ-9 Depression Total Score: 7 03/02/20 24 9:35 AM EDT documented as of this encounter Care Teams Apple Turner Relationship Specialty Start Date End Date Celine Aldana MD [address] [place] [address] PCP - General Family Medicine 06/10/18 Milo 10/08/24 documented as of this encounter
--- OUTSIDE RECORDS SUMMARY | 2025-04-20 16:16 | XMS_ITS | Encounter Summary ---
Author Organization [employer] Address [address] [facility] 7t [place] [address] Care Team Providers Care Recruit Instructor Name Role Phone Celine Aldana MD Primary Care Provider [phone] Reason for Visit * Reason Comments Med Refill Encounter Details Date Type Department Care Team ([facility] st Contact Info) Description 07/24/2024 Refill [facility] [address] [place], [place] [phone] Woo Powell MD [address] [place] [address] Social History Tobacco Use Types Packs/Day Years [...] Description 10/14/2025 9:30 AM EDT Office Visit [facility] ADULT DENTAL [address] [place] [address] Agnes, Dayana [address] [place] [address] documented as of this encounter Visit Diagnoses Not on filedocumented in this encounter Additional Health Concerns Assessment Noted Time PHQ-9 Depression Total Score: 7 03/02/20 24 9:35 AM EDT documented as of this encounter Care Teams Recruit Instructor Relationship Specialty Start Date End Date Celine Aldana MD [address] [place] [address] PCP - General Family Medicine 06/10/18 Milo 10/08/24 documented as of this encounter
--- OUTSIDE RECORDS SUMMARY | 2025-04-20 16:16 | XMS_ITS | Encounter Summary ---
Author Organization [employer] Address [address] [facility] 7t [place] [address] Care Team Providers Care Digital Watch Assembler Name Role Phone Celine Aldana MD Primary Care Provider [phone] Reason for Referral * Consultation (Routine) - Canceled Specialty Diagnoses / Procedures Referred By Contac t Referred To Contact Neurology Diagnoses Dizziness Celine Aldana MD [address] [place] [phone] Phone: tel: fax: [facility] Neurology [address] [place] [address] Phone: tel: fax: Referral ID Status Reason Start Date Expiration Date Visits Requested Visits Authorized [id number] Canceled Specialty Services Required 04/09/2024 04/09/2025 6 6 Encounter Details Date Type Department Care Team (Late st Contact Info) Description 04/09/2024 Orders Only [facility] MED[facility]INE [address] [place] [phone] Celine Aldana MD [address] [place], [place] [phone] Dizziness (Primary Dx) Social History Tobacco Use [...] Description 10/14/2025 9:30 AM EDT Office Visit [facility] ADULT [facility] [address] [place] [address] Dayana Alarcon [address] [place] [address] Scheduled Referrals Name Type Priority Associated Diagnoses Orde r Schedule Referral to Neurology Outpatient Referral Routine Dizziness Expected: 04/09/2024 (Approximate), Expires: 04/09/2025 documented as of this encounter Visit Diagnoses Diagnosis Dizziness- Primary Dizziness and giddiness documented in this encounter Additional Health Concerns Assessment Noted Time PHQ-9 Depression Total Score: 7 03/02/20 24 9:35 AM EDT documented as of this encounter Care Teams Digital Watch Assembler Relationship Specialty Start Date End Date Celine Aldana MD [address] [place] [address] PCP - General Family Medicine 06/10/18 Milo 10/08/24 documented as of this encounter
--- OUTSIDE RECORDS SUMMARY | 2025-04-20 16:16 | XMS_ITS | Encounter Summary ---
Author Organization [employer] Address [address] [facility] 7 [place] [address] Care Team Providers Care Glass Furnace Tender Name Role Phone Celine Aldana MD Primary Care Provider [phone] Reason for Visit * Reason Onset Date Comments Prior Authorization 11/06/2024 Encounter Details Date Type Department Care Team (Late st Contact Info) Description 11/06/2024 Telephone [facility] MEDICINE [address] [place], [place] [phone] Celine Aldana MD [address] [place], [place] [phone] Prior Authorization Social History Tobacco Use Types [...] encounter Miscellaneous Notes * Telephone Encounter - aNdira Moe - 11/06/2024 2:34 PM EDT Tc from pt stating PA needed for Tirzepatide-Weight Management (Zepbound) 2.5 MG/0.5ML solution auto-injector documented in this encounter Plan of Treatment Upcoming Encounters Date Type Department Care Team (Late st Contact Info) Description 10/14/2025 9:30 AM EDT Office Visit [facility] ADULT DENTAL [address] [place] [address] Agnes, Dayana [address] [place] [address] documented as of this encounter Visit Diagnoses Not on filedocumented in this encounter Additional Health Concerns Assessment Noted Time PHQ-9 Depression Total Score: 7 03/02/20 24 9:35 AM EDT documented as of this encounter Care Teams Glass Furnace Tender Relationship Specialty Start Date End Date Celine Aldana MD [address] [place] [address] PCP - General Family Medicine 06/10/18 Milo 10/08/24 documented as of this encounter
--- OUTSIDE RECORDS SUMMARY | 2025-04-20 16:16 | XMS_ITS | Encounter Summary ---
Author Organization [employer] [facility] Address [address] [place] [address] 7 [place] [address] Care Team Providers Care Truckman Name Role Phone Celine Aldana MD Primary Care Provider [phone] Encounter Details Date Type Department Care Team (Latest Contact Info) Description 08/02/2020 Abstract [facility] CONVERSION[facility] Dental, Provider, DDS Social History [...] Description 10/14/2025 9:30 AM EDT Office Visit [facility] ADULT DENTAL [address] [place] [address] Agnes, Dayana [address] [place] [address] documented as of this encounter Visit Diagnoses Not on filedocumented in this encounter Care Teams Truckman Relationship Specialty Start Date End Date Celine Aldana MD [address] [place] [address] PCP - General Family Medicine 06/10/18 Milo 10/08/24 documented as of this encounter
--- OUTSIDE RECORDS SUMMARY | 2025-04-20 16:16 | XMS_ITS | Encounter Summary ---
Author Organization [employer] Address [address] [facility] 7 [place] [address] Care Team Providers Care Software Security Consultant Name Role Phone Celine Aldana MD Primary Care Provider [phone] Reason for Visit * Reason Onset Date Comments Prior Authorization 01/25/2025 Encounter Details Date Type Department Care Team (Late st Contact Info) Description 01/25/[address] [facility] MEDICINE [address] [place], [place] [phone] Celine Aldana MD [address] [place], [place] [phone] Prior Authorization Social History Tobacco Use Types [...] any questions you can contact pt at [phone]. (Uzbek Speaker) documented in this encounter Plan of Treatment Upcoming Encounters Date Type Department Care Team (Late st Contact Info) Description 10/14/2025 9:30 AM EDT Office Visit [facility] ADULT DENTAL [address] [place] [address] Agnes, Dayana [address] [place] [address] documented as of this encounter Visit Diagnoses Not on filedocumented in this encounter Additional Health Concerns Assessment Noted Time PHQ-9 Depression Total Score: 7 03/02/20 24 9:35 AM EDT documented as of this encounter Care Teams Software Security Consultant Relationship Specialty Start Date End Date Celine Aldana MD [address] [place] [address] PCP - General Family Medicine 06/10/18 Milo 10/08/24 documented as of this encounter
--- OUTSIDE RECORDS SUMMARY | 2025-04-20 16:16 | XMS_ITS | Encounter Summary ---
Author Organization [email or web address] Address [address] [facility] 7 [place] [address] Care Team Providers Care Wool Hanker Name Role Phone Celine Aldana MD Primary Care Provider [phone] Reason for Referral * Consultation (Routine) - Closed Specialty Diagnoses / Procedures Referred By Contac t Referred To Contact Neurosurgery Diagnoses Meningioma (CMS/HCC) (HCC) Celine Aldana MD [address] [place] [address] Phone: tel: fax: Neurosurgery, [address] [place], [place] Phone: tel: fax: Referral ID Status Reason Start Date Expiration Date V isits Requested Visits Authorized [id number] Closed Specialty Services Required 04/24/2024 04/24/2025 10 10 Encounter Details Date Type Department Care Team (Late st Contact Info) Description 04/21/2024 Orders Only [facility] MEDICINE [address] [place], [place] [phone] Celine Aldana MD [address] [place], [place] [phone] Meningioma (CMS/HCC) (Primary Dx) Social History Tobacco [...] Description 10/14/2025 9:30 AM EDT Office Visit [facility] ADULT DENTAL [address] [place] [address] Dayana Alarcon [address] [place] [address] Scheduled Referrals Name Type Priority Associated Diagnoses [...] documented as of this encounter Care Teams Wool Hanker Relationship Specialty Start Date End Date Celine Aldana MD [address] [place] [address] PCP - General Family Medicine 06/10/18 Milo 10/08/24 documented as of this encounter
--- OUTSIDE RECORDS SUMMARY | 2025-04-20 16:16 | XMS_ITS | Encounter Summary ---
Author Organization [employer] Address [address] [facility] 7t [place] [address] Care Team Providers Care Reel And Rewinder Operator Name Role Phone Celine Aldana MD Primary Care Provider [phone] Encounter Details Date Type Department Care Team (Latest Contact Info) Description 04/15/2025 Travel Social History Tobacco Use Types Packs/Day [...] AM EDT documented as of this encounter Functional Status * Over the past 2 weeks, how often have you been bothered by any of the following problems? Question Answer Date of Assessment Author Patient Health Questionnaire -2 Score 2 04/15/2025 10:21 AM Francisca Bragg [place] * Little interest or pleasure in doing things Answer Date of Assessment Author Several days 04/15/2025 10:21 AM Joellen Bragg [place] * Feeling down, depressed, or hopeless [...] [place] documented as of this encounter Plan of Treatment Upcoming Encounters Date Type Department Care Team (Late st Contact Info) Description 10/14/2025 9:30 AM EDT Office Visit [facility] ADULT DENTAL [address] [place] [address] AgnesDayana [address] [place] [address] documented as of this encounter Visit Diagnoses Not on filedocumented in this encounter Additional Health Concerns Assessment Noted Time PHQ-9 Depression Total Score: 8 04/15/20 10:21 AM EST documented as of this encounter Care Teams Reel And Rewinder Operator Relationship Specialty Start Date End Date Celine Aldana MD [address] [place] [address] PCP - General Family Medicine 06/10/18 Milo 10/08/24 documented as of this encounter
--- OUTSIDE RECORDS SUMMARY | 2025-04-20 16:16 | XMS_ITS | Encounter Summary ---
Author Organization [employer] Address [address] [facility] 7t [place] [address] Care Team Providers Care Special Services Supervisor Name Role Phone Celnie Aldana MD Primary Care Provider [phone] Reason for Visit * Reason Onset Date Comments Nurse Triage 01/25/2025 Encounter Details Date Type Department Care Team ([facility] st Contact Info) Description 01/25/2025 Telephone [facility] MEDICINE [address] [place], [place] [phone] Celine Aldana MD [address] [place], [place] [phone] Nurse Triage Social History Tobacco Use Types [...] 01/25/2025 3:52 PM EDT Triage call with [facility] [place] physical therapist [place] [id number]. Pt reports having had surgery on left [...] higher acuity questions Please contact pt at [phone]. (Omani Speaker) documented in this encounter Plan of Treatment Upcoming Encounters Date Type Department Care Team (Late st Contact Info) Description 10/14/2025 9:30 AM EDT Office Visit [facility] ADULT DENTAL [address] [place] [address] Agnes, Dayana [address] [place] [address] documented as of this encounter Visit Diagnoses Not on filedocumented in this encounter Additional Health Concerns Assessment Noted Time PHQ-9 Depression Total Score: 7 03/02/ 24 9:35 AM EDT documented as of this encounter Care Teams Special Services Supervisor Relationship Specialty Start Date End Date Celine Aldana MD [address] [place] [address] PCP - General Family Medicine 06/10/18 Milo 10/08/24 documented as of this encounter
--- OUTSIDE RECORDS SUMMARY | 2025-06-03 19:00 | XMS_ITS | Clinical Summary ---
Author Organization Unknown Care Team Providers Care Land Lease Information Clerk Name Role Phone GEOVANNA POP, LEIGHANN Unavailable Unavailable GASPER CHRISTIAN RN Unavailable Unavailable Payers Payer Name Policy Type Policy Number Effective Date Expira tion Date MEDICAID [facility] [id number] Problems Condition Name Condition Details Condition Category [...] 10-08 00:00: 00 04-04 23:59 :00 No [id number] 1 tablet DAILY 1 tablet DAILY (route: oral) Med Classific ation: Analgesic , Anti-infl ammatory or Antipyret ic clonazepam 1 mg tablet 10-08 00:00: 00 Yes [id number] 0.5 tablet 3 TIMES DAILY 0.5 tablet 3 TIMES DAILY (route: oral) Med Classific ation: Central Nervous System Agents oxycodone 5 mg tablet 10-08 00:00: 00 04-03 23:59 :00 No [id number] Per instruc tions EVERY 4 HOURS Per instructio ns EVERY 4 HOURS (route: oral) Med Classific ation: Analgesic , Anti-infl ammatory or Antipyret ic acetaminoph en 325 mg tablet 10-08 00:00: 00 Yes [id number] 3 tablet EVERY 8 HOURS 3 tablet EVERY 8 HOURS (route: oral) Med Classific ation: Analgesic , Anti-infl ammatory or Antipyret ic Airsupra 90 mcg-80 mcg/actuati on HFA aerosol inhaler 10-08 00:00: 00 Yes [id number] WHEEZING OR SHORTNESS OF BREATH 1 puff EVERY 4 HOURS 1 puff EVERY 4 HOURS (route: inhalation ) Med Classific ation: Respirato ry Therapy Agents buspirone 10 mg tablet 10-08 00:00: 00 04-04 23:59 :00 No [id number] FOR ANXIETY 1 tablet DAILY 1 tablet DAILY (route: oral) Med Classific ation: Central Nervous System Agents Calcium Antacid 200 mg (as calcium carbonate 500 mg) chewable tablet 10-08 00:00: 00 Yes [id number] 1 tablet EVERY 6 HOURS 1 tablet EVERY 6 HOURS (route: oral) Med Classific ation: Gastroint estinal Therapy Agents cetirizine 5 mg tablet 10-08 00:00: 00 Yes [id number] 1 tablet DAILY 1 tablet DAILY (route: oral) Med Classific ation: Respirato ry Therapy Agents magnesium hydroxide 400 mg/5 mL oral suspension 10-08 00:00: 00 04-03 23:59 :00 No [id number] 30 mL DAILY 30 mL DAILY (route: oral) Med Classific ation: Gastroint estinal Therapy Agents pantoprazol e 40 mg tablet,shelton yed release 10-08 00:00: 00 Yes [id number] 1 tablet DAILY 1 tablet DAILY (route: oral) Med Classific ation: Gastroint estinal Therapy Agents bacitracin 500 unit/gram topical ointment 2024-06 00:00: 00 Yes [id number] 1 inch DAILY 1 inch DAILY (route: topical) Med Classific ation: Dermatolo gical cholecalcif daljit (vitamin D3) 25 mcg (1,000 unit) capsule 2024-06 00:00: 00 Yes [id number] 1 capsule DAILY 1 capsule DAILY (route: oral) Med Classific ation: Electroly te Balance-N utritiona l Products duloxetine 30 mg capsule,del ayed release 2024-06 00:00: 00 Yes [id number] 30 mg DAILY 30 mg DAILY (route: oral) Med Classific ation: Central Nervous System Agents Zepbound 2.5 mg/0.5 mL subcutaneou s pen injector 2024-06 00:00: 00 Yes [id number] 2.5 mg WEEKLY 2.5 mg WEEKLY (route: subcutaneo us) Med Classific ation: Weight Loss/Gain Agents Immunizations Ordered Immunization Name Filled Immunization Name Date Status Comments Refusal Reason REFUSED FLU, PPV 2024-10-08 00:00:00 Vital Signs Vital Name Observation Time Observation Value Commen ts Temperature 2025-04-19 15:53:00.000 98.6 [degF] Temperature 2025-04-16 20:52:00.000 98.6 [degF] Temperature 2025-04-14 10:25:00.000 98.6 [degF] Temperature 2025-04-12 15:33:00.000 98.6 [degF] Temperature 2025-04-10 11:54:00.000 98.6 [degF] Temperature 2025-04-07 09:40:00.000 98.6 [degF] Pulse 2025-04-19 15:53:00.000 82 /min Pulse 2025-04-16 20:52:00.000 82 /min Pulse 2025-04-14 10:25:00.000 82 /min Pulse 2025-04-12 15:33:00.000 78 /min Pulse 2025-04-10 11:54:00.000 82 /min Pulse 2025-04-07 09:40:00.000 82 /min Respirations 2025-04-19 15:53:00.000 20 /min Respirations 2025-04-16 20:52:00.000 20 /min Respirations 2025-04-14 10:25:00.000 20 /min Respirations 2025-04-12 15:33:00.000 20 /min Respirations 2025-04-10 11:54:00.000 20 /min Respirations 2025-04-07 09:40:00.000 20 /min Systolic Blood Pressure 2025-04-19 15:53:00.000 138 mm [Hg] Systolic Blood Pressure 2025-04-16 20:52:00.000 142 mm [Hg] Systolic Blood Pressure 2025-04-14 10:25:00.000 132 mm [Hg] Systolic Blood Pressure 2025-04-12 15:33:00.000 141 mm [Hg] Systolic Blood Pressure 2025-04-10 11:54:00.000 140 mm [Hg] Systolic Blood Pressure 2025-04-07 09:40:00.000 142 mm [Hg] Diastolic Blood Pressure 2025-04-19 15:53:00.000 70 mm [Hg] Diastolic Blood Pressure 2025-04-16 20:52:00.000 80 mm [Hg] Diastolic Blood Pressure 2025-04-14 10:25:00.000 78 mm [Hg] Diastolic Blood Pressure 2025-04-12 15:33:00.000 71 mm [Hg] Diastolic Blood Pressure 2025-04-10 11:54:00.000 [...] AWARENESS FOR SAFETY AND WILL NOTIFY CLINICAL UNION REPRESENTATIVE AND PHYSICIAN/PROVIDER WITH ANY CHANGE IN CONDITION. [code = SKILLED NURSE WILL MAINTAIN SITUATIONAL AWARENESS FOR SAFETY AND WILL NOTIFY CLINICAL UNION REPRESENTATIVE AND PHYSICIAN/PROVIDER WITH ANY CHANGE IN CONDITION.] [...] CARE WILL BE ESTABLISHED THAT MEETS PATIENT'S DETENTION NEEDS AND INCLUDES PATIENT GOAL FOR HOME [...] End Date/Time Encounter Type Admission Type Attending [facility] Care [facility] Care Department Encounter ID Discharge Date Discharge Status Discharge Condition Discharge Reason Percent Goals Met 2025-04-06 00:00:00 2025-06-04 00:00:00 Outpatient RECERTIFIC GASPER WHEAT [facility] [id number] 3.23
== END 2025-04-20 15:10 | disposition home or self-care (01) ==
LOC: HO.HGS 14:34
PROVIDERS: PCP Family Medicine; Visit Provider Surgery
DX: D17.24 Benign lipomatous neoplasm of skin and subcutaneous tissue of left leg (principal)
CPT/HCPCS: 99024

== ENCOUNTER → 2025-04-20 14:33 | Outpatient (BNVA) | payer MEDICAID, SELFPAY | PROVIDERS: PCP Family Medicine; Visit Provider Surgery | DX: Z98.890 Other specified postprocedural states (principal); D17.24 Benign lipomatous neoplasm of skin and subcutaneous tissue of left leg | CPT/HCPCS: 99212 ==